=== PATIENT | female | born 1955 | race Caucasian/White ===

== ENCOUNTER 2016-05-17 08:34 | Observation (INO) ==
--- NOTE | 2016-05-17 08:39 | Emergency Department Note ---
Disposition Clinical Impression: ADONIS (acute kidney injury), Hematemesis, Melena, Nausea & vomiting Disposition: Admitted As Inpatient Condition: Fair General Adult HPI - General Chief complaint: ED Nausea/Vomiting/Diarrhea Stated complaint: N/V/D Time Seen by Provider: 05/17/16 08:37 - Related Data Home Medications Medication Instructions Recorded Confirmed Aspirin 81 mg PO QAM 11/14/14 05/17/16 Atorvastatin [Lipitor] 40 mg PO DAILY 11/14/14 05/17/16 Sennosides/Docusate Sodium [Senna 1 tab PO DAILY PRN 11/14/14 05/17/16 Plus] Apixaban [Eliquis] 5 mg PO BID 12/06/15 05/17/16 Gabapentin [Neurontin] 1,200 mg PO 12/06/15 05/17/16 Insulin ASPART [Novolog Flexpen] 10 unit SQ QPM 12/06/15 05/17/16 Insulin Glargine [Lantus] 80 unit SQ HS 12/06/15 05/17/16 Metoprolol XL (24 HR) Succ [Toprol 50 mg PO HS 12/06/15 05/17/16 Xl] Duloxetine HCl [Cymbalta] 120 mg PO QA 05/17/16 05/17/16 Empagliflozin [Jardiance] 25 mg PO QA 05/17/16 05/17/16 Glimepiride [Amaryl] 4 mg PO QA 05/17/16 05/17/16 Liraglutide [Victoza 2-Aubrey] 1.2 mg SQ DAILY 05/17/16 05/17/16 Lisinopril [Zestril] 20 mg PO DAILY 05/17/16 05/17/16 Nortriptyline [Pamelor] 25 mg PO QA 05/17/16 05/17/16 Pantoprazole Sodium [Protonix] 40 mg PO 05/17/16 05/17/16 Propafenone HCl [Rythmol Sr] 325 mg PO BID 05/17/16 05/17/16 Quetiapine Fumarate [Seroquel] 200 mg PO 05/17/16 05/17/16 Spironolactone [Aldactone] 25 mg PO QAM 05/17/16 05/17/16 Previous Rx's Medication Instructions Recorded Promethazine [Phenergan] 25 mg PO Q8HR PRN #21 tablet 03/26/15 Amitriptyline [Elavil] 25 mg PO HS #30 tablet 08/23/15 Allergies Allergy/AdvReac Type Severity Reaction Status Date / Time Sulfa (Sulfonamide Allergy Severe Anaphylaxis Verified 05/17/16 08:53 Antibiotics) Penicillins Allergy Unknown unknown Verified 05/17/16 08:53 prednisone AdvReac Mild swelling Verified 05/17/16 08:53 Past Medical History - Past Medical History Medical history: Reports: arthritis, atrial fibrillation, COPD, CVA, diabetes, fibromyalgia, GERD, hyperlipidemia, hypertension, migraine, osteoporosis, TIA, other Surgical history: Reports: appendectomy, hysterectomy, other Psychiatric history: Reports: anxiety, depression - Social History Smoking Status: Current every day smoker Smokeless Tobacco Status: No Alcohol use: Reports: none Drug use: Reports: none Course Vital Signs Temperature 98.2 F 05/17/16 08:36 Pulse Rate 96 05/17/16 08:36 Respiratory Rate 18 05/17/16 08:36 Blood Pressure 111/63 05/17/16 08:36 O2 Sat by Pulse Oximetry 98 05/17/16 08:36 Temperature 98.2 F 05/17/16 08:36 Pulse Rate 94 05/17/16 12:26 Respiratory Rate 17 05/17/16 12:33 Blood Pressure 126/77 05/17/16 12:33 O2 Sat by Pulse Oximetry 97 05/17/16 12:26 Oxygen Delivery Oxygen Delivery Room Air Medical Decision Making - Lab Data Result diagrams: 05/17/16 09:08 05/17/16 09:08 Lab Results 05/17/16 05/17/16 05/17/16 Range/Units 09:08 09:08 09:08 WBC 7.9 (4.3-11.1) K/mcL RBC 4.52 (3.82-4.97) M/mcL Hgb 14.2 (11.5-15.4) g/dL Hct 41.0 (35.3-44.9) % MCV 90.7 (83.0-100.0) fL MCH 31.4 (28.0-33.3) pg MCHC 34.6 (31.6-35.5) g/dL RDW 13.7 (11.5-14.5) % Plt Count 222 (140-400) K/mcL MPV 9.8 (9.4-12.4) fL Immature Gran % 0.4 (0-4) % Seg Neutrophils % 68.7 % Lymphocytes % 19.2 % Monocytes % 11.2 % Eosinophils % 0.0 % Basophils % 0.5 % Neutrophils # 5.4 (1.6-8.9) K/mcL Lymphocytes # 1.5 (0.6-4.6) K/mcL Monocytes # 0.9 (0.0-1.3) K/mcL Eosinophils # 0.0 (0.0-0.6) K/mcL Basophils # 0.0 (0.0-0.2) K/mcL Immature Plt Fraction 3.3 (1.1-6.1) % PT 17.2 H (9.4-12.1) Seconds INR 1.6 Sodium 136 (136-145) mEq/L Potassium 3.9 (3.5-4.5) mEq/L Chloride 98 (98-109) mEq/L Carbon Dioxide 20 (19-29) mEq/L BUN 86 H (7-20) mg/dL Creatinine 2.72 H (0.57-1.11) mg/dL Est GFR ( Amer) 22 L (> 60) Est GFR (Non-Af Amer) 18 L (> 60) BUN/Creatinine Ratio 32 H (6-26) Glucose 129 H (70-99) mg/dL Calculated Osmolality 310 H (280-300) Calcium 9.9 (8.6-10.8) mg/dL Total Bilirubin 1.0 (0.2-1.2) mg/dL AST 14 (5-34) Units/L ALT 15 (0-55) Units/L Alkaline Phosphatase 59 (38-126) Units/L Troponin I (0-0.03) ng/mL Serum Total Protein 8.3 (6.0-8.3) g/dL Albumin 4.1 (3.5-5.0) g/dL Globulin 4.2 H (2.4-3.5) g/dL Albumin/Globulin Ratio 1.0 L (1.1-2.2) Amylase 79 (25-125) Units/L Lipase 18 (8-78) Units/L Urine Color (Yellow) Urine Clarity (Clear) Urine pH (5.0-8.0) pH Units Ur Specific [place] (1.010-1.025) Urine Protein (Neg-Trace) mg/dL Urine Glucose (UA) (Normal) mg/dL Urine Ketones (Negative) mg/dL Urine Blood (Negative) Urine Nitrite (Negative) Urine Bilirubin (Negative) Urine Urobilinogen (Normal) mg/dL Ur Leukocyte Esterase (Negative) Stool Occult Blood (Negative) 05/17/16 05/17/16 05/17/16 Range/Units 09:08 09:34 09:45 WBC (4.3-11.1) K/mcL RBC (3.82-4.97) M/mcL Hgb (11.5-15.4) g/dL Hct (35.3-44.9) % MCV (83.0-100.0) fL MCH (28.0-33.3) pg MCHC (31.6-35.5) g/dL RDW (11.5-14.5) % Plt Count (140-400) K/mcL MPV (9.4-12.4) fL Immature Gran % (0-4) % Seg Neutrophils % % Lymphocytes % % Monocytes % % Eosinophils % % Basophils % % Neutrophils # (1.6-8.9) K/mcL Lymphocytes # (0.6-4.6) K/mcL Monocytes # (0.0-1.3) K/mcL Eosinophils # (0.0-0.6) K/mcL Basophils # (0.0-0.2) K/mcL Immature Plt Fraction (1.1-6.1) % PT (9.4-12.1) Seconds INR Sodium (136-145) mEq/L Potassium (3.5-4.5) mEq/L Chloride (98-109) mEq/L Carbon Dioxide (19-29) mEq/L BUN (7-20) mg/dL Creatinine (0.57-1.11) mg/dL Est GFR ( Amer) (> 60) Est GFR (Non-Af Amer) (> 60) BUN/Creatinine Ratio (6-26) Glucose (70-99) mg/dL Calculated Osmolality (280-300) Calcium (8.6-10.8) mg/dL Total Bilirubin (0.2-1.2) mg/dL AST (5-34) Units/L ALT (0-55) Units/L Alkaline Phosphatase (38-126) Units/L Troponin I 0.01 (0-0.03) ng/mL Serum Total Protein (6.0-8.3) g/dL Albumin (3.5-5.0) g/dL Globulin (2.4-3.5) g/dL Albumin/Globulin Ratio (1.1-2.2) Amylase (25-125) Units/L Lipase (8-78) Units/L Urine Color Yellow (Yellow) Urine Clarity Clear (Clear) Urine pH 5.5 (5.0-8.0) pH Units Ur Specific [place] 1.021 (1.010-1.025) Urine Protein Negative (Neg-Trace) mg/dL Urine Glucose (UA) >=1000 H (Normal) mg/dL Urine Ketones Negative (Negative) mg/dL Urine Blood Negative (Negative) Urine Nitrite Negative (Negative) Urine Bilirubin Negative (Negative) Urine Urobilinogen Normal (Normal) mg/dL Ur Leukocyte Esterase Negative (Negative) Stool Occult Blood Positive A (Negative) Attestation Statement - Attestation Attestation: I examined this patient and my medical decision-making was reviewed with the [employer] PATTERN MAKER/PA/Advanced Practice Nurse/Resident Physician. I agree with the documented findings, disposition and treatment plan as described except to the extent set forth below. [id number] time Patient presents from home via EMS with nausea and vomiting. She appears in no acute distress. Home medication list reviewed by me. Patient seen and evaluated in conjunction with resident physician Dr. Loredo 10:00: Rectal exam performed by the resident physician negative for gross blood. Stool is Hemoccult positive. BUN to creatinine ratio suggests an upper GI bleed. Patient is hemodynamically stable. Hemoglobin appropriate. Patient will require admission 10:07: accepts admission. He recommends IV Protonix bolus without drift. He recommends consultation to endoscopy. Dr. Frederick made aware of consult
[2016-05-17] MEDS ORDERED: Ondansetron 4 MG/2 ML VIAL IV ONE (08:47)
[2016-05-17] MEDS ORDERED: Famotidine 20 MG/2 ML VIAL IVP ONE (08:47)
[2016-05-17] MEDS ORDERED: 0.9 % Sodium Chloride 1,000 ML IVC ONE ×2 (08:47→09:57)
--- NOTE | 2016-05-17 08:47 | Emergency Department Note ---
Disposition Clinical Impression: ADONIS (acute kidney injury), Melena Hematemesis Qualifiers: Nausea presence: with nausea Qualified Code(s): K92.0 - Hematemesis Nausea & vomiting Qualifiers: Vomiting type: hematemesis Qualified Code(s): K92.0 - Hematemesis Disposition: Admitted As Inpatient Condition: Fair Referrals: Sohan Gonsales MD [Primary Care Provider] - Forms: ED Satisfaction Letter Time of Disposition: 11:18 Nausea/Vomiting/Diarrhea HPI - General Chief complaint: ED Nausea/Vomiting/Diarrhea Stated complaint: N/V/D Time Seen by Provider: 05/17/16 08:37 Source: patient Mode of arrival: EMS Nursing Notes Reviewed: Yes Vital Signs Reviewed: Yes - History of Present Illness HPI Narrative: Patient is a 60 year old female with history of hyeprtension, diabetes, stroke in 2016 with reported left sided weakness, back surgery with plate placement in 2003, and surgical history of cholecystectomy who presents to the ED via EMS from home with complaint of nausea and vomiting for the past 3 weeks. Patient reports she has been unable to tolerate food and liquids to any extent without vomiting. Vomitus was initially yellow without blood, this morning reports black specks and orange vomitus. Patient also reports burning of the throat, chest tingling, shortness of breath, lightheadedness, and chills. Also reports some mild abdominal pain, passing gas, and last bowel movement diarrhea watery that was black yesterday evening. Patient has not been taking medication for symptoms. Patient reports that she decided to come in today because she thought the nausea and vomiting went away last night, but returned this morning and not associated with particular worsening of symptoms. Denies fevers, sweats , headaches, changes in vision or hearing, chest pain or pressure, changes in urination, dysuria, hematuria, decreased urination, new weakness, or loss of sensation. Pt Subjective Complaint: nausea, vomiting Onset (ago): week(s) - Related Data Home Medications Medication Instructions Recorded Confirmed Aspirin 81 mg PO QAM 11/14/14 12/06/15 Atorvastatin [Lipitor] 40 mg PO HS 11/14/14 12/06/15 Sennosides/Docusate Sodium [Senna 1 tab PO DAILY 11/14/14 12/06/15 Plus] Apixaban [Eliquis] 5 mg PO BID 12/06/15 12/06/15 Gabapentin [Neurontin] 600 mg PO TID 12/06/15 12/06/15 Insulin ASPART [Novolog Flexpen] 10 unit SQ QPM 12/06/15 12/06/15 Insulin Glargine [Lantus] 60 unit SQ HS 12/06/15 12/06/15 Metoprolol XL (24 HR) Succ [Toprol 50 mg PO DAILY 12/06/15 12/06/15 Xl] Duloxetine HCl [Cymbalta] 120 mg PO QAM 05/17/16 05/17/16 Empagliflozin [Jardiance] 25 mg PO QAM 05/17/16 05/17/16 Glimepiride [Amaryl] 4 mg PO QAM 05/17/16 05/17/16 Liraglutide [Victoza 2-Aubrey] 1.2 mg SQ DAILY 05/17/16 05/17/16 Lisinopril [Zestril] 20 mg PO DAILY 05/17/16 05/17/16 Nortriptyline [Pamelor] 25 mg PO QAM 05/17/16 05/17/16 Pantoprazole Sodium [Protonix] 40 mg PO HS 05/17/16 05/17/16 Propafenone HCl [Rythmol Sr] 325 mg PO BID 05/17/16 05/17/16 Quetiapine Fumarate [Seroquel] 200 mg PO HS 05/17/16 05/17/16 Spironolactone [Aldactone] 25 mg PO QAM 05/17/16 05/17/16 Previous Rx's Medication Instructions Recorded Promethazine [Phenergan] 25 mg PO Q8HR PRN #21 tablet 03/26/15 Amitriptyline [Elavil] 25 mg PO HS #30 tablet 08/23/15 Allergies Allergy/AdvReac Type Severity Reaction Status Date / Time Sulfa (Sulfonamide Allergy Severe Anaphylaxis Verified 05/17/16 08:53 Antibiotics) Penicillins Allergy Unknown unknown Verified 05/17/16 08:53 prednisone AdvReac Mild swelling Verified 05/17/16 08:53 Constitutional: Reports: as per HPI, chills, weakness. Denies: fever, night sweats Eyes: Reports: as per HPI ENT ED: Reports: as per HPI Cardiovascular: Reports: as per HPI. Denies: chest pain, palpitations, edema, syncope Respiratory: Reports: as per HPI, dyspnea. Denies: cough, wheezes, sputum production Gastrointestinal: Reports: as per HPI, abdominal pain, nausea, vomiting, diarrhea, hematemesis, melena, hematochezia. Denies: constipation Genitourinary: Reports: as per HPI. Denies: dysuria, frequency, hematuria Musculoskeletal: Reports: as per HPI, back pain. Denies: neck pain Integumentary: Reports: as per HPI. Denies: rash, abrasion, lesions Neurological: Reports: as per HPI, weakness. Denies: headache, numbness, paresthesias, confusion, abnormal gait, vertigo Psychiatric: Reports: as per HPI Endocrine: Reports: as per HPI Hematological/Lymphatic: Reports: as per HPI. Denies: easy bleeding, easy bruising Past Medical History - Past Medical History Medical history: Reports: arthritis, atrial fibrillation, COPD, CVA, diabetes, fibromyalgia, GERD, hyperlipidemia, hypertension, migraine, osteoporosis, TIA, other Surgical history: Reports: appendectomy, hysterectomy, other Psychiatric history: Reports: anxiety, depression - Social History Smoking Status: Current every day smoker Smokeless Tobacco Status: No Alcohol use: Reports: none Drug use: Reports: none Physical Exam - General Limitations: no limitations General appearance: alert, in distress (mild), obese - Head Head exam: atraumatic, normocephalic, normal inspection - Eye Eye exam: Present: normal appearance, PERRL, EOMI - ENT ENT exam: normal exam, normal oropharynx, mucous membranes dry - Neck Neck exam: Present: normal inspection, full ROM, trachea midline - Chest Chest inspection: Present: normal inspection, symmetric chest wall rise - Respiratory Respiratory exam: Present: normal lung sounds bilaterally, prolonged expiratory phase, other (tachypnea) - Cardiovascular Cardiovascular exam: Present: normal rhythm, tachycardia, normal heart sounds. Absent: systolic murmur - Abdominal Exam Abdominal exam: Present: soft, tenderness, guarding, hypoactive bowel sounds. Absent: distention, rebound, rigidity Abdominal tenderness: Present: RUQ - Rectal Exam [employer] present during exam: Yes Rectal exam: Present: normal rectal tone, heme (+) stool, hemorrhoids, other ( external hemorrhoid note, no overt blood, sample brown no overt blood, normal rectal tone). Absent: black stool, bloody stool, mass, tenderness - Extremities Exam Extremities exam: Present: normal inspection, full ROM, normal capillary refill. Absent: tenderness, pedal edema, calf tenderness - Back Exam Back exam: Present: full ROM, other (surgical scars noted) - Neurological Exam Neurological exam: Present: alert, oriented X3, CN II-XII intact, reflexes normal. Absent: motor sensory deficit - Psychiatric Psychiatric exam: Present: normal affect, normal mood - Skin Skin exam: Present: warm, dry, intact, normal color. Absent: rash, cyanosis, diaphoresis, erythema, pallor Course Course Narrative: Patient is a poor historian who presents with 3 week history of nausea, vomiting , inability to tolerate food and liquids by mouth, abdominal pain, and chills. New onset black stools and hematemesis. Based on history and exam, may be suggestive of gi etiology possibly partial sbo vs bleed most likely upper, though cardiac and pulmonary causes will also be worked up due to complaint of chest tingling and shortness of breath. - Consultations Consultation #1: Spoke with Dr. Brown, hospitalist. will admit. Time: 10:15 Consultation #2: spoke with Dr. Frederick, surgery, will accept consult for evaluation and possible endoscopy. Time: 10:15 Vital Signs Temperature 98.2 F 05/17/16 08:36 Pulse Rate 96 05/17/16 08:36 Respiratory Rate 18 05/17/16 08:36 Blood Pressure 111/63 05/17/16 08:36 O2 Sat by Pulse Oximetry 98 05/17/16 08:36 Temperature 98.2 F 05/17/16 08:36 Pulse Rate 89 05/17/16 11:13 Respiratory Rate 17 05/17/16 11:13 Blood Pressure 103/81 05/17/16 11:13 O2 Sat by Pulse Oximetry 99 05/17/16 11:13 Oxygen Delivery Oxygen Delivery Room Air Nausea/Vomiting/Diarrhea - MDM Narrative Medical decision making narrative: Patient is a 60 year old female who presents with hematemesis this morning and black stools for the past 3 weeks. Also reports nausea and vomiting x 3 weeks. Labs reveal elevated Creatinine, elevated BUN, hemoccult is positive. CT revealed hiatal hernia, otherwise negative. Will admit for gi bleed evaluation. Patient is on Eliquis. - Lab Data Lab results reviewed: Yes I reviewed the patient's lab results. Result diagrams: 05/17/16 09:08 05/17/16 09:08 Lab Results 05/17/16 05/17/16 05/17/16 Range/Units 09:08 09:08 09:08 WBC 7.9 (4.3-11.1) K/mcL RBC 4.52 (3.82-4.97) M/mcL Hgb 14.2 (11.5-15.4) g/dL Hct 41.0 (35.3-44.9) % MCV 90.7 (83.0-100.0) fL MCH 31.4 (28.0-33.3) pg MCHC 34.6 (31.6-35.5) g/dL RDW 13.7 (11.5-14.5) % Plt Count 222 (140-400) K/mcL MPV 9.8 (9.4-12.4) fL Immature Gran % 0.4 (0-4) % Seg Neutrophils % 68.7 % Lymphocytes % 19.2 % Monocytes % 11.2 % Eosinophils % 0.0 % Basophils % 0.5 % Neutrophils # 5.4 (1.6-8.9) K/mcL Lymphocytes # 1.5 (0.6-4.6) K/mcL Monocytes # 0.9 (0.0-1.3) K/mcL Eosinophils # 0.0 (0.0-0.6) K/mcL Basophils # 0.0 (0.0-0.2) K/mcL Immature Plt Fraction 3.3 (1.1-6.1) % PT 17.2 H (9.4-12.1) Seconds INR 1.6 Sodium 136 (136-145) mEq/L Potassium 3.9 (3.5-4.5) mEq/L Chloride 98 (98-109) mEq/L Carbon Dioxide 20 (19-29) mEq/L BUN 86 H (7-20) mg/dL Creatinine 2.72 H (0.57-1.11) mg/dL Est GFR ( Amer) 22 L (> 60) Est GFR (Non-Af Amer) 18 L (> 60) BUN/Creatinine Ratio 32 H (6-26) Glucose 129 H (70-99) mg/dL Calculated Osmolality 310 H (280-300) Calcium 9.9 (8.6-10.8) mg/dL Total Bilirubin 1.0 (0.2-1.2) mg/dL AST 14 (5-34) Units/L ALT 15 (0-55) Units/L Alkaline Phosphatase 59 (38-126) Units/L Troponin I (0-0.03) ng/mL Serum Total Protein 8.3 (6.0-8.3) g/dL Albumin 4.1 (3.5-5.0) g/dL Globulin 4.2 H (2.4-3.5) g/dL Albumin/Globulin Ratio 1.0 L (1.1-2.2) Amylase 79 (25-125) Units/L Lipase 18 (8-78) Units/L Urine Color (Yellow) Urine Clarity (Clear) Urine pH (5.0-8.0) pH Units Ur Specific [place] (1.010-1.025) Urine Protein (Neg-Trace) mg/dL Urine Glucose (UA) (Normal) mg/dL Urine Ketones (Negative) mg/dL Urine Blood (Negative) Urine Nitrite (Negative) Urine Bilirubin (Negative) Urine Urobilinogen (Normal) mg/dL Ur Leukocyte Esterase (Negative) Stool Occult Blood (Negative) 05/17/16 05/17/16 05/17/16 Range/Units 09:08 09:34 09:45 WBC (4.3-11.1) K/mcL RBC (3.82-4.97) M/mcL Hgb (11.5-15.4) g/dL Hct (35.3-44.9) % MCV (83.0-100.0) fL MCH (28.0-33.3) pg MCHC (31.6-35.5) g/dL RDW (11.5-14.5) % Plt Count (140-400) K/mcL MPV (9.4-12.4) fL Immature Gran % (0-4) % Seg Neutrophils % % Lymphocytes % % Monocytes % % Eosinophils % % Basophils % % Neutrophils # (1.6-8.9) K/mcL Lymphocytes # (0.6-4.6) K/mcL Monocytes # (0.0-1.3) K/mcL Eosinophils # (0.0-0.6) K/mcL Basophils # (0.0-0.2) K/mcL Immature Plt Fraction (1.1-6.1) % PT (9.4-12.1) Seconds INR Sodium (136-145) mEq/L Potassium (3.5-4.5) mEq/L Chloride (98-109) mEq/L Carbon Dioxide (19-29) mEq/L BUN (7-20) mg/dL Creatinine (0.57-1.11) mg/dL Est GFR ( Amer) (> 60) Est GFR (Non-Af Amer) (> 60) BUN/Creatinine Ratio (6-26) Glucose (70-99) mg/dL Calculated Osmolality (280-300) Calcium (8.6-10.8) mg/dL Total Bilirubin (0.2-1.2) mg/dL AST (5-34) Units/L ALT (0-55) Units/L Alkaline Phosphatase (38-126) Units/L Troponin I 0.01 (0-0.03) ng/mL Serum Total Protein (6.0-8.3) g/dL Albumin (3.5-5.0) g/dL Globulin (2.4-3.5) g/dL Albumin/Globulin Ratio (1.1-2.2) Amylase (25-125) Units/L Lipase (8-78) Units/L Urine Color Yellow (Yellow) Urine Clarity Clear (Clear) Urine pH 5.5 (5.0-8.0) pH Units Ur Specific [place] 1.021 (1.010-1.025) Urine Protein Negative (Neg-Trace) mg/dL Urine Glucose (UA) >=1000 H (Normal) mg/dL Urine Ketones Negative (Negative) mg/dL Urine Blood Negative (Negative) Urine Nitrite Negative (Negative) Urine Bilirubin Negative (Negative) Urine Urobilinogen Normal (Normal) mg/dL Ur Leukocyte Esterase Negative (Negative) Stool Occult Blood Positive A (Negative) - Radiology Data Radiology results reviewed: Yes I reviewed the patient's radiology results. Abdomen/Pelvis CT 05/17/16 08:46 IMPRESSION: Small hiatal hernia. Otherwise negative noncontrast study. D/ / Kathy Anderson Cha, MD / Kathy Anderson Cha, MD Interpreting Provider: Kathy Anderson Cha, MD Chest X-Ray 05/17/16 08:46 IMPRESSION: No acute abnormality. D/ / Jack Bills MD / Jack Bills MD Interpreting Provider: Jack Bills MD - EKG Data EKG attestation: Yes I reviewed and interpreted this EKG. EKG results narrative: Normal sinus rhythm, no changes from comparison. Rate 97, pr int 178, qrs dur 70 ms, QT/QTc 368/423 ms, P-R-T axes 31 2 30, no st elevations or depressions noted, no t wave inversions noted.
[2016-05-17 09:17] LABS: Basophils % 0.5 %; Hemoglobin 14.2 g/dL (11.5-15.4); Immature Granulocytes % 0.4 % (0-4); Immature Platelets 3.3 % (1.1-6.1); Lymphocytes # 1.5 K/mcL (0.6-4.6); Lymphocytes % 19.2 %; Mean Corpuscular HGB Conc 34.6 g/dL (31.6-35.5); Mean Corpuscular Hemoglobin 31.4 pg (28.0-33.3); Mean Corpuscular Volume 90.7 fL (83.0-100.0); Mean Platelet Volume 9.8 fL (9.4-12.4); Monocytes # 0.9 K/mcL (0.0-1.3); Monocytes % 11.2 %; Neutrophils # 5.4 K/mcL (1.6-8.9); Platelet Count 222 K/mcL (140-400); Red Blood Count 4.52 M/mcL (3.82-4.97); Red Cell Distribution Width 13.7 % (11.5-14.5); Segmented Neutrophils % 68.7 %
[2016-05-17 09:24] LABS: INR 1.6; Prothrombin Time 17.2 Seconds (9.4-12.1)
[2016-05-17 09:34] LABS: Albumin 4.1 g/dL (3.5-5.0); Calcium 9.9 mg/dL (8.6-10.8); Globulin 4.2 g/dL (2.4-3.5); Potassium 3.9 mEq/L (3.5-4.5); Total Protein 8.3 g/dL (6.0-8.3)
[2016-05-17 09:55] LABS: Bilirubin,Urine Negative (Negative); Blood,Urine Negative (Negative); Clarity,Urine Clear (Clear); Color,Urine Yellow (Yellow); Glucose,Urine (UA) >=1000 mg/dL (Normal); Ketones,Urine Negative (Negative); Leukocyte Esterase,Urine Negative (Negative); Nitrite,Urine Negative (Negative); PH,Urine 5.5 pH Units (5.0-8.0); Protein,Urine Negative (Neg-Trace); Specific Gravity,Urine 1.021 (1.010-1.025); Urobilinogen,Urine Normal (Normal)
[2016-05-17] MEDS ORDERED: Pantoprazole 40 MG VIAL IVP ONE (10:05)
--- NOTE | 2016-05-17 12:34 | General Surgery Consult Note ---
<Pee Cleveland - Last Filed: 05/17/16 13:20> Date of Encounter: 05/17/16 Time of Encounter: 11:30 Assessment and Plan (1) Hematemesis Current Visit: Yes Status: Acute 2L fluid given in the ED. The patient is not currently anemic. Hb 14.2 upon arrival. Clear liquid diet, with no red products. NPO at midnight. Miralax bowl prep ordered. Patient denies ever having had a colonoscopy. EGD with colonoscopy tomorrow afternoon given prep is adequate. Will been done under MAC. Nausea control with Zofran and Phenergan PRN. Pain control. IV fluids Qualifiers: Nausea presence: with nausea Qualified Code(s): K92.0 - Hematemesis; R11.0 - Nausea (2) Melena Current Visit: Yes Status: Acute Secondary to upper GI bleed. See plan above. (3) RLQ abdominal pain Current Visit: Yes Status: Acute Patient has had appendectomy, hysterectomy, and cholecystectomy. Denies ever having had colonoscopy. See plan above for prep, with possible colonoscopy tomorrow with EGD. (4) Diabetes mellitus Current Visit: No Status: Chronic Management per medicine team. Qualifiers: Diabetes mellitus type: type 2 Diabetes mellitus complication status: with unspecified complications Diabetes mellitus technician terminal and repeater insulin use: with technician terminal and repeater use Qualified Code(s): E11.8 - Type 2 diabetes mellitus with unspecified complications (5) Acute kidney injury Current Visit: No Status: Acute Likely secondary to dehydration with 3 week reported history of N/V/D. Continue IV fluids. Continue to monitor. Avoid nephrotoxins. History of Present Illness Consult date: 05/17/16 Reason for consult: endoscopy Requesting physician: Clarence Capellan History of present illness: This is a 60 year old female with PMH significant for insulin dependent DM, atrial fibrillation, hypertension, previous stroke, and ,GERD who presented for nausea, vomiting, and diarrhea. She states that her symptoms started 3 weeks ago with greenish yellow vomit that progressed to orange with black flecks, and is now described as dark blackish vomit. She additionally has had loose watery stools during this 3 week period and has had several episodes of black tarry stools as well. She states her last dose of Elequis was yesterday, but she does not believe she was able to keep her medication down. She states her most recent bowel movement was yesterday. She describes having more than 5 episodes of vomiting per day and inability to tolerate solids or liquids. She has had a previous episode like this before more than one year ago. She denies history of ulcers, and states she has never had a colonoscopy. Past Med Surg Social Fam HX - Past Medical History Medical history: arthritis, atrial fibrillation, COPD, CVA, diabetes, fibromyalgia, GERD, hyperlipidemia, hypertension, migraine, osteoporosis, TIA, other Psychiatric history: anxiety, depression - Past Surgical History Surgical History: appendectomy, cholecystectomy, hysterectomy, other - Social History Smoking Status: Current every day smoker Smokeless Tobacco Status: No Alcohol use: none Drug use: none - Family History Mother Living Status: Hx Family Cardiac Disorders: Yes (NM) Hx Family Respiratory Disorders: Yes (COPD) Hx Family Cancer: Yes (Breast) Hx Family GI Disorders: No Hx Family Endocrine Disorder: No Hx Family Neuromuscular Disorders: No Hx Family Neurologic Disorders: No Hx Family HEENT Disorders: No Hx Family Autoimmune Disorders: No Father Living Status: Hx Family Cardiac Disorders: Yes (NM, HTN) Hx Family Respiratory Disorders: Yes (COPD) Hx Family Cancer: No Hx Family GI Disorders: No Hx Family Endocrine Disorder: No Hx Family Neuromuscular Disorders: No Hx Family Neurologic Disorders: No Hx Family HEENT Disorders: No Hx Family Autoimmune Disorders: No Medications and Allergies Aspirin 81 mg PO QAM 11/14/14 [History] Atorvastatin [Lipitor] 40 mg PO DAILY 11/14/14 [History] Sennosides/Docusate Sodium [Senna Plus] 1 tab PO DAILY PRN 11/14/14 [History] Promethazine [Phenergan] 25 mg PO Q8HR PRN #21 tablet 03/26/15 [Rx] Amitriptyline [Elavil] 25 mg PO HS #30 tablet 08/23/15 [Rx] Apixaban [Eliquis] 5 mg PO BID 12/06/15 [History] Gabapentin [Neurontin] 1,200 mg PO HS 12/06/15 [History] Insulin ASPART [Novolog Flexpen] 10 unit SQ QPM 12/06/15 [History] Insulin Glargine [Lantus] 80 unit SQ HS 12/06/15 [History] Metoprolol XL (24 HR) Succ [Toprol Xl] 50 mg PO HS 12/06/15 [History] Duloxetine HCl [Cymbalta] 120 mg PO QAM 05/17/16 [History] Empagliflozin [Jardiance] 25 mg PO QAM 05/17/16 [History] Glimepiride [Amaryl] 4 mg PO QAM 05/17/16 [History] Liraglutide [Victoza 2-Aubrey] 1.2 mg SQ DAILY 05/17/16 [History] Lisinopril [Zestril] 20 mg PO DAILY 05/17/16 [History] Nortriptyline [Pamelor] 25 mg PO QAM 05/17/16 [History] Pantoprazole Sodium [Protonix] 40 mg PO HS 05/17/16 [History] Propafenone HCl [Rythmol Sr] 325 mg PO BID 05/17/16 [History] Quetiapine Fumarate [Seroquel] 200 mg PO HS 05/17/16 [History] Spironolactone [Aldactone] 25 mg PO QAM 05/17/16 [History] Allergies Sulfa (Sulfonamide Antibiotics) Allergy (Severe, Verified 05/17/16 08:53) Anaphylaxis Penicillins Allergy (Unknown, Verified 05/17/16 08:53) unknown prednisone Adverse Reaction (Mild, Verified 05/17/16 08:53) swelling Review of Systems All systems PM: A 10-system review of systems was performed and is negative for pertinent findings except as documented above in the HPI. - Constitutional anorexia, chills, fatigue, headache(s), lethargy, malaise, weakness, no fever(s) - EENT Nose, mouth and throat: dry mouth, sore throat - Cardiovascular dyspnea, lightheadedness, palpitations, no chest pain, no pedal edema, no syncope - Respiratory cough, dyspnea - Gastrointestinal abdominal pain, diarrhea, hematemesis, melena, nausea, vomiting, no hematochezia - Genitourinary Genitourinary: no dysuria, no urinary frequency - Musculoskeletal back pain, no muscle weakness, no tingling - Integumentary no unusual bruising - Neurological no abnormal hearing, no burning sensations, no focal weakness, no loss of vision , no numbness, no paresthesias - Hematologic/Lymphatic no easy bleeding, no easy bruising General Surgery Exam Initial Vital Signs Temp Pulse Resp BP Pulse Ox 98.2 F 96 18 111/63 98 05/17/16 08:36 05/17/16 08:36 05/17/16 08:36 05/17/16 08:36 05/17/16 08:36 - General physical appearance well developed, well nourished, other (mild distress) - Eyes normal ocular movement - ENT dry mucosa, atraumatic, normocephalic - Neck trachea midline - Respiratory normal respiratory effort, clear to auscultation - Cardiovascular Cardiovascular exam: Present: RRR, no murmurs/rubs/gallops - Abdomen Abdomen general surgery: Present: bowel sounds present, soft, tender (Diffuse tenerness, worse in the RLQ), guarding. Absent: distended, rebound - Integumentary Integumentary general surgery: Present: warm and dry - Neurologic Present: CN 2-12 grossly intact - Musculoskeletal Present: normal posture - Psychiatric Psychiatric general surgery: Present: appropriate, oriented to person, oriented to place, oriented to time, speech is normal Exam Initial Vital Signs Temp Pulse Resp BP Pulse Ox 98.2 F 96 18 111/63 98 05/17/16 08:36 05/17/16 08:36 05/17/16 08:36 05/17/16 08:36 05/17/16 08:36 Results - Labs 05/17/16 09:08 05/17/16 09:08 Abnormal lab results PT 17.2 Seconds (9.4-12.1) H 05/17/16 09:08 BUN 86 mg/dL (7-20) H 05/17/16 09:08 Creatinine 2.72 mg/dL (0.57-1.11) H 05/17/16 09:08 Est GFR ( Amer) 22 (> 60) L 05/17/16 09:08 Est GFR (Non-Af Amer) 18 (> 60) L 05/17/16 09:08 BUN/Creatinine Ratio 32 (6-26) H 05/17/16 09:08 Glucose 129 mg/dL (70-99) H 05/17/16 09:08 Calculated Osmolality 310 (280-300) H 05/17/16 09:08 Globulin 4.2 g/dL (2.4-3.5) H 05/17/16 09:08 Albumin/Globulin Ratio 1.0 (1.1-2.2) L 05/17/16 09:08 Urine Glucose (UA) >=1000 mg/dL (Normal) H 05/17/16 09:45 Stool Occult Blood Positive (Negative) A 05/17/16 09:34 All other labs normal. Consult Discharge Plan - Plan Referrals: Sohan Gonsales MD [Primary Care Provider] - - Attending Attestation I examined this patient and my medical decision-making was reviewed with the MOLDING SANDER/PA/Advanced Practice Nurse/Resident Physician. I agree with the documented findings, disposition and treatment plan as described except to the extent set forth below. <Robbi Frederick M - Last Filed: 05/18/16 06:18> Date of Encounter: 05/18/16 Review of Systems All systems PM: A 10-system review of systems was performed and is negative for pertinent findings except as documented above in the HPI. General Surgery Exam Initial Vital Signs Temp Pulse Resp BP Pulse Ox 98.2 F 96 18 111/63 98 05/17/16 08:36 05/17/16 08:36 05/17/16 08:36 05/17/16 08:36 05/17/16 08:36 Exam Initial Vital Signs Temp Pulse Resp BP Pulse Ox 98.2 F 96 18 111/63 98 05/17/16 08:36 05/17/16 08:36 05/17/16 08:36 05/17/16 08:36 05/17/16 08:36 Results - Labs 05/17/16 21:00 05/17/16 09:08 Abnormal lab results RBC 3.80 M/mcL (3.82-4.97) L 05/17/16 21:00 Hct 34.9 % (35.3-44.9) L 05/17/16 21:00 PT 17.2 Seconds (9.4-12.1) H 05/17/16 09:08 BUN 86 mg/dL (7-20) H 05/17/16 09:08 Creatinine 2.72 mg/dL (0.57-1.11) H 05/17/16 09:08 Est GFR ( Amer) 22 (> 60) L 05/17/16 09:08 Est GFR (Non-Af Amer) 18 (> 60) L 05/17/16 09:08 BUN/Creatinine Ratio 32 (6-26) H 05/17/16 09:08 Glucose 129 mg/dL (70-99) H 05/17/16 09:08 POC Glucose 106 (58-89) H 05/18/16 06:00 Calculated Osmolality 310 (280-300) H 05/17/16 09:08 Globulin 4.2 g/dL (2.4-3.5) H 05/17/16 09:08 Albumin/Globulin Ratio 1.0 (1.1-2.2) L 05/17/16 09:08 Urine Glucose (UA) >=1000 mg/dL (Normal) H 05/17/16 09:45 Stool Occult Blood Positive (Negative) A 05/17/16 09:34 All other labs normal. - Attending Attestation I evaluated the patient and reviewed the assessment and physical exam with the resident present. Noted history of physical exam is mentioned above. Hematemesis with black tarry stool. No current abdominal pain positive bowel sounds. I reviewed the patient's laboratory studies which demonstrated at this time a normal-appearing hemoglobin. Patient has been on Elliquis as well. We will start a bowel prep and consider for EGD colonoscopy with MAC tomorrow. MAC is needed due to the patient's current medications and difficulty with sedation.
[2016-05-17] MEDS ORDERED: Naloxone 0.4 MG/ML INJ IVP PRN (13:04)
[2016-05-17] MEDS ORDERED: Dextrose Gel 15 GM PO PRN ×2 (13:10)
[2016-05-17] MEDS ORDERED: D5% in Water 1,000 ML IV PRN (13:10)
[2016-05-17] MEDS ORDERED: *HR* Dextrose 50 % in Water (Syg) 50 ML SYRINGE IVP PRN (13:10)
--- NOTE | 2016-05-17 13:12 | Internal Med History&Physical ---
Date of Encounter: 05/17/16 Time of Encounter: 13:11 Assessment and Plan (1) Hematemesis Status: Acute -IV fluids. -Pain control with morphine -Nausea and vomiting controlled: Phenergan/Zofran -Clear liquid diet -Nothing by mouth from midnight -Surgery on board for possible EGD/colonoscopy -We will follow the recommendations from surgery for further management Qualifiers: Nausea presence: with nausea Qualified Code(s): K92.0 - Hematemesis; R11.0 - Nausea (2) Melena Status: Acute Likely secondary to upper GI bleed. Surgery on board and we will follow the recommendations (3) ADONIS (acute kidney injury) Status: Acute Acute kidney injury is likely secondary to the prerenal cause. Possible reason for prerenal cause is dehydration/volume loss. We will continue IV fluids We will repeat labs tomorrow (4) A-fib Status: Chronic Known to have atrial fibrillation Rate is very well controlled She was taking Elliquis for A/C Elliquis is on hold for now. Qualifiers: Atrial fibrillation type: chronic Qualified Code(s): I48.2 - Chronic atrial fibrillation (5) Diabetes mellitus Status: Chronic ACHS SCSI Qualifiers: Diabetes mellitus type: type 2 Diabetes mellitus complication status: with unspecified complications Diabetes mellitus weigher and mixer insulin use: with correction use Qualified Code(s): E11.8 - Type 2 diabetes mellitus with unspecified complications (6) DVT prophylaxis Status: Acute SCD Medical decision making: As patient has multiple comorbidities and GI bleed, she is at risk for mild to moderate worsening of her status in spite of being on appropriate treatment Internal Medicine - H&P: HPI Chief complaint: GI Bleed Admitted From: Emergency Dept Plans for Post Hospital Care: Home History of present illness: PCP: Dr Gonsales. Brief PMH: insulin dependent DM, atrial fibrillation, hypertension, previous stroke, and ,GERD HPI: Patient is ongoing nausea vomiting and diarrhea for 3 weeks. In the last 48 hours patient's vomitus has become greenish black in color. This was the reason she came to emergency room for further evaluation. Patient also claims that her stools are black in color. Last bowel movement: Yesterday. In last 1- 4 hours patient had more than 10 episodes of vomiting. Out of which 2-3 episodes has greenish black color vomitus. Workup in the emergency room: Basic laboratory where drawn. CT scan of the abdomen and chest x-ray was done. CT scan showed mild had 2 hernia. 2 intravenous sites secured. IV fluids were given. Surgery was contacted for possible EGD. Reason for admission: Upper GI bleed Family history noncontributory Past Med Surg Social Fam HX - Past Medical History Medical history: arthritis, atrial fibrillation, COPD, CVA, diabetes, fibromyalgia, GERD, hyperlipidemia, hypertension, migraine, osteoporosis, TIA, other Psychiatric history: anxiety, depression - Past Surgical History Surgical History: appendectomy, cholecystectomy, hysterectomy, other - Social History Smoking Status: Current every day smoker Smokeless Tobacco Status: No Alcohol use: none Drug use: none - Family History Mother Living Status: Hx Family Cardiac Disorders: Yes (OR) Hx Family Respiratory Disorders: Yes (COPD) Hx Family Cancer: Yes (Breast) Hx Family GI Disorders: No Hx Family Endocrine Disorder: No Hx Family Neuromuscular Disorders: No Hx Family Neurologic Disorders: No Hx Family HEENT Disorders: No Hx Family Autoimmune Disorders: No Father Living Status: Hx Family Cardiac Disorders: Yes (OR, HTN) Hx Family Respiratory Disorders: Yes (COPD) Hx Family Cancer: No Hx Family GI Disorders: No Hx Family Endocrine Disorder: No Hx Family Neuromuscular Disorders: No Hx Family Neurologic Disorders: No Hx Family HEENT Disorders: No Hx Family Autoimmune Disorders: No Internal Medicine - H&P: Meds Atorvastatin [Lipitor] 40 mg PO DAILY 11/14/14 [History] Sennosides/Docusate Sodium [Senna Plus] 1 tab PO DAILY PRN 11/14/14 [History] Promethazine [Phenergan] 25 mg PO Q8HR PRN #21 tablet 03/26/15 [Rx] Amitriptyline [Elavil] 25 mg PO HS #30 tablet 08/23/15 [Rx] Apixaban [Eliquis] 5 mg PO BID 12/06/15 [History] Gabapentin [Neurontin] 1,200 mg PO HS 12/06/15 [History] Insulin ASPART [Novolog Flexpen] 10 unit SQ QPM 12/06/15 [History] Insulin Glargine [Lantus] 80 unit SQ HS 12/06/15 [History] Metoprolol XL (24 HR) Succ [Toprol Xl] 50 mg PO HS 12/06/15 [History] Duloxetine HCl [Cymbalta] 120 mg PO QAM 05/17/16 [History] Empagliflozin [Jardiance] 25 mg PO QAM 05/17/16 [History] Glimepiride [Amaryl] 4 mg PO QAM 05/17/16 [History] Liraglutide [Victoza 2-Aubrey] 1.2 mg SQ DAILY 05/17/16 [History] Lisinopril [Zestril] 20 mg PO DAILY 05/17/16 [History] Nortriptyline [Pamelor] 25 mg PO QAM 05/17/16 [History] Pantoprazole Sodium [Protonix] 40 mg PO HS 05/17/16 [History] Propafenone HCl [Rythmol Sr] 325 mg PO BID 05/17/16 [History] Quetiapine Fumarate [Seroquel] 200 mg PO HS 05/17/16 [History] Spironolactone [Aldactone] 25 mg PO QAM 05/17/16 [History] Insulin LISPRO [HumaLOG] 0 units SQ TIDAC vial 05/19/16 [Rx] Allergies Sulfa (Sulfonamide Antibiotics) Allergy (Severe, Verified 05/17/16 08:53) Anaphylaxis Penicillins Allergy (Unknown, Verified 05/17/16 08:53) unknown prednisone Adverse Reaction (Mild, Verified 05/17/16 08:53) swelling All Systems PM: A 10-system review of systems was performed and is negative for pertinent findings except as documented above in the HPI. - Constitutional Constitutional: no chills, no fever(s), no night sweats - EENT Eyes: no change in vision, no discharge, no pain, no photophobia Ears: no ear discharge, no ear pain, no tinnitus Nose, mouth and throat: no dysphagia, no nasal discharge, no neck pain, no sore throat - Cardiovascular Cardiovascular ROS IM: no chest pain, no diaphoresis, no dyspnea, no lightheadedness, no palpitations, no syncope - Respiratory Respiratory: no cough, no dyspnea, no wheezing, no excessive phlegm production - Gastrointestinal Gastrointestinal: abdominal pain, coffee ground emesis, excessive flatus, heartburn, loose stools, melena, nausea, no diarrhea, no hematemesis, no hematochezia, no vomiting - Genitourinary Genitourinary: no change in urinary stream, no dysuria, no flank pain, no hematuria - Musculoskeletal Musculoskeletal ROS IM: no numbness, no tingling - Integumentary Integumentary IM: no rash, no unusual bruising - Neurological Neurological ROS: no confusion, no convulsions, no focal weakness, no numbness, no tingling, no tremor(s) - Hematologic/Lymphatic Hematologic/Lymphatic: no easy bruising - Constitutional Vitals: Temp Pulse Resp BP Pulse Ox 97.9 F 100 18 100/49 99 05/17/16 12:55 05/17/16 12:55 05/17/16 12:55 05/17/16 12:55 05/17/16 12:55 General appearance: Present: A&O X 3, pleasant, no acute distress, answers questions appropriately - Head Head exam: Present: atraumatic, normocephalic - Eye Eye exam: Present: PERRL, conjuntiva pink, sclera anicteric Pupils: Present: PERRL - Neck Neck exam general surgery: Present: supple, trachea midline. Absent: lymphadenopathy - Respiratory Respiratory exam: Present: CTAB. Absent: accessory muscle use, rales, rhonchi, wheezes - Cardiovascular Cardiovascular exam: Present: RRR, +S1, +S2. Absent: diastolic murmur, gallop, rubs, systolic murmur - GI/Abdominal GI/Abdominal exam: Present: normal bowel sounds, soft, no peritoneal signs. Absent: distended, tenderness - Extremities Exam Extremities exam: Present: warm, radial pulses palpable and symetrical. Absent : calf tenderness, cyanotic, pedal edema - Neurological Exam Neurological exam: Present: CN II-XII intact, oriented X3, no focal deficits. Absent: pronater drift, facial droop, speech deficit - Skin Skin exam: Present: dry, intact Internal Med - H&P Results - Labs CBC & Chem 7: 05/19/16 11:59 05/19/16 11:59
[2016-05-17] MEDS ORDERED: 0.9 % Sodium Chloride 1,000 ML IVC SCH (13:15)
[2016-05-17] MEDS ORDERED: Polyethylene Glycol 3350 255 GM POWDER PO ONE (13:17)
[2016-05-17 14:23] LABS: Basophils # 0.1 K/mcL (0.0-0.2); Basophils % 0.7 %; Hematocrit 34.8 % (35.3-44.9); Immature Granulocytes % 0.7 % (0-4); Lymphocytes # 1.9 K/mcL (0.6-4.6); Mean Corpuscular HGB Conc 34.8 g/dL (31.6-35.5); Mean Corpuscular Volume 89.2 fL (83.0-100.0); Mean Platelet Volume 10.1 fL (9.4-12.4); Monocytes # 1.1 K/mcL (0.0-1.3); Neutrophils # 4.1 K/mcL (1.6-8.9); Platelet Count 170 K/mcL (140-400); Red Cell Distribution Width 13.5 % (11.5-14.5); Segmented Neutrophils % 57.6 %
[2016-05-17 14:24] LABS: Hemoglobin 12.1 g/dL (11.5-15.4)
[2016-05-17] MEDS: *HR* Promethazine 25 MG/ML VIAL IVP PRN (15:39)
[2016-05-17] MEDS: *HR* Morphine 2 MG/ML SYRINGE IVP PRN ×2 (15:43→21:33)
[2016-05-17] MEDS: Pantoprazole 40 MG VIAL IVP SCH (17:12)
[2016-05-17] MEDS: 0.9 % Sodium Chloride 1,000 ML IVC SCH (17:12)
[2016-05-17] MEDS: Insulin LISPRO 300 UNITS/3 ML VIAL SQ SCH (17:15)
[2016-05-17] MEDS ORDERED: NON-FORMULARY MEDICATION 1 EACH EACH (Insulin Glargine [Lantus] 80 UNIT) SQ SCH (21:00)
[2016-05-17 21:08] LABS: Basophils % 0.6 %; Hematocrit 34.9 % (35.3-44.9); Hemoglobin 11.8 g/dL (11.5-15.4); Immature Granulocytes % 0.3 % (0-4); Immature Platelets 2.6 % (1.1-6.1); Lymphocytes # 2.2 K/mcL (0.6-4.6); Lymphocytes % 30.4 %; Mean Corpuscular HGB Conc 33.8 g/dL (31.6-35.5); Mean Corpuscular Hemoglobin 31.1 pg (28.0-33.3); Mean Corpuscular Volume 91.8 fL (83.0-100.0); Mean Platelet Volume 9.7 fL (9.4-12.4); Monocytes # 1.2 K/mcL (0.0-1.3); Monocytes % 16.7 %; Neutrophils # 3.7 K/mcL (1.6-8.9); Platelet Count 183 K/mcL (140-400); Red Cell Distribution Width 13.8 % (11.5-14.5)
[2016-05-17] MEDS: PROPAFENONE HCL 325 MG PO SCH (21:21)
[2016-05-17] MEDS: Ondansetron 4 MG/2 ML VIAL IVP PRN (21:33)
[2016-05-18] MEDS: *HR* Promethazine 25 MG/ML VIAL IVP PRN ×2 (02:27→20:13)
[2016-05-18] MEDS: 0.9 % Sodium Chloride 1,000 ML IVC SCH ×5 (02:28→23:51)
[2016-05-18] MEDS: *HR* Morphine 2 MG/ML SYRINGE IVP PRN ×3 (02:31→20:13)
[2016-05-18] MEDS: Pantoprazole 40 MG VIAL IVP SCH ×2 (06:09→17:18)
[2016-05-18 06:35] LABS: Hematocrit 33.8 % (35.3-44.9); Hemoglobin 11.5 g/dL (11.5-15.4); Mean Corpuscular Hemoglobin 31.7 pg (28.0-33.3); Mean Corpuscular Volume 93.1 fL (83.0-100.0); Mean Platelet Volume 10.2 fL (9.4-12.4); Platelet Count 164 K/mcL (140-400); Red Blood Count 3.63 M/mcL (3.82-4.97); Red Cell Distribution Width 14.1 % (11.5-14.5); Segmented Neutrophils % 52.3 %
[2016-05-18 06:36] LABS: Basophils % 0.5 %; Immature Granulocytes % 0.3 % (0-4); Lymphocytes # 1.7 K/mcL (0.6-4.6); Lymphocytes % 28.6 %; Monocytes # 1.1 K/mcL (0.0-1.3); Monocytes % 18.3 %
[2016-05-18] MEDS: Insulin LISPRO 300 UNITS/3 ML VIAL SQ SCH ×3 (07:52→17:17)
[2016-05-18 08:32] LABS: Albumin 3.2 g/dL (3.5-5.0); Calcium 8.2 mg/dL (8.6-10.8); Globulin 3.1 g/dL (2.4-3.5); Magnesium 1.4 mg/dL (1.6-2.6); Phosphorous 2.4 mg/dL (2.3-4.7); Potassium 4.1 mEq/L (3.5-4.5); Total Protein 6.3 g/dL (6.0-8.3)
[2016-05-18] MEDS ORDERED: *HR* Glimepiride 4 MG TABLET PO SCH (09:00)
[2016-05-18] MEDS: Spironolactone 25 MG TABLET PO SCH (10:09)
[2016-05-18] MEDS: PROPAFENONE HCL 325 MG PO SCH ×2 (10:13→20:49)
--- NOTE | 2016-05-18 11:56 | Anesthesia Evaluation PreOp ---
Date of Encounter: 05/18/16 Time of Encounter: 11:54 - Past History Planned Operation: egd/cscope Cardiac History: HTN, Hyperlipidemia, Arrhythmia (AF), Other (echo 03/30: ef 60, nl rv. 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 SETUP OPERATOR History: CVA (left sided weakness), Other (fibromyalgia) Other Medical History: Renal (deyvi), Diabetes Type II, GERD, Other (hematochezia admit) Anesthesia History: No Prior Anesthetic Complications, Past Anesthesia (appy, kimmy, hysterect, cscope) Alcohol Use: none Drug use: none Medications and Allergies Aspirin 81 mg PO QAM 11/14/14 [History] Atorvastatin [Lipitor] 40 mg PO DAILY 11/14/14 [History] Sennosides/Docusate Sodium [Senna Plus] 1 tab PO DAILY PRN 11/14/14 [History] Promethazine [Phenergan] 25 mg PO Q8HR PRN #21 tablet 03/26/15 [Rx] Amitriptyline [Elavil] 25 mg PO HS #30 tablet 08/23/15 [Rx] Apixaban [Eliquis] 5 mg PO BID 12/06/15 [History] Gabapentin [Neurontin] 1,200 mg PO HS 12/06/15 [History] Insulin ASPART [Novolog Flexpen] 10 unit SQ QPM 12/06/15 [History] Insulin Glargine [Lantus] 80 unit SQ HS 12/06/15 [History] Metoprolol XL (24 HR) Succ [Toprol Xl] 50 mg PO HS 12/06/15 [History] Duloxetine HCl [Cymbalta] 120 mg PO QAM 05/17/16 [History] Empagliflozin [Jardiance] 25 mg PO QAM 05/17/16 [History] Glimepiride [Amaryl] 4 mg PO QAM 05/17/16 [History] Liraglutide [Victoza 2-Aubrey] 1.2 mg SQ DAILY 05/17/16 [History] Lisinopril [Zestril] 20 mg PO DAILY 05/17/16 [History] Nortriptyline [Pamelor] 25 mg PO QAM 05/17/16 [History] Pantoprazole Sodium [Protonix] 40 mg PO HS 05/17/16 [History] Propafenone HCl [Rythmol Sr] 325 mg PO BID 05/17/16 [History] Quetiapine Fumarate [Seroquel] 200 mg PO HS 05/17/16 [History] Spironolactone [Aldactone] 25 mg PO QAM 05/17/16 [History] Allergies Sulfa (Sulfonamide Antibiotics) Allergy (Severe, Verified 05/17/16 08:53) Anaphylaxis Penicillins Allergy (Unknown, Verified 05/17/16 08:53) unknown prednisone Adverse Reaction (Mild, Verified 05/17/16 08:53) swelling - Meds/Allergy Pre-op Review Medications Reviewed: Yes (was on eliquis) Allergies Reviewed: Yes Beta Blockers on Current Med List: Yes If Beta Blockers taken, Date/Time (Last Dose taken): metoprolol customer service consultant to give iv preop Anesthesia Results - Labs 05/18/16 05:42 05/18/16 08:04 - Imaging EKG: report reviewed (sr 11/28) Anesthesia Exam Vital Signs/O2 Sat/Glucose, Most Current Temp Pulse Resp BP Pulse Ox 05/18/16 11:36 98.3 F 98 16 116/67 96 Blood glucose: 84 (11:36) Weight: 87 NPO (# of Hours): >8 - HEENT Pupil (Motor): Pupils equal, EOMI Mallampati: III Teeth: Edentulous Oral Opening: Greater than 3 - LATHE SETUP OPERATOR LOC: Oriented LATHE SETUP OPERATOR Motor: Normal RUE, Normal RLE, Normal Face, Deficit LUE, Deficit LLE LATHE SETUP OPERATOR Sensory: Normal: RUE, RLE, Face, Deficit: LUE, LLE - Cardiac Rhythm: Regular Murmur: None - Pulmonary Breath Sounds: bilateral Clear Respiratory Effort: Symmetrical Anesthesia Assess/Plan ASA Score: 3 Modified Hungry Horse Scale for Level of Consciousness: Cooperative, oriented, and tranquil Anesthetic Plan: MAC Monitoring Plan: Standard Monitors Recovery Plan: Other
[2016-05-18] MEDS ORDERED: *HR* Metoprolol 5 MG/5 ML VIAL IVP ONE (12:34)
[2016-05-18] MEDS ORDERED: *HR* Propofol 200 MG/20 ML VIAL IVP ONE (12:34)
--- NOTE | 2016-05-18 12:39 | Anesthesia Evaluation Post Op ---
Date of Encounter: 05/18/16 Time of Encounter: 12:40 - Vital Signs Vital Signs: Vital Signs/O2 Sat, Most Current Temp Pulse Resp BP Pulse Ox 98.3 F 98 16 116/67 96 05/18/16 11:36 05/18/16 11:36 05/18/16 11:36 05/18/16 11:36 05/18/16 11:36 98/51, 96, 16, 98% - Lungs Lungs: Clear Ascult./Percussion - Airway Airway: Non-obstructed - Cardiovascular Regular Rate - Mental Status Mental Status: Alert & Oriented, Answers Appropriately - Pain Pain Scale: 0 Pain Scale used: Numeric (1 - 10) - Nausea Vomiting Nausea Vomiting: Not Present - Hydration Hydration: NPO, Has not voided - Discharge PostOp Status: Transfer Patient to floor
--- NOTE | 2016-05-18 12:42 | Event Note ---
Date of Encounter: 05/18/16 Time of Encounter: 12:40 S/p EGD and colonoscopy. EGD demonstrated a GE ring with no signs of bleeding. Cardia with erythema. Biopsy obtained. No active signs of bleeding. Colon demonstrated mild hemorrhoids and small diverticulum. No masses or polyps. OK to advance diet. Patient does not need follow up as outpatient- will call her with biopsy results. Thank you.
[2016-05-18] MEDS ORDERED: Magnesium Sulfate 1 GM in D5% in Water 100 ML IVPB ONE (13:05)
--- NOTE | 2016-05-18 13:56 | Internal Med Progress Note ---
Date of Encounter: 05/18/16 Time of Encounter: 13:52 - Assessment and plan (1) UGIB (upper gastrointestinal bleed) Current Visit: Yes Status: Acute Assessment and plan: s/p EGD and colonoscopy, EGD demonstrated a GE ring with no signs of bleeding. Cardia with erythema. Biopsy obtained. No active signs of bleeding. Colon demonstrated mild hemorrhoids and small diverticulum. No masses or polyps. h/h stable, will rpeat cbc tomm. plan dc if stable. (2) Nausea & vomiting Current Visit: Yes Status: Acute Assessment and plan: has resolved, will start diet. Qualifiers: Vomiting type: hematemesis Qualified Code(s): K92.0 - Hematemesis; R11.0 - Nausea (3) A-fib Current Visit: No Status: Chronic Assessment and plan: will restart her home meds, and will also continue the eliquis. Qualifiers: Atrial fibrillation type: chronic Qualified Code(s): I48.2 - Chronic atrial fibrillation (4) Diabetes mellitus Current Visit: No Status: Chronic Qualifiers: Diabetes mellitus type: type 2 Diabetes mellitus complication status: with unspecified complications Diabetes mellitus jail insulin use: with vermin exterminator use Qualified Code(s): E11.8 - Type 2 diabetes mellitus with unspecified complications (5) ADONIS (acute kidney injury) Current Visit: Yes Status: Acute Assessment and plan: has improved, possible secondary to nausea and vomiting. have restarted nathen diet and will continue IV fluids at 80 for now. Creatinine improved and history, we will continue to monitor. - Time Spent With Patient 25 - 35 minutes - Subjective Interval history: seen at the bedside, admitted for possible UGIB denies any complains, just came back from EGD/colonoscopy no activ ebleed. - Constitutional Vitals: Temp Pulse Resp BP Pulse Ox 98.3 F 98 16 116/67 96 05/18/16 11:36 05/18/16 11:36 05/18/16 11:36 05/18/16 11:36 05/18/16 11:36 General appearance: Present: A&O X 3, pleasant, no acute distress, answers questions appropriately Exam: - Head Head exam: Present: atraumatic, normocephalic - Eye Eye exam: Present: PERRL, conjuntiva pink, sclera anicteric Pupils: Present: PERRL - Neck Neck exam general surgery: Present: supple, trachea midline. Absent: lymphadenopathy - Respiratory Respiratory exam: Present: CTAB. Absent: accessory muscle use, rales, rhonchi, wheezes - Cardiovascular Cardiovascular exam: Present: RRR, +S1, +S2. Absent: diastolic murmur, gallop, rubs, systolic murmur - GI/Abdominal GI/Abdominal exam: Present: normal bowel sounds, soft, no peritoneal signs. Absent: distended, tenderness - Extremities Exam Extremities exam: Present: warm, radial pulses palpable and symetrical. Absent : calf tenderness, cyanotic, pedal edema - Neurological Exam Neurological exam: Present: CN II-XII intact, oriented X3, no focal deficits. Absent: pronater drift, facial droop, speech deficit - Skin Skin exam: Present: dry, intact Internal Medicine: Result - Labs CBC & Chem 7: 05/18/16 05:42 05/18/16 08:04 Labs: Short CBC 05/17/16 05/18/16 Range/Units 21:00 05:42 WBC 7.1 5.8 (4.3-11.1) K/mcL Hgb 11.8 11.5 (11.5-15.4) g/dL Hct 34.9 L 33.8 L (35.3-44.9) % Plt Count 183 164 (140-400) K/mcL Neutrophils # 3.7 3.0 (1.6-8.9) K/mcL BMP 05/18/16 08:04 Sodium 137 Potassium 4.1 Chloride 109 Carbon Dioxide 20 BUN 39 H D Creatinine 1.12 H D Glucose 112 H Calcium 8.2 L D Liver Function 05/18/16 Range/Units 08:04 Total Bilirubin 1.0 (0.2-1.2) mg/dL AST 16 (5-34) Units/L ALT 13 (0-55) Units/L Alkaline Phosphatase 43 (38-126) Units/L Albumin 3.2 L D (3.5-5.0) g/dL - ABG Interpretation ABG results: PT/INR, D-dimer PT 17.2 Seconds (9.4-12.1) H 05/17/16 09:08 Consult Discharge Plan - Plan Referrals: Sohan Gonsales MD [Primary Care Provider] -
[2016-05-18] MEDS: Ondansetron 4 MG/2 ML VIAL IVP PRN (15:16)
--- NOTE | 2016-05-18 16:52 | Electrocardiograph Report ---
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
[2016-05-18] MEDS ORDERED: *HR* Heparin 5,000 UNIT/ML VIAL SQ SCH (18:00)
[2016-05-18] MEDS: APIXABAN 5 MG TABLET PO SCH (20:49)
[2016-05-18] MEDS ORDERED: Gabapentin 400 MG CAPSULE PO SCH (21:00)
[2016-05-18] MEDS ORDERED: Metoprolol XL (24 HR) Succ 50 MG TAB.ER.24H PO SCH (21:00)
[2016-05-19] MEDS: Pantoprazole 40 MG VIAL IVP SCH (06:15)
[2016-05-19] MEDS: Insulin LISPRO 300 UNITS/3 ML VIAL SQ SCH ×2 (07:42→12:03)
--- NOTE | 2016-05-19 07:49 | Internal Med Progress Note ---
Date of Encounter: 05/19/16 - Constitutional Vitals: Temp Pulse Resp BP Pulse Ox 98.5 F 81 15 103/49 93 L 05/19/16 07:19 05/19/16 07:19 05/19/16 07:19 05/19/16 07:19 05/19/16 07:19 General appearance: Present: A&O X 3, pleasant, no acute distress, answers questions appropriately Internal Medicine: Result - Labs CBC & Chem 7: 05/18/16 05:42 05/18/16 08:04 Labs: BMP 05/18/16 08:04 Sodium 137 Potassium 4.1 Chloride 109 Carbon Dioxide 20 BUN 39 H D Creatinine 1.12 H D Glucose 112 H Calcium 8.2 L D Liver Function 05/18/16 Range/Units 08:04 Total Bilirubin 1.0 (0.2-1.2) mg/dL AST 16 (5-34) Units/L ALT 13 (0-55) Units/L Alkaline Phosphatase 43 (38-126) Units/L Albumin 3.2 L D (3.5-5.0) g/dL - ABG Interpretation ABG results: PT/INR, D-dimer PT 17.2 Seconds (9.4-12.1) H 05/17/16 09:08 Consult Discharge Plan - Plan Referrals: Sohan Gonsales MD [Primary Care Provider] -
[2016-05-19] MEDS ORDERED: Lisinopril 20 MG TABLET PO SCH (09:00)
[2016-05-19] MEDS ORDERED: Aspirin 81 MG TAB.CHEW PO SCH (09:00)
[2016-05-19] MEDS: APIXABAN 5 MG TABLET PO SCH (09:32)
[2016-05-19] MEDS: Spironolactone 25 MG TABLET PO SCH (09:33)
[2016-05-19] MEDS: *HR* Morphine 2 MG/ML SYRINGE IVP PRN (09:57)
[2016-05-19] MEDS: PROPAFENONE HCL 325 MG PO SCH (10:41)
[2016-05-19 11:02] VITALS: BP 114/60
--- NOTE | 2016-05-19 11:59 | Discharge Summary ---
Date of Encounter: 05/19/16 Time of Encounter: 11:20 - Discharge Diagnosis (1) Acute kidney injury Priority: Primary Status: Acute (2) Chest pain Priority: Primary Status: Acute Qualifiers: Chest pain type: unspecified Qualified Code(s): R07.9 - Chest pain, unspecified (3) Epigastric pain Priority: Primary Status: Acute (4) Hematemesis Priority: Primary Status: Acute Qualifiers: Nausea presence: with nausea Qualified Code(s): K92.0 - Hematemesis; R11.0 - Nausea (5) Melena Priority: Primary Status: Acute (6) Nausea & vomiting Priority: Primary Status: Acute Qualifiers: Vomiting type: hematemesis Qualified Code(s): K92.0 - Hematemesis; R11.0 - Nausea - Discharge Medications Home Medications: Atorvastatin [Lipitor] 40 mg PO DAILY 11/14/14 [History] Sennosides/Docusate Sodium [Senna Plus] 1 tab PO DAILY PRN 11/14/14 [History] Promethazine [Phenergan] 25 mg PO Q8HR PRN #21 tablet 03/26/15 [Rx] Amitriptyline [Elavil] 25 mg PO HS #30 tablet 08/23/15 [Rx] Apixaban [Eliquis] 5 mg PO BID 12/06/15 [History] Gabapentin [Neurontin] 1,200 mg PO HS 12/06/15 [History] Insulin ASPART [Novolog Flexpen] 10 unit SQ QPM 12/06/15 [History] Insulin Glargine [Lantus] 80 unit SQ HS 12/06/15 [History] Metoprolol XL (24 HR) Succ [Toprol Xl] 50 mg PO HS 12/06/15 [History] Duloxetine HCl [Cymbalta] 120 mg PO QAM 05/17/16 [History] Empagliflozin [Jardiance] 25 mg PO QAM 05/17/16 [History] Glimepiride [Amaryl] 4 mg PO QAM 05/17/16 [History] Liraglutide [Victoza 2-Aubrey] 1.2 mg SQ DAILY 05/17/16 [History] Lisinopril [Zestril] 20 mg PO DAILY 05/17/16 [History] Nortriptyline [Pamelor] 25 mg PO QAM 05/17/16 [History] Pantoprazole Sodium [Protonix] 40 mg PO HS 05/17/16 [History] Propafenone HCl [Rythmol Sr] 325 mg PO BID 05/17/16 [History] Quetiapine Fumarate [Seroquel] 200 mg PO HS 05/17/16 [History] Spironolactone [Aldactone] 25 mg PO QAM 05/17/16 [History] Insulin LISPRO [HumaLOG] 0 units SQ TIDAC vial 05/19/16 [Rx] Allergies/Adverse Reactions: Allergies Sulfa (Sulfonamide Antibiotics) Allergy (Severe, Verified 05/17/16 08:53) Anaphylaxis Penicillins Allergy (Unknown, Verified 05/17/16 08:53) unknown prednisone Adverse Reaction (Mild, Verified 05/17/16 08:53) swelling Date of admission: 05/17/16 15:54 Primary care physician: Sohan Gonsales MD Consults: Dr Stubbs Discharging clinician: Odilon Myers Anticipated date of discharge: 05/19/16 - Patient Status Disposition: Home, Self-Care Condition: Good Overall status at discharge: patient is progressing back to baseline - Discharge Instructions Follow Up With: Sohan Gonsalse MD [Primary Care Provider] - 05/26/16 10:00 am Additional Instructions: Check BMP in 1 week. - Diet and Activity Activity: resume usual activities as tolerated Diet: advance to your usual diet Interval History: No more vomiting. She is tolerating regular diet. No more vomiting but some nausea persists. Hospital course: Ms. Welsh is a 60 year old female with atrial fibrillation on Apixaban presenting with nausea and vomiting, hematemesis, melena suspcious for upper GI bleeding. She was also in acute renal failure. She underwent EGD and colonoscopy , EGD demonstrated a GE ring with no signs of bleeding. Cardia with erythema. Biopsy obtained. No active signs of bleeding. Colonoscopy revealed colon with mild hemorrhoids and small diverticulum. No masses or polyps. She received IV hydration. Hemoglobin was stable in the last 24 hours leading to discharge. Renal function evident by BUN and serum creatinine had normalized at discharge. Not in distress, at bedside. Not pale anicteric, afebrile, acyanotic Chest clear Heart: RRR, HS1/2, no murmur. Abdomen: soft, non-tender, no masses. ELECTROENCEPHALOGRAM TECHNOLOGIST: aao x 3, no gross focall neurological deficits. : no flank tenderness, no CVA tender, vague inconsistent suprapubic tenderess. Skin : no active skin lesion Extremities: Trace pedal edema. At discharge: Apixaban held. She will control protonix and sucralfate po. and will follow-up with endocopit fpr follow-up of gastric biopsy report. - Time Spent with Patient Total time spent providing and/or coordinating discharge services: - Constitutional Vitals: Temp Pulse Resp BP Pulse Ox 97.8 F 80 16 114/60 97 05/19/16 11:00 05/19/16 11:00 05/19/16 11:00 05/19/16 11:00 05/19/16 11:00 General appearance: Present: A&O X 3, pleasant, no acute distress, answers questions appropriately - VTE Documentation of Mechanical Device: Graduated compression elastic hosiery
[2016-05-19 12:10] LABS: Hematocrit 33.7 % (35.3-44.9); Hemoglobin 11.1 g/dL (11.5-15.4)
[2016-05-19] MEDS: 0.9 % Sodium Chloride 1,000 ML IVC SCH (12:20)
[2016-05-19 12:22] LABS: BUN/Creatinine Ratio 17 (6-26); Blood Urea Nitrogen 15 mg/dL (7-20); Calcium 8.9 mg/dL (8.6-10.8); Carbon Dioxide 24 mEq/L (19-29); Chloride 108 mEq/L (98-109); Glucose 144 mg/dL (70-99); Osmolality,Calculated 287 (280-300); Potassium 4.4 mEq/L (3.5-4.5); Sodium 137 mEq/L (136-145); eGFR For African Americans > 60 (> 60); eGFR For Non-African Americans > 60 (> 60)
== END 2016-05-19 16:39 | disposition home or self-care (01) ==
LOC: 3ANU 08:34 → EMEROO 08:34 → 3ANU 12:43
PROVIDERS: ADMIT Internal Medicine Endocrinology, Diabetes & Metabolism; ATTEND Internal Medicine Endocrinology, Diabetes & Metabolism
PROC: ENDOEBX (2016-05-18 15:30)

== ENCOUNTER 2016-06-09 13:00 | Observation (INO) ==
[2016-06-09] MEDS ORDERED: 0.9 % Sodium Chloride 1,000 ML IVC ONE ×2 (16:38→18:15)
[2016-06-09] MEDS ORDERED: *HR* HYDROmorphone (PF) 1 MG/ML SYRINGE IVP ONE ×2 (16:38→17:27)
[2016-06-09] MEDS ORDERED: Ondansetron 4 MG/2 ML VIAL IVP ONE (16:38)
--- NOTE | 2016-06-09 16:43 | Emergency Department Note ---
Disposition Clinical Impression: Dehydration, Acute kidney injury Nausea & vomiting Qualifiers: Vomiting type: unspecified Vomiting Intractability: non-intractable Qualified Code(s): R11.2 - Nausea with vomiting, unspecified UTI (urinary tract infection) Qualifiers: Urinary tract infection type: site unspecified Hematuria presence: without hematuria Qualified Code(s): N39.0 - Urinary tract infection, site not specified Disposition: Admitted As Inpatient Condition: Fair Referrals: Sohan Gonsales MD [Primary Care Provider] - Forms: Work/School Release, ED Satisfaction Letter Time of Disposition: 18:14 Abdominal Pain HPI - General Chief Complaint: ED GI Bleed Stated Complaint: Pancreatitis, vomiting Time Seen by Provider: 06/09/16 16:34 Source: patient Mode of arrival: ambulatory Limitations: no limitations Nursing Notes Reviewed: Yes Vital Signs Reviewed: Yes - History of Present Illness HPI Narrative: Patient complains of upper abdominal pain as well as nausea and vomiting. She states this feels like her history of pancreatitis. She was admitted several weeks ago for similar symptoms. At that time she underwent upper and lower endoscopy. Other than associated nausea and vomiting she denies additional symptoms Pt Subjective Complaint: abdominal pain Onset (ago): week(s) Consistency: constant Location: epigastric Pain Severity: severe Pain Scale: 9 Quality: aching Radiation: other (Back) Migration to: other (Back) Improves with: nothing Worsens with: nothing Context: recent surgery/procedure Associated symptoms: Reports: nausea, vomiting Treatments prior to arrival: none - Related Data Home Medications Medication Instructions Recorded Confirmed Atorvastatin [Lipitor] 40 mg PO DAILY 11/14/14 05/17/16 Sennosides/Docusate Sodium [Senna 1 tab PO DAILY PRN 11/14/14 05/17/16 Plus] Apixaban [Eliquis] 5 mg PO BID 12/06/15 05/17/16 Gabapentin [Neurontin] 1,200 mg PO HS 12/06/15 05/17/16 Insulin ASPART [Novolog Flexpen] 10 unit SQ QPM 12/06/15 05/17/16 Insulin Glargine [Lantus] 80 unit SQ HS 12/06/15 05/17/16 Metoprolol XL (24 HR) Succ [Toprol 50 mg PO HS 12/06/15 05/17/16 Xl] Duloxetine HCl [Cymbalta] 120 mg PO QAM 05/17/16 05/17/16 Empagliflozin [Jardiance] 25 mg PO QAM 05/17/16 05/17/16 Glimepiride [Amaryl] 4 mg PO QAM 05/17/16 05/17/16 Liraglutide [Victoza 2-Aubrey] 1.2 mg SQ DAILY 05/17/16 05/17/16 Lisinopril [Zestril] 20 mg PO DAILY 05/17/16 05/17/16 Nortriptyline [Pamelor] 25 mg PO QAM 05/17/16 05/17/16 Pantoprazole Sodium [Protonix] 40 mg PO HS 05/17/16 05/17/16 Propafenone HCl [Rythmol Sr] 325 mg PO BID 05/17/16 05/17/16 Quetiapine Fumarate [Seroquel] 200 mg PO HS 05/17/16 05/17/16 Spironolactone [Aldactone] 25 mg PO QAM 05/17/16 05/17/16 Previous Rx's Medication Instructions Recorded Promethazine [Phenergan] 25 mg PO Q8HR PRN #21 tablet 03/26/15 Amitriptyline [Elavil] 25 mg PO HS #30 tablet 08/23/15 Insulin LISPRO [HumaLOG] 0 units SQ TIDAC vial 05/19/16 Allergies Allergy/AdvReac Type Severity Reaction Status Date / Time Sulfa (Sulfonamide Allergy Severe Anaphylaxis Verified 05/17/16 08:53 Antibiotics) Penicillins Allergy Unknown unknown Verified 05/17/16 08:53 prednisone AdvReac Mild swelling Verified 05/17/16 08:53 All systems ED: reviewed and negative except as stated. Constitutional: Reports: as per HPI Eyes: Reports: as per HPI ENT ED: Reports: as per HPI Cardiovascular: Reports: as per HPI Respiratory: Reports: as per HPI Gastrointestinal: Reports: abdominal pain, nausea, vomiting Genitourinary: Reports: as per HPI Musculoskeletal: Reports: back pain Integumentary: Reports: as per HPI Neurological: Reports: as per HPI Psychiatric: Reports: as per HPI Endocrine: Reports: as per HPI Hematological/Lymphatic: Reports: as per HPI Allergic/Immunologic: Reports: as per HPI Abdominal Pain PMH - Past Medical History Medical history: Reports: arthritis, atrial fibrillation, COPD, CVA, diabetes, fibromyalgia, GERD, hyperlipidemia, hypertension, migraine, osteoporosis, TIA, other Female Surgical History: Reports: other Psychiatric history: Reports: anxiety, depression - Social History Smoking status: Current every day smoker Alcohol use: Reports: none Drug use: Reports: none Physical Exam Crying. Appears uncomfortable. Appears older than stated age - General Limitations: no limitations General appearance: alert, anxious - Head Head exam: atraumatic - Eye Eye exam: Present: normal appearance - ENT ENT exam: normal exam - Neck Neck exam: Present: normal inspection - Chest Chest inspection: Present: normal inspection, symmetric chest wall rise - Respiratory Respiratory exam: Present: normal lung sounds bilaterally - Cardiovascular Cardiovascular exam: Present: tachycardia, normal heart sounds - Abdominal Exam Abdominal exam: Present: soft, tenderness (Epigastric), normal bowel sounds - Rectal Exam Rectal exam: Present: deferred - Extremities Exam Extremities exam: Present: normal inspection - Neurological Exam Neurological exam: Present: alert, oriented X3, CN II-XII intact - Psychiatric Psychiatric exam: Present: anxious - Skin Skin exam: Present: warm, dry, intact Course Course Narrative: Patient presents to the emergency department with the subjective flare of her pancreatitis. She complains of upper abdominal pain radiating to her back. She does not drink alcohol. She has a remote history of cholecystectomy. She is tachycardic and uncomfortable appearing on exam. IV fluids and analgesics ordered. I have reviewed the transcribed report from her upper and lower endoscopy from her last admission. - Reevaluation(s) Reevaluation #1: Patient continues to have nausea and abdominal pain. Labs indicate hemoconcentration and an elevated creatinine as well as high specific gravity and ketonuria. She is being hydrated. I will request admission to the medicine service for continued hydration and symptom control Reevaluation #2: The patient has criteria for a urinary tract infection. She was initially tachycardic but her heart rate has improved with IV fluids. She is afebrile. Mild leukocytosis which could be a stress response from her nausea and vomiting. I do not think the patient is septic. Septic pathway not pursued Vital Signs Temperature 98.2 F 06/09/16 13:23 Pulse Rate 130 06/09/16 13:23 Respiratory Rate 24 06/09/16 13:23 Blood Pressure 96/61 06/09/16 13:23 O2 Sat by Pulse Oximetry 96 06/09/16 13:23 Temperature 98.2 F 06/09/16 13:23 Pulse Rate 118 06/09/16 17:37 Respiratory Rate 22 06/09/16 17:37 Blood Pressure 127/57 06/09/16 17:37 O2 Sat by Pulse Oximetry 98 06/09/16 17:37 Oxygen Delivery Oxygen Delivery Room Air Abdominal Pain - Medical Records Medical records reviewed: Yes I reviewed the patient's medical records. - Lab Data Lab results reviewed: Yes I reviewed the patient's lab results. Lab results narrative: Creatinine 1.98. She has had intermittent elevations of her creatinine previously per my review of records Result diagrams: 06/09/16 16:57 06/09/16 16:57 Lab Results 06/09/16 06/09/16 06/09/16 Range/Units 16:57 16:57 17:36 WBC 13.1 H (4.3-11.1) K/mcL RBC 5.31 H (3.82-4.97) M/mcL Hgb 16.3 H (11.5-15.4) g/dL Hct 48.7 H (35.3-44.9) % MCV 91.7 (83.0-100.0) fL MCH 30.7 (28.0-33.3) pg MCHC 33.5 (31.6-35.5) g/dL RDW 14.1 (11.5-14.5) % Plt Count 316 (140-400) K/mcL MPV 10.0 (9.4-12.4) fL Immature Gran % 0.7 (0-4) % Seg Neutrophils % 66.4 % Lymphocytes % 21.1 % Monocytes % 11.3 % Eosinophils % 0.0 % Basophils % 0.5 % Neutrophils # 8.7 (1.6-8.9) K/mcL Lymphocytes # 2.8 (0.6-4.6) K/mcL Monocytes # 1.5 H (0.0-1.3) K/mcL Eosinophils # 0.0 (0.0-0.6) K/mcL Basophils # 0.1 (0.0-0.2) K/mcL Sodium 138 (136-145) mEq/L Potassium 4.3 (3.5-4.5) mEq/L Chloride 98 (98-109) mEq/L Carbon Dioxide 21 (19-29) mEq/L BUN 34 H (7-20) mg/dL Creatinine 1.98 H (0.57-1.11) mg/dL Est GFR ( Amer) 31 L (> 60) Est GFR (Non-Af Amer) 26 L (> 60) BUN/Creatinine Ratio 17 (6-26) Glucose 198 H (70-99) mg/dL POC Glucose 138 H (58-89) Calculated Osmolality 299 (280-300) Calcium 11.2 H (8.6-10.8) mg/dL Total Bilirubin 1.2 (0.2-1.2) mg/dL Direct Bilirubin 0.4 (0.0-0.5) mg/dL Indirect Bilirubin 0.8 (0.0-1.2) mg/dL AST 16 (5-34) Units/L ALT 15 (0-55) Units/L Alkaline Phosphatase 78 (38-126) Units/L Serum Total Protein 9.3 H (6.0-8.3) g/dL Albumin 4.8 (3.5-5.0) g/dL Globulin 4.5 H (2.4-3.5) g/dL Albumin/Globulin Ratio 1.1 (1.1-2.2) Amylase 92 (25-125) Units/L Lipase 19 (8-78) Units/L Urine Color (Yellow) Urine Clarity (Clear) Urine pH (5.0-8.0) pH Units Ur Specific [place] (1.010-1.025) Urine Protein (Neg-Trace) mg/dL Urine Glucose (UA) (Normal) mg/dL Urine Ketones (Negative) mg/dL Urine Blood (Negative) Urine Nitrite (Negative) Urine Bilirubin (Negative) Urine Urobilinogen (Normal) mg/dL Ur Leukocyte Esterase (Negative) Urine Microscopic RBC (0-3) per hpf Urine Microscopic WBC (0-3) per hpf Ur Squamous Epith Cells (None-Few) per lpf Urine Bacteria (None-Few) per hpf Hyaline Casts (None-Few) per lpf Ur Culture Indicated? (NO) 06/09/16 Range/Units 17:50 WBC (4.3-11.1) K/mcL RBC (3.82-4.97) M/mcL Hgb (11.5-15.4) g/dL Hct (35.3-44.9) % MCV (83.0-100.0) fL MCH (28.0-33.3) pg MCHC (31.6-35.5) g/dL RDW (11.5-14.5) % Plt Count (140-400) K/mcL MPV (9.4-12.4) fL Immature Gran % (0-4) % Seg Neutrophils % % Lymphocytes % % Monocytes % % Eosinophils % % Basophils % % Neutrophils # (1.6-8.9) K/mcL Lymphocytes # (0.6-4.6) K/mcL Monocytes # (0.0-1.3) K/mcL Eosinophils # (0.0-0.6) K/mcL Basophils # (0.0-0.2) K/mcL Sodium (136-145) mEq/L Potassium (3.5-4.5) mEq/L Chloride (98-109) mEq/L Carbon Dioxide (19-29) mEq/L BUN (7-20) mg/dL Creatinine (0.57-1.11) mg/dL Est GFR ( Amer) (> 60) Est GFR (Non-Af Amer) (> 60) BUN/Creatinine Ratio (6-26) Glucose (70-99) mg/dL POC Glucose (58-89) Calculated Osmolality (280-300) Calcium (8.6-10.8) mg/dL Total Bilirubin (0.2-1.2) mg/dL Direct Bilirubin (0.0-0.5) mg/dL Indirect Bilirubin (0.0-1.2) mg/dL AST (5-34) Units/L ALT (0-55) Units/L Alkaline Phosphatase (38-126) Units/L Serum Total Protein (6.0-8.3) g/dL Albumin (3.5-5.0) g/dL Globulin (2.4-3.5) g/dL Albumin/Globulin Ratio (1.1-2.2) Amylase (25-125) Units/L Lipase (8-78) Units/L Urine Color Yellow (Yellow) Urine Clarity Cloudy A (Clear) Urine pH 6.0 (5.0-8.0) pH Units Ur Specific [place] > 1.030 H (1.010-1.025) Urine Protein Negative (Neg-Trace) mg/dL Urine Glucose (UA) >=1000 H (Normal) mg/dL Urine Ketones 15 H (Negative) mg/dL Urine Blood Negative (Negative) Urine Nitrite Negative (Negative) Urine Bilirubin Small H (Negative) Urine Urobilinogen Normal (Normal) mg/dL Ur Leukocyte Esterase Moderate H (Negative) Urine Microscopic RBC 0-3 (0-3) per hpf Urine Microscopic WBC TNTC H (0-3) per hpf Ur Squamous Epith Cells Moderate H (None-Few) per lpf Urine Bacteria Moderate H (None-Few) per hpf Hyaline Casts Moderate H (None-Few) per lpf Ur Culture Indicated? YES A (NO) - EKG Data EKG attestation: Yes I reviewed and interpreted this EKG. EKG results narrative: Sinus tach 135 BPM, HI 164 QRS is 72ms QT/QTC 287/366
[2016-06-09 17:13] LABS: Basophils # 0.1 K/mcL (0.0-0.2); Basophils % 0.5 %; Hematocrit 48.7 % (35.3-44.9); Hemoglobin 16.3 g/dL (11.5-15.4); Immature Granulocytes % 0.7 % (0-4); Lymphocytes # 2.8 K/mcL (0.6-4.6); Lymphocytes % 21.1 %; Mean Corpuscular HGB Conc 33.5 g/dL (31.6-35.5); Mean Corpuscular Hemoglobin 30.7 pg (28.0-33.3); Mean Corpuscular Volume 91.7 fL (83.0-100.0); Monocytes # 1.5 K/mcL (0.0-1.3); Monocytes % 11.3 %; Neutrophils # 8.7 K/mcL (1.6-8.9); Platelet Count 316 K/mcL (140-400); Red Blood Count 5.31 M/mcL (3.82-4.97); Red Cell Distribution Width 14.1 % (11.5-14.5); Segmented Neutrophils % 66.4 %
[2016-06-09 17:21] LABS: Albumin 4.8 g/dL (3.5-5.0); Albumin/Globulin Ratio 1.1 (1.1-2.2); Bilirubin,Direct 0.4 mg/dL (0.0-0.5); Bilirubin,Indirect 0.8 mg/dL (0.0-1.2); Bilirubin,Total 1.2 mg/dL (0.2-1.2); Calcium 11.2 mg/dL (8.6-10.8); Globulin 4.5 g/dL (2.4-3.5); Potassium 4.3 mEq/L (3.5-4.5); Total Protein 9.3 g/dL (6.0-8.3)
[2016-06-09 18:00] LABS: Bilirubin,Urine Small (Negative); Blood,Urine Negative (Negative); Clarity,Urine Cloudy (Clear); Color,Urine Yellow (Yellow); Glucose,Urine (UA) >=1000 mg/dL (Normal); Ketones,Urine 15 mg/dL (Negative); Leukocyte Esterase,Urine Moderate (Negative); Nitrite,Urine Negative (Negative); Protein,Urine Negative (Neg-Trace); Specific Gravity,Urine > 1.030 (1.010-1.025); Urobilinogen,Urine Normal (Normal)
[2016-06-09 18:05] LABS: Bacteria,Urine Moderate per hpf (None-Few); Hyaline Casts,Urine Moderate per lpf (None-Few); Squamous Epithelial Cell,Urine Moderate per lpf (None-Few); WBC,Urine TNTC per hpf (0-3)
[2016-06-09 18:18] LABS: RBC,Urine 0-3 per hpf (0-3)
[2016-06-09] MEDS ORDERED: Famotidine 20 MG/2 ML VIAL IVP ONE (18:18)
--- NOTE | 2016-06-09 19:16 | Internal Med History&Physical ---
Date of Encounter: 06/09/16 Time of Encounter: 19:12 Assessment and Plan (1) Acute kidney injury Current visit: Yes Status: Acute most likely secondary to dehydration (2) Dehydration Current visit: Yes Status: Acute due to nasea and vomitting (3) Nausea & vomiting Current visit: Yes Status: Acute etiology unclear lipase normal Qualifiers: Vomiting type: unspecified Vomiting Intractability: non-intractable Qualified Code(s): R11.2 - Nausea with vomiting, unspecified (4) UTI (urinary tract infection) Current visit: Yes Status: Acute will start and rocephin and send cultures Qualifiers: Urinary tract infection type: acute cystitis Hematuria presence: without hematuria Qualified Code(s): N30.00 - Acute cystitis without hematuria (5) Epigastric pain Current visit: No Status: Acute abd is benign on exam (6) Hyperglycemia Current visit: No Status: Acute likely uncoontrolled diabetes start on sliding scale (7) A-fib Current visit: No Status: Chronic on anticoagulation Qualifiers: Atrial fibrillation type: chronic Qualified Code(s): I48.2 - Chronic atrial fibrillation (8) Diabetes mellitus Current visit: No Status: Chronic Qualifiers: Diabetes mellitus type: type 2 Diabetes mellitus complication status: with unspecified complications Diabetes mellitus penitentiary insulin use: with penitentiary use Qualified Code(s): E11.8 - Type 2 diabetes mellitus with unspecified complications (9) Dyslipidemia Current visit: No Status: Chronic chronic Internal Medicine - H&P: HPI Chief complaint: nausea AND VOMITTING ABD PAIN Admitted From: Emergency Dept Plans for Post Hospital Care: Home History of present illness: Ms. Welsh is a 60 year old female The patient with history of hypertension, CVA, high cholesterol, diabetes, chronic ATRIAL FIB, GERD, presented about recently with abdominal pain , nausea and vomiting seen by surgery underwent EGD which showed GR ring no active bleeding also had a colonoscopy done patient presented this time again with abdominal pain, nausea and vomiting no fever or chills labs shows ADONIS creatinine 1.9 which is worsened from previous admission also has hyperglycemia and UTI . she is being admitted for further treatment. Past Med Surg Social Fam HX - Past Medical History Medical history: arthritis, atrial fibrillation, COPD, CVA, diabetes, fibromyalgia, GERD, hyperlipidemia, hypertension, migraine, osteoporosis, TIA, other Psychiatric history: anxiety, depression - Past Surgical History Surgical History: appendectomy, cholecystectomy, hysterectomy, other - Social History Smoking Status: Current every day smoker Smokeless Tobacco Status: No Alcohol use: none Drug use: none - Family History Mother Living Status: Hx Family Cardiac Disorders: Yes (MS) Hx Family Respiratory Disorders: Yes (COPD) Hx Family Cancer: Yes (Breast) Hx Family GI Disorders: No Hx Family Endocrine Disorder: No Hx Family Neuromuscular Disorders: No Hx Family Neurologic Disorders: No Hx Family HEENT Disorders: No Hx Family Autoimmune Disorders: No Father Living Status: Hx Family Cardiac Disorders: Yes (MS, HTN) Hx Family Respiratory Disorders: Yes (COPD) Hx Family Cancer: No Hx Family GI Disorders: No Hx Family Endocrine Disorder: No Hx Family Neuromuscular Disorders: No Hx Family Neurologic Disorders: No Hx Family HEENT Disorders: No Hx Family Autoimmune Disorders: No Internal Medicine - H&P: Meds Atorvastatin [Lipitor] 40 mg PO DAILY 11/14/14 [History] Sennosides/Docusate Sodium [Senna Plus] 1 tab PO DAILY PRN 11/14/14 [History] Promethazine [Phenergan] 25 mg PO Q8HR PRN #21 tablet 03/26/15 [Rx] Amitriptyline [Elavil] 25 mg PO HS #30 tablet 08/23/15 [Rx] Apixaban [Eliquis] 5 mg PO BID 12/06/15 [History] Gabapentin [Neurontin] 1,200 mg PO HS 12/06/15 [History] Insulin ASPART [Novolog Flexpen] 10 unit SQ QPM 12/06/15 [History] Insulin Glargine [Lantus] 80 unit SQ HS 12/06/15 [History] Metoprolol XL (24 HR) Succ [Toprol Xl] 50 mg PO HS 12/06/15 [History] Duloxetine HCl [Cymbalta] 120 mg PO QAM 05/17/16 [History] Empagliflozin [Jardiance] 25 mg PO QAM 05/17/16 [History] Glimepiride [Amaryl] 4 mg PO QAM 05/17/16 [History] Liraglutide [Victoza 2-Aubrey] 1.2 mg SQ DAILY 05/17/16 [History] Lisinopril [Zestril] 20 mg PO DAILY 05/17/16 [History] Nortriptyline [Pamelor] 25 mg PO QAM 05/17/16 [History] Pantoprazole Sodium [Protonix] 40 mg PO HS 05/17/16 [History] Propafenone HCl [Rythmol Sr] 325 mg PO BID 05/17/16 [History] Quetiapine Fumarate [Seroquel] 200 mg PO HS 05/17/16 [History] Spironolactone [Aldactone] 25 mg PO QAM 05/17/16 [History] Insulin LISPRO [HumaLOG] 0 units SQ TIDAC vial 05/19/16 [Rx] Allergies Sulfa (Sulfonamide Antibiotics) Allergy (Severe, Verified 05/17/16 08:53) Anaphylaxis Penicillins Allergy (Unknown, Verified 05/17/16 08:53) unknown prednisone Adverse Reaction (Mild, Verified 05/17/16 08:53) swelling All Systems PM: A 10-system review of systems was performed and is negative for pertinent findings except as documented above in the HPI. - Constitutional Constitutional: no chills, no fever(s), no night sweats - EENT Eyes: no change in vision, no discharge, no pain, no photophobia Ears: no ear discharge, no ear pain, no tinnitus Nose, mouth and throat: no dysphagia, no nasal discharge, no neck pain, no sore throat - Cardiovascular Cardiovascular ROS IM: no chest pain, no diaphoresis, no dyspnea, no lightheadedness, no palpitations, no syncope - Respiratory Respiratory: no cough, no dyspnea, no wheezing, no excessive phlegm production - Gastrointestinal Gastrointestinal: abdominal pain, nausea, vomiting - Genitourinary Genitourinary: no change in urinary stream, no dysuria, no flank pain, no hematuria - Musculoskeletal Musculoskeletal ROS IM: no numbness, no tingling - Integumentary Integumentary IM: no rash, no unusual bruising - Neurological Neurological ROS: no confusion, no convulsions, no focal weakness, no numbness, no tingling, no tremor(s) - Hematologic/Lymphatic Hematologic/Lymphatic: no easy bruising - Constitutional Vitals: Temp Pulse Resp BP Pulse Ox 98.2 F 112 22 113/72 93 L 06/09/16 13:23 06/09/16 18:24 06/09/16 18:44 06/09/16 18:44 06/09/16 18:24 General appearance: Present: A&O X 3 - Head Head exam: Present: atraumatic, normocephalic - Eye Eye exam: Present: PERRL, conjuntiva pink, sclera anicteric Pupils: Present: PERRL - Neck Neck exam general surgery: Present: supple, trachea midline. Absent: lymphadenopathy - Respiratory Respiratory exam: Present: CTAB. Absent: accessory muscle use, rales, rhonchi, wheezes - Cardiovascular Cardiovascular exam: Present: RRR, +S1, +S2. Absent: diastolic murmur, gallop, rubs, systolic murmur - GI/Abdominal GI/Abdominal exam: Present: soft, tenderness Internal Med - H&P Results - Labs CBC & Chem 7: 06/09/16 16:57 06/09/16 16:57
[2016-06-09] MEDS ORDERED: Naloxone 0.4 MG/ML INJ IVP PRN (19:21)
[2016-06-09] MEDS ORDERED: MOM Conc 10 ML UD.LIQ PO PRN (19:21)
[2016-06-09] MEDS ORDERED: *HR* Dextrose 50 % in Water (Syg) 50 ML SYRINGE IVP PRN (19:24)
[2016-06-09] MEDS ORDERED: Sennosides/Docusate Sodium TABLET PO PRN (19:24)
[2016-06-09] MEDS ORDERED: D5% in Water 1,000 ML IVC PRN (19:24)
[2016-06-09] MEDS ORDERED: Dextrose Gel 15 GM PO PRN ×2 (19:24)
[2016-06-09 19:58] LABS: Hemoglobin A1C 6.3 %
[2016-06-09] MEDS: 0.9 % Sodium Chloride 1,000 ML IVC SCH (21:12)
[2016-06-09] MEDS: APIXABAN 5 MG TABLET PO SCH (21:13)
[2016-06-09] MEDS: Gabapentin 400 MG CAPSULE PO SCH (21:13)
[2016-06-09] MEDS: Metoprolol XL (24 HR) Succ 50 MG TAB.ER.24H PO SCH ×2 (21:13→22:12)
[2016-06-09] MEDS: *HR* Morphine 2 MG/ML SYRINGE IVP PRN (21:14)
[2016-06-09] MEDS: Insulin DETEMIR 100 UNIT/ML X5UNITS SQ SCH (21:54)
[2016-06-09] MEDS: PROPAFENONE HCL 325 MG PO SCH (21:54)
[2016-06-09] MEDS: Ondansetron 4 MG/2 ML VIAL IVP PRN (23:19)
[2016-06-09 23:35] LABS: Bilirubin,Urine Negative (Negative); Blood,Urine Negative (Negative); Clarity,Urine Cloudy (Clear); Color,Urine Yellow (Yellow); Glucose,Urine (UA) >=1000 mg/dL (Normal); Ketones,Urine Trace mg/dL (Negative); Leukocyte Esterase,Urine Small (Negative); Nitrite,Urine Negative (Negative); Protein,Urine Negative (Neg-Trace); Urobilinogen,Urine Normal (Normal)
[2016-06-09 23:36] LABS: Bacteria,Urine Many per hpf (None-Few); Hyaline Casts,Urine None Seen per lpf (None-Few); RBC,Urine 0-3 per hpf (0-3); Squamous Epithelial Cell,Urine Moderate per lpf (None-Few); WBC,Urine 50-100 per hpf (0-3)
[2016-06-09 23:41] LABS: Amphetamine Screen,Urine Negative ng/mL (Cutoff=1000); Barbiturate Screen,Urine Negative ng/mL (Cutoff=200); Benzodiazepines Screen,Urine Negative ng/mL (Cutoff=200); Cannabinoid Screen,Urine Negative ng/mL (Cutoff = 50); Cocaine Screen,Urine Negative ng/mL (Cutoff= 300); Opiate Screen,Urine Positive ng/mL (Cutoff=300); Phencyclidine Screen,Urine Negative ng/mL (Cutoff=25)
[2016-06-10] MEDS: Insulin LISPRO 300 UNITS/3 ML VIAL SQ SCH ×5 (00:26→23:14)
[2016-06-10 05:08] LABS: Alanine Aminotransferase 11 Units/L (0-55); Albumin/Globulin Ratio 1.1 (1.1-2.2); Alkaline Phosphatase 50 Units/L (38-126); Aspartate Amino Transferase 12 Units/L (5-34); BUN/Creatinine Ratio 22 (6-26); Bilirubin,Total 0.5 mg/dL (0.2-1.2); Blood Urea Nitrogen 24 mg/dL (7-20); Carbon Dioxide 21 mEq/L (19-29); Chloride 109 mEq/L (98-109); Globulin 2.9 g/dL (2.4-3.5); Glucose 91 mg/dL (70-99); Osmolality,Calculated 290 (280-300); Potassium 3.7 mEq/L (3.5-4.5); Sodium 138 mEq/L (136-145); eGFR For African Americans > 60 (> 60); eGFR For Non-African Americans 51 (> 60)
[2016-06-10 05:15] LABS: Albumin 3.3 g/dL (3.5-5.0); Calcium 8.2 mg/dL (8.6-10.8); Total Protein 6.2 g/dL (6.0-8.3)
[2016-06-10] MEDS: 0.9 % Sodium Chloride 1,000 ML IVC SCH (08:59)
--- NOTE | 2016-06-10 09:13 | Electrocardiograph Report ---
[address] [address] Test Date: 2016-06-09 Pat Name: Kary Welsh Department: 104 Room: 3B Gender: F Drop Press Hand: GUILHERME : 1955 Requested By: Sohan Gonsales Order Number: [id number] Reading MD: Brodie Medina MD Measurements Intervals [place] Rate: 135 P: 57 ID: [id number] QRS: 15 QRSD: 72 T: 59 QT: 287 QTc: 366 Interpretive Statements SINUS TACHYCARDIA Electronically Signed On 06-10-2016 9:12:01 EDT by Brodie Medina MD
[2016-06-10] MEDS: Lisinopril 20 MG TABLET PO SCH (09:25)
[2016-06-10] MEDS: *HR* Glimepiride 4 MG TABLET PO SCH (09:25)
[2016-06-10] MEDS: APIXABAN 5 MG TABLET PO SCH ×2 (09:25→23:27)
[2016-06-10] MEDS: Spironolactone 25 MG TABLET PO SCH (09:25)
[2016-06-10] MEDS: Liraglutide [Victoza 2-Pak] 1.2 MG SQ SCH (09:27)
[2016-06-10] MEDS: Pantoprazole 40 MG VIAL IVP SCH (09:27)
[2016-06-10] MEDS: Empagliflozin [Jardiance] 25 MG PO SCH (09:27)
[2016-06-10] MEDS: PROPAFENONE HCL 325 MG PO SCH ×2 (09:27→23:29)
--- NOTE | 2016-06-10 19:29 | Internal Med Progress Note ---
Date of Encounter: 06/09/16 Time of Encounter: 10:35 - Assessment and plan (1) UTI (urinary tract infection) Current Visit: Yes Status: Acute Assessment and plan: Patient is currently being treated with Cipro and Rocephin IV for urinary tract infection. Preliminary culture shows gram-negative rods. Cipro was stopped. Patient has what appears to be intractable left lower quadrant pain. I feel her pain is disproportionate to her diagnosis. After patient began having increasing pain, she was sent for a CT abdomen and pelvis that was negative. She is a stable 16 mm renal cyst on the left kidney. Pain control Anti-emetics IV antibiotics IV fluids Final culture pending Monitor vital signs Monitor labs Qualifiers: Urinary tract infection type: acute cystitis Hematuria presence: without hematuria Qualified Code(s): N30.00 - Acute cystitis without hematuria (2) LLQ abdominal pain Current Visit: Yes Status: Acute Assessment and plan: Patient complains of left lower quadrant pain for 3 days. She reports nausea and vomiting with the pain. Today she began telling me that the pain radiated into her left hip, which is apparently is chronic. She was exquisitely tender to light palpation in the left lower quadrant. She went having increasing pain and was sent to CAT scan which was negative. I did consult surgery, Dr. Garcia , who will see patient tomorrow. He is familiar with this patient. Pain control Anti-emetics Surgical consult Monitor labs and vital signs (3) Nausea & vomiting Current Visit: Yes Status: Acute Assessment and plan: Patient reports nausea and vomiting for 3 days. She has not vomited but I have been made aware of since arrival. Anti-emetics. IV fluids Qualifiers: Vomiting type: unspecified Vomiting Intractability: non-intractable Qualified Code(s): R11.2 - Nausea with vomiting, unspecified (4) Left hip pain Current Visit: Yes Status: Acute Assessment and plan: Patient had left lower quadrant pain that radiated into her left hip. We will continue to monitor. (5) DVT prophylaxis Current Visit: Yes Status: Acute Assessment and plan: We will continue to encourage early ambulation. Antiembolic stockings. (6) Diabetes mellitus Current Visit: Yes Status: Chronic Assessment and plan: A1c is 6.3. Sliding scale insulin Accu-Cheks before meals at bedtime Diabetic diet Qualifiers: Diabetes mellitus type: type 2 Diabetes mellitus complication status: with unspecified complications Diabetes mellitus mcfp insulin use: with mcfp use Qualified Code(s): E11.8 - Type 2 diabetes mellitus with unspecified complications (7) Acute kidney injury Current Visit: Yes Status: Acute Assessment and plan: Was elevated on arrival, 1.98. It has returned to normal limits. We will continue to monitor Avoid nephrotoxins Avoid NSAIDs Monitor labs - Time Spent With Patient less than 15 minutes - Subjective Interval history: Patient was seen and evaluated. Patient resting quietly in darkened room with washcloth on her forehead. She reports left lower abdominal pain that she describes as sharp and increases with movement. She is tender to left lower quadrant. She is being treated for urinary tract infection however I feel pain is disproportionate to diagnosis. Patient reports vomiting for the last 3 days as well as the left lower quadrant pain for 3 days. She denies any urinary symptoms. After initial evaluation later in the day patient starts having increasing left lower abdominal pain and becomes hypotensive per primary RN, blood pressure was 80s over 40s. She did recover with the 0.9 fluid bolus. She was sent to CAT scan urgently that was negative. I did consult Dr. Garcia who is quite familiar with this patient, and will see her tomorrow. - Constitutional Vitals: Temp Pulse Resp BP Pulse Ox 98.5 F 84 16 114/54 97 06/10/16 19:18 06/10/16 19:18 06/10/16 19:18 06/10/16 19:18 06/10/16 19:18 General appearance: Present: cooperative, A&O X 3, severe distress, answers questions appropriately - Head Head exam: Present: normal inspection - Eye Eye exam: Present: normal appearance, conjuntiva pink - ENT ENT exam: Present: mucous membranes moist, normal exam - Neck Neck exam general surgery: Present: normal inspection. Absent: lymphadenopathy , tenderness - Respiratory Respiratory exam: Present: CTAB. Absent: decreased breath sounds, respiratory distress, rhonchi, stridor, wheezes - Cardiovascular Cardiovascular exam: Present: RRR, +S1, +S2. Absent: diastolic murmur, distant heart sounds, systolic murmur, tachycardia - GI/Abdominal GI/Abdominal exam: Present: hyperactive bowel sounds, soft, tenderness. Absent : hepatomegaly, pulsatile mass, rigid - Extremities Exam Extremities exam: Present: warm, radial pulses palpable and symetrical. Absent : pedal edema, tenderness - Neurological Exam Neurological exam: Present: alert, oriented X3. Absent: no focal deficits, facial droop, speech deficit Internal Medicine: Result - Labs CBC & Chem 7: 06/09/16 16:57 06/10/16 03:57 Labs: BMP 06/10/16 03:57 Sodium 138 Potassium 3.7 Chloride 109 Carbon Dioxide 21 BUN 24 H D Creatinine 1.09 Glucose 91 Calcium 8.2 L D Liver Function 06/10/16 Range/Units 03:57 Total Bilirubin 0.5 (0.2-1.2) mg/dL AST 12 (5-34) Units/L ALT 11 (0-55) Units/L Alkaline Phosphatase 50 (38-126) Units/L Albumin 3.3 L D (3.5-5.0) g/dL Urine 06/09/16 Range/Units 23:29 Urine Color Yellow (Yellow) Urine Clarity Cloudy A (Clear) Urine pH 6.0 (5.0-8.0) pH Units Ur Specific [place] 1.030 H (1.010-1.025) Urine Protein Negative (Neg-Trace) mg/dL Urine Glucose (UA) >=1000 H (Normal) mg/dL - Impressions Impressions Abdomen/Pelvis CT 06/10/16 14:01 IMPRESSION: 1. No acute intra-abdominal or intrapelvic process. 2. Stable 16 mm left renal cyst. 3. Patient is status post cholecystectomy, appendectomy, hysterectomy, and lower lumbar fusion. D/ / 06/10/2016 16:39:16 García Thapa MD / [facility] Interpreting Provider: García Thapa MD Consult Discharge Plan - Plan Referrals: Sohan Gonsales MD [Primary Care Provider] -
[2016-06-10] MEDS: *HR* Morphine 2 MG/ML SYRINGE IVP PRN (20:31)
[2016-06-10] MEDS: Ondansetron 4 MG/2 ML VIAL IVP PRN (20:32)
[2016-06-10] MEDS ORDERED: Aspirin 81 MG TAB.CHEW PO ONE (21:09)
[2016-06-10] MEDS ORDERED: Nitroglycerin 0.4 MG TAB.SUBL SL PRN (21:19)
[2016-06-10] MEDS ORDERED: Nitroglycerin 0.4 MG TAB.SUBL SL ONE (21:32)
[2016-06-10] MEDS ORDERED: *HR* LORazepam 2 MG/ML VIAL IVP PRN (22:14)
[2016-06-10] MEDS: Gabapentin 400 MG CAPSULE PO SCH (23:27)
[2016-06-10] MEDS: Metoprolol XL (24 HR) Succ 50 MG TAB.ER.24H PO SCH (23:29)
[2016-06-10] MEDS: MethylPREDNISolone 40 MG/ML VIAL IVP SCH (23:30)
[2016-06-10] MEDS: Insulin DETEMIR 100 UNIT/ML X5UNITS SQ SCH (23:34)
[2016-06-11] MEDS: Ipratropium/Albuterol Neb 3 ML IH SCH ×7 (00:12→23:18)
[2016-06-11] MEDS: Acetylcysteine 10% 2 ML INHSOL IH SCH ×4 (00:13→15:40)
[2016-06-11] MEDS: 0.9 % Sodium Chloride 1,000 ML IVC SCH ×3 (03:45→16:12)
--- NOTE | 2016-06-11 06:19 | Event Note ---
<Dwight Stockton - Last Filed: 06/11/16 06:06> Date of Encounter: 06/08/16 Time of Encounter: 22:00 I was paged to the patient room at about 2200 because she had begun complaining of acute onset chest pain. She described this as a tightness that was 8/10 in severity and radiated to her right shoulder, she was also complaining about shortness of breath and tingling in her right hand. When evaluated she appeared anxious, there was point tenderness only her right lower chest and upper abdomen area, and there were decreased breath sounds of the right lower lobe with some rhonchi. She was given one dose of 324 mg aspirin and a dose of nitroglycerine that improved her discomfort. An ECG and chest xray were obtained. The ECG showed no findings concerning for acute ischemia and the CXR was suggestive of some atelectasis on the right side of her chest (with elevated right hemidiaphragm). A troponin was negative at that time. The concern addressed appeared to be pleurisy from RLL atelectasis. Mucmyst, breathing treatment, and ativan were ordered. She began feeling much better with better control of her breathing and anxiety. <Rene Loera - Last Filed: 06/13/16 20:30> Date of Encounter: 06/10/16 Ms. Welsh is a 60-year-old female admitted to [facility] via the emergency department with a chief complaint of abdominal pain associated with intractable nausea and vomiting. Workup was progressing under the guidance of her hospital medicine team and consultants in the gastroenterology/surgery. History of significant medical concerns included: chronic pain with significant psychological intermittent tendencies, fibromyalgia syndrome, COPD with history of significant tobacco abuse disorder, atrial fibrillation, GERD, chronic constipation/irritable bowel syndrome with functional abdominal pain, depression and anxiety disorder, history of CVA and TIAs, history of cerebral aneurysm, diabetes mellitus, hypertension, dyslipidemia, obesity with physical deconditioning, etc. Rapid Response was initiated to evaluate patient's report of acute, severe ( right sided) chest pain and difficulty breathing in setting of exacerbation of significant acute on chronic anxiety. The patient was visited and interviewed and examined. I examined this patient and my medical decision-making was reviewed with the Resident Physician, Dr. Dwight Stockton. For this encounter, I have reviewed the documentation, treatment plan, and medical decision making. I agree with the documented findings, disposition and treatment plan as described except to the extent set forth below. Cumulative laboratory and radiographic database was reviewed, considered and discussed. My signature below is to certify that this patient is under my care and that I, or the Resident Physician working with me, has had a [id number] encounter with this patient. Plan of care has been reviewed and discussed in detail with the patient. Questions addressed to her satisfaction and reassurance. Hospital course will be dependent on findings, treatment response and potential causative interventions. The patient is at risk for acute clinical decline given her presenting chief complaints, findings and associated comorbidities. The patient responded favorably to instituted treatments. Close clinical follow -up will be maintained. Orders written. Abnormal lab results RBC 3.20 M/mcL (3.82-4.97) L 06/13/16 03:39 Hgb 9.9 g/dL (11.5-15.4) L 06/13/16 03:39 Hct 30.9 % (35.3-44.9) L 06/13/16 03:39 Chloride 116 mEq/L (98-109) H 06/13/16 03:39 Carbon Dioxide 15 mEq/L (19-29) L 06/13/16 03:39 Glucose 155 mg/dL (70-99) H 06/13/16 03:39 POC Glucose 113 (58-89) H 06/13/16 11:54 Hemoglobin A1c 6.3 % (-5.6) H 06/09/16 16:57 Calcium 8.3 mg/dL (8.6-10.8) L 06/13/16 03:39 Albumin 3.3 g/dL (3.5-5.0) L D 06/10/16 03:57 Urine Clarity Cloudy (Clear) A 06/09/16 23:29 Ur Specific [place] 1.030 (1.010-1.025) H 06/09/16 23:29 Urine Glucose (UA) >=1000 mg/dL (Normal) H 06/09/16 23:29 Urine Ketones Trace mg/dL (Negative) H 06/09/16 23:29 Ur Leukocyte Esterase Small (Negative) H 06/09/16 23:29 Urine Microscopic WBC 50-100 per hpf (0-3) H 06/09/16 23:29 Ur Squamous Epith Cells Moderate per lpf (None-Few) H 06/09/16 23:29 Urine Bacteria Many per hpf (None-Few) H 06/09/16 23:29 Ur Culture Indicated? YES (NO) A 06/09/16 17:50 Urine Opiates Screen Positive ng/mL ([place]=762) H 06/09/16 23:29 Laboratory Last Values WBC 6.5 K/mcL (4.3-11.1) 06/13/16 03:39 RBC 3.20 M/mcL (3.82-4.97) L 06/13/16 03:39 Hgb 9.9 g/dL (11.5-15.4) L 06/13/16 03:39 Hct 30.9 % (35.3-44.9) L 06/13/16 03:39 MCV 96.6 fL (83.0-100.0) 06/13/16 03:39 MCH 30.9 pg (28.0-33.3) 06/13/16 03:39 MCHC 32.0 g/dL (31.6-35.5) 06/13/16 03:39 RDW 14.3 % (11.5-14.5) 06/13/16 03:39 Plt Count 152 K/mcL (140-400) 06/13/16 03:39 MPV 9.7 fL (9.4-12.4) 06/13/16 03:39 Immature Gran % 1.4 % (0-4) 06/13/16 03:39 Seg Neutrophils % 65.2 % 06/13/16 03:39 Lymphocytes % 23.8 % 06/13/16 03:39 Monocytes % 9.0 % 06/13/16 03:39 Eosinophils % 0.0 % 06/13/16 03:39 Basophils % 0.6 % 06/13/16 03:39 Neutrophils # 4.2 K/mcL (1.6-8.9) 06/13/16 03:39 Lymphocytes # 1.5 K/mcL (0.6-4.6) 06/13/16 03:39 Monocytes # 0.6 K/mcL (0.0-1.3) 06/13/16 03:39 Eosinophils # 0.0 K/mcL (0.0-0.6) 06/13/16 03:39 Basophils # 0.0 K/mcL (0.0-0.2) 06/13/16 03:39 Sodium 141 mEq/L (136-145) 06/13/16 03:39 Potassium 3.5 mEq/L (3.5-4.5) 06/13/16 03:39 Chloride 116 mEq/L (98-109) H 06/13/16 03:39 Carbon Dioxide 15 mEq/L (19-29) L 06/13/16 03:39 BUN 9 mg/dL (7-20) 06/13/16 03:39 Creatinine 0.84 mg/dL (0.57-1.11) 06/13/16 03:39 Est GFR ( Amer) > 60 (> 60) 06/13/16 03:39 Est GFR (Non-Af Amer) > 60 (> 60) 06/13/16 03:39 BUN/Creatinine Ratio 11 (6-26) 06/13/16 03:39 Glucose 155 mg/dL (70-99) H 06/13/16 03:39 POC Glucose 113 (58-89) H 06/13/16 11:54 Est Mean Plasma Glucose 134 mg/dl 06/09/16 16:57 Hemoglobin A1c 6.3 % (-5.6) H 06/09/16 16:57 Calculated Osmolality 294 (280-300) 06/13/16 03:39 Calcium 8.3 mg/dL (8.6-10.8) L 06/13/16 03:39 Total Bilirubin 0.5 mg/dL (0.2-1.2) 06/10/16 03:57 Direct Bilirubin 0.4 mg/dL (0.0-0.5) 06/09/16 16:57 Indirect Bilirubin 0.8 mg/dL (0.0-1.2) 06/09/16 16:57 AST 12 Units/L (5-34) 06/10/16 03:57 ALT 11 Units/L (0-55) 06/10/16 03:57 Alkaline Phosphatase 50 Units/L (38-126) 06/10/16 03:57 Troponin I 0.00 ng/mL (0-0.03) 06/10/16 21:17 Serum Total Protein 6.2 g/dL (6.0-8.3) D 06/10/16 03:57 Albumin 3.3 g/dL (3.5-5.0) L D 06/10/16 03:57 Globulin 2.9 g/dL (2.4-3.5) 06/10/16 03:57 Albumin/Globulin Ratio 1.1 (1.1-2.2) 06/10/16 03:57 Amylase 92 Units/L (25-125) 06/09/16 16:57 Lipase 19 Units/L (8-78) 06/09/16 16:57 Urine Color Yellow (Yellow) 06/09/16 23:29 Urine Clarity Cloudy (Clear) A 06/09/16 23:29 Urine pH 6.0 pH Units (5.0-8.0) 06/09/16 23:29 Ur Specific [place] 1.030 (1.010-1.025) H 06/09/16 23:29 Urine Protein Negative mg/dL (Neg-Trace) 06/09/16 23:29 Urine Glucose (UA) >=1000 mg/dL (Normal) H 06/09/16 23:29 Urine Ketones Trace mg/dL (Negative) H 06/09/16 23:29 Urine Blood Negative (Negative) 06/09/16 23:29 Urine Nitrite Negative (Negative) 06/09/16 23:29 Urine Bilirubin Negative (Negative) 06/09/16 23:29 Urine Urobilinogen Normal mg/dL (Normal) 06/09/16 23:29 Ur Leukocyte Esterase Small (Negative) H 06/09/16 23:29 Urine Microscopic RBC 0-3 per hpf (0-3) 06/09/16 23:29 Urine Microscopic WBC 50-100 per hpf (0-3) H 06/09/16 23:29 Ur Squamous Epith Cells Moderate per lpf (None-Few) H 06/09/16 23:29 Urine Bacteria Many per hpf (None-Few) H 06/09/16 23:29 Hyaline Casts None Seen per lpf (None-Few) 06/09/16 23:29 Ur Culture Indicated? YES (NO) A 06/09/16 17:50 Urine Opiates Screen Positive ng/mL (Sqirqj=974) H 06/09/16 23:29 Ur Barbiturates Screen Negative ng/mL (Htzaio=101) 03/28/17 23:29 Ur Phencyclidine Scrn Negative ng/mL (Cutoff=25) 06/09/16 23:29 Ur Amphetamines Screen Negative ng/mL (Wcvytu=6047) 06/09/16 23:29 U Benzodiazepines Scrn Negative ng/mL (Ibmrrt=431) 06/09/16 23:29 Urine Cocaine Screen Negative ng/mL (Cutoff= 300) 06/09/16 23:29 U Marijuana (THC) Screen Negative ng/mL (Cutoff = 50) 06/09/16 23:29 Abdomen/Pelvis CT 06/10/16 14:01 IMPRESSION: 1. No acute intra-abdominal or intrapelvic process. 2. Stable 16 mm left renal cyst. 3. Patient status post cholecystectomy, appendectomy, hysterectomy, and lower lumbar fusion. D/ / 06/10/2016 16:39:16 García Thapa MD / [facility] Interpreting Provider: Garcaí Thapa MD Chest X-Ray 06/10/16 21:46 IMPRESSION: No acute cardiopulmonary abnormality. D/ / Sohan Fuentes MD / Sohan Fuentes MD Interpreting Provider: Sohan Fuentes MD
[2016-06-11 09:00] LABS: Basophils % 0.3 %; Hematocrit 33.1 % (35.3-44.9); Immature Granulocytes % 0.8 % (0-4); Lymphocytes # 0.5 K/mcL (0.6-4.6); Lymphocytes % 13.4 %; Mean Corpuscular Hemoglobin 30.7 pg (28.0-33.3); Mean Corpuscular Volume 95.9 fL (83.0-100.0); Mean Platelet Volume 9.2 fL (9.4-12.4); Monocytes # 0.1 K/mcL (0.0-1.3); Monocytes % 2.8 %; Neutrophils # 3.3 K/mcL (1.6-8.9); Platelet Count 145 K/mcL (140-400); Red Blood Count 3.45 M/mcL (3.82-4.97); Red Cell Distribution Width 14.1 % (11.5-14.5); Segmented Neutrophils % 82.7 %
[2016-06-11 09:01] LABS: Hemoglobin 10.6 g/dL (11.5-15.4)
[2016-06-11] MEDS: Insulin LISPRO 300 UNITS/3 ML VIAL SQ SCH ×4 (09:01→21:55)
[2016-06-11] MEDS: *HR* Glimepiride 4 MG TABLET PO SCH (09:01)
[2016-06-11] MEDS: Spironolactone 25 MG TABLET PO SCH (09:01)
[2016-06-11] MEDS: APIXABAN 5 MG TABLET PO SCH ×2 (09:01→21:55)
[2016-06-11] MEDS: MethylPREDNISolone 40 MG/ML VIAL IVP SCH (09:01)
[2016-06-11] MEDS: Pantoprazole 40 MG VIAL IVP SCH (09:01)
[2016-06-11] MEDS: Empagliflozin [Jardiance] 25 MG PO SCH (09:02)
[2016-06-11] MEDS: Liraglutide [Victoza 2-Pak] 1.2 MG SQ SCH (09:02)
[2016-06-11] MEDS: Lisinopril 20 MG TABLET PO SCH (09:02)
[2016-06-11] MEDS: PROPAFENONE HCL 325 MG PO SCH ×2 (13:15→21:56)
--- NOTE | 2016-06-11 18:38 | Electrocardiograph Report ---
[place] [address] Test Date: 2016-06-10 Pat Name: Kary Welsh Department: 113 Room: 3B Gender: F Quality Compliance Consultant: [id number] : 1955 Requested By: Denise Dan Order Number: [id number] Reading MD: Brodie Medina MD Measurements Intervals [place] Rate: 92 P: 41 VA: 156 QRS: -7 QRSD: 72 T: 37 QT: 367 QTc: 417 Interpretive Statements SINUS RHYTHM LOW QRS VOLTAGE IN PRECORDIAL LEADS Electronically Signed On 06-11-2016 18:37:04 EDT by Brodie Medina MD
--- NOTE | 2016-06-11 19:16 | Internal Med Progress Note ---
Date of Encounter: 06/08/16 Time of Encounter: 10:30 - Assessment and plan (1) UTI (urinary tract infection) Current Visit: Yes Status: Acute Assessment and plan: She has been being treated for antibiotic. Final culture resulted today showed Escherichia coli. Sensitivity shows that it is resistant to ceftriaxone. I DC' d the ceftriaxone and restarted ciprofloxacin 400 mg twice a day IV. The sensitivity shows that it is susceptible to Cipro. Patient has still had nausea and vomiting however her pain seems to be a little bit under control. She rates her pain a 7 out of 10. She is eating well. Again, I feel that the pain is disproportionate to the diagnosis. Pain control Anti-emetics Stopped Rocephin, restarted Cipro 400mg IV bid IV fluids Monitor vital signs Monitor labs Qualifiers: Urinary tract infection type: acute cystitis Hematuria presence: without hematuria Qualified Code(s): N30.00 - Acute cystitis without hematuria (2) LLQ abdominal pain Current Visit: Yes Status: Acute Assessment and plan: Patient still reports 7 out of 10 left lower quadrant pain. There has been no change in assessment since yesterday. Patient is eating well despite nausea and vomiting overnight. She refused a clear liquid diet and is instead eating a regular diet/diabetic diet. Abdomen is soft and rounded bowel sounds 4. We will reassess again tomorrow. The procedure was to see patient today for her chronic abdominal pain. There is no note and he has not been on the floor today. We will reassess again tomorrow. (3) Nausea & vomiting Current Visit: Yes Status: Acute Assessment and plan: Patient did have nausea and vomiting overnight. She denies any now. She is eating well. Refused clear liquid tray and instead is eating regular food on a diabetic tray. Anti-emetics as needed Qualifiers: Vomiting type: unspecified Vomiting Intractability: non-intractable Qualified Code(s): R11.2 - Nausea with vomiting, unspecified (4) Left hip pain Current Visit: Yes Status: Acute Assessment and plan: Patient denied left hip pain for me today. We will continue to monitor. (5) DVT prophylaxis Current Visit: Yes Status: Acute Assessment and plan: We will continue to encourage early ambulation. Antiembolic stockings. (6) Diabetes mellitus Current Visit: Yes Status: Chronic Assessment and plan: A1c is 6.3. Accu-Cheks are still elevated today. Over 200. Sliding scale insulin Accu-Cheks before meals at bedtime Diabetic diet Qualifiers: Diabetes mellitus type: type 2 Diabetes mellitus complication status: with unspecified complications Diabetes mellitus half-way insulin use: with half-way use Qualified Code(s): E11.8 - Type 2 diabetes mellitus with unspecified complications (7) Acute kidney injury Current Visit: Yes Status: Acute Assessment and plan: Creatinine has returned to normal limits. GFR is 51. IV fluids. Maternal labs Avoid nephrotoxins - Time Spent With Patient less than 15 minutes - Subjective Interval history: Patient was seen and evaluated this morning. She states that her nausea is "pretty good". She rates her left lower quadrant pain 7 out of 10 and states that she is better. Despite nausea and vomiting overnight she refused to drink clear liquid diet and was eating a diabetic diet and statin. She appeared to tolerate it well without any nausea vomiting after. Her lungs are clear anteriorly and posteriorly. Her abdomen is soft and she still claims that it is tender. I spoke with Dr. Garcia yesterday he said he would be her to see her today however have not seen him yet patient is not ready to go home yet due to pain and sporadic nausea and vomiting. Will reassess tomorrow. . - Constitutional Vitals: Temp Pulse Resp BP Pulse Ox 98.0 F 82 15 107/64 97 06/11/16 14:46 06/11/16 14:46 06/11/16 15:41 06/11/16 14:46 06/11/16 15:41 General appearance: Present: cooperative, A&O X 3, severe distress, answers questions appropriately - Head Head exam: Present: normal inspection - Eye Eye exam: Present: normal appearance, conjuntiva pink - ENT ENT exam: Present: mucous membranes moist, normal exam - Neck Neck exam general surgery: Present: normal inspection. Absent: lymphadenopathy , tenderness - Respiratory Respiratory exam: Present: CTAB, stridor. Absent: respiratory distress, rhonchi , wheezes, tachypnea - Cardiovascular Cardiovascular exam: Present: RRR, +S1, +S2. Absent: diastolic murmur, systolic murmur - GI/Abdominal GI/Abdominal exam: Present: normal bowel sounds, soft, tenderness. Absent: hepatomegaly Additional comments: Abdomen tender to palpation left lower quadrant. - Extremities Exam Extremities exam: Present: warm. Absent: pedal edema - Neurological Exam Neurological exam: Present: alert, oriented X3, no focal deficits Internal Medicine: Result - Labs CBC & Chem 7: 06/11/16 08:52 06/10/16 03:57 Labs: Short CBC 06/11/16 Range/Units 08:52 WBC 4.0 L D (4.3-11.1) K/mcL Hgb 10.6 L D (11.5-15.4) g/dL Hct 33.1 L (35.3-44.9) % Plt Count 145 D (140-400) K/mcL Neutrophils # 3.3 (1.6-8.9) K/mcL Cardiac Enzymes 06/10/16 Range/Units 21:17 Troponin I 0.00 (0-0.03) ng/mL - Impressions Impressions Abdomen/Pelvis CT 06/10/16 14:01 IMPRESSION: 1. No acute intra-abdominal or intrapelvic process. 2. Stable 16 mm left renal cyst. 3. Patient status post cholecystectomy, appendectomy, hysterectomy, and lower lumbar fusion. D/ / 06/10/2016 16:39:16 García Thapa MD / [facility] Interpreting Provider: García Thapa MD Chest X-Ray 06/10/16 21:46 IMPRESSION: No acute cardiopulmonary abnormality. D/ / Sohan Fuentes MD / Sohan Fuentes MD Interpreting Provider: Sohan Fuentes MD Consult Discharge Plan - Plan Referrals: Sohan Gonsales MD [Primary Care Provider] -
[2016-06-11] MEDS: *HR* Morphine 2 MG/ML SYRINGE IVP PRN (19:46)
[2016-06-11] MEDS: Insulin DETEMIR 100 UNIT/ML X5UNITS SQ SCH (21:55)
[2016-06-11] MEDS: Gabapentin 400 MG CAPSULE PO SCH (21:55)
[2016-06-11] MEDS: Metoprolol XL (24 HR) Succ 50 MG TAB.ER.24H PO SCH (21:56)
[2016-06-11] MEDS: Acetaminophen 325 MG TABLET PO PRN (23:07)
[2016-06-12] MEDS: Ipratropium/Albuterol Neb 3 ML IH SCH ×6 (03:43→23:32)
[2016-06-12 06:05] LABS: Basophils % 0.2 %; Hematocrit 29.6 % (35.3-44.9); Hemoglobin 9.8 g/dL (11.5-15.4); Immature Granulocytes % 0.9 % (0-4); Lymphocytes # 1.3 K/mcL (0.6-4.6); Lymphocytes % 13.5 %; Mean Corpuscular HGB Conc 33.1 g/dL (31.6-35.5); Mean Corpuscular Hemoglobin 31.4 pg (28.0-33.3); Mean Corpuscular Volume 94.9 fL (83.0-100.0); Monocytes # 0.7 K/mcL (0.0-1.3); Monocytes % 7.2 %; Neutrophils # 7.4 K/mcL (1.6-8.9); Platelet Count 148 K/mcL (140-400); Red Blood Count 3.12 M/mcL (3.82-4.97); Segmented Neutrophils % 78.2 %
[2016-06-12 06:19] LABS: BUN/Creatinine Ratio 14 (6-26); Blood Urea Nitrogen 12 mg/dL (7-20); Calcium 8.1 mg/dL (8.6-10.8); Carbon Dioxide 19 mEq/L (19-29); Chloride 115 mEq/L (98-109); Glucose 123 mg/dL (70-99); Osmolality,Calculated 287 (280-300); Potassium 3.6 mEq/L (3.5-4.5); Sodium 138 mEq/L (136-145); eGFR For African Americans > 60 (> 60); eGFR For Non-African Americans > 60 (> 60)
[2016-06-12] MEDS: 0.9 % Sodium Chloride 1,000 ML IVC SCH ×2 (06:32→23:03)
[2016-06-12] MEDS: Pantoprazole 40 MG VIAL IVP SCH (08:44)
[2016-06-12] MEDS: *HR* Morphine 2 MG/ML SYRINGE IVP PRN (08:44)
[2016-06-12] MEDS: MethylPREDNISolone 40 MG/ML VIAL IVP SCH (08:44)
[2016-06-12] MEDS: Insulin LISPRO 300 UNITS/3 ML VIAL SQ SCH ×4 (08:45→22:54)
[2016-06-12] MEDS: Liraglutide [Victoza 2-Pak] 1.2 MG SQ SCH (08:46)
[2016-06-12] MEDS: Spironolactone 25 MG TABLET PO SCH (08:46)
[2016-06-12] MEDS: *HR* Glimepiride 4 MG TABLET PO SCH (08:46)
[2016-06-12] MEDS: Lisinopril 20 MG TABLET PO SCH (08:46)
[2016-06-12] MEDS: APIXABAN 5 MG TABLET PO SCH ×2 (08:46→22:51)
[2016-06-12] MEDS: Empagliflozin [Jardiance] 25 MG PO SCH (08:46)
[2016-06-12] MEDS: PROPAFENONE HCL 325 MG PO SCH ×2 (08:57→22:51)
--- NOTE | 2016-06-12 12:08 | General Surgery Consult Note ---
Date of Encounter: 06/08/16 Time of Encounter: 12:00 Assessment and Plan (1) Constipation Current Visit: No Status: Chronic Stool softners BID- increased colace to 200mg BID Miralax BID Add Fiber supplement daily Milk and Molasses enemas X 2 today Qualifiers: Constipation type: unspecified constipation type Qualified Code(s): K59.00 - Constipation, unspecified (2) GERD (gastroesophageal reflux disease) Current Visit: Yes Status: Chronic PPI therapy BID Carafate QID Qualifiers: Esophagitis presence: without esophagitis Qualified Code(s): K21.9 - Gastro -esophageal reflux disease without esophagitis History of Present Illness Consult date: 06/12/16 Reason for consult: abdominal pain Requesting physician: Yamila Acosta History of present illness: Mrs. Welsh is a 60 year old female with a past medical history significant for HTN, DM, CVA, Cerebral aneurysm, Depression, GERD, Anxiety, chronic constipation. She presents to the hospital with complaints of LLQ pain with associated nausea/vomiting. She states that she has LLQ pain chronically which is typically intermittent. She states that it has been constant today and that it does radiate into her back. Admits to nausea but denies any vomiting for the past 48 hours. Admits to constipation and states that her last bowel movement was at least 2 weeks ago. She states that she typically has a bowel movement 1 time per month and that she takes Miralax and enemas to move her bowels. Denies any fevers/chills. Denies any difficulty with urination. She is recently s/p an EGD and Colonoscopy with Dr. Frederick on 05/18/16. EGD showed mild gastritis and pathology was negative for H. Pylori. Colonoscopy was normal. Patient admits to chronic, uncontrolled reflux. She has had a CT scan which shows no acute abnormality. We have been asked to see and evaluate the patient for her abdominal pain. Past Med Surg Social Fam HX - Past Medical History Source: patient, old records reviewed Medical history: arthritis, atrial fibrillation, COPD, CVA, diabetes, fibromyalgia, GERD, hyperlipidemia, hypertension, migraine, osteoporosis, TIA, other Psychiatric history: anxiety, depression - Past Surgical History Surgical History: appendectomy, cholecystectomy, hysterectomy, other (EGD/ Colonoscopy 05/18/[address] Frederick) - Social History Smoking Status: Current every day smoker Packs per day: 1 Smokeless Tobacco Status: No Alcohol use: none Drug use: none Current living situation: Home - Independent Activity Level: Independent ambulation - Family History Mother Living Status: Hx Family Cardiac Disorders: Yes (CO) Hx Family Respiratory Disorders: Yes (COPD) Hx Family Cancer: Yes (Breast) Hx Family GI Disorders: No Hx Family Endocrine Disorder: No Hx Family Neuromuscular Disorders: No Hx Family Neurologic Disorders: No Hx Family HEENT Disorders: No Hx Family Autoimmune Disorders: No Father Living Status: Hx Family Cardiac Disorders: Yes (CO, HTN) Hx Family Respiratory Disorders: Yes (COPD) Hx Family Cancer: No Hx Family GI Disorders: No Hx Family Endocrine Disorder: No Hx Family Neuromuscular Disorders: No Hx Family Neurologic Disorders: No Hx Family HEENT Disorders: No Hx Family Autoimmune Disorders: No Medications and Allergies Atorvastatin [Lipitor] 40 mg PO DAILY 11/14/14 [History] Sennosides/Docusate Sodium [Senna Plus] 1 tab PO DAILY PRN 11/14/14 [History] Promethazine [Phenergan] 25 mg PO Q8HR PRN #21 tablet 03/26/15 [Rx] Amitriptyline [Elavil] 25 mg PO HS #30 tablet 08/23/15 [Rx] Apixaban [Eliquis] 5 mg PO BID 12/06/15 [History] Gabapentin [Neurontin] 1,200 mg PO HS 12/06/15 [History] Insulin Glargine [Lantus] 80 unit SQ HS 12/06/15 [History] Metoprolol XL (24 HR) Succ [Toprol Xl] 50 mg PO HS 12/06/15 [History] Duloxetine HCl [Cymbalta] 120 mg PO QAM 05/17/16 [History] Empagliflozin [Jardiance] 25 mg PO QAM 05/17/16 [History] Glimepiride [Amaryl] 4 mg PO QAM 05/17/16 [History] Lisinopril [Zestril] 20 mg PO DAILY 05/17/16 [History] Nortriptyline [Pamelor] 25 mg PO QAM 05/17/16 [History] Pantoprazole Sodium [Protonix] 40 mg PO HS 05/17/16 [History] Propafenone HCl [Rythmol Sr] 325 mg PO BID 05/17/16 [History] Quetiapine Fumarate [Seroquel] 200 mg PO HS 05/17/16 [History] Spironolactone [Aldactone] 25 mg PO QAM 05/17/16 [History] Insulin LISPRO [HumaLOG] 0 units SQ TIDAC vial 05/19/16 [Rx] Polyethylene Glycol 3350 [Smoothlax] 17 gm PO BID 06/10/16 [History] Allergies Sulfa (Sulfonamide Antibiotics) Allergy (Severe, Verified 05/17/16 08:53) Anaphylaxis prednisone Adverse Reaction (Mild, Verified 05/17/16 08:53) swelling metformin Adverse Reaction (Verified 06/09/16 21:42) Hives Review of Systems All systems PM: reviewed and no additional remarkable complaints except as stated (in the HPI) All systems PM: A 10-system review of systems was performed and is negative for pertinent findings except as documented above in the HPI. General Surgery Exam Initial Vital Signs Temp Pulse Resp BP Pulse Ox 98.2 F 130 24 96/61 96 06/09/16 13:23 06/09/16 13:23 06/09/16 13:23 06/09/16 13:23 06/09/16 13:23 - General physical appearance well developed, well nourished, no distress - Eyes normal ocular movement - ENT normal mucosa, atraumatic, normocephalic - Neck trachea midline - Respiratory normal respiratory effort, clear to auscultation - Cardiovascular Cardiovascular exam: Present: RRR, 15, 16 - Abdomen Abdomen general surgery: Present: bowel sounds present, soft, tender (mild) Abdominal Tenderness: Present: LLQ - Integumentary Integumentary general surgery: Present: warm and dry - Neurologic Present: CN 2-12 grossly intact - Musculoskeletal Present: normal gait, normal posture - Psychiatric Psychiatric general surgery: Present: appropriate, oriented to person, oriented to place, oriented to time, speech is normal, memory intact Exam Initial Vital Signs Temp Pulse Resp BP Pulse Ox 98.2 F 130 24 96/61 96 06/09/16 13:23 06/09/16 13:23 06/09/16 13:23 06/09/16 13:23 06/09/16 13:23 Results - Labs 06/12/16 05:17 06/12/16 05:17 Abnormal lab results RBC 3.12 M/mcL (3.82-4.97) L 06/12/16 05:17 Hgb 9.8 g/dL (11.5-15.4) L 06/12/16 05:17 Hct 29.6 % (35.3-44.9) L 06/12/16 05:17 Chloride 115 mEq/L (98-109) H 06/12/16 05:17 Glucose 123 mg/dL (70-99) H 06/12/16 05:17 POC Glucose 98 (58-89) H 06/12/16 11:44 Hemoglobin A1c 6.3 % (-5.6) H 06/09/16 16:57 Calcium 8.1 mg/dL (8.6-10.8) L 06/12/16 05:17 Albumin 3.3 g/dL (3.5-5.0) L D 06/10/16 03:57 Urine Clarity Cloudy (Clear) A 06/09/16 23:29 Ur Specific [place] 1.030 (1.010-1.025) H 06/09/16 23:29 Urine Glucose (UA) >=1000 mg/dL (Normal) H 06/09/16 23:29 Urine Ketones Trace mg/dL (Negative) H 06/09/16 23:29 Ur Leukocyte Esterase Small (Negative) H 06/09/16 23:29 Urine Microscopic WBC 50-100 per hpf (0-3) H 06/09/16 23:29 Ur Squamous Epith Cells Moderate per lpf (None-Few) H 06/09/16 23:29 Urine Bacteria Many per hpf (None-Few) H 06/09/16 23:29 Ur Culture Indicated? YES (NO) A 06/09/16 17:50 Urine Opiates Screen Positive ng/mL (Yktubr=079) H 06/09/16 23:29 Diabetes panel 06/12/16 Range/Units 05:17 Sodium 138 (136-145) mEq/L Potassium 3.6 (3.5-4.5) mEq/L Chloride 115 H (98-109) mEq/L Carbon Dioxide 19 (19-29) mEq/L BUN 12 D (7-20) mg/dL Creatinine 0.85 (0.57-1.11) mg/dL Glucose 123 H (70-99) mg/dL Calcium 8.1 L (8.6-10.8) mg/dL Calcium panel 06/12/16 Range/Units 05:17 Calcium 8.1 L (8.6-10.8) mg/dL Pituitary panel 06/12/16 Range/Units 05:17 Sodium 138 (136-145) mEq/L Potassium 3.6 (3.5-4.5) mEq/L Chloride 115 H (98-109) mEq/L Carbon Dioxide 19 (19-29) mEq/L BUN 12 D (7-20) mg/dL Creatinine 0.85 (0.57-1.11) mg/dL Glucose 123 H (70-99) mg/dL Calcium 8.1 L (8.6-10.8) mg/dL Adrenal panel 06/12/16 Range/Units 05:17 Sodium 138 (136-145) mEq/L Potassium 3.6 (3.5-4.5) mEq/L Chloride 115 H (98-109) mEq/L Carbon Dioxide 19 (19-29) mEq/L BUN 12 D (7-20) mg/dL Creatinine 0.85 (0.57-1.11) mg/dL Glucose 123 H (70-99) mg/dL Calcium 8.1 L (8.6-10.8) mg/dL All other labs normal. - Imaging Additional studies: Abdomen/Pelvis CT 06/10/16 14:01 IMPRESSION: 1. No acute intra-abdominal or intrapelvic process. 2. Stable 16 mm left renal cyst. 3. Patient status post cholecystectomy, appendectomy, hysterectomy, and lower lumbar fusion. D/ / 06/10/2016 16:39:16 [facility] Interpreting Provider: García Thapa MD Chest X-Ray 06/10/16 21:46 IMPRESSION: No acute cardiopulmonary abnormality. D/ / Soahn Fuentes MD / Sohan Fuentes MD Interpreting Provider: Sohan Fuentes MD Consult Discharge Plan - Plan Referrals: Sohan Gonsales MD [Primary Care Provider] - - Attending Attestation I examined this patient and my medical decision-making was reviewed with the OUTDOOR FITNESS TRAINER/PA/Advanced Practice Nurse/Resident Physician. I agree with the documented findings, disposition and treatment plan as described except to the extent set forth below.
[2016-06-12] MEDS: Sucralfate 1 GM TABLET PO SCH ×3 (12:53→22:50)
[2016-06-12] MEDS ORDERED: 0.9 % Sodium Chloride 1,000 ML IVC ONE (15:14)
[2016-06-12] MEDS: Milk and Molasses Enema 200 ML RC SCH (15:44)
[2016-06-12] MEDS: Psyllium 1 PACKET POWD.PACK PO SCH ×2 (15:44→22:52)
--- NOTE | 2016-06-12 20:15 | Internal Med Progress Note ---
Date of Encounter: 06/12/16 Time of Encounter: 12:00 - Assessment and plan (1) UTI (urinary tract infection) Current Visit: Yes Status: Acute Assessment and plan: Patient denies abdominal pain. She is not having nausea or vomiting today and she is eating a normal diet. She remains on Cipro. I will switch her over to by mouth so she can go home tomorrow. Will encourage by mouth fluids and monitor vital signs. There is no leukocytosis or fever. Pain control if needed Antiemetics if needed Encourage by mouth fluid intake Cipro by mouth Monitor vital signs Monitor labs in a.m. Qualifiers: Urinary tract infection type: acute cystitis Hematuria presence: without hematuria Qualified Code(s): N30.00 - Acute cystitis without hematuria (2) LLQ abdominal pain Current Visit: Yes Status: Acute Assessment and plan: Patient remains slightly tender in left lower quadrant. Per Dr. Garcia this pain is chronic and she has been seen for multiple times. It could potentially at this time related to constipation as she has had no bowel movement for 1 week. Her belly is soft and she does have bowel sounds 4. She is tolerating a regular diet. There is no leukocytosis or fever. Pain has drastically decreased since arrival. She states that she is feeling better. She has not had a bowel movement in a week. We have been attempting to increase her fluid and introduce MiraLAX and Colace. She was seen by surgery today and milk of molasses enemas 2 were ordered. Patient refused until now. Staff and I feel that patient does not want to go home. I had a discussion with her that she really needs to try to do the enemas overnight, so she can have a bowel movement , so she can go home in the morning. Patient was in agreement. Pain control if needed Enemas overnight if patient is agreeable (3) Nausea & vomiting Current Visit: Yes Status: Acute Assessment and plan: Patient denies nausea and vomiting today. She is been tolerating a regular diet and fluids well. She has antiemetics available to her should the symptoms return. We will continue to encourage by mouth intake. Qualifiers: Vomiting type: unspecified Vomiting Intractability: non-intractable Qualified Code(s): R11.2 - Nausea with vomiting, unspecified (4) Left hip pain Current Visit: Yes Status: Acute Assessment and plan: Patient denied left hip pain for me today. We will continue to monitor. Patient discloses to me that she has had this chronic hip pain for years and sees pain management, Dr. Loera, for injections in a topical cream that she uses. He does not have a scheduled appointment with Dr. Loera however I did encourage her to make an appointment for this hip pain management once she is home. Patient was evaluated by physical therapy today and was found to possibly an effect from and home physical therapy. We will continue to assess. (5) DVT prophylaxis Current Visit: Yes Status: Acute Assessment and plan: We will continue to encourage early ambulation. Antiembolic stockings. (6) Acute kidney injury Current Visit: Yes Status: Resolved Assessment and plan: Her renal function labs still remain within normal limits. We will continue to monitor labs in the morning, avoid nephrotoxins, and NSAIDs (7) Diabetes mellitus Current Visit: Yes Status: Chronic Assessment and plan: A1c is 6.3. Accu-Cheks are in the 150s today. Continue plan Sliding scale insulin Accu-Cheks before meals at bedtime Diabetic diet Qualifiers: Diabetes mellitus type: type 2 Diabetes mellitus complication status: with unspecified complications Diabetes mellitus computer terminal operator insulin use: with nursing home use Qualified Code(s): E11.8 - Type 2 diabetes mellitus with unspecified complications - Time Spent With Patient less than 15 minutes - Subjective Interval history: Today patient states that she feels much better. She denies abdominal pain. She does report that she has not had a bowel movement in over a week that is her chief complaint to me today. Surgery did see her today and recommended molasses enemas 2 today she is already taking MiraLAX, the increased Colace to 200 mg twice a day, and a fiber supplement daily. Patient knew that she was to have the enemas to have bowel movement so that she go home. She refused the enemas for day staff nurses. I did go and as I was leaving tonight and discuss with her the necessity of her trying have a bowel movement prior to leaving. She says that she does not have a ride home tonight. She will be ready for discharge in the morning. . - Constitutional Vitals: Temp Pulse Resp BP Pulse Ox 98.3 F 81 16 108/69 96 06/12/16 19:48 06/12/16 19:48 06/12/16 19:57 06/12/16 19:48 06/12/16 19:57 General appearance: Present: cooperative, A&O X 3, severe distress, answers questions appropriately - Head Head exam: Present: normal inspection - Eye Eye exam: Present: normal appearance, PERRL, conjuntiva pink - ENT ENT exam: Present: mucous membranes moist, normal exam - Neck Neck exam general surgery: Absent: lymphadenopathy, normal inspection, tenderness - Respiratory Respiratory exam: Present: decreased breath sounds. Absent: rales, respiratory distress, rhonchi, stridor, wheezes, tachypnea - Cardiovascular Cardiovascular exam: Present: RRR, +S1, +S2. Absent: diastolic murmur, systolic murmur - GI/Abdominal GI/Abdominal exam: Present: distended, normal bowel sounds. Absent: hepatomegaly, tenderness - Extremities Exam Extremities exam: Present: normal capillary refill, warm, radial pulses palpable and symetrical. Absent: pedal edema, tenderness - Neurological Exam Neurological exam: Present: alert, oriented X3. Absent: strengths equal and symetr throughout, facial droop, speech deficit Internal Medicine: Result - Labs CBC & Chem 7: 06/12/16 05:17 06/12/16 05:17 Labs: Short CBC 06/12/16 Range/Units 05:17 WBC 9.4 D (4.3-11.1) K/mcL Hgb 9.8 L (11.5-15.4) g/dL Hct 29.6 L (35.3-44.9) % Plt Count 148 (140-400) K/mcL Neutrophils # 7.4 (1.6-8.9) K/mcL BMP 06/12/16 05:17 Sodium 138 Potassium 3.6 Chloride 115 H Carbon Dioxide 19 BUN 12 D Creatinine 0.85 Glucose 123 H Calcium 8.1 L Consult Discharge Plan - Plan Referrals: Sohan Gonsales MD [Primary Care Provider] -
[2016-06-12] MEDS: Metoprolol XL (24 HR) Succ 50 MG TAB.ER.24H PO SCH ×2 (22:51→23:00)
[2016-06-12] MEDS: Gabapentin 400 MG CAPSULE PO SCH (22:52)
[2016-06-12] MEDS: Insulin DETEMIR 100 UNIT/ML X5UNITS SQ SCH (22:53)
[2016-06-13] MEDS: Milk and Molasses Enema 200 ML RC SCH (00:32)
[2016-06-13 04:21] LABS: Basophils % 0.6 %; Hematocrit 30.9 % (35.3-44.9); Hemoglobin 9.9 g/dL (11.5-15.4); Immature Granulocytes % 1.4 % (0-4); Lymphocytes # 1.5 K/mcL (0.6-4.6); Lymphocytes % 23.8 %; Mean Corpuscular Hemoglobin 30.9 pg (28.0-33.3); Mean Corpuscular Volume 96.6 fL (83.0-100.0); Mean Platelet Volume 9.7 fL (9.4-12.4); Monocytes # 0.6 K/mcL (0.0-1.3); Neutrophils # 4.2 K/mcL (1.6-8.9); Platelet Count 152 K/mcL (140-400); Red Cell Distribution Width 14.3 % (11.5-14.5); Segmented Neutrophils % 65.2 %
[2016-06-13] MEDS: Ipratropium/Albuterol Neb 3 ML IH SCH ×3 (04:23→11:21)
[2016-06-13 04:41] LABS: BUN/Creatinine Ratio 11 (6-26); Blood Urea Nitrogen 9 mg/dL (7-20); Calcium 8.3 mg/dL (8.6-10.8); Carbon Dioxide 15 mEq/L (19-29); Chloride 116 mEq/L (98-109); Glucose 155 mg/dL (70-99); Osmolality,Calculated 294 (280-300); Potassium 3.5 mEq/L (3.5-4.5); Sodium 141 mEq/L (136-145); eGFR For African Americans > 60 (> 60); eGFR For Non-African Americans > 60 (> 60)
[2016-06-13] MEDS: Sucralfate 1 GM TABLET PO SCH ×2 (06:27→12:00)
[2016-06-13] MEDS: Spironolactone 25 MG TABLET PO SCH (08:05)
[2016-06-13] MEDS: Liraglutide [Victoza 2-Pak] 1.2 MG SQ SCH (08:06)
[2016-06-13] MEDS: Empagliflozin [Jardiance] 25 MG PO SCH (08:06)
[2016-06-13] MEDS: PROPAFENONE HCL 325 MG PO SCH (08:06)
[2016-06-13] MEDS: Lisinopril 20 MG TABLET PO SCH (08:06)
[2016-06-13] MEDS: *HR* Glimepiride 4 MG TABLET PO SCH (08:14)
[2016-06-13] MEDS: MethylPREDNISolone 40 MG/ML VIAL IVP SCH (08:14)
[2016-06-13] MEDS: APIXABAN 5 MG TABLET PO SCH (08:14)
[2016-06-13] MEDS: Psyllium 1 PACKET POWD.PACK PO SCH ×2 (08:15→13:22)
[2016-06-13] MEDS: Insulin LISPRO 300 UNITS/3 ML VIAL SQ SCH ×2 (08:15→11:57)
[2016-06-13 11:55] VITALS: BP 147/82
--- NOTE | 2016-06-13 13:45 | Discharge Summary ---
Date of Encounter: 06/13/16 Time of Encounter: 09:00 - Discharge Diagnosis (1) UTI (urinary tract infection) Priority: Primary Status: Acute Comments: Today patient is sitting up in a chair and complains of slight left lower quadrant pain that is unchanged from her normal. She is not having any nausea or vomiting and she has eaten breakfast and lunch. Her urine culture was positive for Escherichia coli which was susceptible to Cipro. She has been switched over to by mouth Cipro and will go home with a prescription. Qualifiers: Urinary tract infection type: acute cystitis Hematuria presence: without hematuria Qualified Code(s): N30.00 - Acute cystitis without hematuria (2) LLQ abdominal pain Priority: Secondary Status: Chronic Comments: Again today, pt remains slightly tender in the LLQ. She reports that pain radiates to her L hip, however, she also states that the L hip pain is separate , and she has pain management control the pain to the L hip. Her abd is soft and bowel sounds are present. She did have a large bowel movement last night with a milk and molasses enema. She has no leukocytosis or fever. Follow up with PCP for further evaluation (3) Nausea & vomiting Priority: Secondary Status: Acute Comments: Pt denies n/v today. She is able to eat a regular diet without difficulty. Pt has Phenergan prn for home. Will resume. Qualifiers: Vomiting type: unspecified Vomiting Intractability: non-intractable Qualified Code(s): R11.2 - Nausea with vomiting, unspecified (4) Left hip pain Priority: Secondary Status: Chronic Comments: Pt was evaluated by pain management for L hip pain and it was felt that she would benefit from in-home PT. patient is agreeable and will do this upon discharge. Patient also sees Dr. Loera for pain management. She says that he gives her injections and a cream to use that are effective. She says she does not have an upcoming appointment, but will make one. Continue home medications. (5) Acute kidney injury Priority: Secondary Status: Resolved (6) Diabetes mellitus Priority: Secondary Status: Chronic Comments: Patient has been fairly well controlled during admission. Her A1c is 6.3. Continue home medications. Qualifiers: Diabetes mellitus type: type 2 Diabetes mellitus complication status: with unspecified complications Diabetes mellitus terminal press operator insulin use: with terminal press operator use Qualified Code(s): E11.8 - Type 2 diabetes mellitus with unspecified complications (7) Hypotension Priority: Secondary Status: Acute Comments: Patient states that when she has at home her blood pressure is "in the 100s over something". Patient is unable to state what her normal blood pressure is at home. She has been hypotensive since arrival. She does take lisinopril, aldactone, rhythmol, metoprolol, and some other sedating medications at bedtime , that may be contributing to her hypotension. I will stop Lisinopril. Orthostatics remain above 100 systolic. Qualifiers: Hypotension type: unspecified hypotension type Qualified Code(s): I95.9 - Hypotension, unspecified (8) DVT prophylaxis Priority: Secondary Status: Acute Comments: Patient does have JEN hose, and she has been up and around in her room. She does ambulate easily. - Discharge Medications Prescriptions: Ciprofloxacin [Cipro] 500 mg PO BID #10 tablet Sucralfate [Carafate] 1 gm PO TID #90 tablet Home Medications: Atorvastatin [Lipitor] 40 mg PO DAILY 11/14/14 [History] Sennosides/Docusate Sodium [Senna Plus] 1 tab PO DAILY PRN 11/14/14 [History] Promethazine [Phenergan] 25 mg PO Q8HR PRN #21 tablet 03/26/15 [Rx] Amitriptyline [Elavil] 25 mg PO HS #30 tablet 08/23/15 [Rx] Apixaban [Eliquis] 5 mg PO BID 12/06/15 [History] Gabapentin [Neurontin] 1,200 mg PO HS 12/06/15 [History] Insulin Glargine [Lantus] 80 unit SQ HS 12/06/15 [History] Metoprolol XL (24 HR) Succ [Toprol Xl] 50 mg PO HS 12/06/15 [History] Duloxetine HCl [Cymbalta] 120 mg PO QAM 05/17/16 [History] Empagliflozin [Jardiance] 25 mg PO QAM 05/17/16 [History] Glimepiride [Amaryl] 4 mg PO QAM 05/17/16 [History] Nortriptyline [Pamelor] 25 mg PO QAM 05/17/16 [History] Pantoprazole Sodium [Protonix] 40 mg PO HS 05/17/16 [History] Propafenone HCl [Rythmol Sr] 325 mg PO BID 05/17/16 [History] Quetiapine Fumarate [Seroquel] 200 mg PO HS 05/17/16 [History] Spironolactone [Aldactone] 25 mg PO QAM 05/17/16 [History] Insulin LISPRO [HumaLOG] 0 units SQ TIDAC vial 05/19/16 [Rx] Polyethylene Glycol 3350 [Smoothlax] 17 gm PO BID 06/10/16 [History] Ciprofloxacin [Cipro] 500 mg PO BID #10 tablet 06/13/16 [Rx] Sucralfate [Carafate] 1 gm PO TID #90 tablet 06/13/16 [Rx] Allergies/Adverse Reactions: Allergies Sulfa (Sulfonamide Antibiotics) Allergy (Severe, Verified 05/17/16 08:53) Anaphylaxis prednisone Adverse Reaction (Mild, Verified 05/17/16 08:53) swelling metformin Adverse Reaction (Verified 06/09/16 21:42) Hives Procedures/tests Complete & Pending: Procedures Performed prior 72 hours Category Date Time Status CT abd pelvis wo no iv no oral [CT] Routine Cat Scan 06/10/16 14:01 Completed ECG 12 lead ECG [ECG] Routine Y 06/10/16 20:53 Completed Date of admission: 06/09/16 18:30 Primary care physician: Sohan Gonsales MD Consults: 06/12/16 09:37 Consult to Occupational Therapy [CONS] Routine Comment: Evaluate, develop and implement POC Consult to Physical Therapy [CONS] Routine Comment: Evaluate, develop and implement POC Discharging clinician: Yamila Acosta Anticipated date of discharge: 06/13/16 - Patient Status Disposition: Home, Self-Care Condition: Good Functional capacity at discharge: uses cane/walker Overall status at discharge: patient is back to baseline - Discharge Instructions Follow Up With: Sohan Gonsales MD [Primary Care Provider] - ( ) Additional Instructions: Please take your medications as directed. I have stopped your Lisinopril. Please follow up with Dr. Gonsales for recheck and medication adjustments as needed. Please follow up with your PT recommendation. Resume your other home medications REturn to the ER as needed for any other problems or concerns or if your condition changes. - Diet and Activity Activity: ambulate only with your walker Diet: advance to your usual diet Hospital course: Ms. Welsh is a 60 year old female who presented to the emergency department on June 09 with history of upper abdominal pain, nausea, and vomiting. At the time she felt like it was pancreatitis, as she has a history of that. She had a prior admission in March for similar symptoms and during that admission had an upper and lower endoscopy. During her admission her pain moved to left lower quadrant with radiation to her left hip. She appeared to be very ill with nausea and vomiting, requiring IV fluids, pain medication, and anti- emetics. Patient was initially being treated as well for UTI. Her initial urine showed many bacteria and large amount of leukocyte esterase. I feel that her pain was disproportionate to the diagnosis of UTI. The culture grew Escherichia coli that is susceptible to Cipro. She was treated with 2 days of IV Cipro and will be sent home with 5 days oral. She does have chronic abdominal pain and has been seen by Dr. Garcia several times over the years. 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 She did have a bowel movement after milk and molasses enema. Prior to that she said she had not had a bowel movement for over a week. Patient concerned about her hypotension during her stay. I did discuss this with another physician and we agreed that stopping the lisinopril is appropriate. She does also take medications that could be considered sedating at bedtime. I will encourage patient to drink increased amounts of fluid. Patient's abdomen is soft and slightly rounded slightly tender in the left lower quadrant. She denies nausea, vomiting, or diarrhea. Her lungs are clear anteriorly and posteriorly. She does not have any pedal edema or any peripheral edema. Her gait is steady and she walks with a cane. Patient appears to be having a difficult time finding a ride home today. She is stable for discharge at this time. - Time Spent with Patient Total time spent providing and/or coordinating discharge services: - Constitutional Vitals: Temp Pulse Resp BP Pulse Ox 97.5 F L 88 16 147/82 96 06/13/16 11:50 06/13/16 11:50 06/13/16 11:50 06/13/16 11:50 06/13/16 11:50 General appearance: Present: cooperative, A&O X 3, severe distress, answers questions appropriately
[2016-06-13] MEDS: Acetaminophen 325 MG TABLET PO PRN (15:58)
== END 2016-06-13 19:02 | disposition home or self-care (01) ==
LOC: EMEROO 13:00 → 3BNU 13:00
PROVIDERS: ADMIT Nurse Practitioner Family; ATTEND Nurse Practitioner Family

== ENCOUNTER 2016-10-03 18:17 | Inpatient (IN) ==
[2016-10-03] MEDS ORDERED: 0.9 % Sodium Chloride 1,000 ML IVC ONE (18:20)
--- NOTE | 2016-10-03 18:22 | Emergency Department Note ---
Disposition Clinical Impression: Fall Disposition: Still a Patient Condition: Undetermined Forms: ED Satisfaction Letter General Adult HPI - General Chief complaint: ED Fall Stated complaint: Fall Time Seen by Provider: 10/03/16 18:20 - Related Data Home Medications Medication Instructions Recorded Confirmed Atorvastatin [Lipitor] 40 mg PO DAILY 11/14/14 06/09/16 Sennosides/Docusate Sodium [Senna 1 tab PO DAILY PRN 11/14/14 06/09/16 Plus] Apixaban [Eliquis] 5 mg PO BID 12/06/15 06/09/16 Gabapentin [Neurontin] 1,200 mg PO HS 12/06/15 06/09/16 Insulin Glargine [Lantus] 80 unit SQ HS 12/06/15 06/09/16 Metoprolol XL (24 HR) Succ [Toprol 50 mg PO HS 12/06/15 06/09/16 Xl] Duloxetine HCl [Cymbalta] 120 mg PO QAM 05/17/16 06/09/16 Empagliflozin [Jardiance] 25 mg PO QAM 05/17/16 06/09/16 Glimepiride [Amaryl] 4 mg PO QAM 05/17/16 06/09/16 Nortriptyline [Pamelor] 25 mg PO QAM 05/17/16 06/09/16 Pantoprazole Sodium [Protonix] 40 mg PO HS 05/17/16 06/09/16 Propafenone HCl [Rythmol Sr] 325 mg PO BID 05/17/16 06/09/16 Quetiapine Fumarate [Seroquel] 200 mg PO HS 05/17/16 06/09/16 Spironolactone [Aldactone] 25 mg PO QAM 05/17/16 06/09/16 Polyethylene Glycol 3350 17 gm PO BID 06/10/16 06/10/16 [Smoothlax] Previous Rx's Medication Instructions Recorded Promethazine [Phenergan] 25 mg PO Q8HR PRN #21 tablet 03/26/15 Amitriptyline [Elavil] 25 mg PO HS #30 tablet 08/23/15 Insulin LISPRO [HumaLOG] 0 units SQ TIDAC vial 05/19/16 Ciprofloxacin [Cipro] 500 mg PO BID #10 tablet 06/13/16 Sucralfate [Carafate] 1 gm PO TID #90 tablet 06/13/16 Allergies Allergy/AdvReac Type Severity Reaction Status Date / Time Sulfa (Sulfonamide Allergy Severe Anaphylaxis Verified 05/17/16 08:53 Antibiotics) prednisone AdvReac Mild swelling Verified 05/17/16 08:53 metformin AdvReac Hives Verified 06/09/16 21:42 Past Medical History - Past Medical History Medical history: Reports: arthritis, atrial fibrillation, COPD, CVA, diabetes, fibromyalgia, GERD, hyperlipidemia, hypertension, migraine, osteoporosis, TIA, other Surgical history: Reports: appendectomy, cholecystectomy, hysterectomy, other ( EGD/Colonoscopy 05/18/[address] Frederick) Psychiatric history: Reports: anxiety, depression - Social History Smoking Status: Current every day smoker Smokeless Tobacco Status: No Alcohol use: Reports: none Drug use: Reports: none Course Vital Signs Temperature 98.1 F 10/03/16 18:19 Pulse Rate 115 10/03/16 18:19 Respiratory Rate 16 10/03/16 18:19 Blood Pressure 156/100 10/03/16 18:19 O2 Sat by Pulse Oximetry 90 10/03/16 18:19 Temperature 98.1 F 10/03/16 18:19 Pulse Rate 115 10/03/16 18:19 Respiratory Rate 16 10/03/16 18:19 Blood Pressure 156/100 10/03/16 18:19 O2 Sat by Pulse Oximetry 90 10/03/16 18:19 Oxygen Delivery Oxygen Delivery Nasal Cannula Medical Decision Making - Lab Data Result diagrams: 10/03/16 18:25 10/03/16 18:25 Lab Results 10/03/16 10/03/16 10/03/16 Range/Units 18:25 18:25 18:25 WBC 9.5 (4.3-11.1) K/mcL RBC 5.46 H (3.82-4.97) M/mcL Hgb 14.9 (11.5-15.4) g/dL Hct 45.9 H (35.3-44.9) % MCV 84.1 (83.0-100.0) fL MCH 27.3 L (28.0-33.3) pg MCHC 32.5 (31.6-35.5) g/dL RDW 14.5 (11.5-14.5) % Plt Count 232 (140-400) K/mcL MPV 9.8 (9.4-12.4) fL Immature Gran % 0.2 (0-4) % Seg Neutrophils % 60.9 % Lymphocytes % 28.5 % Monocytes % 9.7 % Eosinophils % 0.0 % Basophils % 0.7 % Neutrophils # 5.8 (1.6-8.9) K/mcL Lymphocytes # 2.7 (0.6-4.6) K/mcL Monocytes # 0.9 (0.0-1.3) K/mcL Eosinophils # 0.0 (0.0-0.6) K/mcL Basophils # 0.1 (0.0-0.2) K/mcL PT 13.7 H (9.4-12.1) Seconds INR 1.3 APTT 32.3 (26.0-36.0) Seconds Sodium 137 (136-145) mEq/L Potassium 3.3 L (3.5-4.5) mEq/L Chloride 96 L (98-109) mEq/L Carbon Dioxide 30 H (19-29) mEq/L BUN 17 (7-20) mg/dL Creatinine 1.18 H (0.57-1.11) mg/dL Est GFR ( Amer) 56 L (> 60) Est GFR (Non-Af Amer) 47 L (> 60) BUN/Creatinine Ratio 14 (6-26) Glucose 160 H (70-99) mg/dL Calculated Osmolality 289 (280-300) Calcium 10.0 (8.6-10.8) mg/dL Total Bilirubin 0.8 (0.2-1.2) mg/dL AST 16 (5-34) Units/L ALT 11 (0-55) Units/L Alkaline Phosphatase 96 (38-126) Units/L Creatine Kinase 52 (29-168) Units/L Serum Total Protein 7.7 (6.0-8.3) g/dL Albumin 3.9 (3.5-5.0) g/dL Globulin 3.8 H (2.4-3.5) g/dL Albumin/Globulin Ratio 1.0 L (1.1-2.2) Attestation Statement - Attestation Attestation: I examined this patient and my medical decision-making was reviewed with the Resident Physician. I agree with the documented findings, disposition and treatment plan as described except to the extent set forth below. Face to face time provided Patient sustained an unwitnessed fall at home. She arrives by EMS. She complains of head injury and left hip pain. She is a poor historian. Patient seen and evaluated in conjunction with the resident physician Dr. Potts. Initial imaging studies ordered. Care will be endorsed to the oncoming physician Dr. Hawkins at 7 PM pending laboratory investigation and reevaluation
--- NOTE | 2016-10-03 18:24 | Emergency Department Note ---
Disposition Clinical Impression: Fall Qualifiers: Encounter type: initial encounter Qualified Code(s): W19.XXXA - Unspecified fall, initial encounter Disposition: Still a Patient Condition: Undetermined Forms: ED Satisfaction Letter Time of Disposition: 18:37 Fall HPI - General Chief Complaint: ED Fall Stated Complaint: Fall Time Seen by Provider: 10/03/16 18:20 Source: patient, EMS Mode of arrival: EMS Limitations: no limitations Nursing Notes Reviewed: Yes Vital Signs Reviewed: Yes - History of Present Illness HPI Narrative: 60-year-old female arrives from home after a fall of unknown origin and was apparently out for "some time". The patient is a poor historian due to likely associated sequelae. The patient is complaining of headache, dizziness, vomiting, abdominal pain, chest pain, left hip pain, back pain. The patient does have a history of a mani in her lumbar spine and states this is bothering her. The patient arrives via EMS. She is following commands appropriately and answering questions appropriately. The patient denies any difficulty breathing at this time, fevers, chills, difficulty urinating. Pt Subjective Complaint: fall Onset (ago): unknown Fall From: standing Fall Witnessed: no Place Fall Occurred: home Loss of Consciousness: yes Prolonged Down Time?: yes Symptoms Prior to Fall: other (unknown) Context: unknown Location of injury: head, neck, back, abdomen, hip Severity: moderate Severity scale (1-10): 6 Quality: aching Associated symptoms (after fall): Reports: headache, chest pain, abdominal pain - Related Data Home Medications Medication Instructions Recorded Confirmed Atorvastatin [Lipitor] 40 mg PO DAILY 11/14/14 06/09/16 Sennosides/Docusate Sodium [Senna 1 tab PO DAILY PRN 11/14/14 06/09/16 Plus] Apixaban [Eliquis] 5 mg PO BID 12/06/15 06/09/16 Gabapentin [Neurontin] 1,200 mg PO HS 12/06/15 06/09/16 Insulin Glargine [Lantus] 80 unit SQ HS 12/06/15 06/09/16 Metoprolol XL (24 HR) Succ [Toprol 50 mg PO HS 12/06/15 06/09/16 Xl] Duloxetine HCl [Cymbalta] 120 mg PO QAM 05/17/16 06/09/16 Empagliflozin [Jardiance] 25 mg PO QAM 05/17/16 06/09/16 Glimepiride [Amaryl] 4 mg PO QAM 05/17/16 06/09/16 Nortriptyline [Pamelor] 25 mg PO QAM 05/17/16 06/09/16 Pantoprazole Sodium [Protonix] 40 mg PO HS 05/17/16 06/09/16 Propafenone HCl [Rythmol Sr] 325 mg PO BID 05/17/16 06/09/16 Quetiapine Fumarate [Seroquel] 200 mg PO HS 05/17/16 06/09/16 Spironolactone [Aldactone] 25 mg PO QAM 05/17/16 06/09/16 Polyethylene Glycol 3350 17 gm PO BID 06/10/16 06/10/16 [Smoothlax] Previous Rx's Medication Instructions Recorded Promethazine [Phenergan] 25 mg PO Q8HR PRN #21 tablet 03/26/15 Amitriptyline [Elavil] 25 mg PO HS #30 tablet 08/23/15 Insulin LISPRO [HumaLOG] 0 units SQ TIDAC vial 05/19/16 Ciprofloxacin [Cipro] 500 mg PO BID #10 tablet 06/13/16 Sucralfate [Carafate] 1 gm PO TID #90 tablet 06/13/16 Allergies Allergy/AdvReac Type Severity Reaction Status Date / Time Sulfa (Sulfonamide Allergy Severe Anaphylaxis Verified 05/17/16 08:53 Antibiotics) prednisone AdvReac Mild swelling Verified 05/17/16 08:53 metformin AdvReac Hives Verified 06/09/16 21:42 All systems ED: reviewed and negative except as stated. Constitutional: Denies: fever, chills, weakness, weight change Eyes: Denies: eye pain, eye discharge, vision change ENT ED: Denies: ear pain, throat pain, dental pain, hearing loss, epistaxis, congestion, dysphagia Cardiovascular: Reports: chest pain. Denies: palpitations, dyspnea on exertion , edema, syncope Respiratory: Reports: dyspnea. Denies: cough, wheezes, hemoptysis, stridor Gastrointestinal: Reports: abdominal pain. Denies: nausea, vomiting, diarrhea, constipation, hematemesis, melena, hematochezia Genitourinary: Denies: dysuria, frequency, hematuria, discharge Musculoskeletal: Reports: back pain, neck pain. Denies: arthralgia, myalgia Integumentary: Denies: rash, abrasion, lesions Neurological: Reports: headache. Denies: weakness, numbness, paresthesias, confusion, abnormal gait, vertigo Fall PMH - Past Medical History Medical history: Reports: arthritis, atrial fibrillation, COPD, CVA, diabetes, fibromyalgia, GERD, hyperlipidemia, hypertension, migraine, osteoporosis, TIA, other Surgical history: Reports: appendectomy, cholecystectomy, hysterectomy, other ( EGD/Colonoscopy 05/18/[address] Frederick) Psychiatric history: Reports: anxiety, depression - Social History Smoking Status: Current every day smoker Alcohol use: Reports: none Drug use: Reports: none Physical Exam - General Limitations: altered mental status General appearance: alert, in distress (Due to pain) - Head Head exam: atraumatic, normocephalic, normal inspection - Eye Eye exam: Present: normal appearance, PERRL, EOMI - ENT ENT exam: normal exam, normal oropharynx, mucous membranes moist - Neck Neck exam: Present: normal inspection, full ROM, trachea midline - Chest Chest inspection: Present: normal inspection, symmetric chest wall rise - Respiratory Respiratory exam: Present: normal lung sounds bilaterally - Cardiovascular Cardiovascular exam: Present: regular rate, normal rhythm, normal heart sounds - Abdominal Exam Abdominal exam: Present: soft, tenderness (Epigastric region). Absent: distention, guarding, rebound, rigidity, [place]'s sign, Rovsing's sign, tenderness at McBurney's Point - Extremities Exam Extremities exam: Present: normal inspection, full ROM. Absent: tenderness, pedal edema - Back Exam Back exam: Present: normal inspection, full ROM, tenderness (Lumbar) - Neurological Exam Neurological exam: Present: alert, CN II-XII intact. Absent: oriented X3, normal gait, motor sensory deficit - Skin Skin exam: Present: warm, dry, intact, normal color Course Vital Signs Temperature 98.1 F 10/03/16 18:19 Pulse Rate 115 10/03/16 18:19 Respiratory Rate 16 10/03/16 18:19 Blood Pressure 156/100 10/03/16 18:19 O2 Sat by Pulse Oximetry 90 10/03/16 18:19 Temperature 98.1 F 07/22/17 18:19 Pulse Rate 115 10/03/16 18:19 Respiratory Rate 16 10/03/16 18:19 Blood Pressure 156/100 10/03/16 18:19 O2 Sat by Pulse Oximetry 90 10/03/16 18:19 Oxygen Delivery Oxygen Delivery Nasal Cannula Fall - EKG Data EKG attestation: Yes I reviewed and interpreted this EKG. EKG results narrative: Heart rate 1 23 bpm. MI interval 149 ms. QTc 472 ms. Normal axis. Sinus tachycardia. No ST elevation or ST depression. EKG morphology similar in appearance to EKG from 06/10/2016. No acute changes with the exception of new tachycardia.
[2016-10-03 18:32] LABS: Basophils # 0.1 K/mcL (0.0-0.2); Basophils % 0.7 %; Hematocrit 45.9 % (35.3-44.9); Hemoglobin 14.9 g/dL (11.5-15.4); Immature Granulocytes % 0.2 % (0-4); Lymphocytes # 2.7 K/mcL (0.6-4.6); Lymphocytes % 28.5 %; Mean Corpuscular HGB Conc 32.5 g/dL (31.6-35.5); Mean Corpuscular Hemoglobin 27.3 pg (28.0-33.3); Mean Corpuscular Volume 84.1 fL (83.0-100.0); Mean Platelet Volume 9.8 fL (9.4-12.4); Monocytes # 0.9 K/mcL (0.0-1.3); Monocytes % 9.7 %; Neutrophils # 5.8 K/mcL (1.6-8.9); Platelet Count 232 K/mcL (140-400); Red Blood Count 5.46 M/mcL (3.82-4.97); Red Cell Distribution Width 14.5 % (11.5-14.5); Segmented Neutrophils % 60.9 %
[2016-10-03 18:40] LABS: INR 1.3; Prothrombin Time 13.7 Seconds (9.4-12.1)
[2016-10-03 18:42] LABS: Activated Partial Thrombo Time 32.3 Seconds (26.0-36.0)
[2016-10-03 18:48] LABS: Albumin 3.9 g/dL (3.5-5.0); Bilirubin,Total 0.8 mg/dL (0.2-1.2); Globulin 3.8 g/dL (2.4-3.5); Potassium 3.3 mEq/L (3.5-4.5); Total Protein 7.7 g/dL (6.0-8.3)
--- NOTE | 2016-10-03 19:02 | Emergency Department Note ---
Disposition Clinical Impression: Generalized weakness Fall Qualifiers: Encounter type: initial encounter Qualified Code(s): W19.XXXA - Unspecified fall, initial encounter Disposition: Admitted As Inpatient Condition: Good Referrals: NO,PCP [Non-Partnered Physician] - Forms: ED Satisfaction Letter Time of Disposition: 21:17 General Adult HPI - General Chief complaint: ED Fall Stated complaint: Fall Time Seen by Provider: 10/03/16 18:20 Source: patient, EMS Mode of arrival: EMS Limitations: altered mental status Nursing Notes Reviewed: Yes Vital Signs Reviewed: Yes - History of Present Illness HPI Narrative: Patient was signout me from daytime physician Dr. Potts and Dr. Capellan. Please see is no for further details Pain Scale: 6 - Related Data Home Medications Medication Instructions Recorded Confirmed Atorvastatin [Lipitor] 40 mg PO DAILY 11/14/14 06/09/16 Sennosides/Docusate Sodium [Senna 1 tab PO DAILY PRN 11/14/14 06/09/16 Plus] Apixaban [Eliquis] 5 mg PO BID 12/06/15 06/09/16 Gabapentin [Neurontin] 1,200 mg PO 12/06/15 06/09/16 Insulin Glargine [Lantus] 80 unit SQ 12/06/15 06/09/16 Metoprolol XL (24 HR) Succ [Toprol 50 mg PO 12/06/15 06/09/16 Xl] Duloxetine HCl [Cymbalta] 120 mg PO QAM 05/17/16 06/09/16 Empagliflozin [Jardiance] 25 mg PO QAM 05/17/16 06/09/16 Glimepiride [Amaryl] 4 mg PO QAM 05/17/16 06/09/16 Nortriptyline [Pamelor] 25 mg PO QAM 05/17/16 06/09/16 Pantoprazole Sodium [Protonix] 40 mg PO 05/17/16 06/09/16 Propafenone HCl [Rythmol Sr] 325 mg PO BID 05/17/16 06/09/16 Quetiapine Fumarate [Seroquel] 200 mg PO 05/17/16 06/09/16 Spironolactone [Aldactone] 25 mg PO QAM 05/17/16 06/09/16 Polyethylene Glycol 3350 17 gm PO BID 06/10/16 06/10/16 [Smoothlax] Previous Rx's Medication Instructions Recorded Promethazine [Phenergan] 25 mg PO Q8HR PRN #21 tablet 03/26/15 Amitriptyline [Elavil] 25 mg PO HS #30 tablet 08/23/15 Insulin LISPRO [HumaLOG] 0 units SQ TIDAC vial 05/19/16 Ciprofloxacin [Cipro] 500 mg PO BID #10 tablet 06/13/16 Sucralfate [Carafate] 1 gm PO TID #90 tablet 06/13/16 Allergies Allergy/AdvReac Type Severity Reaction Status Date / Time Sulfa (Sulfonamide Allergy Severe Anaphylaxis Verified 05/17/16 08:53 Antibiotics) prednisone AdvReac Mild swelling Verified 05/17/16 08:53 metformin AdvReac Hives Verified 06/09/16 21:42 Constitutional: Denies: fever, chills, weakness, weight change Eyes: Denies: eye pain, eye discharge, vision change ENT ED: Denies: ear pain, throat pain, dental pain, hearing loss, epistaxis, congestion, dysphagia Cardiovascular: Reports: chest pain. Denies: palpitations, dyspnea on exertion , edema, syncope Respiratory: Reports: dyspnea. Denies: cough, wheezes, hemoptysis, stridor Gastrointestinal: Reports: abdominal pain. Denies: nausea, vomiting, diarrhea, constipation, hematemesis, melena, hematochezia Genitourinary: Denies: dysuria, frequency, hematuria, discharge Musculoskeletal: Reports: back pain, neck pain. Denies: arthralgia, myalgia Integumentary: Denies: rash, abrasion, lesions Neurological: Reports: headache. Denies: weakness, numbness, paresthesias, confusion, abnormal gait, vertigo Past Medical History - Past Medical History Medical history: Reports: arthritis, atrial fibrillation, COPD, CVA, diabetes, fibromyalgia, GERD, hyperlipidemia, hypertension, migraine, osteoporosis, TIA, other Surgical history: Reports: appendectomy, cholecystectomy, hysterectomy, other ( EGD/Colonoscopy 05/18/[address] Frederick) Psychiatric history: Reports: anxiety, depression - Social History Smoking Status: Current every day smoker Smokeless Tobacco Status: No Alcohol use: Reports: none Drug use: Reports: none Physical Exam - General Limitations: altered mental status General appearance: alert, in distress (Due to pain) Course Course Narrative: Patient was signout me from daytime physician Dr. Potts and Dr. Capellan. Please see is no for further details Kary is a 60-year-old female on eloquence presenting with fall and altered mental status. Supposedly she had fallen sometime today for unknown amount of time. Daughter called 911 for patient be evaluated. Labs and images were ordered prior to my evaluation and are currently pending. On physical exam patient is alert and oriented to person and place. She is answering questions appropriately. She has tenderness along the neck as well as lower lumbar. She reports a history of a mani placed in her lower back as well as a fractured coccyx. He wears it depends she has some urinary incontinence that has been ongoing for weeks. She denies any fevers. There is some weakness in the lower extremity which she says for is from a prior stroke. Review for labs or otherwise unremarkable. She has a mild elevation in her creatinine 1.18. Her potassium is 3.3. CPK is normal at 52. Troponin and 0. Her EKG does not show any acute ischemic changes. Images with CT do not show any intracranial abnormality or acute fracture. CT of the abdomen and pelvis is negative for any intra-abdominal etiology. Patient continues to express pain in the lower back as well as the right abdomen. Due to the frequent falls in generalize weakness will admit to medicine. - Consultations Consultation #1: Spoke with on-call hospitalist patt Neal to admit for generalized weakness and frequent falls. No further orders at this time Time: 21:39 Vital Signs Temperature 98.1 F 10/03/16 18:19 Pulse Rate 115 10/03/16 18:19 Respiratory Rate 16 10/03/16 18:19 Blood Pressure 156/100 10/03/16 18:19 O2 Sat by Pulse Oximetry 90 10/03/16 18:19 Temperature 98.1 F 10/03/16 18:19 Pulse Rate 107 10/03/16 19:30 Respiratory Rate 16 10/03/16 18:19 Blood Pressure 126/77 10/03/16 19:30 O2 Sat by Pulse Oximetry 90 10/03/16 18:19 Oxygen Delivery Oxygen Delivery Nasal Cannula Medical Decision Making - Medical Records Medical records reviewed: Yes I reviewed the patient's medical records. - Lab Data Lab results reviewed: Yes I reviewed the patient's lab results. Result diagrams: 10/03/16 18:25 10/03/16 18:25 Lab Results 10/03/16 10/03/16 10/03/16 Range/Units 18:25 18:25 18:25 WBC 9.5 (4.3-11.1) K/mcL RBC 5.46 H (3.82-4.97) M/mcL Hgb 14.9 (11.5-15.4) g/dL Hct 45.9 H (35.3-44.9) % MCV 84.1 (83.0-100.0) fL MCH 27.3 L (28.0-33.3) pg MCHC 32.5 (31.6-35.5) g/dL RDW 14.5 (11.5-14.5) % Plt Count 232 (140-400) K/mcL MPV 9.8 (9.4-12.4) fL Immature Gran % 0.2 (0-4) % Seg Neutrophils % 60.9 % Lymphocytes % 28.5 % Monocytes % 9.7 % Eosinophils % 0.0 % Basophils % 0.7 % Neutrophils # 5.8 (1.6-8.9) K/mcL Lymphocytes # 2.7 (0.6-4.6) K/mcL Monocytes # 0.9 (0.0-1.3) K/mcL Eosinophils # 0.0 (0.0-0.6) K/mcL Basophils # 0.1 (0.0-0.2) K/mcL PT (9.4-12.1) Seconds INR APTT (26.0-36.0) Seconds Sodium 137 (136-145) mEq/L Potassium 3.3 L (3.5-4.5) mEq/L Chloride 96 L (98-109) mEq/L Carbon Dioxide 30 H (19-29) mEq/L BUN 17 (7-20) mg/dL Creatinine 1.18 H (0.57-1.11) mg/dL Est GFR ( Amer) 56 L (> 60) Est GFR (Non-Af Amer) 47 L (> 60) BUN/Creatinine Ratio 14 (6-26) Glucose 160 H (70-99) mg/dL Calculated Osmolality 289 (280-300) Calcium 10.0 (8.6-10.8) mg/dL Total Bilirubin 0.8 (0.2-1.2) mg/dL AST 16 (5-34) Units/L ALT 11 (0-55) Units/L Alkaline Phosphatase 96 (38-126) Units/L Creatine Kinase 52 (29-168) Units/L Troponin I 0.00 (0-0.03) ng/mL Serum Total Protein 7.7 (6.0-8.3) g/dL Albumin 3.9 (3.5-5.0) g/dL Globulin 3.8 H (2.4-3.5) g/dL Albumin/Globulin Ratio 1.0 L (1.1-2.2) Urine Color (Yellow) Urine Clarity (Clear) Urine pH (5.0-8.0) pH Units Ur Specific Grandin (1.010-1.025) Urine Protein (Neg-Trace) mg/dL Urine Glucose (UA) (Normal) mg/dL Urine Ketones (Negative) mg/dL Urine Blood (Negative) Urine Nitrite (Negative) Urine Bilirubin (Negative) Urine Urobilinogen (Normal) mg/dL Ur Leukocyte Esterase (Negative) Ur Culture Indicated? (NO) 10/03/16 10/03/16 Range/Units 18:25 21:17 WBC (4.3-11.1) K/mcL RBC (3.82-4.97) M/mcL Hgb (11.5-15.4) g/dL Hct (35.3-44.9) % MCV (83.0-100.0) fL MCH (28.0-33.3) pg MCHC (31.6-35.5) g/dL RDW (11.5-14.5) % Plt Count (140-400) K/mcL MPV (9.4-12.4) fL Immature Gran % (0-4) % Seg Neutrophils % % Lymphocytes % % Monocytes % % Eosinophils % % Basophils % % Neutrophils # (1.6-8.9) K/mcL Lymphocytes # (0.6-4.6) K/mcL Monocytes # (0.0-1.3) K/mcL Eosinophils # (0.0-0.6) K/mcL Basophils # (0.0-0.2) K/mcL PT 13.7 H (9.4-12.1) Seconds INR 1.3 APTT 32.3 (26.0-36.0) Seconds Sodium (136-145) mEq/L Potassium (3.5-4.5) mEq/L Chloride (98-109) mEq/L Carbon Dioxide (19-29) mEq/L BUN (7-20) mg/dL Creatinine (0.57-1.11) mg/dL Est GFR ( Amer) (> 60) Est GFR (Non-Af Amer) (> 60) BUN/Creatinine Ratio (6-26) Glucose (70-99) mg/dL Calculated Osmolality (280-300) Calcium (8.6-10.8) mg/dL Total Bilirubin (0.2-1.2) mg/dL AST (5-34) Units/L ALT (0-55) Units/L Alkaline Phosphatase (38-126) Units/L Creatine Kinase (29-168) Units/L Troponin I (0-0.03) ng/mL Serum Total Protein (6.0-8.3) g/dL Albumin (3.5-5.0) g/dL Globulin (2.4-3.5) g/dL Albumin/Globulin Ratio (1.1-2.2) Urine Color Yellow (Yellow) Urine Clarity Clear (Clear) Urine pH 7.0 (5.0-8.0) pH Units Ur Specific Grandin > 1.030 H (1.010-1.025) Urine Protein Negative (Neg-Trace) mg/dL Urine Glucose (UA) >=1000 H (Normal) mg/dL Urine Ketones Negative (Negative) mg/dL Urine Blood Negative (Negative) Urine Nitrite Negative (Negative) Urine Bilirubin Negative (Negative) Urine Urobilinogen Normal (Normal) mg/dL Ur Leukocyte Esterase Negative (Negative) Ur Culture Indicated? NO (NO) - Radiology Data Radiology results reviewed: Yes I reviewed the patient's radiology results. Abdomen/Pelvis CT 10/03/16 18:20 IMPRESSION: 1. No acute abnormality detected within the abdomen pelvis. D/ / Sunny Viera MD / Sunny Viera MD Interpreting Provider: Sunny Viera MD Cervical Spine CT 10/03/16 18:20 IMPRESSION: No acute abnormality of the cervical spine. D/ / Lemuel Roberson / Lemuel Roberson Interpreting Provider: Lemuel Roberson Head CT 10/03/16 18:20 IMPRESSION: No acute intracranial abnormality. D/ / Lemuel Roberson / Lemuel Roberson Interpreting Provider: Lemuel Roberson Hip X-Ray 10/03/16 18:20 IMPRESSION: Degenerative changes without acute osseous abnormality D/ / Lemuel Roberson / Lemuel Roberson Interpreting Provider: Lemuel Roberson Lumbar Spine CT 10/03/16 18:20 IMPRESSION: 1. No acute abnormality detected within the lumbar spine. 2. Intact instrumentation from L3 through L5. D/ / Sunny Viera MD / Sunny Viera MD Interpreting Provider: Sunny Viera MD Thoracic Spine CT 10/03/16 18:20 IMPRESSION: Unremarkable CT of the thoracic spine. D/ / Lemuel Roberson / Lemuel Roberson Interpreting Provider: Lemuel Roberson Chest X-Ray 10/03/16 18:25 IMPRESSION: No acute process. D/ / Sunny Viera MD / Sunny Viera MD Interpreting Provider: Sunny Viera MD Attestation Statement - Attestation Attestation: I, Cruzito Hawkins MD, personally evaluated this patient and discussed their management with the resident physician. I reviewed the resident's note and agree with the documented findings, medical decision making, and plan of care. Patient was signed out at shift changed from Dr. Capellan and Dr. Potts. Please refer to their notes for complete details of the history and physical examination. At shift change patient is in CT receiving imaging and is awaiting imaging results and final disposition. Patient is a 60-year-old female who had a couple of falls at home today. The second time she was unable to get up and does not know how long she was on the floor. She pretty much complains of pain all over. She complains of pain in the right side of her head where she states that she hit her head. She complains of pain in her neck or back and her right ribs in her abdomen. On examination patient is a well-developed well-nourished female in no acute distress. She is alert. There is no cyanosis or diaphoresis. She does seem confused and is oriented to person only. Some tenderness over the right temporal scalp but no bruising or hematomas or lacerations noted. Diffuse tenderness of the neck and back area. Tenderness over the right chest wall with no bony crepitus or subcutaneous emphysema. Breath sounds are clear and equal bilaterally. Heart regular rate and rhythm. Abdomen is soft with normal bowel sounds. There is moderate diffuse tenderness to palpation of the abdomen. Labs reviewed. A CT of the head, cervical, thoracic, and lumbar spine, abdomen and pelvis were all negative. Chest x-ray. X-ray negative. The hospitalist, Dr. Victoria, was consulted and accepted admission of the patient.
[2016-10-03] MEDS ORDERED: *HR* Morphine 2 MG/ML SYRINGE IVP ONE (20:14)
[2016-10-03] MEDS ORDERED: Ondansetron 4 MG/2 ML VIAL IVP ONE (20:14)
[2016-10-03 21:24] LABS: Bilirubin,Urine Negative (Negative); Blood,Urine Negative (Negative); Clarity,Urine Clear (Clear); Color,Urine Yellow (Yellow); Glucose,Urine (UA) >=1000 mg/dL (Normal); Ketones,Urine Negative (Negative); Leukocyte Esterase,Urine Negative (Negative); Nitrite,Urine Negative (Negative); Protein,Urine Negative (Neg-Trace); Specific Gravity,Urine > 1.030 (1.010-1.025); Urobilinogen,Urine Normal (Normal)
[2016-10-03] MEDS ORDERED: Naloxone 0.4 MG/ML INJ IVP PRN (22:35)
[2016-10-03] MEDS ORDERED: Dextrose Gel 15 GM PO PRN ×2 (22:39)
[2016-10-03] MEDS ORDERED: D5% in Water 1,000 ML IVC PRN (22:39)
[2016-10-03] MEDS ORDERED: *HR* Dextrose 50 % in Water (Syg) 50 ML SYRINGE IVP PRN (22:39)
[2016-10-03] MEDS ORDERED: 0.9 % Sodium Chloride 1,000 ML IVC SCH (22:45)
--- NOTE | 2016-10-03 22:45 | Internal Med History&Physical ---
Date of Encounter: 10/03/16 Time of Encounter: 22:42 Assessment and Plan (1) Fall Current visit: Yes Status: Acute Patient reports falling with LOC this afternoon but is unsure of exact events. She has had numerous falls. Her daughter lives with her but is unable to provide [address] scans without acute findings. - PT/OT - Monitor on telemetry - Trend troponins - Consult social work - may need placement in ECF - CK normal Qualifiers: Encounter type: initial encounter Qualified Code(s): W19.XXXA - Unspecified fall, initial encounter (2) Weakness Current visit: No Status: Resolved Chronic issue, likely multifactorial. Has had multiple hospital admissions. No focal deficits to suggest CVA. Significant component of deconditioning. - PT/OT for evaluation (3) Nausea & vomiting Current visit: No Status: Acute Chronic issue. CT negative for obstruction or acute abnormalities. Vomitus yellowish, no evidence of hematemesis. Had hematemesis 05/2016 and EGD/ colonoscopy did not show source of bleeding. Hgb stable. - PRN zofran - Advance diet as tolerated Qualifiers: Vomiting type: unspecified Vomiting Intractability: non-intractable Qualified Code(s): R11.2 - Nausea with vomiting, unspecified (4) A-fib Current visit: No Status: Chronic Currently in sinus rhythm. - Monitor on telemetry overnight - Continue home rate control meds (metoprolol and propafenone) - she is unsure of many of her meds but is sure she is taking these two as well as the Eliquis, has not had doses changed recently, will continue at dose she was one 05/2016 at her last admission. Message left with family to call with home doses of medications. - Continue home eliquis Qualifiers: Atrial fibrillation type: paroxysmal Qualified Code(s): I48.0 - Paroxysmal atrial fibrillation (5) Constipation Current visit: No Status: Chronic Chronic issue. - Miralax, docusate Qualifiers: Constipation type: unspecified constipation type Qualified Code(s): K59.00 - Constipation, unspecified (6) Hypertension Current visit: No Status: Chronic BP stable. Working on determining home medications - Continue home medications once doses verified with family Qualifiers: Hypertension type: essential hypertension Qualified Code(s): I10 - Essential (primary) hypertension (7) Diabetes mellitus Current visit: No Status: Chronic Hold PO agents - SSI while admitted - Diabetic diet Qualifiers: Diabetes mellitus type: type 2 Diabetes mellitus complication status: with unspecified complications Diabetes mellitus [facility] insulin use: with roasterman use Qualified Code(s): E11.8 - Type 2 diabetes mellitus with unspecified complications Internal Medicine - H&P: HPI Chief complaint: s/p fall, headache Admitted From: Emergency Dept Plans for Post Hospital Care: Home History of present illness: Ms. Welsh is a 60 year old female with complicated medical history including DM2, atrial fibrillation, CVA, and chronic weakness, who presented to the ED this evening after she fell earlier in the day. She states she does not remember exactly what happened, but she fell in her room and thinks she may have been unconscious for up to an hour. She woke on the floor and was unable to get up, and her daughter (who she lives with) found her approximately one hour later and was able to help her back to bed. Her family called EMS and she was brought to the ED for further evaluation. She states that the left side of her head hurts, as she thinks she bumped it when she fell. She endorses frequent falls, notes that last week she was on the ground several hours before family was able to help her up. She has been vomiting the past three days, has history of issues with vomiting. She has abdominal pain. She has been passing gas but does not think she has had a bowel movement in several weeks. CT head, spine, abdomen and pelvis were without acute abnormalities. She states she has been coughing up yellowish sputum. Past Med Surg Social Fam HX - Past Medical History Medical history: arthritis, atrial fibrillation, COPD, CVA, diabetes, fibromyalgia, GERD, hyperlipidemia, hypertension, migraine, osteoporosis, TIA, other Psychiatric history: anxiety, depression - Past Surgical History Surgical History: appendectomy, cholecystectomy, hysterectomy, other (EGD/ Colonoscopy 05/18/[address] Fredreick) - Social History Smoking Status: Current every day smoker Smokeless Tobacco Status: No Alcohol use: none Drug use: none Current living situation: Home, With Family - Family History Mother Living Status: Hx Family Cardiac Disorders: Yes (OR) Hx Family Respiratory Disorders: Yes (COPD) Hx Family Cancer: Yes (Breast) Hx Family GI Disorders: No Hx Family Endocrine Disorder: No Hx Family Neuromuscular Disorders: No Hx Family Neurologic Disorders: No Hx Family HEENT Disorders: No Hx Family Autoimmune Disorders: No Father Living Status: Hx Family Cardiac Disorders: Yes (OR, HTN) Hx Family Respiratory Disorders: Yes (COPD) Hx Family Cancer: No Hx Family GI Disorders: No Hx Family Endocrine Disorder: No Hx Family Neuromuscular Disorders: No Hx Family Neurologic Disorders: No Hx Family HEENT Disorders: No Hx Family Autoimmune Disorders: No Internal Medicine - H&P: Meds Atorvastatin [Lipitor] 40 mg PO DAILY 11/14/14 [History] Sennosides/Docusate Sodium [Senna Plus] 1 tab PO DAILY PRN 11/14/14 [History] Promethazine [Phenergan] 25 mg PO Q8HR PRN #21 tablet 03/26/15 [Rx] Amitriptyline [Elavil] 25 mg PO HS #30 tablet 08/23/15 [Rx] Apixaban [Eliquis] 5 mg PO BID 12/06/15 [History] Gabapentin [Neurontin] 1,200 mg PO HS 12/06/15 [History] Insulin Glargine [Lantus] 80 unit SQ HS 12/06/15 [History] Metoprolol XL (24 HR) Succ [Toprol Xl] 50 mg PO HS 12/06/15 [History] Duloxetine HCl [Cymbalta] 120 mg PO QAM 05/17/16 [History] Empagliflozin [Jardiance] 25 mg PO QAM 05/17/16 [History] Glimepiride [Amaryl] 4 mg PO QAM 05/17/16 [History] Nortriptyline [Pamelor] 25 mg PO QAM 05/17/16 [History] Pantoprazole Sodium [Protonix] 40 mg PO HS 05/17/16 [History] Propafenone HCl [Rythmol Sr] 325 mg PO BID 05/17/16 [History] Quetiapine Fumarate [Seroquel] 200 mg PO HS 05/17/16 [History] Spironolactone [Aldactone] 25 mg PO QAM 05/17/16 [History] Insulin LISPRO [HumaLOG] 0 units SQ TIDAC vial 05/19/16 [Rx] Polyethylene Glycol 3350 [Smoothlax] 17 gm PO BID 06/10/16 [History] Ciprofloxacin [Cipro] 500 mg PO BID #10 tablet 06/13/16 [Rx] Sucralfate [Carafate] 1 gm PO TID #90 tablet 06/13/16 [Rx] Allergies Sulfa (Sulfonamide Antibiotics) Allergy (Severe, Verified 05/17/16 08:53) Anaphylaxis prednisone Adverse Reaction (Mild, Verified 05/17/16 08:53) swelling metformin Adverse Reaction (Verified 06/09/16 21:42) Hives All Systems PM: A 10-system review of systems was performed and is negative for pertinent findings except as documented above in the HPI. - Constitutional Constitutional: falls, malaise, weakness - EENT Nose, mouth and throat: dry mouth - Cardiovascular Cardiovascular ROS IM: no chest pain, no palpitations - Respiratory Respiratory: cough, no hemoptysis, no wheezing, no stridor - Gastrointestinal Gastrointestinal: abdominal pain, nausea, vomiting - Musculoskeletal Musculoskeletal ROS IM: no numbness - Integumentary Integumentary IM: no rash - Neurological Neurological ROS: weakness - Psychiatric Psychiatric: anxiety, depression - Constitutional Vitals: Temp Pulse Resp BP Pulse Ox 98.1 F 107 16 126/77 90 10/03/16 18:19 10/03/16 19:30 10/03/16 18:19 10/03/16 19:30 10/03/16 18:19 General appearance: Present: A&O X 3, no acute distress - Head Head exam: Present: atraumatic - Eye Eye exam: Present: EOMI, sclera anicteric - ENT ENT exam: Present: mucous membranes dry - Neck Neck exam general surgery: Present: supple - Respiratory Respiratory exam: Present: CTAB - Cardiovascular Cardiovascular exam: Present: RRR. Absent: diastolic murmur, gallop, rubs, systolic murmur - GI/Abdominal GI/Abdominal exam: Present: normal bowel sounds, soft, tenderness (diffuse mild tenderness throughout). Absent: distended, guarding - Extremities Exam Extremities exam: Absent: pedal edema - Neurological Exam Neurological exam: Present: CN II-XII intact, no focal deficits - Psychiatric Psychiatric exam: Present: normal affect, normal mood - Skin Skin exam: Absent: rash Internal Med - H&P Results - Labs CBC & Chem 7: 10/03/16 18:25 10/03/16 18:25
[2016-10-03] MEDS ORDERED: PROPAFENONE HCL 325 MG PO SCH (23:45)
[2016-10-04] MEDS: Metoprolol XL (24 HR) Succ 50 MG TAB.ER.24H PO SCH ×2 (00:57→20:34)
[2016-10-04 01:27] LABS: Basophils % 0.6 %; Hematocrit 37.8 % (35.3-44.9); Immature Granulocytes % 0.3 % (0-4); Lymphocytes # 2.1 K/mcL (0.6-4.6); Lymphocytes % 29.3 %; Mean Corpuscular HGB Conc 32.5 g/dL (31.6-35.5); Mean Corpuscular Hemoglobin 28.1 pg (28.0-33.3); Mean Corpuscular Volume 86.5 fL (83.0-100.0); Mean Platelet Volume 10.1 fL (9.4-12.4); Monocytes # 0.9 K/mcL (0.0-1.3); Monocytes % 12.2 %; Neutrophils # 4.1 K/mcL (1.6-8.9); Platelet Count 183 K/mcL (140-400); Red Blood Count 4.37 M/mcL (3.82-4.97); Red Cell Distribution Width 14.6 % (11.5-14.5); Segmented Neutrophils % 57.6 %
[2016-10-04 01:33] LABS: Hemoglobin 12.3 g/dL (11.5-15.4)
[2016-10-04 01:44] LABS: BUN/Creatinine Ratio 16 (6-26); Blood Urea Nitrogen 16 mg/dL (7-20); Carbon Dioxide 31 mEq/L (19-29); Chloride 101 mEq/L (98-109); Glucose 137 mg/dL (70-99); Osmolality,Calculated 289 (280-300); Potassium 3.1 mEq/L (3.5-4.5); Sodium 138 mEq/L (136-145); eGFR For African Americans > 60 (> 60); eGFR For Non-African Americans 55 (> 60)
[2016-10-04] MEDS: Acetaminophen 325 MG TABLET PO PRN ×2 (03:54→13:20)
[2016-10-04] MEDS: Insulin LISPRO 300 UNITS/3 ML VIAL SQ SCH ×4 (09:01→20:34)
[2016-10-04] MEDS: Pantoprazole 40 MG VIAL IVP SCH (09:10)
[2016-10-04] MEDS: APIXABAN 5 MG TABLET PO SCH ×2 (09:10→20:34)
[2016-10-04] MEDS ORDERED: Potassium Chloride Elixir 20 MEQ/15 ML UDC PO ONE (10:42)
[2016-10-04] MEDS ORDERED: Magnesium Sulfate 1 GM in D5% in Water 100 ML IVPB ONE (10:48)
[2016-10-04 12:39] LABS: Thyroid Stimulating Hormone 1.539 mcIU/mL (0.350-4.840)
[2016-10-04 12:53] LABS: Folate 13.3 ng/mL (7.0-31.4)
[2016-10-04] MEDS: Ondansetron 4 MG/2 ML VIAL IVP PRN (13:00)
[2016-10-04] MEDS: Thiamine (B-1) 100 MG in D5% in Water 50 ML IVPB SCH (13:23)
[2016-10-04] MEDS ORDERED: *HR* HYDROcodone/Acet 5/325 mg TABLET PO PRN (15:25)
[2016-10-04] MEDS ORDERED: Acetaminophen/Butalbital/CaffeineTABLET PO ONE (15:25)
--- NOTE | 2016-10-04 18:28 | Internal Med Progress Note ---
Date of Encounter: 10/04/16 Time of Encounter: 15:00 - Assessment and plan (1) Fall Current Visit: Yes Status: Acute Assessment and plan: Patient reports falling with LOC this afternoon but is unsure of exact events. She has had numerous falls. Her daughter lives with her but is unable to provide [address] head/cervical/thoracic/lumbar scans without acute findings. consult to pt/ot Qualifiers: Encounter type: initial encounter Qualified Code(s): W19.XXXA - Unspecified fall, initial encounter (2) Weakness Current Visit: No Status: Resolved Assessment and plan: family reports generalized weakness. per patient she is not on any pain meds but told the nurse that she was taking before morphine. check TSH, b12, folate, vit D, rpr. (3) Back pain Current Visit: Yes Status: Acute Assessment and plan: patient reports pain in coccyx area after falling. neuro is intact. pain meds prn. contul to PT/OT. Qualifiers: Back pain location: low back pain Chronicity: acute Back pain laterality : midline Sciatica presence: without sciatica Qualified Code(s): M54.5 - Low back pain (4) A-fib Current Visit: No Status: Chronic Assessment and plan: hr is adequate. continue metoprolol xl. Qualifiers: Atrial fibrillation type: paroxysmal Qualified Code(s): I48.0 - Paroxysmal atrial fibrillation (5) Chronic daily headache Current Visit: No Status: Chronic Assessment and plan: tylenol prn. fioricet x1. (6) Diabetes mellitus Current Visit: No Status: Chronic Assessment and plan: iss. diabetic diet. Qualifiers: Diabetes mellitus type: type 2 Diabetes mellitus complication status: with unspecified complications Diabetes mellitus intermediate manager insulin use: with senior living use Qualified Code(s): E11.8 - Type 2 diabetes mellitus with unspecified complications (7) Hypertension Current Visit: No Status: Chronic Assessment and plan: well controlled. Qualifiers: Hypertension type: essential hypertension Qualified Code(s): I10 - Essential (primary) hypertension - Subjective Interval history: Patient is a poor historian. She reports falling at home and has now severe buttock pain. - Constitutional Vitals: Temp Pulse Resp BP Pulse Ox 97.6 F 77 14 107/65 95 10/04/16 14:55 10/04/16 14:55 10/04/16 14:55 10/04/16 14:55 10/04/16 14:55 General appearance: Present: cooperative, A&O X 3, pleasant, no acute distress, answers questions appropriately - Neck Neck exam general surgery: Present: supple, trachea midline. Absent: lymphadenopathy - Respiratory Respiratory exam: Present: CTAB - Cardiovascular Cardiovascular exam: Present: RRR - GI/Abdominal GI/Abdominal exam: Present: normal bowel sounds, soft. Absent: distended, tenderness - Extremities Exam Extremities exam: Absent: pedal edema - Back Exam Back exam: Absent: CVA tenderness (L), CVA tenderness (R) - Neurological Exam Neurological exam: Present: alert, oriented X3. Absent: facial droop, speech deficit Additional comments: Gait not assessed. Patient has severe pain in coccyx area, her movement is limited due to pain. Strength is normal. - Skin Skin exam: Absent: rash Internal Medicine: Result - Labs CBC & Chem 7: 10/04/16 00:48 10/04/16 00:48 Labs: Short CBC 10/04/16 Range/Units 00:48 WBC 7.1 (4.3-11.1) K/mcL Hgb 12.3 D (11.5-15.4) g/dL Hct 37.8 (35.3-44.9) % Plt Count 183 (140-400) K/mcL Neutrophils # 4.1 (1.6-8.9) K/mcL BMP 10/04/16 00:48 Sodium 138 Potassium 3.1 L Chloride 101 Carbon Dioxide 31 H BUN 16 Creatinine 1.02 Glucose 137 H Calcium 9.0 Cardiac Enzymes 10/04/16 10/04/16 Range/Units 00:45 06:09 Troponin I 0.00 0.00 (0-0.03) ng/mL - ABG Interpretation ABG results: PT/INR, D-dimer PT 13.7 Seconds (9.4-12.1) H 10/03/16 18:25 Consult Discharge Plan - Plan Referrals: Sohan Gonsales MD [Primary Care Provider] -
[2016-10-05 05:01] LABS: Basophils % 0.9 %; Immature Granulocytes % 0.2 % (0-4); Immature Platelets 2.5 % (1.1-6.1); Lymphocytes # 1.4 K/mcL (0.6-4.6); Lymphocytes % 32.1 %; Mean Corpuscular HGB Conc 32.4 g/dL (31.6-35.5); Mean Corpuscular Hemoglobin 28.3 pg (28.0-33.3); Mean Corpuscular Volume 87.4 fL (83.0-100.0); Monocytes # 0.5 K/mcL (0.0-1.3); Monocytes % 10.1 %; Neutrophils # 2.5 K/mcL (1.6-8.9); Platelet Count 157 K/mcL (140-400); Red Blood Count 3.89 M/mcL (3.82-4.97); Red Cell Distribution Width 14.6 % (11.5-14.5); Segmented Neutrophils % 56.7 %
[2016-10-05 05:13] LABS: BUN/Creatinine Ratio 15 (6-26); Blood Urea Nitrogen 15 mg/dL (7-20); Calcium 8.5 mg/dL (8.6-10.8); Carbon Dioxide 25 mEq/L (19-29); Chloride 105 mEq/L (98-109); Glucose 123 mg/dL (70-99); Magnesium 1.9 mg/dL (1.6-2.6); Osmolality,Calculated 286 (280-300); Potassium 3.5 mEq/L (3.5-4.5); Sodium 137 mEq/L (136-145); eGFR For African Americans > 60 (> 60); eGFR For Non-African Americans 56 (> 60)
[2016-10-05] MEDS: Insulin LISPRO 300 UNITS/3 ML VIAL SQ SCH ×4 (09:10→21:20)
[2016-10-05 09:40] LABS: Vitamin D 25 Hydroxy 27 ng/mL (30-80)
[2016-10-05] MEDS: Acetaminophen 325 MG TABLET PO PRN (10:10)
[2016-10-05] MEDS: APIXABAN 5 MG TABLET PO SCH ×2 (10:11→21:19)
[2016-10-05] MEDS: Pantoprazole 40 MG VIAL IVP SCH (10:11)
[2016-10-05] MEDS: Thiamine (B-1) 100 MG in D5% in Water 50 ML IVPB SCH (10:16)
[2016-10-05] MEDS ORDERED: Metoprolol XL (24 HR) Succ 50 MG TAB.ER.24H PO SCH (11:02)
--- NOTE | 2016-10-05 12:43 | Internal Med Progress Note ---
Date of Encounter: 10/05/16 Time of Encounter: 11:00 - Assessment and plan (1) Fall Current Visit: Yes Status: Acute Assessment and plan: Patient reports falling with LOC this afternoon but is unsure of exact events. She has had numerous falls. Her daughter lives with her but is unable to provide [address] head/cervical/thoracic/lumbar scans without acute findings. consult to pt/ot Qualifiers: Encounter type: initial encounter Qualified Code(s): W19.XXXA - Unspecified fall, initial encounter (2) Weakness Current Visit: No Status: Resolved Assessment and plan: family reports generalized weakness. per patient she is not on any pain meds but told the nurse that she was taking before morphine. normal TSH, b12, folate. RPR negative. low vitamin D. start vitamin D supplementation. (3) Back pain Current Visit: Yes Status: Acute Assessment and plan: unbearable pain in sacral area with inability to sit up and new right leg radiculopathy and weakness. check MRI pelvis and lumbar spine. Qualifiers: Back pain location: low back pain Chronicity: acute Back pain laterality : midline Sciatica presence: without sciatica Qualified Code(s): M54.5 - Low back pain (4) Hypotension Current Visit: No Status: Acute Assessment and plan: BP in the 90s. Per patient, her BP usually runs high. not infected (no fever, no leukocytosis). check echocardiogram. holding pain meds and toprol. iv fluids Qualifiers: Hypotension type: unspecified hypotension type Qualified Code(s): I95.9 - Hypotension, unspecified (5) A-fib Current Visit: No Status: Chronic Assessment and plan: hr is adequate. BP is low. continue rhythmol. hold toprol. Qualifiers: Atrial fibrillation type: paroxysmal Qualified Code(s): I48.0 - Paroxysmal atrial fibrillation (6) Chronic daily headache Current Visit: No Status: Chronic Assessment and plan: tylenol prn. fioricet x1. (7) Diabetes mellitus Current Visit: No Status: Chronic Assessment and plan: iss. diabetic diet. glucose levels are adequate. 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 Qualifiers: Hypertension type: essential hypertension Qualified Code(s): I10 - Essential (primary) hypertension - Subjective Interval history: Patient complains of excruciating pain in sacral area and is very difficult for her to sit up. She also reports right leg pain with associated weakness that started today. - Constitutional Vitals: Temp Pulse Resp BP Pulse Ox 98.1 F 73 16 90/48 95 10/05/16 10:58 10/05/16 10:58 10/05/16 10:58 10/05/16 10:58 10/05/16 10:58 General appearance: Present: cooperative, A&O X 3, pleasant, no acute distress, obese, answers questions appropriately - Neck Neck exam general surgery: Present: supple, trachea midline. Absent: lymphadenopathy - Respiratory Respiratory exam: Present: CTAB - Cardiovascular Cardiovascular exam: Present: RRR - GI/Abdominal GI/Abdominal exam: Present: normal bowel sounds, soft. Absent: distended, tenderness - Extremities Exam Extremities exam: Absent: pedal edema - Back Exam Back exam: Absent: CVA tenderness (L), CVA tenderness (R) - Neurological Exam Neurological exam: Present: alert, oriented X3. Absent: strengths equal and symetr throughout (right leg 4/5 strength. ), facial droop, speech deficit Additional comments: patient develops significant pain when moving, she points her pain is at her sacral area. It is very difficult for the patient to sit up. Internal Medicine: Result - Labs CBC & Chem 7: 10/05/16 04:36 10/05/16 04:36 Labs: Short CBC 10/05/16 Range/Units 04:36 WBC 4.5 (4.3-11.1) K/mcL Hgb 11.0 L (11.5-15.4) g/dL Hct 34.0 L (35.3-44.9) % Plt Count 157 (140-400) K/mcL Neutrophils # 2.5 (1.6-8.9) K/mcL BMP 10/05/16 04:36 Sodium 137 Potassium 3.5 Chloride 105 Carbon Dioxide 25 BUN 15 Creatinine 1.00 Glucose 123 H Calcium 8.5 L - ABG Interpretation ABG results: PT/INR, D-dimer PT 13.7 Seconds (9.4-12.1) H 10/03/16 18:25 Consult Discharge Plan - Plan Referrals: Soahn Gonsales MD [Primary Care Provider] -
--- NOTE | 2016-10-05 13:52 | Electrocardiograph Report ---
[address] [address] Test Date: 2016-10-03 Pat Name: Kary Welsh Department: 103 Room: 3B Gender: F Flue Blower: : 1955 Requested By: Nils Potts Order Number: [id number] Reading MD: Brodie Medina MD Measurements Intervals [place] Rate: 123 P: 33 AL: 149 QRS: 14 QRSD: 86 T: 85 QT: 399 QTc: 472 Interpretive Statements SINUS TACHYCARDIA BASELINE ARTIFACT Electronically Signed On 10-05-2016 13:50:55 EDT by Brodie Medina MD
[2016-10-05] MEDS: Cholecalciferol (D-3) 1,000 UNIT TABLET PO SCH (14:54)
[2016-10-05] MEDS: Ondansetron 4 MG/2 ML VIAL IVP PRN (23:43)
[2016-10-06 04:55] LABS: Basophils % 0.7 %; Hematocrit 33.3 % (35.3-44.9); Hemoglobin 10.6 g/dL (11.5-15.4); Immature Granulocytes % 0.2 % (0-4); Lymphocytes # 1.5 K/mcL (0.6-4.6); Lymphocytes % 34.2 %; Mean Corpuscular HGB Conc 31.8 g/dL (31.6-35.5); Mean Corpuscular Hemoglobin 27.8 pg (28.0-33.3); Mean Corpuscular Volume 87.4 fL (83.0-100.0); Mean Platelet Volume 10.3 fL (9.4-12.4); Monocytes # 0.4 K/mcL (0.0-1.3); Monocytes % 10.1 %; Neutrophils # 2.3 K/mcL (1.6-8.9); Platelet Count 136 K/mcL (140-400); Red Blood Count 3.81 M/mcL (3.82-4.97); Red Cell Distribution Width 14.6 % (11.5-14.5); Segmented Neutrophils % 54.8 %
[2016-10-06 05:08] LABS: BUN/Creatinine Ratio 16 (6-26); Blood Urea Nitrogen 14 mg/dL (7-20); Calcium 8.4 mg/dL (8.6-10.8); Carbon Dioxide 24 mEq/L (19-29); Chloride 107 mEq/L (98-109); Glucose 161 mg/dL (70-99); Osmolality,Calculated 290 (280-300); Potassium 3.2 mEq/L (3.5-4.5); Sodium 138 mEq/L (136-145); eGFR For African Americans > 60 (> 60); eGFR For Non-African Americans > 60 (> 60)
[2016-10-06] MEDS: Insulin LISPRO 300 UNITS/3 ML VIAL SQ SCH ×4 (08:26→21:07)
[2016-10-06] MEDS: Ondansetron 4 MG/2 ML VIAL IVP PRN (08:28)
[2016-10-06] MEDS: Cholecalciferol (D-3) 1,000 UNIT TABLET PO SCH (10:39)
[2016-10-06] MEDS: Pantoprazole 40 MG VIAL IVP SCH (10:39)
[2016-10-06] MEDS: APIXABAN 5 MG TABLET PO SCH ×2 (10:39→21:07)
[2016-10-06] MEDS: Thiamine (B-1) 100 MG in D5% in Water 50 ML IVPB SCH (10:41)
--- NOTE | 2016-10-06 14:41 | Internal Med Progress Note ---
Date of Encounter: 10/06/16 Time of Encounter: 12:30 - Assessment and plan (1) Fall Current Visit: Yes Status: Acute Assessment and plan: Unclear causation of her follow-up this time. Patient did appear dehydrated upon presentation with acute kidney injury and history of vomiting 3 days. She is now eating a little bit more and endorses nausea but no vomiting. Acute kidney injury resolved. Abdominal CT negative. Cervical spine CT negative. Head CT negative. Plain films of the hip x-ray negative. Lumbar spine CT negative. Thoracic spine CT negative. Chest x-ray negative. Echocardiogram unremarkable with ejection fraction of 60% and mild diastolic dysfunction. Lumbar spine MRI negative. Sacrum/coccyx MRI revealing nondisplaced S5 fracture. Spoke to spinal surgeon Dr. Lentz who states this is nonsurgical and recommends having the patient ambulate with a walker and bear weight as tolerated. OT and PT recommendations are still pending. ITS Impressions Abdomen/Pelvis CT 10/03/16 18:20 IMPRESSION: 1. No acute abnormality detected within the abdomen pelvis. D/ / Sunny Viera MD / Sunny Viera MD Interpreting Provider: Sunny Viera MD Cervical Spine CT 10/03/16 18:20 IMPRESSION: No acute abnormality of the cervical spine. D/ / Lemuel Roberson / Lemuel Roberson Interpreting Provider: Lemuel Roberson Head CT 10/03/16 18:20 IMPRESSION: No acute intracranial abnormality. D/ / Lemuel Roberson / Lemuel Roberson Interpreting Provider: Lemuel Roberson Hip X-Ray 10/03/16 18:20 IMPRESSION: Degenerative changes without acute osseous abnormality D/ / Lemuel Roberson / Lemuel Roberson Interpreting Provider: Lemuel Roberson Lumbar Spine CT 10/03/16 18:20 IMPRESSION: 1. No acute abnormality detected within the lumbar spine. 2. Intact instrumentation from L3 through L5. D/ / Sunny Viera MD / Sunny Viera MD Interpreting Provider: Sunny Viera MD Thoracic Spine CT 10/03/16 18:20 IMPRESSION: Unremarkable CT of the thoracic spine. D/ / Lemuel Roberson / Lemuel Roberson Interpreting Provider: Lemuel Roberson Chest X-Ray 10/03/16 18:25 IMPRESSION: No acute process. D/ / Sunny Viera MD / Sunny Viera MD Interpreting Provider: Sunny Viera MD Lumbar Spine MRI 10/05/16 12:19 IMPRESSION: 1. No acute abnormality of the lumbar spine or finding to suggest etiology of patient's symptoms. 2. Prior L3 through L5 laminectomies and anterior and posterior surgical fusion. D/ / Sohan Fuentes MD / Sohan Fuentes MD Interpreting Provider: Sohan Fuentes MD Sacrum/Coccyx MRI 10/05/16 12:19 IMPRESSION: 1. Nondisplaced fracture involving the S5 segment at the sacrococcygeal junction. D/ / Sunny Viera MD / Sunny Viera MD Interpreting Provider: Sunny Viera MD Echocardiogram impressions: LVEF 60%. Normal left ventricular size and systolic function. There is evidence of mild diastolic dysfunction of the left ventricle. Normal right ventricular size and function. No significant valvular dysfunction. No pulmonary hypertension. Qualifiers: Encounter type: initial encounter Qualified Code(s): W19.XXXA - Unspecified fall, initial encounter (2) Sacral fracture, closed Current Visit: Yes Status: Acute Assessment and plan: See prior note for fall (3) Generalized weakness Current Visit: Yes Status: Acute Assessment and plan: OT and PT consultations are pending. Family reports generalized weakness. Normal TSH, b12, folate. RPR negative. low vitamin D. start vitamin D supplementation. (4) Constipation Current Visit: No Status: Chronic Assessment and plan: acute on chronic. patient stating she has a bowel movement every few weeks. She states that she takes senna every night, but has not taken them recently and asks "Do you think my body is immune to them now." She states that every 3 weeks or so that she takes a bunch of over the counter laxatives until she has a BM. Last bowel movement several weeks ago. Will add stool softeners and enemas prn Qualifiers: Constipation type: unspecified constipation type Qualified Code(s): K59.00 - Constipation, unspecified (5) Hypotension Current Visit: No Status: Resolved Assessment and plan: resolved; will trend and adjust medications accordingly Qualifiers: Hypotension type: unspecified hypotension type Qualified Code(s): I95.9 - Hypotension, unspecified (6) Nausea & vomiting Current Visit: No Status: Resolved Qualifiers: Vomiting type: unspecified Vomiting Intractability: non-intractable Qualified Code(s): R11.2 - Nausea with vomiting, unspecified (7) A-fib Current Visit: No Status: Chronic Assessment and plan: rate controlled. continue rhythmol. hold toprol when BP too low. continue eliquis. Qualifiers: Atrial fibrillation type: paroxysmal Qualified Code(s): I48.0 - Paroxysmal atrial fibrillation (8) DVT prophylaxis Current Visit: No Status: Acute Assessment and plan: on Eliquis (9) Chronic daily headache Current Visit: No Status: Chronic Assessment and plan: tylenol as needed. (10) Current use of terminal operations supervisor anticoagulation Current Visit: No Status: Chronic (11) Hypertension Current Visit: No Status: Chronic Assessment and plan: currently controlled; will trend Qualifiers: Hypertension type: essential hypertension Qualified Code(s): I10 - Essential (primary) hypertension (12) Diabetes mellitus Current Visit: No Status: Chronic Assessment and plan: Controlled at home with an A1c of 6.3%. Continue sliding scale. Qualifiers: Diabetes mellitus type: type 2 Diabetes mellitus complication status: with unspecified complications Diabetes mellitus terminal operations supervisor insulin use: with terminal operations supervisor use Qualified Code(s): E11.8 - Type 2 diabetes mellitus with unspecified complications (13) Acute kidney injury Current Visit: No Status: Resolved (14) Anxiety Current Visit: No Status: Chronic (15) Hypokalemia Current Visit: No Status: Acute Assessment and plan: mild, will replete and trend. Magnesium normal (16) GERD (gastroesophageal reflux disease) Current Visit: No Status: Chronic Assessment and plan: denies current symptoms Qualifiers: Esophagitis presence: without esophagitis Qualified Code(s): K21.9 - Gastro -esophageal reflux disease without esophagitis - Subjective Interval history: Patient seen and examined. On examination, patient initially asleep and awaken easily to voice. Patient endorsing nausea but no vomiting. Patient stating her last bowel movement was weeks ago. Patient stating she has had issues with insomnia for several months. Patient also endorsed blurred vision ever since fall season of this year. Patient stating her pain is uncontrolled at this time. She is also endorsing a decreased appetite. - Constitutional Vitals: Temp Pulse Resp BP Pulse Ox 98.1 F 73 15 110/78 96 10/06/16 11:34 10/06/16 11:34 10/06/16 11:34 10/06/16 13:36 10/06/16 11:34 General appearance: Present: cooperative, A&O X 3, pleasant, no acute distress, obese, answers questions appropriately - Head Head exam: Present: atraumatic, normocephalic - Eye Eye exam: Present: PERRL, conjuntiva pink, sclera anicteric Pupils: Present: PERRL - Neck Neck exam general surgery: Present: supple, trachea midline. Absent: lymphadenopathy - Respiratory Respiratory exam: Present: CTAB. Absent: accessory muscle use, rales, respiratory distress, rhonchi, wheezes - Cardiovascular Cardiovascular exam: Present: RRR, +S1, +S2. Absent: diastolic murmur, gallop, rubs, systolic murmur - GI/Abdominal GI/Abdominal exam: Present: normal bowel sounds, soft, no peritoneal signs. Absent: distended, tenderness - Extremities Exam Extremities exam: Present: warm, radial pulses palpable and symetrical. Absent : calf tenderness, cyanotic, pedal edema - Back Exam Back exam: Present: paraspinal tenderness, vertebral tenderness - Neurological Exam Neurological exam: Present: alert, CN II-XII intact, oriented X3, no focal deficits, strengths equal and symetr throughout. Absent: pronater drift, facial droop, speech deficit - Skin Skin exam: Present: dry, intact, pallor, warm Internal Medicine: Result - Labs CBC & Chem 7: 10/06/16 04:31 10/06/16 04:31 Labs: Short CBC 10/06/16 Range/Units 04:31 WBC 4.3 (4.3-11.1) K/mcL Hgb 10.6 L (11.5-15.4) g/dL Hct 33.3 L (35.3-44.9) % Plt Count 136 L (140-400) K/mcL Neutrophils # 2.3 (1.6-8.9) K/mcL BMP 10/06/16 04:31 Sodium 138 Potassium 3.2 L Chloride 107 Carbon Dioxide 24 BUN 14 Creatinine 0.85 Glucose 161 H Calcium 8.4 L - ABG Interpretation ABG results: PT/INR, D-dimer PT 13.7 Seconds (9.4-12.1) H 10/03/16 18:25 - Impressions Impressions Lumbar Spine MRI 10/05/16 12:19 IMPRESSION: 1. No acute abnormality of the lumbar spine or finding to suggest etiology of patient's symptoms. 2. Prior L3 through L5 laminectomies and anterior and posterior surgical fusion. D/ / Sohan Fuentes MD / Sohan Fuentes MD Interpreting Provider: Sohan Fuentes MD Sacrum/Coccyx MRI 10/05/16 12:19 IMPRESSION: 1. Nondisplaced fracture involving the S5 segment at the sacrococcygeal junction. D/ / Sunny Viera MD / Sunny Viera MD Interpreting Provider: Sunny Viera MD Consult Discharge Plan - Plan Referrals: Sohan Gonsales MD [Primary Care Provider] -
[2016-10-06] MEDS ORDERED: Milk and Molasses Enema 200 ML RC ONE (14:57)
[2016-10-07 04:40] LABS: BUN/Creatinine Ratio 12 (6-26); Blood Urea Nitrogen 9 mg/dL (7-20); Calcium 8.7 mg/dL (8.6-10.8); Carbon Dioxide 26 mEq/L (19-29); Chloride 110 mEq/L (98-109); Glucose 169 mg/dL (70-99); Osmolality,Calculated 295 (280-300); Sodium 141 mEq/L (136-145); eGFR For African Americans > 60 (> 60); eGFR For Non-African Americans > 60 (> 60)
[2016-10-07] MEDS ORDERED: *HR* Morphine 2 MG/ML SYRINGE IVP ONE (09:18)
[2016-10-07] MEDS ORDERED: *HR* Promethazine 25 MG/ML VIAL IVP PRN (10:01)
--- NOTE | 2016-10-07 10:08 | Internal Med Progress Note ---
Date of Encounter: 10/07/16 Time of Encounter: 08:45 - Assessment and plan (1) Vomiting of fecal matter with nausea Current Visit: Yes Status: Acute Assessment and plan: Patient stating this has happened to her in the past and she states last time to place an NG tube and suction out all of the fecal matter that was in her stomach. She is requesting another tube to be placed at this time. She is endorsing nausea. She states that just prior to presentation at home, she was vomiting up fecal matter. Will obtain imaging as well. Patient was seen by GI in March of 2015. Will bring them back onboard for possible gastroparesis. (2) Fall Current Visit: Yes Status: Acute Assessment and plan: Unclear causation of her follow-up this time. Patient did appear dehydrated upon presentation with acute kidney injury and history of vomiting 3 days. She is now eating a little bit more and endorses nausea but no vomiting. Concern for gastroperesis- workup ongoing. Acute kidney injury resolved. Abdominal CT negative. Cervical spine CT negative. Head CT negative. Plain films of the hip x-ray negative. Lumbar spine CT negative. Thoracic spine CT negative. Chest x-ray negative. Echocardiogram unremarkable with ejection fraction of 60% and mild diastolic dysfunction. Lumbar spine MRI negative. Sacrum/coccyx MRI revealing nondisplaced S5 fracture. Spoke to spinal surgeon Dr. Lentz who states this is nonsurgical and recommends having the patient ambulate with a walker and bear weight as tolerated. OT and PT recommend inpatient/swing bed. Awaiting placement. Prior to discharge, however, her GI issues and severe constipation need addressed. ITS Impressions Abdomen/Pelvis CT 10/03/16 18:20 IMPRESSION: 1. No acute abnormality detected within the abdomen pelvis. D/ / Sunny Viera MD / Sunny Viera MD Interpreting Provider: Sunny Viera MD Cervical Spine CT 10/03/16 18:20 IMPRESSION: No acute abnormality of the cervical spine. D/ / Lemuel Roberson / Lemuel Roberson Interpreting Provider: Lemuel Roberson Head CT 10/03/16 18:20 IMPRESSION: No acute intracranial abnormality. D/ / Lemuel Roberson / Lemuel Roberson Interpreting Provider: Lemuel Roberson Hip X-Ray 10/03/16 18:20 IMPRESSION: Degenerative changes without acute osseous abnormality D/ / Lemuel Roberson / Lemuel Roberson Interpreting Provider: Lemuel Roberson Lumbar Spine CT 10/03/16 18:20 IMPRESSION: 1. No acute abnormality detected within the lumbar spine. 2. Intact instrumentation from L3 through L5. D/ / Sunny Viera MD / Sunny Viera MD Interpreting Provider: Sunny Viera MD Thoracic Spine CT 10/03/16 18:20 IMPRESSION: Unremarkable CT of the thoracic spine. D/ / Lemuel Roberson / Lemuel Roberson Interpreting Provider: Lemuel Roberson Chest X-Ray 10/03/16 18:25 IMPRESSION: No acute process. D/ / Sunny Viera MD / Sunny Viera MD Interpreting Provider: Sunny Viera MD Lumbar Spine MRI 10/05/16 12:19 IMPRESSION: 1. No acute abnormality of the lumbar spine or finding to suggest etiology of patient's symptoms. 2. Prior L3 through L5 laminectomies and anterior and posterior surgical fusion. D/ / Sohan Fuentes MD / Sohan Fuentes MD Interpreting Provider: Sohan Fuentes MD Sacrum/Coccyx MRI 10/05/16 12:19 IMPRESSION: 1. Nondisplaced fracture involving the S5 segment at the sacrococcygeal junction. D/ / Sunny Viera MD / Sunny Viera MD Interpreting Provider: Sunny Viera MD Echocardiogram impressions: LVEF 60%. Normal left ventricular size and systolic function. There is evidence of mild diastolic dysfunction of the left ventricle. Normal right ventricular size and function. No significant valvular dysfunction. No pulmonary hypertension. Qualifiers: Encounter type: initial encounter Qualified Code(s): W19.XXXA - Unspecified fall, initial encounter (3) Sacral fracture, closed Current Visit: Yes Status: Acute Assessment and plan: See prior note for fall (4) Generalized weakness Current Visit: Yes Status: Acute Assessment and plan: OT and PT consultations recommend inpatient/swing bed. Patient is agreeable to go at this time. Family reports generalized weakness. Normal TSH, b12, folate. RPR negative. low vitamin D. start vitamin D supplementation. (5) Constipation Current Visit: No Status: Chronic Assessment and plan: acute on chronic. patient stating she has a bowel movement every few weeks. She informed me today that she vomited stool just prior to coming to the hospital. She states last time she did this "they put a big tube in my nose and sucked it all out of my stomach and I felt better." Patient is requesting an NG tube at this time. She states that she takes senna every night, but has not taken them recently and asks "Do you think my body is immune to them now?" She states that every 3 weeks or so that she takes a bunch of over the counter laxatives until she has a BM. Last bowel movement several weeks ago. Will add stool softeners and enemas prn. GI consultation for suspected gastroparesis. Qualifiers: Constipation type: unspecified constipation type Qualified Code(s): K59.00 - Constipation, unspecified (6) Hypotension Current Visit: No Status: Resolved Assessment and plan: resolved; will trend and adjust medications accordingly Qualifiers: Hypotension type: unspecified hypotension type Qualified Code(s): I95.9 - Hypotension, unspecified (7) Nausea & vomiting Current Visit: No Status: Acute Assessment and plan: nausea only; no vomiting since admission. vomiting of fecal matter prior to arrival- NG tube placed Qualifiers: Vomiting type: unspecified Vomiting Intractability: non-intractable Qualified Code(s): R11.2 - Nausea with vomiting, unspecified (8) A-fib Current Visit: No Status: Chronic Assessment and plan: rate controlled. continue rhythmol. hold toprol when BP too low. continue eliquis. Qualifiers: Atrial fibrillation type: paroxysmal Qualified Code(s): I48.0 - Paroxysmal atrial fibrillation (9) DVT prophylaxis Current Visit: No Status: Acute Assessment and plan: on Eliquis (10) Chronic daily headache Current Visit: No Status: Chronic Assessment and plan: tylenol as needed. (11) Current use of longterm anticoagulation Current Visit: No Status: Chronic (12) Hypertension Current Visit: No Status: Chronic Assessment and plan: currently controlled; will trend Qualifiers: Hypertension type: essential hypertension Qualified Code(s): I10 - Essential (primary) hypertension (13) Diabetes mellitus Current Visit: No Status: Chronic Assessment and plan: Controlled at home with an A1c of 6.3%. Continue sliding scale. Qualifiers: Diabetes mellitus type: type 2 Diabetes mellitus complication status: with unspecified complications Diabetes mellitus dietary service aide insulin use: with dietary service aide use Qualified Code(s): E11.8 - Type 2 diabetes mellitus with unspecified complications (14) Acute kidney injury Current Visit: No Status: Resolved (15) Anxiety Current Visit: No Status: Chronic (16) Hypokalemia Current Visit: No Status: Resolved (17) GERD (gastroesophageal reflux disease) Current Visit: No Status: Chronic Assessment and plan: currently complains of dyspepsia that is foul smelling. NG tube placed. Continue protonix Qualifiers: Esophagitis presence: without esophagitis Qualified Code(s): K21.9 - Gastro -esophageal reflux disease without esophagitis - Subjective Interval history: Patient seen and examined. On examination, patient sitting upright on the side of her bed. Patient stated she does not feel well this morning. She states she is extremely nauseated. She is concerned because she has not had a bowel movement in over 3 weeks and states that just prior to presentation, she was vomiting up stool. She states she has a history of doing this. She is able to eat approximately half for breakfast but she is concerned because of her ongoing dyspepsia and malodorous burping. She also states her hip/back pain is uncontrolled. - Constitutional Vitals: Temp Pulse Resp BP Pulse Ox 98.0 F 89 14 152/81 97 10/07/16 07:17 10/07/16 07:17 10/07/16 07:17 10/07/16 07:17 10/07/16 07:17 General appearance: Present: cooperative, A&O X 3, pleasant, no acute distress, obese, answers questions appropriately - Head Head exam: Present: atraumatic, normocephalic - Eye Eye exam: Present: PERRL, conjuntiva pink, sclera anicteric Pupils: Present: PERRL - Neck Neck exam general surgery: Present: supple, trachea midline. Absent: lymphadenopathy - Respiratory Respiratory exam: Present: decreased breath sounds. Absent: accessory muscle use, rales, respiratory distress, rhonchi, wheezes - Cardiovascular Cardiovascular exam: Present: RRR, +S1, +S2. Absent: diastolic murmur, gallop, rubs, systolic murmur - GI/Abdominal GI/Abdominal exam: Present: normal bowel sounds, soft, no peritoneal signs. Absent: distended, tenderness - Extremities Exam Extremities exam: Present: warm, radial pulses palpable and symetrical. Absent : calf tenderness, cyanotic, pedal edema - Neurological Exam Neurological exam: Present: alert, CN II-XII intact, oriented X3, no focal deficits, strengths equal and symetr throughout. Absent: pronater drift, facial droop, speech deficit - Skin Skin exam: Present: dry, intact, pallor, warm Internal Medicine: Result - Labs CBC & Chem 7: 10/06/16 04:31 10/07/16 04:12 Labs: BMP 10/07/16 04:12 Sodium 141 Potassium 4.0 Chloride 110 H Carbon Dioxide 26 BUN 9 Creatinine 0.78 Glucose 169 H Calcium 8.7 - ABG Interpretation ABG results: PT/INR, D-dimer PT 13.7 Seconds (9.4-12.1) H 10/03/16 18:25 Consult Discharge Plan - Plan Referrals: Sohan Gonsales MD [Primary Care Provider] -
[2016-10-07] MEDS ORDERED: Sennosides/Docusate Sodium TABLET PO PRN (10:14)
--- NOTE | 2016-10-07 11:48 | Gastroenterology Consult Note ---
<Emma Aleman - Last Filed: 10/07/16 11:42> Date of Encounter: 10/07/16 Time of Encounter: 10:55 - Assessment and plan (1) Nausea & vomiting Current Visit: No Status: Acute Assessment and plan: anti-emetics, NG in place. Will try her on reglan and see if any improvement on same. Likely needs to be seen in GI clinic after d/c for gastroparesis w/u. Qualifiers: Vomiting type: unspecified Vomiting Intractability: non-intractable Qualified Code(s): R11.2 - Nausea with vomiting, unspecified (2) Current use of fpc anticoagulation Current Visit: No Status: Chronic (3) Constipation Current Visit: No Status: Chronic Assessment and plan: Patient needs to be on daily regimen of miralax bid, probiotic and fiber (if she does NOT have gastroparesis), stool softeners as needed. She will likely need additional therapy with something like Amitiza or Linzess. We will assess as OTPT for advancing medications. Qualifiers: Constipation type: unspecified constipation type Qualified Code(s): K59.00 - Constipation, unspecified - Time Spent With Patient Total time spent is greater than 50% in coordination of care (as documented) at patient's floor/unit and/or counseling patient: less than 15 minutes GI History of Present Illness - Data of Consult Patient: known to practice within the last 3 years Consult date: 10/07/16 Requesting Physician: Denise Bolden - Consult Narrative Reason for consult: chronic constipation, vomiting fecal matter History of present illness: Ms. Welsh is a 60 year old female with complicated medical history including DM2, atrial fibrillation, CVA, and chronic weakness, who presented to the ED yesterday evening after she fell earlier in the day. She states she does not remember exactly what happened, but she fell in her room and thinks she may have been unconscious for up to an hour. She woke on the floor and was unable to get up, and her daughter (who she lives with) found her approximately one hour later and was able to help her back to bed. Her family called EMS and she was brought to the ED for further evaluation. She states that the left side of her head hurts, as she thinks she bumped it when she fell. She endorses frequent falls, notes that last week she was on the ground several hours before family was able to help her up. She has been vomiting the past three days, has history of issues with vomiting. She has abdominal pain. She has been passing gas but does not think she has had a bowel movement in several weeks. CT head, spine, abdomen and pelvis were without acute abnormalities. She states she has been coughing up yellowish sputum. GI was consulted during this admission as the patient began vomiting fecal matter today. Per the patient, this has occurred previously and she has been having some of this vomitus at home prior to presentation for her most recent fall. During a previous admission, an NG was placed and once the stool was removed from her UGI, symptoms resolved. She has long history of chronic constipation for which it is not well controlled. She is on Eliquis for afib. CT abdomen 10/03/16 was negative for any GI findings. She has not tried Amitiza, Linzess, miralax or fiber regularly. She has relied on stool softeners in the past. She has N/V and has never been evaluated for gastroparesis. Colonoscopy: 05/2016 - [facility]iel - internal hem/diverticulosis EGD: 05/2016 - [facility]iel - non-obstru Schatzki ring Past Med Surg Social Fam HX - Past Medical History Medical history: arthritis, atrial fibrillation, COPD, CVA, diabetes, fibromyalgia, GERD, hyperlipidemia, hypertension, migraine, osteoporosis, TIA, other Psychiatric history: anxiety, depression - Past Surgical History Surgical History: appendectomy, cholecystectomy, hysterectomy, other (EGD/ Colonoscopy 05/18/[address] Frederick) - Social History Smoking Status: Current every day smoker Packs per day: .5 Smokeless Tobacco Status: No Alcohol use: none Drug use: none - Family History Mother Living Status: Hx Family Cardiac Disorders: Yes (NV) Hx Family Respiratory Disorders: Yes (COPD) Hx Family Cancer: Yes (Breast) Hx Family GI Disorders: No Hx Family Endocrine Disorder: No Hx Family Neuromuscular Disorders: No Hx Family Neurologic Disorders: No Hx Family HEENT Disorders: No Hx Family Autoimmune Disorders: No Father Living Status: Hx Family Cardiac Disorders: Yes ([place], HTN) Hx Family Respiratory Disorders: Yes (COPD) Hx Family Cancer: No Hx Family GI Disorders: No Hx Family Endocrine Disorder: No Hx Family Neuromuscular Disorders: No Hx Family Neurologic Disorders: No Hx Family HEENT Disorders: No Hx Family Autoimmune Disorders: No - Gastrointestinal NSAID use: Not noted Anticoagulation Use: Eliquis Number of BM Per Day: q2-3 weeks Gastrointestinal: Present: abdominal pain, constipation, nausea, vomiting - Constitutional Constitutional: as per HPI - EENT Eyes: as per HPI Ears: Present: as per HPI Nose, mouth and throat: Present: as per HPI - Cardiovascular Cardiovascular ROS: Present: as per HPI - Respiratory Respiratory IM: Present: as per HPI - Neurological ROS Neurological GI: Present: confusion, frequent falls - Hematologic/Lymphatic Hematologic/Lymphatic pediatric: Present: as per HPI - Musculoskeletal Musculoskeletal ROS GI: Present: as per HPI - Integumentary Integumentary GI: Present: as per HPI - Psychiatric ROS Psychiatric GI: Present: as per HPI - Endocrine Endocrine IM: Present: as per HPI - Constitutional Vitals: Temp Pulse Resp BP Pulse Ox 98.0 F 89 14 152/81 97 10/07/16 07:17 10/07/16 07:17 10/07/16 07:17 10/07/16 07:17 10/07/16 07:17 General appearance: Present: cooperative, A&O X 2, mild distress, pleasant, answers questions appropriately - Head Head exam: Present: atraumatic, normocephalic - Eye Eye exam: Present: normal appearance, sclera anicteric - ENT Additional comments: NG in place, no fluid noted in canister. - Neck Neck exam general surgery: Present: normal inspection, trachea midline - Respiratory Respiratory exam: Present: CTAB - Cardiovascular Cardiovascular exam: Present: RRR, +S1, +S2 - GI/Abdominal GI/Abdominal exam: Present: hyperactive bowel sounds, soft, tenderness, no peritoneal signs - Rectal Rectal exam: Present: deferred - Extremities Exam Extremities exam: Present: warm - Neurological Exam Neurological exam: Present: no focal deficits - Psychiatric Psychiatric exam: Present: normal affect, normal mood - Skin Skin exam: Present: dry, intact, normal color, warm Results - Labs CBC & Chem 7: 10/06/16 04:31 10/07/16 04:12 Labs: Last Result Calcium 8.7 mg/dL (8.6-10.8) 10/07/16 04:12 Troponin I 0.00 ng/mL (0-0.03) 10/04/16 06:09 Vitamin B12 310 pg/mL (213-816) 10/04/16 11:48 Folate 13.3 ng/mL (7.0-31.4) 10/04/16 11:48 Entire Visit Hgb 10.6 g/dL (11.5-15.4) L 10/06/16 04:31 Hct 33.3 % (35.3-44.9) L 10/06/16 04:31 PT 13.7 Seconds (9.4-12.1) H 10/03/16 18:25 Total Bilirubin 0.8 mg/dL (0.2-1.2) 10/03/16 18:25 AST 16 Units/L (5-34) 10/03/16 18:25 ALT 11 Units/L (0-55) 10/03/16 18:25 Folate 13.3 ng/mL (7.0-31.4) 10/04/16 11:48 - ABG ABG results: PT/INR, D-dimer PT 13.7 Seconds (9.4-12.1) H 10/03/16 18:25 - Impressions Impressions KUB X-Ray 10/07/16 09:52 IMPRESSION: Nasogastric tube in appropriate position with tip in the proximal gastric body. D/ / Dev Louise MD / Dev Louise MD Interpreting Provider: Dev Louise MD Consult Discharge Plan - Plan Referrals: Sohan Gonsales MD [Primary Care Provider] - <Megha Stubbs - Last Filed: 10/07/16 19:16> Date of Encounter: 10/07/16 Time of Encounter: 18:45 - Time Spent With Patient Total time spent is greater than 50% in coordination of care (as documented) at patient's floor/unit and/or counseling patient: GI History of Present Illness - Data of Consult Requesting Physician: Denise Bolden - Consult Narrative History of present illness: Ms. Welsh is a 60 year old female - Constitutional Vitals: Temp Pulse Resp BP Pulse Ox 98.1 F 79 17 144/81 93 10/07/16 16:33 10/07/16 16:33 10/07/16 16:33 10/07/16 16:33 10/07/16 16:33 Results - Labs CBC & Chem 7: 10/06/16 04:31 10/07/16 04:12 Labs: Last Result Calcium 8.7 mg/dL (8.6-10.8) 10/07/16 04:12 Troponin I 0.00 ng/mL (0-0.03) 10/04/16 06:09 Vitamin B12 310 pg/mL (213-816) 10/04/16 11:48 Folate 13.3 ng/mL (7.0-31.4) 10/04/16 11:48 Entire Visit Hgb 10.6 g/dL (11.5-15.4) L 10/06/16 04:31 Hct 33.3 % (35.3-44.9) L 10/06/16 04:31 PT 13.7 Seconds (9.4-12.1) H 10/03/16 18:25 Total Bilirubin 0.8 mg/dL (0.2-1.2) 10/03/16 18:25 AST 16 Units/L (5-34) 10/03/16 18:25 ALT 11 Units/L (0-55) 10/03/16 18:25 Folate 13.3 ng/mL (7.0-31.4) 10/04/16 11:48 - ABG ABG results: PT/INR, D-dimer PT 13.7 Seconds (9.4-12.1) H 10/03/16 18:25 - Attending Attestation I examined this patient and my medical decision-making was reviewed with the Resident Physician. I agree with the documented findings, disposition and treatment plan as described except to the extent set forth below.
[2016-10-07] MEDS: Insulin LISPRO 300 UNITS/3 ML VIAL SQ SCH ×3 (12:52→18:14)
[2016-10-07] MEDS: Metoclopramide 10 MG/2 ML VIAL IVP SCH ×3 (13:21→23:29)
[2016-10-07] MEDS: *HR* HYDROcodone/Acet 5/325 mg TABLET PO PRN ×2 (13:21→22:29)
[2016-10-07] MEDS: Cholecalciferol (D-3) 1,000 UNIT TABLET PO SCH (13:21)
[2016-10-07] MEDS: APIXABAN 5 MG TABLET PO SCH ×2 (13:21→21:15)
[2016-10-07] MEDS: Pantoprazole 40 MG VIAL IVP SCH (13:21)
[2016-10-07] MEDS: Thiamine (B-1) 100 MG in D5% in Water 50 ML IVPB SCH (13:36)
[2016-10-07] MEDS: Ondansetron 4 MG/2 ML VIAL IVP PRN (13:49)
[2016-10-07] MEDS: 0.9 % Sodium Chloride 1,000 ML IVC SCH (16:45)
[2016-10-07] MEDS: *HR* Morphine 2 MG/ML SYRINGE IVP PRN ×2 (16:45→21:09)
[2016-10-07] MEDS: Sucralfate 1 GM TABLET PO SCH ×2 (16:45→21:15)
[2016-10-07] MEDS: Gabapentin 400 MG CAPSULE PO SCH ×2 (18:13→21:27)
[2016-10-07] MEDS: Lactobacillus 1 EACH CAP.SPRINK PO SCH (21:27)
[2016-10-08] MEDS: Insulin LISPRO 300 UNITS/3 ML VIAL SQ SCH ×4 (00:42→18:07)
[2016-10-08] MEDS: *HR* Morphine 2 MG/ML SYRINGE IVP PRN ×5 (03:09→22:21)
[2016-10-08] MEDS: 0.9 % Sodium Chloride 1,000 ML IVC SCH ×3 (04:48→19:01)
[2016-10-08] MEDS ORDERED: *HR* Metoprolol 5 MG/5 ML VIAL IVP ONE (05:44)
[2016-10-08] MEDS ORDERED: *HR* HYDROmorphone (PF) 1 MG/ML SYRINGE IVP ONE (05:52)
[2016-10-08 05:56] LABS: BUN/Creatinine Ratio 12 (6-26); Blood Urea Nitrogen 9 mg/dL (7-20); Calcium 9.1 mg/dL (8.6-10.8); Carbon Dioxide 26 mEq/L (19-29); Chloride 106 mEq/L (98-109); Glucose 142 mg/dL (70-99); Osmolality,Calculated 285 (280-300); Potassium 4.2 mEq/L (3.5-4.5); Sodium 137 mEq/L (136-145); eGFR For African Americans > 60 (> 60); eGFR For Non-African Americans > 60 (> 60)
[2016-10-08] MEDS: Metoclopramide 10 MG/2 ML VIAL IVP SCH ×4 (06:00→23:55)
[2016-10-08] MEDS: Gabapentin 400 MG CAPSULE PO SCH ×4 (09:23→22:17)
[2016-10-08] MEDS: Sucralfate 1 GM TABLET PO SCH ×3 (09:32→22:19)
[2016-10-08] MEDS: Lactobacillus 1 EACH CAP.SPRINK PO SCH ×2 (09:32→22:19)
[2016-10-08] MEDS: Cholecalciferol (D-3) 1,000 UNIT TABLET PO SCH (09:32)
[2016-10-08] MEDS: APIXABAN 5 MG TABLET PO SCH ×2 (09:32→22:17)
[2016-10-08] MEDS: Pantoprazole 40 MG VIAL IVP SCH (09:33)
[2016-10-08] MEDS: Thiamine (B-1) 100 MG in D5% in Water 50 ML IVPB SCH (11:05)
[2016-10-08] MEDS ORDERED: Polyethylene Glycol 3350 255 GM POWDER PO ONE (11:52)
[2016-10-08] MEDS: Sennosides/Docusate Sodium TABLET PO SCH ×2 (12:36→22:17)
--- NOTE | 2016-10-08 16:42 | Internal Med Progress Note ---
Date of Encounter: 10/08/16 Time of Encounter: 09:30 (and 1400) - Assessment and plan (1) Vomiting of fecal matter with nausea Current Visit: Yes Status: Acute Assessment and plan: Resolved. NG tube now with green bile, fecal matter has been evacuated from the stomach. We will try MiraLAX bowel prep and monitor. NG tube still in place but no longer attached to suction. If she starts to have a bowel movement , we will remove NG tube. GI was onboard and recommended trying her on Reglan and will follow up with her outpatient for possible gastroparesis workup. 10/07/16 Patient stating this has happened to her in the past and she states last time to place an NG tube and suction out all of the fecal matter that was in her stomach. She is requesting another tube to be placed at this time. She is endorsing nausea. She states that just prior to presentation at home, she was vomiting up fecal matter. Will obtain imaging as well. Patient was seen by GI in March of 2015. Will bring them back onboard for possible gastroparesis. (2) Fall Current Visit: Yes Status: Acute Assessment and plan: Unclear causation of her follow-up this time. Patient did appear dehydrated upon presentation with acute kidney injury and history of vomiting 3 days. She is now eating a little bit more and endorses nausea but no vomiting. Concern for gastroperesis- workup ongoing. Acute kidney injury resolved. Abdominal CT negative. Cervical spine CT negative. Head CT negative. Plain films of the hip x-ray negative. Lumbar spine CT negative. Thoracic spine CT negative. Chest x-ray negative. Echocardiogram unremarkable with ejection fraction of 60% and mild diastolic dysfunction. Lumbar spine MRI negative. Sacrum/coccyx MRI revealing nondisplaced S5 fracture. Spoke to spinal surgeon Dr. Lentz who states this is nonsurgical and recommends having the patient ambulate with a walker and bear weight as tolerated. OT and PT recommend inpatient/swing bed. Awaiting placement. Prior to discharge, however, her GI issues and severe constipation need addressed. ITS Impressions Abdomen/Pelvis CT 10/03/16 18:20 IMPRESSION: 1. No acute abnormality detected within the abdomen pelvis. D/ / Sunny Viera MD / Sunny Viera MD Interpreting Provider: Sunny Viera MD Cervical Spine CT 10/03/16 18:20 IMPRESSION: No acute abnormality of the cervical spine. D/ / Lemuel Roberson / Lemuel Roberson Interpreting Provider: Lemuel Roberson Head CT 10/03/16 18:20 IMPRESSION: No acute intracranial abnormality. D/ / Lemuel Roberson / Lemuel Roberson Interpreting Provider: Lemuel Roberson Hip X-Ray 10/03/16 18:20 IMPRESSION: Degenerative changes without acute osseous abnormality D/ / Lemuel Roberson / Lemuel Roberson Interpreting Provider: Lemuel Roberson Lumbar Spine CT 10/03/16 18:20 IMPRESSION: 1. No acute abnormality detected within the lumbar spine. 2. Intact instrumentation from L3 through L5. D/ / Sunny Viera MD / Sunny Viera MD Interpreting Provider: Sunny Viera MD Thoracic Spine CT 10/03/16 18:20 IMPRESSION: Unremarkable CT of the thoracic spine. D/ / Lemuel Roberson / Lemuel Roberson Interpreting Provider: Lemuel Roberson Chest X-Ray 10/03/16 18:25 IMPRESSION: No acute process. D/ / Sunny Viera MD / Sunny Viera MD Interpreting Provider: Sunny Viera MD Lumbar Spine MRI 10/05/16 12:19 IMPRESSION: 1. No acute abnormality of the lumbar spine or finding to suggest etiology of patient's symptoms. 2. Prior L3 through L5 laminectomies and anterior and posterior surgical fusion. D/ / Sohan Fuentes MD / Sohan Fuentes MD Interpreting Provider: Sohan Fuentes MD Sacrum/Coccyx MRI 10/05/16 12:19 IMPRESSION: 1. Nondisplaced fracture involving the S5 segment at the sacrococcygeal junction. D/ / Sunny Viera MD / Sunny Viera MD Interpreting Provider: Sunny Viera MD Echocardiogram impressions: LVEF 60%. Normal left ventricular size and systolic function. There is evidence of mild diastolic dysfunction of the left ventricle. Normal right ventricular size and function. No significant valvular dysfunction. No pulmonary hypertension. Qualifiers: Encounter type: initial encounter Qualified Code(s): W19.XXXA - Unspecified fall, initial encounter (3) Sacral fracture, closed Current Visit: Yes Status: Acute Assessment and plan: See prior note for fall (4) Generalized weakness Current Visit: Yes Status: Acute Assessment and plan: OT and PT consultations recommend inpatient/swing bed. Patient is agreeable to go at this time. Family reports generalized weakness. Normal TSH, b12, folate. RPR negative. low vitamin D. start vitamin D supplementation. (5) Constipation Current Visit: No Status: Chronic Assessment and plan: See prior note for vomiting fecal matter 10/07/16 acute on chronic. patient stating she has a bowel movement every few weeks. She informed me today that she vomited stool just prior to coming to the hospital. She states last time she did this "they put a big tube in my nose and sucked it all out of my stomach and I felt better." Patient is requesting an NG tube at this time. She states that she takes senna every night, but has not taken them recently and asks "Do you think my body is immune to them now?" She states that every 3 weeks or so that she takes a bunch of over the counter laxatives until she has a BM. Last bowel movement several weeks ago. Will add stool softeners and enemas prn. GI consultation for suspected gastroparesis. Qualifiers: Constipation type: unspecified constipation type Qualified Code(s): K59.00 - Constipation, unspecified (6) Hypotension Current Visit: No Status: Resolved Assessment and plan: resolved; will trend and adjust medications accordingly Qualifiers: Hypotension type: unspecified hypotension type Qualified Code(s): I95.9 - Hypotension, unspecified (7) Nausea & vomiting Current Visit: No Status: Acute Assessment and plan: nausea only; no vomiting since admission. vomiting of fecal matter prior to arrival- NG tube placed with successful evacuation of her stomach; now performing miralax bowel prep Qualifiers: Vomiting type: unspecified Vomiting Intractability: non-intractable Qualified Code(s): R11.2 - Nausea with vomiting, unspecified (8) A-fib Current Visit: No Status: Chronic Assessment and plan: rate uncontrolled however the patient has been attempting bowel movements most of the day. Will add back in her Toprol and monitor. Continue rhythmol and eliquis. Qualifiers: Atrial fibrillation type: paroxysmal Qualified Code(s): I48.0 - Paroxysmal atrial fibrillation (9) DVT prophylaxis Current Visit: No Status: Acute Assessment and plan: on Eliquis (10) Chronic daily headache Current Visit: No Status: Chronic Assessment and plan: tylenol as needed. (11) Current use of usp anticoagulation Current Visit: No Status: Chronic (12) Hypertension Current Visit: No Status: Chronic Assessment and plan: currently controlled; will trend Qualifiers: Hypertension type: essential hypertension Qualified Code(s): I10 - Essential (primary) hypertension (13) Diabetes mellitus Current Visit: No Status: Chronic Assessment and plan: Controlled at home with an A1c of 6.3%. Continue sliding scale. Qualifiers: Diabetes mellitus type: type 2 Diabetes mellitus complication status: with unspecified complications Diabetes mellitus terminologist insulin use: with terminologist use Qualified Code(s): E11.8 - Type 2 diabetes mellitus with unspecified complications (14) Acute kidney injury Current Visit: No Status: Resolved (15) Anxiety Current Visit: No Status: Chronic (16) Hypokalemia Current Visit: No Status: Resolved (17) GERD (gastroesophageal reflux disease) Current Visit: No Status: Chronic Assessment and plan: NG tube placed. Continue protonix Qualifiers: Esophagitis presence: without esophagitis Qualified Code(s): K21.9 - Gastro -esophageal reflux disease without esophagitis - Subjective Interval history: Patient seen and examined. On examination, patient sitting upright in bed. She is currently drinking her MiraLAX bowel prep and states that she is flatulent and feels as if she is going to be passing stools soon. She is complaining of a headache that she states is chronic for her. - Constitutional Vitals: Temp Pulse Resp BP Pulse Ox 97.8 F 141 16 145/81 93 10/08/16 16:01 10/08/16 16:01 10/08/16 16:01 10/08/16 16:01 10/08/16 16:01 General appearance: Present: cooperative, A&O X 3, pleasant, no acute distress, obese, answers questions appropriately - Head Head exam: Present: atraumatic, normocephalic - Eye Eye exam: Present: PERRL, conjuntiva pink, sclera anicteric Pupils: Present: PERRL - Neck Neck exam general surgery: Present: supple, trachea midline. Absent: lymphadenopathy - Respiratory Respiratory exam: Present: decreased breath sounds. Absent: accessory muscle use, rales, respiratory distress, rhonchi, wheezes - Cardiovascular Cardiovascular exam: Present: RRR, +S1, +S2. Absent: diastolic murmur, gallop, rubs, systolic murmur - GI/Abdominal GI/Abdominal exam: Present: hyperactive bowel sounds, soft, no peritoneal signs. Absent: distended, tenderness - Extremities Exam Extremities exam: Present: warm, radial pulses palpable and symetrical. Absent : calf tenderness, cyanotic, pedal edema - Neurological Exam Neurological exam: Present: alert, CN II-XII intact, oriented X3, no focal deficits, strengths equal and symetr throughout. Absent: pronater drift, facial droop, speech deficit - Skin Skin exam: Present: dry, intact, pallor, warm Internal Medicine: Result - Labs CBC & Chem 7: 10/06/16 04:31 10/08/16 05:16 Labs: BMP 10/08/16 05:16 Sodium 137 Potassium 4.2 Chloride 106 Carbon Dioxide 26 BUN 9 Creatinine 0.77 Glucose 142 H Calcium 9.1 - ABG Interpretation ABG results: PT/INR, D-dimer PT 13.7 Seconds (9.4-12.1) H 10/03/16 18:25 Consult Discharge Plan - Plan Referrals: Sohan Gonsales MD [Primary Care Provider] -
[2016-10-08] MEDS: Acetaminophen 325 MG TABLET PO PRN (19:33)
[2016-10-08] MEDS: Ondansetron 4 MG/2 ML VIAL IVP PRN (19:40)
[2016-10-09] MEDS: Insulin LISPRO 300 UNITS/3 ML VIAL SQ SCH ×5 (00:53→23:00)
[2016-10-09] MEDS: *HR* Morphine 2 MG/ML SYRINGE IVP PRN ×2 (03:10→09:41)
[2016-10-09] MEDS: *HR* HYDROcodone/Acet 5/325 mg TABLET PO PRN ×3 (06:24→20:30)
[2016-10-09] MEDS: Metoclopramide 10 MG/2 ML VIAL IVP SCH ×4 (06:24→23:18)
[2016-10-09] MEDS: Thiamine (B-1) 100 MG in D5% in Water 50 ML IVPB SCH (09:36)
[2016-10-09] MEDS: 0.9 % Sodium Chloride 1,000 ML IVC SCH ×4 (09:36→23:19)
[2016-10-09] MEDS: Cholecalciferol (D-3) 1,000 UNIT TABLET PO SCH (09:37)
[2016-10-09] MEDS: Sucralfate 1 GM TABLET PO SCH ×3 (09:37→20:24)
[2016-10-09] MEDS: Sennosides/Docusate Sodium TABLET PO SCH ×2 (09:37→20:25)
[2016-10-09] MEDS: Lactobacillus 1 EACH CAP.SPRINK PO SCH ×2 (09:37→20:24)
[2016-10-09] MEDS: Pantoprazole 40 MG VIAL IVP SCH (09:38)
[2016-10-09] MEDS: APIXABAN 5 MG TABLET PO SCH ×2 (09:38→20:26)
[2016-10-09] MEDS: Gabapentin 400 MG CAPSULE PO SCH ×3 (09:38→20:24)
[2016-10-09] MEDS: Ondansetron 4 MG/2 ML VIAL IVP PRN (17:28)
--- NOTE | 2016-10-09 17:47 | Internal Med Progress Note ---
Date of Encounter: 10/09/16 Time of Encounter: 16:30 - Assessment and plan (1) Fall Current Visit: Yes Status: Acute Assessment and plan: Unclear causation of her fall at this time. Patient did appear dehydrated upon presentation with acute kidney injury and history of vomiting 3 days. Patient is now tolerating clears- advance as tolerated. Concern for gastroperesis- workup can resume outpatient. Acute kidney injury resolved. Abdominal initially CT negative- repeat revealing moderate stool. Cervical spine CT negative. Head CT negative. Plain films of the hip x-ray negative. Lumbar spine CT negative. Thoracic spine CT negative. Chest x-ray negative. Echocardiogram unremarkable with ejection fraction of 60% and mild diastolic dysfunction. Lumbar spine MRI negative. Sacrum/coccyx MRI revealing nondisplaced S5 fracture. Spoke to spinal surgeon Dr. Lentz who states this is nonsurgical and recommends having the patient ambulate with a walker and bear weight as tolerated. OT and PT recommend inpatient/swing bed. Awaiting placement. Once the patient is able to eat, she has been approved at [facility]. Discharge as early as tomorrow pending clinical outcomes. ITS Impressions Abdomen/Pelvis CT 10/03/16 18:20 IMPRESSION: 1. No acute abnormality detected within the abdomen pelvis. D/ / Sunny Viera MD / Sunny Viera MD Interpreting Provider: Sunny Viera MD Cervical Spine CT 10/03/16 18:20 IMPRESSION: No acute abnormality of the cervical spine. D/ / Lemuel Roberson / Lemuel Roberson Interpreting Provider: Lemuel Roberson Head CT 10/03/16 18:20 IMPRESSION: No acute intracranial abnormality. D/ / Lemuel Roberson / Lemuel Roberson Interpreting Provider: Lemuel Roberson Hip X-Ray 10/03/16 18:20 IMPRESSION: Degenerative changes without acute osseous abnormality D/ / Lemuel Roberson / Lemuel Roberson Interpreting Provider: Lemuel Roberson Lumbar Spine CT 10/03/16 18:20 IMPRESSION: 1. No acute abnormality detected within the lumbar spine. 2. Intact instrumentation from L3 through L5. D/ / Sunny Viera MD / Sunny Viera MD Interpreting Provider: Sunny Viera MD Thoracic Spine CT 10/03/16 18:20 IMPRESSION: Unremarkable CT of the thoracic spine. D/ / Lemuel Roberson / Lemuel Roberson Interpreting Provider: Lemuel Roberson Chest X-Ray 10/03/16 18:25 IMPRESSION: No acute process. D/ / Sunny Viera MD / Sunny Viera MD Interpreting Provider: Sunny Viera MD Lumbar Spine MRI 10/05/16 12:19 IMPRESSION: 1. No acute abnormality of the lumbar spine or finding to suggest etiology of patient's symptoms. 2. Prior L3 through L5 laminectomies and anterior and posterior surgical fusion. D/ / Sohan Fuentes MD / Sohan Fuentes MD Interpreting Provider: Sohan Fuentes MD Sacrum/Coccyx MRI 10/05/16 12:19 IMPRESSION: 1. Nondisplaced fracture involving the S5 segment at the sacrococcygeal junction. D/ / Sunny Viera MD / Sunny Viera MD Interpreting Provider: Sunny Viera MD Echocardiogram impressions: LVEF 60%. Normal left ventricular size and systolic function. There is evidence of mild diastolic dysfunction of the left ventricle. Normal right ventricular size and function. No significant valvular dysfunction. No pulmonary hypertension. Qualifiers: Encounter type: initial encounter Qualified Code(s): W19.XXXA - Unspecified fall, initial encounter (2) Sacral fracture, closed Current Visit: Yes Status: Acute Assessment and plan: See prior note for fall Qualifiers: Encounter type: initial encounter Zone of sacrum fracture: unspecified portion of sacrum Qualified Code(s): S32.10XA - Unspecified fracture of sacrum , initial encounter for closed fracture (3) Vomiting of fecal matter with nausea Current Visit: Yes Status: Resolved Assessment and plan: Resolved. NG tube removed; will advance diet as tolerated. Repeat imaging revealing moderate stool without evidence of ileus or SBO. 10/08/16 Resolved. NG tube now with green bile, fecal matter has been evacuated from the stomach. We will try MiraLAX bowel prep and monitor. NG tube still in place but no longer attached to suction. If she starts to have a bowel movement , we will remove NG tube. GI was onboard and recommended trying her on Reglan and will follow up with her outpatient for possible gastroparesis workup. 10/07/16 Patient stating this has happened to her in the past and she states last time to place an NG tube and suction out all of the fecal matter that was in her stomach. She is requesting another tube to be placed at this time. She is endorsing nausea. She states that just prior to presentation at home, she was vomiting up fecal matter. Will obtain imaging as well. Patient was seen by GI in March of 2015. Will bring them back onboard for possible gastroparesis. (4) Generalized weakness Current Visit: Yes Status: Acute Assessment and plan: OT and PT consultations recommend inpatient/swing bed. Patient is agreeable to go at this time. Family reports generalized weakness. Normal TSH, b12, folate. RPR negative. low vitamin D. start vitamin D supplementation. (5) Constipation Current Visit: No Status: Chronic Assessment and plan: See prior note for vomiting fecal matter; resolving and advancing her diet 10/07/16 acute on chronic. patient stating she has a bowel movement every few weeks. She informed me today that she vomited stool just prior to coming to the hospital. She states last time she did this "they put a big tube in my nose and sucked it all out of my stomach and I felt better." Patient is requesting an NG tube at this time. She states that she takes senna every night, but has not taken them recently and asks "Do you think my body is immune to them now?" She states that every 3 weeks or so that she takes a bunch of over the counter laxatives until she has a BM. Last bowel movement several weeks ago. Will add stool softeners and enemas prn. GI consultation for suspected gastroparesis. Qualifiers: Constipation type: unspecified constipation type Qualified Code(s): K59.00 - Constipation, unspecified (6) Hypotension Current Visit: No Status: Resolved Assessment and plan: resolved; will trend and adjust medications accordingly Qualifiers: Hypotension type: unspecified hypotension type Qualified Code(s): I95.9 - Hypotension, unspecified (7) Nausea & vomiting Current Visit: No Status: Acute Assessment and plan: improving. continue antiemetics as needed Qualifiers: Vomiting type: unspecified Vomiting Intractability: non-intractable Qualified Code(s): R11.2 - Nausea with vomiting, unspecified (8) A-fib Current Visit: No Status: Chronic Assessment and plan: rate uncontrolled however the patient still having bowel movements most of the day. Continue rhythmol and eliquis. Unclear why her Toprol was disconitnued, but continued at this time with first dose now. Qualifiers: Atrial fibrillation type: paroxysmal Qualified Code(s): I48.0 - Paroxysmal atrial fibrillation (9) DVT prophylaxis Current Visit: No Status: Acute Assessment and plan: on Eliquis (10) Chronic daily headache Current Visit: No Status: Chronic Assessment and plan: tylenol as needed. patient stating her headache has improved today (11) Current use of fdc anticoagulation Current Visit: No Status: Chronic (12) Hypertension Current Visit: No Status: Chronic Assessment and plan: currently controlled; will trend Qualifiers: Hypertension type: essential hypertension Qualified Code(s): I10 - Essential (primary) hypertension (13) Diabetes mellitus Current Visit: No Status: Chronic Assessment and plan: Controlled at home with an A1c of 6.3%. Continue sliding scale. Qualifiers: Diabetes mellitus type: type 2 Diabetes mellitus complication status: with unspecified complications Diabetes mellitus manager long term care insulin use: with manager long term care use Qualified Code(s): E11.8 - Type 2 diabetes mellitus with unspecified complications (14) Acute kidney injury Current Visit: No Status: Resolved (15) Anxiety Current Visit: No Status: Chronic (16) Hypokalemia Current Visit: No Status: Resolved (17) GERD (gastroesophageal reflux disease) Current Visit: No Status: Chronic Assessment and plan: Continue protonix Qualifiers: Esophagitis presence: without esophagitis Qualified Code(s): K21.9 - Gastro -esophageal reflux disease without esophagitis - Subjective Interval history: Patient seen and examined. On examination, patient resting supine in bed. She states that her headache is getting better and states that every time she gets up to use the bathroom, that she moves her bowels. She states her belly is feeling better but states she is extremely nauseated and just vomited. Otherwise, she feels as if she is feeling better and her main complaint at this time is nausea. - Constitutional Vitals: Temp Pulse Resp BP Pulse Ox 98.3 F 118 15 144/79 95 10/09/16 15:44 10/09/16 15:44 10/09/16 15:44 10/09/16 15:44 10/09/16 15:44 General appearance: Present: cooperative, A&O X 3, pleasant, no acute distress, obese, answers questions appropriately - Head Head exam: Present: atraumatic, normocephalic - Eye Eye exam: Present: PERRL, conjuntiva pink, sclera anicteric Pupils: Present: PERRL - Neck Neck exam general surgery: Present: supple, trachea midline. Absent: lymphadenopathy - Respiratory Respiratory exam: Present: decreased breath sounds. Absent: accessory muscle use, rales, respiratory distress, rhonchi, wheezes - Cardiovascular Cardiovascular exam: Present: RRR, +S1, +S2. Absent: diastolic murmur, gallop, rubs, systolic murmur - GI/Abdominal GI/Abdominal exam: Present: distended, hyperactive bowel sounds, soft, tenderness (mild; diffuse), no peritoneal signs - Extremities Exam Extremities exam: Present: warm, radial pulses palpable and symetrical. Absent : calf tenderness, cyanotic, pedal edema - Neurological Exam Neurological exam: Present: alert, CN II-XII intact, normal gait, oriented X3, no focal deficits, strengths equal and symetr throughout. Absent: pronater drift, facial droop, speech deficit - Skin Skin exam: Present: dry, intact, pallor, warm Internal Medicine: Result - Labs CBC & Chem 7: 10/06/16 04:31 10/08/16 05:16 - ABG Interpretation ABG results: PT/INR, D-dimer PT 13.7 Seconds (9.4-12.1) H 10/03/16 18:25 - Impressions Impressions Chest/Abdomen X-ray 10/08/16 17:43 IMPRESSION: Scattered air-fluid levels within the abdomen with scattered dilated loops of colon. Findings likely on the basis of ileus, however, follow-up to resolution is recommended to exclude the possibility of obstructive process. D/ / Albino Arevalo MD / Albino Arevalo MD Interpreting Provider: Albino Arevalo MD Abdomen/Pelvis CT 10/09/16 09:00 IMPRESSION: Interval placement of NG tube and decompression of the stomach. No evidence of obstruction or ileus. Moderate stool burden in the proximal colon/cecum. D/ / Ha Zee / Ha Zee Interpreting Provider: Ha Zee Consult Discharge Plan - Plan Referrals: Sohan Gonsales MD [Primary Care Provider] -
[2016-10-09] MEDS ORDERED: Metoprolol XL (24 HR) Succ 50 MG TAB.ER.24H PO SCH (21:00)
[2016-10-10] MEDS: Metoclopramide 10 MG/2 ML VIAL IVP SCH ×3 (06:17→18:10)
[2016-10-10] MEDS: Insulin LISPRO 300 UNITS/3 ML VIAL SQ SCH ×2 (07:33→11:53)
[2016-10-10] MEDS: Sucralfate 1 GM TABLET PO SCH ×2 (08:57→18:10)
[2016-10-10] MEDS: APIXABAN 5 MG TABLET PO SCH (08:57)
[2016-10-10] MEDS: Gabapentin 400 MG CAPSULE PO SCH ×2 (08:58→18:10)
[2016-10-10] MEDS: Lactobacillus 1 EACH CAP.SPRINK PO SCH (08:58)
[2016-10-10] MEDS: Sennosides/Docusate Sodium TABLET PO SCH (08:58)
[2016-10-10] MEDS: Cholecalciferol (D-3) 1,000 UNIT TABLET PO SCH (08:58)
[2016-10-10] MEDS: Pantoprazole 40 MG VIAL IVP SCH (08:59)
[2016-10-10] MEDS: Thiamine (B-1) 100 MG in D5% in Water 50 ML IVPB SCH (09:01)
[2016-10-10 15:18] VITALS: BP 91/50
--- NOTE | 2016-10-10 18:04 | Discharge Summary ---
Date of Encounter: 10/10/16 Time of Encounter: 09:30 - Discharge Diagnosis (1) Fall Priority: Primary Status: Acute Comments: Unclear causation of her fall. Patient did appear dehydrated upon presentation with acute kidney injury and history of vomiting 3 days. Patient is now tolerating a regular diet. Concern for gastroperesis- workup can resume outpatient. Acute kidney injury resolved. Abdominal initially CT negative- repeat revealing moderate stool. Cervical spine CT negative. Head CT negative. Plain films of the hip x-ray negative. Lumbar spine CT negative. Thoracic spine CT negative. Chest x-ray negative. Echocardiogram unremarkable with ejection fraction of 60% and mild diastolic dysfunction. Lumbar spine MRI negative. Sacrum/coccyx MRI revealing nondisplaced S5 fracture. Spoke to spinal surgeon Dr. Lentz who states this is nonsurgical and recommends having the patient ambulate with a walker and bear weight as tolerated. OT and PT recommend inpatient/swing bed. Sending to [facility]. Qualifiers: Encounter type: initial encounter Qualified Code(s): W19.XXXA - Unspecified fall, initial encounter (2) Sacral fracture, closed Priority: Primary Status: Acute Comments: See prior note for fall (3) Vomiting of fecal matter with nausea Priority: Primary Status: Resolved (4) Generalized weakness Priority: Primary Status: Acute (5) Constipation Priority: Primary Status: Resolved Qualifiers: Constipation type: unspecified constipation type Qualified Code(s): K59.00 - Constipation, unspecified (6) Hypotension Priority: Primary Status: Acute Comments: mild, asymptomatic. going to inpatient rehabilitation Qualifiers: Hypotension type: unspecified hypotension type Qualified Code(s): I95.9 - Hypotension, unspecified (7) Nausea & vomiting Priority: Primary Status: Resolved Qualifiers: Vomiting type: unspecified Vomiting Intractability: non-intractable Qualified Code(s): R11.2 - Nausea with vomiting, unspecified (8) A-fib Priority: Secondary Status: Chronic Comments: rate controlled with her toprol and rhythmol. Continue Eliquis Qualifiers: Atrial fibrillation type: paroxysmal Qualified Code(s): I48.0 - Paroxysmal atrial fibrillation (9) DVT prophylaxis Priority: Primary Status: Acute Comments: On Eliquis (10) Chronic daily headache Priority: Secondary Status: Chronic Comments: Improved on day of discharge, able to tolerate a regular diet. (11) Current use of alf anticoagulation Priority: Secondary Status: Chronic (12) Hypertension Priority: Secondary Status: Chronic Qualifiers: Hypertension type: essential hypertension Qualified Code(s): I10 - Essential (primary) hypertension (13) Diabetes mellitus Priority: Secondary Status: Chronic Comments: Controlled at home with an A1c of 6.3%. Follow-up outpatient Qualifiers: Diabetes mellitus type: type 2 Diabetes mellitus complication status: with unspecified complications Diabetes mellitus alf insulin use: with moth exterminator use Qualified Code(s): E11.8 - Type 2 diabetes mellitus with unspecified complications (14) Acute kidney injury Priority: Primary Status: Resolved (15) Anxiety Priority: Secondary Status: Chronic (16) Hypokalemia Priority: Primary Status: Resolved (17) GERD (gastroesophageal reflux disease) Priority: Secondary Status: Chronic Qualifiers: Esophagitis presence: without esophagitis Qualified Code(s): K21.9 - Gastro -esophageal reflux disease without esophagitis (18) Gastroparesis Priority: Primary Status: Suspected - Discharge Medications Prescriptions: HYDROcodone/Acet 5/325 mg [[place] 5-325 mg] 1 tab PO Q6HR PRN #25 tab PRN Reason: Pain Cholecalciferol (D-3) [Vitamin D] 2,000 unit PO DAILY #60 tab Lactobacillus [Culturelle] 1 each PO BID #60 Sennosides/Docusate Sodium [Senna Plus] 1 each PO BID #60 tab Home Medications: Atorvastatin [Lipitor] 40 mg PO DAILY 11/14/14 [History] Promethazine [Phenergan] 25 mg PO Q8HR PRN #21 tablet 03/26/15 [Rx] Apixaban [Eliquis] 5 mg PO BID 12/06/15 [History] Gabapentin [Neurontin] 800 mg PO TID 12/06/15 [History] Insulin Glargine [Lantus] 80 unit SQ HS 12/06/15 [History] Metoprolol XL (24 HR) Succ [Toprol Xl] 50 mg PO HS 12/06/15 [History] Duloxetine HCl [Cymbalta] 120 mg PO QAM 05/17/16 [History] Empagliflozin [Jardiance] 25 mg PO QAM 05/17/16 [History] Glimepiride [Amaryl] 4 mg PO QAM 05/17/16 [History] Nortriptyline [Pamelor] 25 mg PO QAM 05/17/16 [History] Pantoprazole Sodium [Protonix] 40 mg PO HS 05/17/16 [History] Propafenone HCl [Rythmol Sr] 325 mg PO BID 05/17/16 [History] Quetiapine Fumarate [Seroquel] 200 mg PO HS 05/17/16 [History] Spironolactone [Aldactone] 25 mg PO QAM 05/17/16 [History] Insulin LISPRO [HumaLOG] 0 units SQ TIDAC vial 05/19/16 [Rx] Polyethylene Glycol 3350 [Smoothlax] 17 gm PO BID 06/10/16 [History] Sucralfate [Carafate] 1 gm PO TID #90 tablet 06/13/16 [Rx] Cholecalciferol (D-3) [Vitamin D] 2,000 unit PO DAILY #60 tab 10/10/16 [Rx] HYDROcodone/Acet 5/325 mg [[place] 5-325 mg] 1 tab PO Q6HR PRN #25 tab 10/10/16 [ Rx] Lactobacillus [Culturelle] 1 each PO BID #60 10/10/16 [Rx] Sennosides/Docusate Sodium [Senna Plus] 1 each PO BID #60 tab 10/10/16 [Rx] Allergies/Adverse Reactions: Allergies Sulfa (Sulfonamide Antibiotics) Allergy (Severe, Verified 05/17/16 08:53) Anaphylaxis prednisone Adverse Reaction (Mild, Verified 05/17/16 08:53) swelling metformin Adverse Reaction (Verified 06/09/16 21:42) Hives Procedures/tests Complete & Pending: Procedures Performed prior 72 hours Category Date Time Status CT abd pelvis wo no iv no oral [CT] Routine Cat Scan 10/09/16 09:00 Completed Date of admission: 10/07/16 12:26 Primary care physician: Sohan Gonsales MD Consults: 10/03/16 23:14 OT [Consult to Occupational Therapy] [CONS] Routine Comment: Evaluate, develop and implement POC Reason for Consult: s/p fall PT [Consult to Physical Therapy] [CONS] Routine Comment: Evaluate, develop and implement POC Reason for Consult: fall 10/07/16 08:19 Consult to Deputy Bailiff [CONS] Routine Reason for SW Consult: ot, pt rec ecf 10/07/16 10:08 Consult to Gastroenterology [CONS] Routine Consulting Provider: Ashlie Hoyt Reason for Consult: vomiting fecal matter. has hx of same. please eval and advise Time Notified: 10:08 Call Completed: Yes Discharging clinician: Denise Dan Anticipated date of discharge: 10/10/16 (sending to [facility]) - Patient Status Disposition: Transfer Inpatient Rehab Fac Condition: Fair Functional capacity at discharge: uses cane/walker Overall status at discharge: patient is progressing back to baseline - Discharge Instructions Follow Up With: Sohan Gonsales MD [Primary Care Provider] - [facility] [Provider Group] Additional Instructions: Follow-up with primary care provider within one to 2 weeks, follow-up with GI within 1-2 weeks - Diet and Activity Activity: ambulate only with your walker, as per physical therapy, increase activity as tolerated Diet: low fat, low cholesterol, low salt diet Hospital course: Ms. Welsh is a 60 year old female with past medical history of atrial fibrillation on Eliquis, COPD, CVA, diabetes, fibromyalgia, GERD, hyperlipidemia , hypertension, migraine, TIA, osteoporosis, tobacco abuse. Patient presented to the emergency department chief complaint of fall. Patient stating she does not remember what happened but she states that she fell in her room and thinks that she may have gone unconscious for up to one hour. She states she woke up on the floor and was unable to get up and her daughter with whom she lives found her approximately one hour later was able to help brought back to bed. Family called EMS and the patient was brought to the emergency department. Upon arrival, patient complained of left-sided head pain stating she may have bumped it when she fell. Patient endorsing frequent falls and states in the past week, she was on the ground for several hours before family was able to get her out. Patient also endorsed history of vomiting for 3 days prior to presentation and states that she had not had a bowel movement in approximately [address] negative. Cervical spine CT negative. Head CT negative. Plain films of her hip were negative. Lumbar spine CT negative for acute processes. Thoracic spine CT unremarkable. Chest x-ray negative. Lumbar spine MRI revealing prior laminectomy at L3-L5 without acute processes. Sacrum and coccyx MRI revealing nondisplaced fracture of the S5 at the sacrococcygeal junction. Patient was admitted to the hospitalist service for further evaluation and management. She was initially dehydrated with acute kidney injury was treated with IV fluids. Initially, she was able to tolerate clears in one week began to advance her diet, she started to vomit. She was vomiting fecal matter. On the fourth day of her admission, she informed us that her vomiting 3 days prior to presentation was of fecal matter. Patient stating this is happened to her in the past and states that she usually moves her bowels every 3-4 weeks. She was made nothing by mouth and an NG tube was placed to expel the rest of the fecal matter in her stomach. Repeat imaging revealing moderate stool without evidence of ileus or obstructions that the NG tube was removed and the patient was given MiraLAX bowel prep which was ineffective followed by mag citrate which was effective. Patient had several bowel movements. Her diet was slowly advanced and she was able to tolerate a regular diet on day of discharge. GI was brought on board for suspected gastroparesis. GI recommended treatment with Reglan while admitted and discharging the patient with MiraLAX twice a day, probiotic, and stool softeners as needed. Will likely need at [facility] in the near future. She will follow-up closely outpatient with GI for further workup and evaluation. Patient stating that she takes senna every day so she was sent on this as well. Her acute kidney injury resolved. Her echocardiogram was unremarkable with ejection fraction of 60% and mild diastolic dysfunction. Normal TSH, b12, folate and RPR negative. Vitamin D low and she was started on vitamin D supplementation. Regarding her S5 fracture, spoke to spinal surgeon Dr. Lentz who states this is nonsurgical and recommends having the patient ambulate with a walker and bear weight as tolerated. OT and PT recommend inpatient/swing bed and after the patient's stool burden was resolved and after she was able to tolerate a regular diet, she was transferred to [facility] inpatient rehabilitation stable condition. ITS Impressions Abdomen/Pelvis CT 10/03/16 18:20 IMPRESSION: 1. No acute abnormality detected within the abdomen pelvis. D/ / Sunny Viera MD / Sunny Viera MD Interpreting Provider: Sunny Viera MD Cervical Spine CT 10/03/16 18:20 IMPRESSION: No acute abnormality of the cervical spine. D/ / Lemuel Roberson / Lemuel Roberson Interpreting Provider: Lemuel Roberson Head CT 10/03/16 18:20 IMPRESSION: No acute intracranial abnormality. D/ / Lemuel Roberson / Lemuel Roberson Interpreting Provider: Lemuel Roberson Hip X-Ray 10/03/16 18:20 IMPRESSION: Degenerative changes without acute osseous abnormality D/ / Lemuel Roberson / Lemuel Roberson Interpreting Provider: Lemuel Roberson Lumbar Spine CT 10/03/16 18:20 IMPRESSION: 1. No acute abnormality detected within the lumbar spine. 2. Intact instrumentation from L3 through L5. D/ / Sunny Viera MD / Sunny Viera MD Interpreting Provider: Sunny Viera MD Thoracic Spine CT 10/03/16 18:20 IMPRESSION: Unremarkable CT of the thoracic spine. D/ / Lemuel Roberson / Lemuel Roberson Interpreting Provider: Lemuel Roberson Chest X-Ray 10/03/16 18:25 IMPRESSION: No acute process. D/ / Sunny Viera MD / Sunny Viera MD Interpreting Provider: Sunny Viera MD Lumbar Spine MRI 10/05/16 12:19 IMPRESSION: 1. No acute abnormality of the lumbar spine or finding to suggest etiology of patient's symptoms. 2. Prior L3 through L5 laminectomies and anterior and posterior surgical fusion. D/ / Sohan Fuentes MD / Sohan Fuentes MD Interpreting Provider: Sohan Fuentes MD Sacrum/Coccyx MRI 10/05/16 12:19 IMPRESSION: 1. Nondisplaced fracture involving the S5 segment at the sacrococcygeal junction. D/ / Sunny Viera MD / Sunny Viera MD Interpreting Provider: Sunny Viera MD Echocardiogram impressions: LVEF 60%. Normal left ventricular size and systolic function. There is evidence of mild diastolic dysfunction of the left ventricle. Normal right ventricular size and function. No significant valvular dysfunction. No pulmonary hypertension. KUB X-Ray 10/07/16 09:52 IMPRESSION: Nasogastric tube in appropriate position with tip in the proximal gastric body. D/ / Dev Louise MD / Dev Louise MD Interpreting Provider: Dev Louise MD Chest/Abdomen X-ray 10/08/16 17:43 IMPRESSION: Scattered air-fluid levels within the abdomen with scattered dilated loops of colon. Findings likely on the basis of ileus, however, follow-up to resolution is recommended to exclude the possibility of obstructive process. D/ / Albino Arevalo MD / Albino Arevalo MD Interpreting Provider: Albino Arevalo MD Abdomen/Pelvis CT 10/09/16 09:00 IMPRESSION: Interval placement of NG tube and decompression of the stomach. No evidence of obstruction or ileus. Moderate stool burden in the proximal colon/cecum. D/ / Ha Zee / Ha Zee Interpreting Provider: Ha Zee - Time Spent with Patient Total time spent providing and/or coordinating discharge services: - Constitutional Vitals: Temp Pulse Resp BP Pulse Ox 98.4 F 84 16 91/50 95 10/10/16 15:18 10/10/16 15:18 10/10/16 15:18 10/10/16 15:18 10/10/16 15:18 General appearance: Present: cooperative, A&O X 3, pleasant, no acute distress, obese, answers questions appropriately - Head Head exam: Present: atraumatic, normocephalic - Eye Eye exam: Present: PERRL, conjuntiva pink, sclera anicteric Pupils: Present: PERRL - Neck Neck exam general surgery: Present: supple, trachea midline. Absent: lymphadenopathy - Respiratory Respiratory exam: Present: decreased breath sounds. Absent: accessory muscle use, rales, respiratory distress, rhonchi, wheezes - Cardiovascular Cardiovascular exam: Present: RRR, +S1, +S2. Absent: diastolic murmur, gallop, rubs, systolic murmur - GI/Abdominal GI/Abdominal exam: Present: distended, normal bowel sounds, soft, no peritoneal signs. Absent: tenderness - Extremities Exam Extremities exam: Present: warm, radial pulses palpable and symetrical. Absent : calf tenderness, cyanotic, pedal edema - Neurological Exam Neurological exam: Present: alert, CN II-XII intact, normal gait, oriented X3, no focal deficits, strengths equal and symetr throughout. Absent: pronater drift, facial droop, speech deficit - Skin Skin exam: Present: dry, intact, pallor, warm
--- NOTE | 2016-10-10 18:26 | Physician Discharge Referral ---
ExtendedCare Referral Info Transfer To: [facility] Provider in Charge: Allison Dan CNP Provider in Charge after Transfer: PCP Institutional Level of Care: Skilled - Diagnosis (1) Fall Priority: Primary Status: Acute (2) Sacral fracture, closed Priority: Primary Status: Acute (3) Vomiting of fecal matter with nausea Priority: Primary Status: Resolved (4) Generalized weakness Priority: Primary Status: Acute (5) Constipation Priority: Primary Status: Resolved (6) Hypotension Priority: Primary Status: Acute (7) Nausea & vomiting Priority: Primary Status: Resolved (8) A-fib Priority: Secondary Status: Chronic (9) DVT prophylaxis Priority: Primary Status: Acute (10) Chronic daily headache Priority: Secondary Status: Chronic (11) Current use of usp anticoagulation Priority: Secondary Status: Chronic (12) Hypertension Priority: Secondary Status: Chronic (13) Diabetes mellitus Priority: Secondary Status: Chronic (14) Acute kidney injury Priority: Primary Status: Resolved (15) Anxiety Priority: Secondary Status: Chronic (16) Hypokalemia Priority: Primary Status: Resolved (17) GERD (gastroesophageal reflux disease) Priority: Secondary Status: Chronic (18) Gastroparesis Priority: Primary Status: Suspected Prognosis: Good Aware of Diagnosis: Patient Aware of Prognosis: Patient - Transfer Medications Prescriptions: HYDROcodone/Acet 5/325 mg [[place] 5-325 mg] 1 tab PO Q6HR PRN #25 tab PRN Reason: Pain Cholecalciferol (D-3) [Vitamin D] 2,000 unit PO DAILY #60 tab Lactobacillus [Culturelle] 1 each PO BID #60 Sennosides/Docusate Sodium [Senna Plus] 1 each PO BID #60 tab Home Medications: Atorvastatin [Lipitor] 40 mg PO DAILY 11/14/14 [History] Promethazine [Phenergan] 25 mg PO Q8HR PRN #21 tablet 03/26/15 [Rx] Apixaban [Eliquis] 5 mg PO BID 12/06/15 [History] Gabapentin [Neurontin] 800 mg PO TID 12/06/15 [History] Insulin Glargine [Lantus] 80 unit SQ HS 12/06/15 [History] Metoprolol XL (24 HR) Succ [Toprol Xl] 50 mg PO HS 12/06/15 [History] Duloxetine HCl [Cymbalta] 120 mg PO QAM 05/17/16 [History] Empagliflozin [Jardiance] 25 mg PO QAM 05/17/16 [History] Glimepiride [Amaryl] 4 mg PO QAM 05/17/16 [History] Nortriptyline [Pamelor] 25 mg PO QAM 05/17/16 [History] Pantoprazole Sodium [Protonix] 40 mg PO HS 05/17/16 [History] Propafenone HCl [Rythmol Sr] 325 mg PO BID 05/17/16 [History] Quetiapine Fumarate [Seroquel] 200 mg PO HS 05/17/16 [History] Spironolactone [Aldactone] 25 mg PO QAM 05/17/16 [History] Insulin LISPRO [HumaLOG] 0 units SQ TIDAC vial 05/19/16 [Rx] Polyethylene Glycol 3350 [Smoothlax] 17 gm PO BID 06/10/16 [History] Sucralfate [Carafate] 1 gm PO TID #90 tablet 06/13/16 [Rx] Cholecalciferol (D-3) [Vitamin D] 2,000 unit PO DAILY #60 tab 10/10/16 [Rx] HYDROcodone/Acet 5/325 mg [[place] 5-325 mg] 1 tab PO Q6HR PRN #25 tab 10/10/16 [ Rx] Lactobacillus [Culturelle] 1 each PO BID #60 10/10/16 [Rx] Sennosides/Docusate Sodium [Senna Plus] 1 each PO BID #60 tab 10/10/16 [Rx] Allergies/Adverse Reactions: Allergies Sulfa (Sulfonamide Antibiotics) Allergy (Severe, Verified 05/17/16 08:53) Anaphylaxis prednisone Adverse Reaction (Mild, Verified 05/17/16 08:53) swelling metformin Adverse Reaction (Verified 06/09/16 21:42) Hives - Respiratory Orders Smoking Cessation: Smoking cessation has been advised. For more information, call the [place] Tobacco Quit Line at 7-835-LSEL-NOW. - Ancillary Orders May use pressure relief devices daily prn, May go on LUCÍA w/family/respon constitution party w /meds at nurse discretion PRN, May have alcoholic beverages, May consult with Dentist, Core Blower, Internet Marketing Analyst PRN - Advance Directives Living Will: No Power of Bridge Inspector: No Code Status: Full Code - Mobility Orders Ambulate (per PT) - Rehabiliation Orders Rehab Potential: Good Rehab Orders: ROM Exercises, Evaluation for Physical Therapy, Evaluation for Occupational Therapy - Treatments Skin tear care topically daily PRN per policy, May check for fecal impaction rectally daily PRN, Fleet enema rectally every other day PRN cleansing purposes CERTIFICATION: I certify that the transfer of the above named patient to an Extended Care Facility is necessary for the continuing treatment of the diagnosis listed. The above information is true and accurate reflection of patient's current condition. Confidential - Redisclosure prohibited without a patient's written consent.
== END 2016-10-10 19:00 | DRG 347 ==
LOC: EMEROO 18:17 → 3BNU 18:17 → SUATTDRO 22:15 → 3BNU 22:54
PROVIDERS: ADMIT Nurse Practitioner Family; ATTEND Nurse Practitioner Family

== ENCOUNTER 2018-08-11 15:01 | Inpatient (IN) ==
--- NOTE | 2018-08-11 15:35 | Emergency Department Note ---
Disposition Clinical Impression: Chest pain, rule out acute myocardial infarction, Shortness of breath Chest pain Qualifiers: Chest pain type: other chest pain Qualified Code(s): R07.89 - Other chest pain Disposition: Admitted As Inpatient Condition: Good Time of Disposition: 19:37 General Adult HPI - General Chief complaint: ED Chest Pain Stated complaint: General Time Seen by Provider: 08/11/18 15:33 Source: patient, family Mode of arrival: ambulatory Limitations: no limitations Nursing Notes Reviewed: Yes Vital Signs Reviewed: Yes - History of Present Illness HPI Narrative: 62-year-old female past medical history of COPD, diabetes, previous DVT, atrial fibrillation on Eliquis presenting for 2 day history of chest pain and worsening shortness of breath. Patient states that she has been having shortness of breath since last night but approximately 11 AM this morning it became worse and has become associated with right sided crushing chest pain severe in nature radiating into her right jaw and abdomen. Patient also admits to nausea and vomiting. Patient states she has had fevers chills, lightheadedness, dizziness, numbness and paresthesias in addition to the symptoms mentioned above. Onset (ago): day(s) Location: chest Radiation: back, neck Pain Severity: severe Pain Scale: 9 Quality: crushing Consistency: Worsening Associated symptoms: Reports: chest pain, fever/chills, nausea/vomiting, shortness of breath, weakness Treatments Prior to Arrival: none - Related Data Home Medications Medication Instructions Recorded Confirmed Apixaban [Eliquis] 5 mg PO BID 12/06/15 08/13/18 Metoprolol XL (24 HR) Succ [Toprol 50 mg PO DAILY 12/06/15 08/13/18 Xl] Duloxetine HCl [Cymbalta] 60 mg PO DAILY 05/17/16 08/13/18 Glimepiride [Amaryl] 4 mg PO QAM 05/17/16 08/13/18 Quetiapine Fumarate [Seroquel] 200 mg PO HS 05/17/16 08/13/18 Spironolactone [Aldactone] 25 mg PO DAILY 05/17/16 08/13/18 Polyethylene Glycol 3350 17 gm PO BID PRN 06/10/16 08/13/18 [Smoothlax] Cyclobenzaprine [Flexeril] 10 mg PO TID 08/11/18 08/13/18 Empagliflozin [Jardiance] 25 mg PO DAILY 08/11/18 08/13/18 Ondansetron HCl [Zofran] 4 mg PO BID PRN 08/11/18 08/13/18 Pregabalin [Lyrica] 200 mg PO TID 08/11/18 08/13/18 Tramadol HCl [Ultram] 50 mg PO TID PRN 08/11/18 08/13/18 Acetaminophen [Tylenol] 1,000 mg PO Q8HR PRN 08/12/18 Insulin ASPART [Novolog Flexpen] 10 unit SQ QPM 08/12/18 08/13/18 Insulin Glargine,Hum.rec.anlog 80 unit SQ DAILY 08/12/18 [Basaglar Kwikpen U-100] Lisinopril [Zestril] 5 mg PO DAILY 08/12/18 08/13/18 Pantoprazole Sodium [Protonix] 40 mg PO QPM 08/12/18 08/13/18 Sennosides/Docusate Sodium [Senna 1 tab PO DAILY PRN 08/12/18 08/13/18 Plus] Docusate Sodium [Dok] 100 mg PO BID PRN 08/13/18 08/13/18 Liraglutide [Victoza 2-Aubrey] 1.2 mg SQ DAILY 08/13/18 08/13/18 Propafenone HCl [Propafenone HCl 225 mg PO BID 08/13/18 08/13/18 ER] Previous Rx's Medication Instructions Recorded Sucralfate [Carafate] 1 gm PO TID #90 tablet 06/13/16 Aspirin 81 mg PO DAILY #30 tab.chew 08/16/18 Atorvastatin Calcium [Lipitor] 80 mg PO HS #30 tab 08/16/18 Clopidogrel [Plavix] 75 mg PO DAILY #30 tablet 08/16/18 Nicotine Patch [Nicoderm] 21 mg TD DAILY #30 patch.td24 08/16/18 Allergies Allergy/AdvReac Type Severity Reaction Status Date / Time Sulfa (Sulfonamide Allergy Severe Anaphylaxis Verified 08/13/18 13:27 Antibiotics) prednisone AdvReac Mild Rash Verified 08/13/18 13:27 metformin AdvReac Vomiting Verified 08/13/18 13:27 Review of Systems: *See History of Present Illness for more detail Constitutional: Admits fever, chills Cardiovascular: Admits chest pain Respiratory: Admits dyspnea, cough, denies: hemoptysis Gastrointestinal: Admits to nausea and vomiting. Denies: abdominal pain, diarrhea, constipation, hematemesis, melena, hematochezia Genitourinary: Denies: hematuria Musculoskeletal: Admits back pain denies: neck pain Neurological: Admits to weakness, lightheadedness/dizziness numbness and paresthesias Denies: headache, difficulty with ambulation. Endocrine: Admits fatigue All systems ED: reviewed and negative except as stated. Review of Systems: As Per HPI Past Medical History - Past Medical History Medical history: Reports: arthritis, atrial fibrillation, COPD, CVA, diabetes, fibromyalgia, GERD, hyperlipidemia, hypertension, migraine, osteoporosis, TIA, other Surgical history: Reports: appendectomy, cholecystectomy, hysterectomy, other (EGD/Colonoscopy 05/18/[address] Frederick) Psychiatric history: Reports: anxiety, depression - Social History Smoking Status: Current every day smoker Smokeless Tobacco Status: No Alcohol use: Reports: none Drug use: Reports: none Physical Exam Constitutional: Patient appears anxious and in mild respiratory distress, otherwise [id number], engaged to conversation, speech is fluid, answers questions appropriately Neuro: GCS 15, no overt focal neurological deficits Head: Atraumatic, normocephalic Eyes: Pupils equal, round and reactive to light, no scleral icterus, no conjunctival injection Neck: Trachea midline without deviation. Anterior neck is supple without swelling. *Chest: Symmetric chest wall rise *Heart: Cardiac rhythm and rate are regular with S1 and S2 , no S3 or S4 apprec iated, no murmurs, gallops, rubs, or clicks. *Lungs: Lungs are clear to auscultation bilaterally, without accessory muscle use or prolonged expiratory phase. No wheezes, rhonchi or stridor appreciated. Abdomen: Abdomen is rotund soft to palpation, normal bowel sounds. No abdominal bruit auscultated. Non-distended, non-rigid, no organomegaly, no ascites appreciated. No pulsatile mass, no tenderness or guarding to palpation in all four quadrants, no rebound Extremities: Normal capillary refill without evidence of pedal edema, joint swelling or erythema. Pulses/motor intact in all 4 extremities. Psychiatric exam: Patient appears anxious Integumentary: warm, dry, intact, normal color. No rash, cyanosis, diaphoresis, erythema, or pallor - General Limitations: no limitations General appearance: alert, in distress Course Course Narrative: My differential diagnosis includes but is not limited to: Myocardial ischemia COPD CHF Pneumonia Aortic dissection Tests: CBC, BMP, PT/INR, troponin, BNP, EKG/old EKG, Chest x-ray, urinalysis, CTA dissection study Treatments: Zofran, Nitroglycerin and aspirin Vital Signs Temperature 97.9 F 08/11/18 15:05 Pulse Rate 98 08/11/18 15:05 Respiratory Rate 24 08/11/18 15:05 Blood Pressure 158/61 08/11/18 15:05 O2 Sat by Pulse Oximetry 93 08/11/18 15:05 Temperature 97.8 F 08/11/18 23:02 Pulse Rate 79 08/11/18 23:02 Respiratory Rate 16 08/11/18 23:02 Blood Pressure 123/67 08/11/18 23:02 O2 Sat by Pulse Oximetry 96 08/11/18 23:02 Oxygen Delivery Oxygen Delivery Nasal Cannula Medical Decision Making - [facility] Narrative Medical decision making narrative: Patient EKG and imaging negative for acute pathology Laboratory shows UTI Patient given 1 g of her Ceftin here in ED Patient states that she still "feels like a truck hit me". Patient midst to continued weakness Patient be admitted to hospital medicine service for further evaluation and management of urinary tract infection with complications Patient verbalizes understanding and agreement this plan. Dr. Bell accepting - Lab Data Lab results reviewed: Yes I reviewed the patient's lab results. Result diagrams: 08/14/18 04:19 08/14/18 04:19 Lab Results 08/11/18 08/11/18 08/11/18 Range/Units 16:19 16:19 16:19 WBC 6.5 (4.3-11.1) K/mcL RBC 4.31 (3.82-4.97) M/mcL Hgb 10.9 L (11.5-15.4) g/dL Hct 34.4 L (35.3-44.9) % MCV 79.8 L (83.0-100.0) fL MCH 25.3 L (28.0-33.3) pg MCHC 31.7 (31.6-35.5) g/dL RDW 18.6 H (11.5-14.5) % Plt Count 138 L (140-400) K/mcL MPV 10.5 (9.4-12.4) fL Immature Gran % 0.3 (0-4) % Seg Neutrophils % 60.0 % Lymphocytes % 28.4 % Monocytes % 10.5 % Eosinophils % 0.2 % Basophils % 0.6 % Neutrophils # 3.9 (1.6-8.9) K/mcL Lymphocytes # 1.8 (0.6-4.6) K/mcL Monocytes # 0.7 (0.0-1.3) K/mcL Eosinophils # 0.0 (0.0-0.6) K/mcL Basophils # 0.0 (0.0-0.2) K/mcL PT 16.5 H (9.4-12.1) Seconds INR 1.5 Sodium (136-145) mEq/L Potassium (3.5-5.1) mEq/L Chloride (98-107) mEq/L Carbon Dioxide (23-29) mEq/L BUN (8-23) mg/dL Creatinine (0.60-1.20) mg/dL Est GFR ( Amer) (> 60) Est GFR (Non-Af Amer) (> 60) BUN/Creatinine Ratio (6-26) Glucose (70-105) mg/dL Calculated Osmolality (280-300) Calcium (8.6-10.3) mg/dL Troponin I (< 0.04) ng/mL B-Natriuretic Peptide 22 (Less than 100) pg/mL Urine Color (Yellow) Urine Clarity (Clear) Urine pH (5.0-8.0) pH Units Ur Specific [place] (1.010-1.025) Urine Protein (Neg-Trace) mg/dL Urine Glucose (UA) (Normal) mg/dL Urine Ketones (Negative) mg/dL Urine Blood (Negative) Urine Nitrite (Negative) Urine Bilirubin (Negative) Urine Urobilinogen (Normal) mg/dL Ur Leukocyte Esterase (Negative) Urine Microscopic RBC (0-3) per hpf Urine Microscopic WBC (0-3) per hpf Ur Squamous Epith Cells (None-Few) per lpf Urine Bacteria (None-Few) per hpf Hyaline Casts (None-Few) per lpf Ur Culture Indicated? (NO) 08/11/18 08/11/18 Range/Units 16:19 17:00 WBC (4.3-11.1) K/mcL RBC (3.82-4.97) M/mcL Hgb (11.5-15.4) g/dL Hct (35.3-44.9) % MCV (83.0-100.0) fL MCH (28.0-33.3) pg MCHC (31.6-35.5) g/dL RDW (11.5-14.5) % Plt Count (140-400) K/mcL MPV (9.4-12.4) fL Immature Gran % (0-4) % Seg Neutrophils % % Lymphocytes % % Monocytes % % Eosinophils % % Basophils % % Neutrophils # (1.6-8.9) K/mcL Lymphocytes # (0.6-4.6) K/mcL Monocytes # (0.0-1.3) K/mcL Eosinophils # (0.0-0.6) K/mcL Basophils # (0.0-0.2) K/mcL PT (9.4-12.1) Seconds INR Sodium 140 (136-145) mEq/L Potassium 3.3 L (3.5-5.1) mEq/L Chloride 109 H (98-107) mEq/L Carbon Dioxide 23 (23-29) mEq/L BUN 10 (8-23) mg/dL Creatinine 0.77 (0.60-1.20) mg/dL Est GFR ( Amer) > 60 (> 60) Est GFR (Non-Af Amer) > 60 (> 60) BUN/Creatinine Ratio 13 (6-26) Glucose 129 H (70-105) mg/dL Calculated Osmolality 291 (280-300) Calcium 9.0 (8.6-10.3) mg/dL Troponin I < 0.03 (< 0.04) ng/mL B-Natriuretic Peptide (Less than 100) pg/mL Urine Color Yellow (Yellow) Urine Clarity Cloudy A (Clear) Urine pH 6.0 (5.0-8.0) pH Units Ur Specific [place] > 1.030 H (1.010-1.025) Urine Protein Negative (Neg-Trace) mg/dL Urine Glucose (UA) >=1000 H (Normal) mg/dL Urine Ketones Negative (Negative) mg/dL Urine Blood Negative (Negative) Urine Nitrite Negative (Negative) Urine Bilirubin Negative (Negative) Urine Urobilinogen Normal (Normal) mg/dL Ur Leukocyte Esterase Negative (Negative) Urine Microscopic RBC 0-3 (0-3) per hpf Urine Microscopic WBC 5-15 H (0-3) per hpf Ur Squamous Epith Cells Many H (None-Few) per lpf Urine Bacteria Many H (None-Few) per hpf Hyaline Casts None Seen (None-Few) per lpf Ur Culture Indicated? YES A (NO) - Radiology Data Radiology results reviewed: Yes I reviewed the patient's radiology results. Chest X-Ray 08/11/18 15:38 IMPRESSION: No acute process. D/ / Harshal Allen MD / Harshal Allen MD Interpreting Provider: Harshal Allen MD Dissection 08/11/18 16:04 IMPRESSION: No acute abnormality in the chest, abdomen or pelvis. D/ / 08/11/2018 18:17:00 Liban Bills MD / [email or web address] Interpreting Provider: Liban Bills MD - EKG Data EKG #1 EKG attestation: Yes I reviewed and interpreted this EKG. EKG results narrative: Patient EKG shows sinus rhythm with a ventricular rate of 90 bpm [place] interval of 168 ms, QRS duration of 80 ms, QT/QTc interval 34 7/395 ms respectively. There are no significant ST segment elevations, depressions, pathologic Q waves, abnormal T-wave inversions, nor any other signs of acute ischemic change. There is an R on R prime phenomenon noted in the anterior leads which may represent a right ventricular conduction delay. However this is consistent with prior in this EKG performed today is generally consistent with prior EKG performed on 10/31/2016. Attestation Statement - Attestation Attestation: I have seen this patient with the resident physician, I have personally eval uated this patient. I had reviewed the chart and document dictation by the resident physician and aM in agreement with the information documented by the resident physician. Please see documentation by the resident physician for complete chart including past medical history, family medical history, review of systems, current history and physical and laboratory and imaging studies. I was present for all procedures, provided direct supervision for all procedures, was present for the entirety of all procedures and provided direct guidance during the procedures. Please see documentation by the resident physician for any procedures performed. I have reviewed all interpretations of EKGs, and reviewed all EKGs performed on patient's as well. I have also reviewed reports of imaging as provided by radiology.
[2018-08-11] MEDS ORDERED: Ondansetron 4 MG/2 ML VIAL IVP STA (15:56)
[2018-08-11] MEDS ORDERED: Aspirin 81 MG TAB.CHEW PO ONE (16:00)
[2018-08-11] MEDS ORDERED: Isovue-370 500 ML BOTTLE IVP ONE (16:04)
[2018-08-11] MEDS: Nitroglycerin 0.4 MG TAB.SUBL SL SCH ×2 (16:07→16:45)
[2018-08-11 16:30] LABS: Basophils % 0.6 %; Eosinophils % 0.2 %; Hematocrit 34.4 % (35.3-44.9); Hemoglobin 10.9 g/dL (11.5-15.4); Immature Granulocytes % 0.3 % (0-4); Lymphocytes # 1.8 K/mcL (0.6-4.6); Lymphocytes % 28.4 %; Mean Corpuscular HGB Conc 31.7 g/dL (31.6-35.5); Mean Corpuscular Hemoglobin 25.3 pg (28.0-33.3); Mean Corpuscular Volume 79.8 fL (83.0-100.0); Mean Platelet Volume 10.5 fL (9.4-12.4); Monocytes # 0.7 K/mcL (0.0-1.3); Monocytes % 10.5 %; Neutrophils # 3.9 K/mcL (1.6-8.9); Platelet Count 138 K/mcL (140-400); Red Blood Count 4.31 M/mcL (3.82-4.97); Red Cell Distribution Width 18.6 % (11.5-14.5)
[2018-08-11 16:44] LABS: INR 1.5; Prothrombin Time 16.5 Seconds (9.4-12.1)
[2018-08-11 17:08] LABS: BUN/Creatinine Ratio 13 (6-26); Blood Urea Nitrogen 10 mg/dL (8-23); Carbon Dioxide 23 mEq/L (23-29); Chloride 109 mEq/L (98-107); Glucose 129 mg/dL (70-105); Osmolality,Calculated 291 (280-300); Potassium 3.3 mEq/L (3.5-5.1); Sodium 140 mEq/L (136-145); Troponin I < 0.03 ng/mL (< 0.04); eGFR For Non-African Americans > 60 (> 60)
[2018-08-11 17:19] LABS: Bilirubin,Urine Negative (Negative); Blood,Urine Negative (Negative); Clarity,Urine Cloudy (Clear); Color,Urine Yellow (Yellow); Glucose,Urine (UA) >=1000 mg/dL (Normal); Ketones,Urine Negative (Negative); Leukocyte Esterase,Urine Negative (Negative); Nitrite,Urine Negative (Negative); Protein,Urine Negative (Neg-Trace); Specific Gravity,Urine > 1.030 (1.010-1.025); Urobilinogen,Urine Normal (Normal)
[2018-08-11 17:22] LABS: Bacteria,Urine Many per hpf (None-Few); Hyaline Casts,Urine None Seen per lpf (None-Few); RBC,Urine 0-3 per hpf (0-3); Squamous Epithelial Cell,Urine Many per lpf (None-Few)
--- NOTE | 2018-08-11 18:48 | Emergency Department Note ---
Disposition Clinical Impression: Chest pain, rule out acute myocardial infarction, Chest pain, Shortness of breath Disposition: Admitted As Inpatient Condition: Fair Referrals: Sohan Gonsales MD [Primary Care Provider] - Forms: ED Satisfaction Letter Time of Disposition: 18:49 Chest Pain HPI - General Chief Complaint: ED Chest Pain Stated Complaint: General Time Seen by Provider: 08/11/18 15:33 Source: patient, family Mode of arrival: ambulatory Limitations: no limitations Vital Signs Reviewed: Yes Nursing Notes Reviewed: Yes - History of Present Illness Severity scale (1-10): 0 - Related Data Home Medications Medication Instructions Recorded Confirmed Atorvastatin [Lipitor] 40 mg PO DAILY 11/14/14 08/11/18 Apixaban [Eliquis] 5 mg PO BID 12/06/15 08/11/18 Gabapentin [Neurontin] 800 mg PO TID 12/06/15 10/04/16 Insulin Glargine [Lantus] 80 unit SQ HS 12/06/15 08/11/18 Metoprolol XL (24 HR) Succ [Toprol 50 mg PO HS 12/06/15 08/11/18 Xl] Duloxetine HCl [Cymbalta] 120 mg PO QAM 05/17/16 08/11/18 Empagliflozin [Jardiance] 25 mg PO QAM 05/17/16 10/04/16 Glimepiride [Amaryl] 4 mg PO QAM 05/17/16 08/11/18 Nortriptyline [Pamelor] 25 mg PO QAM 05/17/16 10/04/16 Pantoprazole Sodium [Protonix] 40 mg PO HS 05/17/16 08/11/18 Propafenone HCl [Rythmol Sr] 325 mg PO BID 05/17/16 10/04/16 Quetiapine Fumarate [Seroquel] 200 mg PO HS 05/17/16 08/11/18 Spironolactone [Aldactone] 25 mg PO QAM 05/17/16 08/11/18 Polyethylene Glycol 3350 17 gm PO BID 06/10/16 08/11/18 [Smoothlax] Cyclobenzaprine [Flexeril] 08/11/18 Empagliflozin [Jardiance] 08/11/18 Liraglutide [Victoza 2-Aubrey] 1.2 mg SQ DAILY 08/11/18 08/11/18 Ondansetron HCl [Zofran] 4 mg PO 08/11/18 Pregabalin [Lyrica] 200 mg PO 08/11/18 Rythmol Sr mg 08/11/18 Tramadol HCl [Ultram] 50 mg PO BID PRN 08/11/18 08/11/18 Previous Rx's Medication Instructions Recorded Insulin LISPRO [HumaLOG] 0 units SQ TIDAC vial 05/19/16 Sucralfate [Carafate] 1 gm PO TID #90 tablet 06/13/16 Cholecalciferol (D-3) [Vitamin D] 2,000 unit PO DAILY #60 tab 10/10/16 HYDROcodone/Acet 5/325 mg [[place] 1 tab PO Q6HR PRN #25 tab 10/10/16 5-325 mg] Lactobacillus [Culturelle] 1 each PO BID #60 10/10/16 Sennosides/Docusate Sodium [Senna 1 each PO BID #60 tab 10/10/16 Plus] Allergies Allergy/AdvReac Type Severity Reaction Status Date / Time Sulfa (Sulfonamide Allergy Severe Anaphylaxis Verified 10/21/16 11:07 Antibiotics) prednisone AdvReac Mild swelling Verified 10/21/16 11:07 metformin AdvReac Hives Verified 10/21/16 11:07 Chest Pain PMH - Past Medical History Medical history: Reports: arthritis, atrial fibrillation, COPD, CVA, diabetes, f ibromyalgia, GERD, hyperlipidemia, hypertension, migraine, osteoporosis, TIA, other Surgical history: Reports: appendectomy, cholecystectomy, hysterectomy, other (EGD/Colonoscopy 05/18/[address] Frederick) Psychiatric history: Reports: anxiety, depression - Social History Smoking Status: Current every day smoker Alcohol use: Reports: none Drug use: Reports: none Physical Exam - General Limitations: no limitations General appearance: alert, in distress Course Vital Signs Temperature 97.9 F 08/11/18 15:05 Pulse Rate 98 08/11/18 15:05 Respiratory Rate 24 08/11/18 15:05 Blood Pressure 158/61 08/11/18 15:05 O2 Sat by Pulse Oximetry 93 08/11/18 15:05 Temperature 98 F 08/11/18 17:56 Pulse Rate 19 08/11/18 17:56 Respiratory Rate 18 05/30/19 17:56 Blood Pressure 128/72 08/11/18 17:56 O2 Sat by Pulse Oximetry 99 08/11/18 17:56 Oxygen Delivery Oxygen Delivery Nasal Cannula Chest Pain - Lab Data Result diagrams: 08/11/18 16:19 08/11/18 16:19 Lab Results 08/11/18 08/11/18 08/11/18 Range/Units 16:19 16:19 16:19 WBC 6.5 (4.3-11.1) K/mcL RBC 4.31 (3.82-4.97) M/mcL Hgb 10.9 L (11.5-15.4) g/dL Hct 34.4 L (35.3-44.9) % MCV 79.8 L (83.0-100.0) fL MCH 25.3 L (28.0-33.3) pg MCHC 31.7 (31.6-35.5) g/dL RDW 18.6 H (11.5-14.5) % Plt Count 138 L (140-400) K/mcL MPV 10.5 (9.4-12.4) fL Immature Gran % 0.3 (0-4) % Seg Neutrophils % 60.0 % Lymphocytes % 28.4 % Monocytes % 10.5 % Eosinophils % 0.2 % Basophils % 0.6 % Neutrophils # 3.9 (1.6-8.9) K/mcL Lymphocytes # 1.8 (0.6-4.6) K/mcL Monocytes # 0.7 (0.0-1.3) K/mcL Eosinophils # 0.0 (0.0-0.6) K/mcL Basophils # 0.0 (0.0-0.2) K/mcL PT 16.5 H (9.4-12.1) Seconds INR 1.5 Sodium (136-145) mEq/L Potassium (3.5-5.1) mEq/L Chloride (98-107) mEq/L Carbon Dioxide (23-29) mEq/L BUN (8-23) mg/dL Creatinine (0.60-1.20) mg/dL Est GFR ( Amer) (> 60) Est GFR (Non-Af Amer) (> 60) BUN/Creatinine Ratio (6-26) Glucose (70-105) mg/dL Calculated Osmolality (280-300) Calcium (8.6-10.3) mg/dL Troponin I (< 0.04) ng/mL B-Natriuretic Peptide 22 (Less than 100) pg/mL Urine Color (Yellow) Urine Clarity (Clear) Urine pH (5.0-8.0) pH Units Ur Specific [place] (1.010-1.025) Urine Protein (Neg-Trace) mg/dL Urine Glucose (UA) (Normal) mg/dL Urine Ketones (Negative) mg/dL Urine Blood (Negative) Urine Nitrite (Negative) Urine Bilirubin (Negative) Urine Urobilinogen (Normal) mg/dL Ur Leukocyte Esterase (Negative) Urine Microscopic RBC (0-3) per hpf Urine Microscopic WBC (0-3) per hpf Ur Squamous Epith Cells (None-Few) per lpf Urine Bacteria (None-Few) per hpf Hyaline Casts (None-Few) per lpf Ur Culture Indicated? (NO) 08/11/18 08/11/18 Range/Units 16:19 17:00 WBC (4.3-11.1) K/mcL RBC (3.82-4.97) M/mcL Hgb (11.5-15.4) g/dL Hct (35.3-44.9) % MCV (83.0-100.0) fL MCH (28.0-33.3) pg MCHC (31.6-35.5) g/dL RDW (11.5-14.5) % Plt Count (140-400) K/mcL MPV (9.4-12.4) fL Immature Gran % (0-4) % Seg Neutrophils % % Lymphocytes % % Monocytes % % Eosinophils % % Basophils % % Neutrophils # (1.6-8.9) K/mcL Lymphocytes # (0.6-4.6) K/mcL Monocytes # (0.0-1.3) K/mcL Eosinophils # (0.0-0.6) K/mcL Basophils # (0.0-0.2) K/mcL PT (9.4-12.1) Seconds INR Sodium 140 (136-145) mEq/L Potassium 3.3 L (3.5-5.1) mEq/L Chloride 109 H (98-107) mEq/L Carbon Dioxide 23 (23-29) mEq/L BUN 10 (8-23) mg/dL Creatinine 0.77 (0.60-1.20) mg/dL Est GFR ( Amer) > 60 (> 60) Est GFR (Non-Af Amer) > 60 (> 60) BUN/Creatinine Ratio 13 (6-26) Glucose 129 H (70-105) mg/dL Calculated Osmolality 291 (280-300) Calcium 9.0 (8.6-10.3) mg/dL Troponin I < 0.03 (< 0.04) ng/mL B-Natriuretic Peptide (Less than 100) pg/mL Urine Color Yellow (Yellow) Urine Clarity Cloudy A (Clear) Urine pH 6.0 (5.0-8.0) pH Units Ur Specific [place] > 1.030 H (1.010-1.025) Urine Protein Negative (Neg-Trace) mg/dL Urine Glucose (UA) >=1000 H (Normal) mg/dL Urine Ketones Negative (Negative) mg/dL Urine Blood Negative (Negative) Urine Nitrite Negative (Negative) Urine Bilirubin Negative (Negative) Urine Urobilinogen Normal (Normal) mg/dL Ur Leukocyte Esterase Negative (Negative) Urine Microscopic RBC 0-3 (0-3) per hpf Urine Microscopic WBC 5-15 H (0-3) per hpf Ur Squamous Epith Cells Many H (None-Few) per lpf Urine Bacteria Many H (None-Few) per hpf Hyaline Casts None Seen (None-Few) per lpf Ur Culture Indicated? YES A (NO) Attestation Statement - Attestation Attestation: I have seen this patient with the resident physician, I have personally evaluated this patient. I had reviewed the chart and document dictation by the resident physician and aM in agreement with the information documented by the resident physician. Please see documentation by the resident physician for complete chart including past medical history, family medical history, review of systems, current history and physical and laboratory and imaging studies. I was present for all procedures, provided direct supervision for all procedures, was present for the entirety of all procedures and provided direct guidance during the procedures. Please see documentation by the resident physician for any procedures performed. I have reviewed all interpretations of EKGs, and reviewed all EKGs performed on patient's as well. I have also reviewed reports of imaging as provided by radiology. Patient presented to emergency department with chief complaint of shortness of breath started last night, progressively worsened today with associated chest pain. She states it started in her jaw and then went into her chest and into her back. She states now she has some mild upper abdominal discomfort as well but complains primarily of shortness of breath and chest discomfort. No fevers or chills no significant cough or sputum production. She denies headache neck pain posteriorly. She denies diarrhea she has chronic constipation issues which she always deals with. No urinary changes no acute lower extremity edema. She states that she has never felt like this in the past. She has no history of coronary artery disease, but does report a history of CHF and hypertension. EKG was a normal sinus rhythm, with no evidence of acute ischemia or dysrhythmia or hyperkalemia, no significant abnormal intervals. Chest x-ray showed no acute finding. Secondary to significant pain in her back with shortness of breath and pain moving down in her abdomen into her jaw CT dissection protocol was ordered which showed no evidence of acute intrathoracic or intra-abdominal process. Basic laboratory studies were all within acceptable limits negative troponin no significant anemia, no renal abnormality. Patient will be admitted to the hospital for further evaluation and management of chest pain. She was given nitroglycerin and Zofran here, she does report improvement of her chest discomfort and shortness of breath with nitroglycerin and improvement of her nausea with Zofran. Patient was also given aspirin. She was admitted to the hospital for further evaluation and management.
[2018-08-11] MEDS ORDERED: cefTRIAXone 1,000 MG in 0.9 % Sodium Chloride Mini Bag 100 ML IVPB ONE (19:11)
[2018-08-11] MEDS ORDERED: traMADol 50 MG TABLET PO ONE (19:43)
[2018-08-12] MEDS ORDERED: Ondansetron 4 MG/2 ML VIAL IVP ONE (01:10)
[2018-08-12] MEDS ORDERED: Naloxone 0.4 MG/ML INJ IVP PRN (01:16)
[2018-08-12] MEDS ORDERED: Dextrose Gel 15 GM/37.5 ML TUBE PO PRN ×2 (01:19)
[2018-08-12] MEDS ORDERED: *HR* Dextrose 50 % in Water (Syg) 50 ML SYRINGE IVP PRN (01:19)
[2018-08-12] MEDS ORDERED: D5% in Water 1,000 ML IVC PRN (01:19)
[2018-08-12 01:53] LABS: Hematocrit 33.7 % (35.3-44.9); Hemoglobin 10.7 g/dL (11.5-15.4); Mean Corpuscular HGB Conc 31.8 g/dL (31.6-35.5); Mean Corpuscular Hemoglobin 25.4 pg (28.0-33.3); Mean Corpuscular Volume 79.9 fL (83.0-100.0); Mean Platelet Volume 10.3 fL (9.4-12.4); Platelet Count 123 K/mcL (140-400); Red Blood Count 4.22 M/mcL (3.82-4.97); Red Cell Distribution Width 18.8 % (11.5-14.5)
--- NOTE | 2018-08-12 01:58 | Internal Med History&Physical ---
Date of Encounter: 08/12/18 Time of Encounter: 00:00 Internal Medicine - H&P: HPI Chief complaint: Chest Pain Admitted From: Home Plans for Post Hospital Care: Home History of present illness: Ms. Welsh is a 62 year old female with past medical history significant for atrial fibrillation on eliquis, hypertension, hyperlipidemia, CHF, COPD, CVA without deficits, TIA, diabetes, migraines, GERD, fibromyalgia, osteoporosis, arthritis, anxiety, and depression who presents for complaints of substernal chest pain starting yesterday morning. Pain was described as sharp and rated at 9/10 when at its worst and radiated to her right shoulder and into her back. Pain was associated with shortness of breath, nausea, and diaphoresis. States pain improved with deep breathing and rest. Pain persisted until receiving nitro, ultram, and aspirin in ER. States she has chronic GI symptoms consisting of burning, abdominal discomfort, constipation, and nausea but this pain was different. Also reports noticing that her urine has been very foul smelling starting yesterday as well. Reports she has been under significant amount of stress lately related to finances and thinks that this could be contributing to her symptoms. ER reported EKG as sinus rhythm with no signs of ischemic change with an R on R phenomenon that is consistent with prior EKG in 10/2016. ER also completed a chest xray which showed no acute process. ER also completed a CTA dissection study which showed no acute abnormality in the chest, abdomen, or pelvis. Presenting symptoms have resolved, however she states she has burning sensation in her GI tract currently that is consistent with her chronic GERD symptoms. Currently denies any headache, numbness, tingling, dizziness, chest pain, shortness of breath, abdominal pain, bowel or bladder changes. Had an echocardiogram completed in September 2016 showing a 60% EF. Also had a stress test completed in March 2015 which was negative for ischemia or infarct Checks blood sugars regularly at home and reports they have been averaging in the 100's. Follows with PCP monthly and cardiology annually. Past Med Surg Social Fam HX - Past Medical History Medical history: arthritis, atrial fibrillation, COPD, CVA, diabetes, fibrom yalgia, GERD, hyperlipidemia, hypertension, migraine, osteoporosis, TIA, other Additional medical history: Brain aneurysm Psychiatric history: anxiety, depression - Past Surgical History Surgical History: appendectomy, cholecystectomy, hysterectomy, other (EGD/Colonoscopy 05/18/[address] Frederick) Additional surgical history: back surgery - Social History Smoking Status: Current every day smoker Smokeless Tobacco Status: No Alcohol use: none Drug use: none - Family History Mother Living Status: Age at : 84 Cause of : CHF Hx Family Cardiac Disorders: Yes ([place]) Hx Family Respiratory Disorders: Yes (COPD) Hx Family Cancer: Yes (Breast) Hx Family GI Disorders: No Hx Family Endocrine Disorder: No Hx Family Neuromuscular Disorders: No Hx Family Neurologic Disorders: No Hx Family HEENT Disorders: No Hx Family Autoimmune Disorders: No Father Living Status: Age at : 64 Cause of : heart attack Hx Family Cardiac Disorders: Yes ([place], HTN) Hx Family Respiratory Disorders: Yes (COPD) Hx Family Cancer: No Hx Family GI Disorders: No Hx Family Endocrine Disorder: No Hx Family Neuromuscular Disorders: No Hx Family Neurologic Disorders: No Hx Family HEENT Disorders: No Hx Family Autoimmune Disorders: No Internal Medicine - H&P: Meds Atorvastatin [Lipitor] 40 mg PO DAILY 11/14/14 [History] Apixaban [Eliquis] 5 mg PO BID 12/06/15 [History] Gabapentin [Neurontin] 800 mg PO TID 12/06/15 [History] Insulin Glargine [Lantus] 80 unit SQ HS 12/06/15 [History] Metoprolol XL (24 HR) Succ [Toprol Xl] 50 mg PO HS 12/06/15 [History] Duloxetine HCl [Cymbalta] 120 mg PO QAM 05/17/16 [History] Empagliflozin [Jardiance] 25 mg PO QAM 05/17/16 [History] Glimepiride [Amaryl] 4 mg PO QAM 05/17/16 [History] Nortriptyline [Pamelor] 25 mg PO QAM 05/17/16 [History] Pantoprazole Sodium [Protonix] 40 mg PO HS 05/17/16 [History] Propafenone HCl [Rythmol Sr] 325 mg PO BID 05/17/16 [History] Quetiapine Fumarate [Seroquel] 200 mg PO HS 05/17/16 [History] Spironolactone [Aldactone] 25 mg PO QAM 05/17/16 [History] Insulin LISPRO [HumaLOG] 0 units SQ TIDAC vial 05/19/16 [Rx] Polyethylene Glycol 3350 [Smoothlax] 17 gm PO BID 06/10/16 [History] Sucralfate [Carafate] 1 gm PO TID #90 tablet 06/13/16 [Rx] Cholecalciferol (D-3) [Vitamin D] 2,000 unit PO DAILY #60 tab 10/10/16 [Rx] HYDROcodone/Acet 5/325 mg [Pease 5-325 mg] 1 tab PO Q6HR PRN #25 tab 10/10/16 [Rx] Lactobacillus [Culturelle] 1 each PO BID #60 10/10/16 [Rx] Sennosides/Docusate Sodium [Senna Plus] 1 each PO BID #60 tab 10/10/16 [Rx] Cyclobenzaprine [Flexeril] 08/11/18 [History] Empagliflozin [Jardiance] 08/11/18 [History] Liraglutide [Victoza 2-Aubrey] 1.2 mg SQ DAILY 08/11/18 [History] Ondansetron HCl [Zofran] 4 mg PO 08/11/18 [History] Pregabalin [Lyrica] 200 mg PO 08/11/18 [History] Rythmol Sr mg 08/11/18 [History] Tramadol HCl [Ultram] 50 mg PO BID PRN 08/11/18 [History] Allergy/AdvReac Type Severity Reaction Status Date / Time Sulfa (Sulfonamide Allergy Severe Anaphylaxis Verified 10/21/16 11:07 Antibiotics) prednisone AdvReac Mild swelling Verified 10/21/16 11:07 metformin AdvReac Hives Verified 10/21/16 11:07 All Systems PM: A 10-system review of systems was performed and is negative for pertinent findings except as documented above in the HPI. - Constitutional Vitals: Temp Pulse Resp BP Pulse Ox 97.8 F 79 16 123/67 96 08/11/18 23:02 08/11/18 23:02 08/11/18 23:02 08/11/18 23:02 08/11/18 23:02 Exam: General: Alert and oriented. Appears fatigued. Skin:Normal color, no rash, no lesions. HEENT:Pupils equal, round and reactive. Cardiovascular:Normal S1 & S2, no rubs, murmurs or gallops. No JVD. Pulse regular. Lungs:Breath sounds decreased, no wheezes or crackles. Abdomen:Soft, no rigidity, mild tenderness on palpation states this is chronic for her. Extremities:No deformity, no edema or tenderness, no joint swelling or clubbing. Neurological:Normal cognition and motor skills. Pulses:Carotid and radial pulses normal +2. Rest of the physical exam is non contributory. Internal Med - H&P Results - Labs CBC & Chem 7: 08/11/18 16:19 08/11/18 16:19 Labs: Short CBC 08/11/18 Range/Units 16:19 WBC 6.5 (4.3-11.1) K/mcL Hgb 10.9 L (11.5-15.4) g/dL Hct 34.4 L (35.3-44.9) % Plt Count 138 L (140-400) K/mcL Neutrophils # 3.9 (1.6-8.9) K/mcL BMP 08/11/18 16:19 Sodium 140 Potassium 3.3 L Chloride 109 H Carbon Dioxide 23 BUN 10 Creatinine 0.77 Glucose 129 H Calcium 9.0 Cardiac Enzymes 08/11/18 Range/Units 16:19 Troponin I < 0.03 (< 0.04) ng/mL Urine 08/11/18 Range/Units 17:00 Urine Color Yellow (Yellow) Urine Clarity Cloudy A (Clear) Urine pH 6.0 (5.0-8.0) pH Units Ur Specific [place] > 1.030 H (1.010-1.025) Urine Protein Negative (Neg-Trace) mg/dL Urine Glucose (UA) >=1000 H (Normal) mg/dL - Impressions ITS Impressions Chest X-Ray 08/11/18 15:38 IMPRESSION: No acute process. D/ / Harshal Allen MD / Harshal Allen MD Interpreting Provider: Harshal Allen MD Dissection 08/11/18 16:04 IMPRESSION: No acute abnormality in the chest, abdomen or pelvis. D/ / 08/11/2018 18:17:00 Liban Bills MD / kendrick Interpreting Provider: Liban Bills MD - Assessment and Plan (1) Chest pain Current Visit: Yes Status: Acute Assessment and plan: Currently resolved. Could be associated with chronic GI symptoms but states this felt different. Initial troponin negative, serial troponins ordered. Continuous cardiac monitoring. Echocardiogram ordered. Qualifiers: Chest pain type: other chest pain Qualified Code(s): R07.89 - Other chest pain; R07.8 - Other chest pain (2) Urinary tract infection Current Visit: Yes Status: Suspected Assessment and plan: UA in ER with WBC's present, urine culture pending. Patient reports foul-smelling urine. Ceftriaxone received in ER, will continue same. Qualifiers: Qualified Code(s): N39.0 - Urinary tract infection, site not specified (3) Hypokalemia Current Visit: Yes Status: Acute Assessment and plan: Slightly decreased at 3.3 We will repeat labs and replace if needed. (4) Decreased hemoglobin Current Visit: Yes Status: Acute Assessment and plan: Has been low in past. Currently 10.9. No recent labs for comparison. No signs of bleeding. We will repeat labs. (5) Decreased platelet count Current Visit: Yes Status: Acute Assessment and plan: Has been low in past. Currently 138. No recent labs for comparison. No signs of bleeding. We will repeat labs. (6) Diabetes mellitus Current Visit: Yes Status: Chronic Assessment and plan: Hold home medications. Sliding scale insulin ordered. Accu-Chek's every 6 hours. Qualifiers: Diabetes mellitus type: type 2 Diabetes mellitus long term care pharmacist insulin use: with fpc use Qualified Code(s): E11.9 - Type 2 diabetes mellitus without complications; Z79.4 - long-term (current) use of insulin - Time Spent With Patient Total time spent is greater than 50% in coordination of care (as documented) at patient's floor/unit and/or counseling patient:
[2018-08-12] MEDS: Melatonin 3 MG TABLET PO PRN (02:02)
[2018-08-12 02:07] LABS: BUN/Creatinine Ratio 12 (6-26); Blood Urea Nitrogen 9 mg/dL (8-23); Calcium 8.8 mg/dL (8.6-10.3); Carbon Dioxide 25 mEq/L (23-29); Chloride 109 mEq/L (98-107); Glucose 102 mg/dL (70-105); Osmolality,Calculated 289 (280-300); Potassium 3.3 mEq/L (3.5-5.1); Sodium 140 mEq/L (136-145); eGFR For Non-African Americans > 60 (> 60)
[2018-08-12] MEDS ORDERED: Insulin LISPRO 300 UNITS/3 ML VIAL SQ SCH (06:00)
[2018-08-12] MEDS: Insulin LISPRO 300 UNITS/3 ML VIAL SQ SCH ×3 (07:51→16:28)
[2018-08-12] MEDS ORDERED: Regadenoson 0.4 MG/5 ML SYRINGE IVP ONE (08:56)
[2018-08-12] MEDS ORDERED: Ondansetron 4 MG/2 ML VIAL IVP PRN (09:30)
[2018-08-12] MEDS ORDERED: D5% in 0.45% NACL 1,000 ML IVC SCH (12:00)
--- NOTE | 2018-08-12 12:43 | Internal Med Progress Note ---
Hospitalist Progress Note - Encounter Date of Encounter: 08/12/18 Time of Encounter: 11:00 - Subjective Interval History: Ms. Welsh is a 62 year old female with past medical history significant for atrial fibrillation on eliquis, hypertension, hyperlipidemia, Diastolic CHF, COPD, CVA without deficits, diabetes, migraines, GERD, fibromyalgia, osteoporos is, arthritis, anxiety, and depression who presented to ER with substernal chest pain. Pain was described as sharp and rated at 9/10 when at its worst and radiated to her right shoulder and into her back. Pain was associated with shortness of breath, nausea, and diaphoresis. States pain improved with deep breathing and rest. Reports she has been under significant amount of stress lately related to finances and thinks that this could be contributing to her symptoms. Initial EKG showed sinus rhythm with no signs of ischemic change. Her chest xray showed no acute process. ER also completed a CTA dissection study which showed no acute abnormality in the chest, abdomen, or pelvis. She was a dmitted in the hospital and placed on case monitor. She does have abnormal urinalysis too. Patient was started on empirical antibiotic Rocephin. Her serial trop were came back as negative. Pt denied any CP now, however she is c.o generalized weakness and lethargy. - Exam Vitals: Temp Pulse Resp BP Pulse Ox 98.1 F 68 17 116/55 97 08/12/18 12:15 08/12/18 12:15 08/12/18 12:15 08/12/18 12:15 08/12/18 12:15 Exam: Gen: Alert, awake, Oriented to time,place and person Chest: Diminished breath sounds B/L, No wheezing, No crackles, No rales Heart: S1S2+ RRR No murmurs Abd: Soft, NT, BS +, No organomegaly Ext: No edema, pulses are palpable, No calf tenderness Neuro : No acute focal neuro deficits noticed Skin: No rash. - Assessment and Plan (1) Chest pain Current Visit: Yes Status: Acute Assessment and Plan: So far negative serial troponin x 3 no acute ischemic changes on EKG. Cont ASA, Statin and Metoprolol since pt is high risk for ACS, ordered stress test. (2) Urinary tract infection Current Visit: Yes Status: Suspected Assessment and Plan: UA is abnormal concerning for UTI cont IV Rocephin will f/u on urine cx (3) Hypokalemia Current Visit: Yes Status: Acute Assessment and Plan: Slightly decreased at 3.3 cont replacing (4) Decreased hemoglobin Current Visit: Yes Status: Acute Assessment and Plan: Chronic anemia Stable hb @ 10.7 (5) Decreased platelet count Current Visit: Yes Status: Acute Assessment and Plan: Has been low in the past. Currently 123 No signs of bleeding. (6) Diabetes mellitus Current Visit: Yes Status: Chronic Assessment and Plan: Held home medications. ADA diet and ISS ACHS - Time Spent with Patient Total time spent is greater than 50% in coordination of care (as documented) at patient's floor/unit and/or counseling patient: Internal Medicine: Result - Labs CBC & Chem 7: 08/12/18 01:32 08/12/18 01:32 Labs: Short CBC 08/11/18 08/12/18 Range/Units 16:19 01:32 WBC 6.5 4.6 (4.3-11.1) K/mcL Hgb 10.9 L 10.7 L (11.5-15.4) g/dL Hct 34.4 L 33.7 L (35.3-44.9) % Plt Count 138 L 123 L (140-400) K/mcL Neutrophils # 3.9 (1.6-8.9) K/mcL BMP 08/11/18 08/12/18 16:19 01:32 Sodium 140 140 Potassium 3.3 L 3.3 L Chloride 109 H 109 H Carbon Dioxide 23 25 BUN 10 9 Creatinine 0.77 0.77 Glucose 129 H 102 Calcium 9.0 8.8 Cardiac Enzymes 08/11/18 08/12/18 08/12/18 Range/Units 16:19 01:32 08:52 Troponin I < 0.03 < 0.03 < 0.03 (< 0.04) ng/mL Urine 08/11/18 Range/Units 17:00 Urine Color Yellow (Yellow) Urine Clarity Cloudy A (Clear) Urine pH 6.0 (5.0-8.0) pH Units Ur Specific [place] > 1.030 H (1.010-1.025) Urine Protein Negative (Neg-Trace) mg/dL Urine Glucose (UA) >=1000 H (Normal) mg/dL - ABG Interpretation ABG results: PT/INR, D-dimer PT 16.5 Seconds (9.4-12.1) H 08/11/18 16:19 - Impressions Impressions Chest X-Ray 08/11/18 15:38 IMPRESSION: No acute process. D/ / Harshal Allen MD / Harshal Allen MD Interpreting Provider: Harshal Allen MD Dissection 08/11/18 16:04 IMPRESSION: No acute abnormality in the chest, abdomen or pelvis. D/ / 08/11/2018 18:17:00 Liban Bills MD / kendrick Interpreting Provider: Liban Bills MD Echocardiogram 08/12/18 02:12 Impressions: LVEF 65-70%. Basal sigmoid septum. Mild left ventricular diastolic dysfunction. Normal right ventricular structure and function. No significant valvular dysfunction. No evidence of pulmonary hypertension. Left Ventricular Wall Motion: Rest Echo Findings All wall segments showed normal motion. Findings: Study Quality * Technically adequate exam. ECG Findings * Normal sinus rhythm. Left Ventricle * LVEF 65-70%. * Normal LV chamber size and systolic function. * Basal sigmoid septum. * Mild left ventricular diastolic dysfunction. Right Ventricle * Normal right ventricular structure and function. Left Atrium * Normal left atrial size. Right Atrium * Normal right atrial size. Interatrial Septum * Interatrial septum not well evaluated. * No evidence of PFO by color Doppler. Aortic Valve * Trileaflet aortic valve with normal function. * No aortic stenosis. * No aortic regurgitation. Mitral Valve * Normal mitral valve structure. * No mitral stenosis. * Trace mitral regurgitation. Tricuspid Valve * Normal tricuspid valve structure and function. * No tricuspid stenosis. * No tricuspid regurgitation. * Unable to estimate RVSP due to lack of TR jet. * No evidence of pulmonary hypertension. * Estimated RA pressure is 3 mmHg. Pulmonic Valve * Pulmonic valve is not well visualized. * No pulmonic stenosis. * No pulmonic regurgitation. Aorta * Normally sized aortic root. Pericardium * The pericardium appears normal. IVC * The IVC is not dilated. * > 50% respiratory change Consult Discharge Plan - Plan Referrals: Sohan Gonsales MD [Primary Care Provider] - (1) Chest pain Qualifiers: Chest pain type: other chest pain Qualified Code(s): R07.89 - Other chest pain; R07.8 - Other chest pain (2) Urinary tract infection Qualifiers: Urinary tract infection type: acute cystitis Hematuria presence: without hematuria Qualified Code(s): N30.00 - Acute cystitis without hematuria (6) Diabetes mellitus Qualifiers: Diabetes mellitus type: type 2 Diabetes mellitus residential insulin use: with residential use Qualified Code(s): E11.9 - Type 2 diabetes mellitus without complications; Z79.4 - nursing home (current) use of insulin
--- NOTE | 2018-08-12 14:24 | Electrocardiograph Report ---
[address] [address] Test Date: 2018-08-11 Pat Name: Kary Welsh Department: 104 Room: 3B Gender: F Information Services Assistant: Joseline : 1955 Requested By: Mark Anthony Dahl Order Number: [id number] Reading MD: Cliff Smith Measurements Intervals [place] Rate: 90 P: 50 NM: 168 QRS: 6 QRSD: 82 T: 52 QT: 347 QTc: 395 Interpretive Statements SINUS RHYTHM LOW QRS VOLTAGE IN PRECORDIAL LEADS INCOMPLETE RIGHT BUNDLE BRANCH BLOCK Electronically Signed On 08-12-2018 14:23:16 EDT by Cliff Smith
[2018-08-12] MEDS: cefTRIAXone 1,000 MG in Water for inj. (sterile) 20 ML 10 ML IVP SCH (18:42)
[2018-08-12] MEDS: Pregabalin 50 MG CAPSULE PO SCH (20:58)
[2018-08-12] MEDS: Apixaban 5 MG TABLET PO SCH (20:58)
[2018-08-12] MEDS: Sucralfate 1 GM TABLET PO SCH (20:58)
[2018-08-13] MEDS: Insulin LISPRO 300 UNITS/3 ML VIAL SQ SCH ×3 (07:25→17:23)
[2018-08-13] MEDS ORDERED: Regadenoson 0.4 MG/5 ML SYRINGE IVP ONE (07:42)
[2018-08-13] MEDS: Spironolactone 25 MG TABLET PO SCH (09:20)
[2018-08-13] MEDS: Apixaban 5 MG TABLET PO SCH ×2 (09:20→19:55)
[2018-08-13] MEDS: Pregabalin 50 MG CAPSULE PO SCH ×3 (09:21→19:55)
[2018-08-13] MEDS: Sucralfate 1 GM TABLET PO SCH ×3 (09:21→19:55)
[2018-08-13] MEDS: Metoprolol XL (24 HR) Succ 50 MG TAB.ER.24H PO SCH (09:21)
--- NOTE | 2018-08-13 10:48 | Discharge Summary ---
Date of Encounter: 08/13/18 Time of Encounter: 10:44 - Discharge Medications Prescriptions: New cephALEXin [Keflex] 500 mg PO BID #8 capsule Continued Atorvastatin [Lipitor] 40 mg PO DAILY Metoprolol XL (24 HR) Succ [Toprol Xl] 50 mg PO DAILY Apixaban [Eliquis] 5 mg PO BID Spironolactone [Aldactone] 25 mg PO QAM Quetiapine Fumarate [Seroquel] 200 mg PO HS Glimepiride [Amaryl] 4 mg PO QAM Duloxetine HCl [Cymbalta] 60 mg PO QAM Polyethylene Glycol 3350 [Smoothlax] 17 gm PO BID PRN PRN Reason: Constipation Sucralfate [Carafate] 1 gm PO TID #90 tablet Tramadol HCl [Ultram] 50 mg PO TID PRN PRN Reason: Pain Pregabalin [Lyrica] 200 mg PO TID Liraglutide [Victoza 2-Aubrey] 1.2 mg SQ DAILY Ondansetron HCl [Zofran] 4 mg PO BID PRN PRN Reason: Nausea Empagliflozin [Jardiance] 25 mg PO DAILY Cyclobenzaprine [Flexeril] 10 mg PO TID Insulin ASPART [Novolog Flexpen] 10 unit SQ HS Lisinopril [Zestril] 5 mg PO DAILY Pantoprazole Sodium [Protonix] 40 mg PO DAILY Insulin Glargine,Hum.rec.anlog [Basaglar Kwikpen U-100] 80 unit SQ DAILY Acetaminophen [Tylenol] 1,000 mg PO Q8HR PRN PRN Reason: Pain Sennosides/Docusate Sodium [Senna Plus] 1 each PO BID PRN PRN Reason: Constipation Propafenone HCl [Rythmol Sr] 225 mg PO BID Discontinued Liraglutide [Victoza 2-Aubrey] 1.2 mg SQ DAILY Home Medications: Atorvastatin [Lipitor] 40 mg PO DAILY 11/14/14 [History] Apixaban [Eliquis] 5 mg PO BID 12/06/15 [History] Metoprolol XL (24 HR) Succ [Toprol Xl] 50 mg PO DAILY 12/06/15 [History] Duloxetine HCl [Cymbalta] 60 mg PO QAM 05/17/16 [History] Glimepiride [Amaryl] 4 mg PO QAM 05/17/16 [History] Quetiapine Fumarate [Seroquel] 200 mg PO HS 05/17/16 [History] Spironolactone [Aldactone] 25 mg PO QAM 05/17/16 [History] Polyethylene Glycol 3350 [Smoothlax] 17 gm PO BID PRN 06/10/16 [History] Sucralfate [Carafate] 1 gm PO TID #90 tablet 06/13/16 [Rx] Cyclobenzaprine [Flexeril] 10 mg PO TID 08/11/18 [History] Empagliflozin [Jardiance] 25 mg PO DAILY 08/11/18 [History] Liraglutide [Victoza 2-Aubrey] 1.2 mg SQ DAILY 08/11/18 [History] Ondansetron HCl [Zofran] 4 mg PO BID PRN 08/11/18 [History] Pregabalin [Lyrica] 200 mg PO TID 08/11/18 [History] Tramadol HCl [Ultram] 50 mg PO TID PRN 08/11/18 [History] Acetaminophen [Tylenol] 1,000 mg PO Q8HR PRN 08/12/18 [History] Insulin ASPART [Novolog Flexpen] 10 unit SQ HS 08/12/18 [History] Insulin Glargine,Hum.rec.anlog [Basaglar Kwikpen U-100] 80 unit SQ DAILY 08/12/18 [History] Lisinopril [Zestril] 5 mg PO DAILY 08/12/18 [History] Pantoprazole Sodium [Protonix] 40 mg PO DAILY 08/12/18 [History] Propafenone HCl [Rythmol Sr] 225 mg PO BID 08/12/18 [History] Sennosides/Docusate Sodium [Senna Plus] 1 each PO BID PRN 08/12/18 [History] cephALEXin [Keflex] 500 mg PO BID #8 capsule 08/13/18 [Rx] Allergies/Adverse Reactions: Allergy/AdvReac Type Severity Reaction Status Date / Time Sulfa (Sulfonamide Allergy Severe Anaphylaxis Verified 10/21/16 11:07 Antibiotics) prednisone AdvReac Mild swelling Verified 10/21/16 11:07 metformin AdvReac Hives Verified 10/21/16 11:07 Date of admission: 08/11/18 19:41 Primary care physician: Sohan Gonsales MD Consults: 08/12/18 02:13 Consult to Pharmacy Scheduler [CONS] Routine Reason for SW Consult: Patient reports stress with her finances. May need access to any available resources. - Constitutional Vitals: Temp Pulse Resp BP Pulse Ox 98.0 F 73 16 103/65 92 08/13/18 06:58 08/13/18 06:58 08/13/18 06:58 08/13/18 06:58 08/13/18 06:58 Exam: General: NAD, good eye contact, chronically ill appearing Thoracic: Normal breath sounds b/l, no wheezing or crackles Cardio: Normal S1 and S2, regular rate and rhythm Abdomen: Soft, nontender Extremities: Warm, well perfused. DP pulses 2+ b/l. No edema. Neuro: Awake, fully oriented. Speech fluent - Patient Status Disposition: Home, Self-Care Condition: Fair Overall status at discharge: patient is back to baseline - Discharge Instructions Follow Up With: Sohan Gonsales MD [Primary Care Provider] - - Diet and Activity Activity: resume usual activities as tolerated Diet: diabetic diet
[2018-08-13] MEDS: Acetaminophen 325 MG TABLET PO PRN (11:43)
--- NOTE | 2018-08-13 12:54 | Internal Med Progress Note ---
Hospitalist Progress Note - Encounter Date of Encounter: 08/13/18 Time of Encounter: 12:52 - Subjective Interval History: Pt states she feels decent, CP improved, but that she became short of breath soon after injection (of the lexiscan) during the stress test. Otherwise just states that she feels fatigued today. - Exam Vitals: Temp Pulse Resp BP Pulse Ox 98.0 F 76 93 109/64 16 08/13/18 11:42 08/13/18 11:42 08/13/18 11:42 08/13/18 11:42 08/13/18 11:42 Exam: General: NAD, good eye contact, chronically ill appearing Thoracic: Normal breath sounds b/l, no wheezing or crackles Cardio: Normal S1 and S2, regular rate and rhythm, no murmurs Abdomen: Soft, nontender Extremities: Warm, well perfused. DP pulses 2+ b/l. No edema. Neuro: Awake, fully oriented. Speech fluent - Summary of Assessment and Plan Summary of Assessment and Plan: Kary Welsh is a 62 F w hx HTN, HFpEF, A-Fib on AC, TIA, DM2, COPD, GERD, OA, fibro, anx/dep, who p/w atypical chest pain. Atypical chest pain: trops and ECG unremarkable - nuc pharm stress today shows reversible apical ischemia - cardio consult for consideration for [facility] on Wednesday UTI: GNRs - f/u UCx spec and sens - empiric rocephin Hypokalemia: replace and monitor Mild normocytic anemia: noted CAD: home lipitor 40, start ASA 81 HTN: lisinopril 5, janay 25 DM2: SSI HFpEF: euvolemic, not on diuretics A-Fib: AC on eliquis, rate on toprol 50, rhythm on propafenone 150 tid COPD: home inhalers Smoker: cessation advised, nicotine patches offered Obesity: BMI 33 Anx/dep: seroquel, cymbalta Fibro: lyrica OA: tylenol prn PPx: eliquis FEN: cardiac ADA then NPO@MN, no MIVF Lines: PIV Consults: Cardio Code: Full Dispo: obs for chest pain eval with positive stress test meriting further eval w LHC, anticipate 2-3 days, will be homegoing Internal Medicine: Result - Labs CBC & Chem 7: 08/12/18 01:32 08/12/18 01:32 - ABG Interpretation ABG results: PT/INR, D-dimer PT 16.5 Seconds (9.4-12.1) H 08/11/18 16:19 Consult Discharge Plan - Plan Referrals: Sohan Gonsales MD [Primary Care Provider] - Prescriptions: cephALEXin [Keflex] 500 mg PO BID #8 capsule
--- NOTE | 2018-08-13 13:34 | Event Note ---
Date of Encounter: 08/13/18 Time of Encounter: 13:40 - Cardiology Event Note Low risk stress test - abnormal. Patient on Eliquis, start Imdur 30mg assess recurrence in angina. Possible C Wednesday
[2018-08-13] MEDS: Aspirin 81 MG TAB.CHEW PO SCH (15:00)
[2018-08-13] MEDS: cefTRIAXone 1,000 MG in Water for inj. (sterile) 20 ML 10 ML IVP SCH (17:25)
[2018-08-14 04:56] LABS: Hematocrit 34.8 % (35.3-44.9); Hemoglobin 10.9 g/dL (11.5-15.4); Mean Corpuscular HGB Conc 31.3 g/dL (31.6-35.5); Mean Corpuscular Hemoglobin 25.3 pg (28.0-33.3); Mean Corpuscular Volume 80.9 fL (83.0-100.0); Mean Platelet Volume 10.6 fL (9.4-12.4); Platelet Count 119 K/mcL (140-400); Red Cell Distribution Width 19.1 % (11.5-14.5)
[2018-08-14 05:17] LABS: BUN/Creatinine Ratio 17 (6-26); Blood Urea Nitrogen 15 mg/dL (8-23); Calcium 8.8 mg/dL (8.6-10.3); Carbon Dioxide 20 mEq/L (23-29); Chloride 109 mEq/L (98-107); Glucose 200 mg/dL (70-105); Osmolality,Calculated 294 (280-300); Potassium 4.2 mEq/L (3.5-5.1); Sodium 139 mEq/L (136-145); eGFR For Non-African Americans > 60 (> 60)
--- NOTE | 2018-08-14 06:43 | Cardiology Consult Note ---
Date of Encounter: 08/14/18 Time of Encounter: 06:40 Assessment and Plan (1) Abnormal stress test Current Visit: Yes Status: Acute a/r/b of med tx vs lhc dw her including 1% chance of DC//CVA/CABG/STEFAN/bleeding. she continues to feel poorly despite trial of antianginal and wants to proceed with [facility] tomorrow. (2) Chest pain Current Visit: No Status: Resolved per stress Qualifiers: Chest pain type: chest pain on breathing Qualified Code(s): R07.1 - Chest pain on breathing; R07.81 - Pleurodynia (3) A-fib Current Visit: No Status: Chronic Continue eliquis and rate control Qualifiers: Atrial fibrillation type: paroxysmal Qualified Code(s): I48.0 - Paroxysmal atrial fibrillation Discussion w patient/family: The assessment and plan as outlined above was discussed with the patient and/or family members who expressed understanding and agreement. All questions were answered. Thank you for involving us in the care of your patient. Please call with any questions. History of Present Illness Consult date: 08/14/18 Consult reason: abnormal stress test Chief complaint: chest pain History of present illness: Ms. Welsh is a 62 year old female with no previous cardiac history, DM, significant family history of premature CAD atrial fibrillation on eliquis, hypertension, hyperlipidemia, COPD, CVA without deficits, TIA, diabetes, migraines, GERD, fibromyalgia, osteoporosis, arthritis, anxiety, and depression who presents for complaints of substernal chest pain starting John morning. Pain was described as sharp and rated at 9/10 when at its worst and radiated to her right shoulder and into her back. Pain was associated with shortness of br eath, nausea, and diaphoresis. States pain improved with deep breathing and rest. Pain persisted until receiving nitro, ultram, and aspirin in ER. States she has chronic GI symptoms but those are different. Reports she has been under significant amount of stress lately related to finances and thinks that this could be contributing to her symptoms. ER also completed a chest xray which showed no acute process. ER also completed a CTA dissection study which showed no acute abnormality in the chest, abdomen, or pelvis. Still feels poorly today despite Imdur TTE September 2016 showing a 60% EF. Stress nuc March 2015 which was negative for ischemia or infarct Checks blood sugars regularly at home and reports they have been averaging in the 100's. Follows with PCP monthly and cardiology annually. Past Med Surg Social Fam HX - Past Medical History Medical history: arthritis, atrial fibrillation, COPD, CVA, diabetes, fib romyalgia, GERD, hyperlipidemia, hypertension, migraine, osteoporosis, TIA, other Additional medical history: Brain aneurysm Psychiatric history: anxiety, depression - Past Surgical History Surgical History: appendectomy, cholecystectomy, hysterectomy, other (EGD/Colonoscopy 05/18/[address] Frederick) Additional surgical history: back surgery - Social History Smoking Status: Current every day smoker Smokeless Tobacco Status: No Alcohol use: none Drug use: none - Family History Mother Living Status: Age at : 84 Cause of : CHF Hx Family Cardiac Disorders: Yes (DC) Hx Family Respiratory Disorders: Yes (COPD) Hx Family Cancer: Yes (Breast) Hx Family GI Disorders: No Hx Family Endocrine Disorder: No Hx Family Neuromuscular Disorders: No Hx Family Neurologic Disorders: No Hx Family HEENT Disorders: No Hx Family Autoimmune Disorders: No Father Living Status: Age at : 64 Cause of : heart attack Hx Family Cardiac Disorders: Yes (DC, HTN) Hx Family Respiratory Disorders: Yes (COPD) Hx Family Cancer: No Hx Family GI Disorders: No Hx Family Endocrine Disorder: No Hx Family Neuromuscular Disorders: No Hx Family Neurologic Disorders: No Hx Family HEENT Disorders: No Hx Family Autoimmune Disorders: No Medications and Allergies Apixaban [Eliquis] 5 mg PO BID 12/06/15 [History] Metoprolol XL (24 HR) Succ [Toprol Xl] 50 mg PO DAILY 12/06/15 [History] Duloxetine HCl [Cymbalta] 60 mg PO DAILY 05/17/16 [History] Glimepiride [Amaryl] 4 mg PO QAM 05/17/16 [History] Quetiapine Fumarate [Seroquel] 200 mg PO HS 05/17/16 [History] Spironolactone [Aldactone] 25 mg PO DAILY 05/17/16 [History] Polyethylene Glycol 3350 [Smoothlax] 17 gm PO BID PRN 06/10/16 [History] Sucralfate [Carafate] 1 gm PO TID #90 tablet 06/13/16 [Rx] Cyclobenzaprine [Flexeril] 10 mg PO TID 08/11/18 [History] Empagliflozin [Jardiance] 25 mg PO DAILY 08/11/18 [History] Ondansetron HCl [Zofran] 4 mg PO BID PRN 08/11/18 [History] Pregabalin [Lyrica] 200 mg PO TID 08/11/18 [History] Tramadol HCl [Ultram] 50 mg PO TID PRN 08/11/18 [History] Acetaminophen [Tylenol] 1,000 mg PO Q8HR PRN 08/12/18 [History] Insulin ASPART [Novolog Flexpen] 10 unit SQ QPM 08/12/18 [History] Insulin Glargine,Hum.rec.anlog [Basaglar Kwikpen U-100] 80 unit SQ DAILY 08/12/18 [History] Lisinopril [Zestril] 5 mg PO DAILY 08/12/18 [History] Pantoprazole Sodium [Protonix] 40 mg PO QPM 08/12/18 [History] Sennosides/Docusate Sodium [Senna Plus] 1 tab PO DAILY PRN 08/12/18 [History] Atorvastatin [Lipitor] 40 mg PO DAILY 08/13/18 [History] Docusate Sodium [Dok] 100 mg PO BID PRN 08/13/18 [History] Liraglutide [Victoza 2-Aubrey] 1.2 mg SQ DAILY 08/13/18 [History] Propafenone HCl [Propafenone HCl ER] 225 mg PO BID 08/13/18 [History] cephALEXin [Keflex] 500 mg PO BID #8 capsule 08/13/18 [Rx] Allergy/AdvReac Type Severity Reaction Status Date / Time Sulfa (Sulfonamide Allergy Severe Anaphylaxis Verified 08/13/18 13:27 Antibiotics) prednisone AdvReac Mild Rash Verified 08/13/18 13:27 metformin AdvReac Vomiting Verified 08/13/18 13:27 All Systems Review: The remainder of the systems were reviewed and are negative - Constitutional Constitutional: fatigue, no chills, no fever(s) - EENT Eyes: no blurred vision, no loss of vision Nose, mouth and throat: no bleeding gums, no epistaxis - Cardiovascular Cardiovascular: chest pain at rest, chest pain with exertion - Respiratory Respiratory: no hemoptysis, no wheezing - Gastrointestinal Gastrointestinal: no hematemesis, no hematochezia - Genitourinary Genitourinary: no hematuria, no nocturia - Musculoskeletal Musculoskeletal: no abnormal gait, no myalgias - Integumentary Integumentary: no erythema, no unusual bruising - Neurological Neurological: no numbness, no syncope - Psychiatric Psychiatric: no hallucinations, no panic attacks - Hematological/Lymphatic Hematologic/Lymphatic: no easy bleeding, no easy bruising Physical Examination Vital Signs, Last 4 Hours Temp Pulse Resp BP Pulse Ox 08/14/18 04:19 97.7 F 70 16 129/81 94 General: Conversant HEENT: Atraumatic Neck: No JVD Cardiac: Reg Rate and Rhythm Lungs: Normal Breath Sounds Neuro: Alert and responsive Abdomen: Soft Skin: No rashes noted on visualized skin Musculoskeletal: No Chest Wall Tenderness Extremities: No Edema Results 08/14/18 04:19 08/14/18 04:19 Lab Results 08/14/18 08/14/18 04:19 04:19 WBC 4.2 L Hgb 10.9 L Hct 34.8 L Plt Count 119 L Sodium 139 Potassium 4.2 Chloride 109 H Carbon Dioxide 20 L BUN 15 Creatinine 0.87 Glucose 200 H Calcium 8.8 Magnesium 2.0 - Imaging and Cardiology Stress Test: report reviewed - EKG Interpretation EKG results cardiology: personally reviewed, sinus rhythm, no diagnostic ischemia Consult Discharge Plan - Plan Referrals: Sohan Gonsales MD [Primary Care Provider] - Prescriptions: cephALEXin [Keflex] 500 mg PO BID #8 capsule
[2018-08-14] MEDS: Insulin LISPRO 300 UNITS/3 ML VIAL SQ SCH ×3 (07:41→17:19)
--- NOTE | 2018-08-14 07:57 | Internal Med Progress Note ---
Hospitalist Progress Note - Encounter Date of Encounter: 08/14/18 Time of Encounter: 07:57 - Subjective Interval History: Pt without complaints today. She denies CP, palpitations, SOB, cough, abd pain, N/V/D. No pedal edema. Nervous about her stress test results which I discussed with her showed possible ischemia but that area was small, and that cardiology would be up to discuss with her further later today. - Exam Vitals: Temp Pulse Resp BP Pulse Ox 98.0 F 66 16 113/74 91 08/14/18 07:10 08/14/18 07:10 08/14/18 07:10 08/14/18 07:10 08/14/18 07:10 Exam: General: NAD, good eye contact, chronically ill appearing Thoracic: Normal breath sounds b/l, no wheezing or crackles Cardio: Normal S1 and S2, regular rate and rhythm, no murmurs Abdomen: Soft, nontender Extremities: Warm, well perfused. DP pulses 2+ b/l. No edema. Neuro: Awake, fully oriented. Speech fluent - Summary of Assessment and Plan Summary of Assessment and Plan: Kary Welsh is a 62 F w hx HTN, HFpEF, A-Fib on AC, TIA, DM2, COPD, GERD, OA, fibro, anx/dep, who p/w atypical chest pain. Atypical chest pain: trops and ECG unremarkable, however does have stress showing reversible apical ischemia - cardio consulted for consideration for LHC on Wednesday E coli UTI: - rocephin, last dose 08/15 Mild normocytic anemia: noted CAD: home lipitor 40, ASA 81 HTN: lisinopril 5, janay 25 DM2: SSI HFpEF: euvolemic, not on diuretics A-Fib: AC on eliquis, rate on toprol 50, rhythm on propafenone 150 tid COPD: home inhalers Smoker: cessation advised, nicotine patches offered Obesity: BMI 33 Anx/dep: seroquel, cymbalta Fibro: lyrica OA: tylenol prn PPx: eliquis FEN: cardiac ADA then NPO@MN, no MIVF Lines: PIV Consults: Cardio Code: Full Dispo: obs for chest pain eval with positive stress test meriting further eval w LHC, anticipate 1-2 days, will be homegoing Internal Medicine: Result - Labs CBC & Chem 7: 08/14/18 04:19 08/14/18 04:19 Labs: Short CBC 08/14/18 Range/Units 04:19 WBC 4.2 L (4.3-11.1) K/mcL Hgb 10.9 L (11.5-15.4) g/dL Hct 34.8 L (35.3-44.9) % Plt Count 119 L (140-400) K/mcL BMP 08/14/18 04:19 Sodium 139 Potassium 4.2 Chloride 109 H Carbon Dioxide 20 L BUN 15 Creatinine 0.87 Glucose 200 H Calcium 8.8 - ABG Interpretation ABG results: PT/INR, D-dimer PT 16.5 Seconds (9.4-12.1) H 08/11/18 16:19 Consult Discharge Plan - Plan Referrals: Sohan Gonsales MD [Primary Care Provider] - Prescriptions: cephALEXin [Keflex] 500 mg PO BID #8 capsule
[2018-08-14] MEDS: Spironolactone 25 MG TABLET PO SCH (08:23)
[2018-08-14] MEDS: Sucralfate 1 GM TABLET PO SCH ×3 (08:24→20:15)
[2018-08-14] MEDS: Aspirin 81 MG TAB.CHEW PO SCH (08:24)
[2018-08-14] MEDS: Pregabalin 50 MG CAPSULE PO SCH ×3 (08:24→20:15)
[2018-08-14] MEDS: Metoprolol XL (24 HR) Succ 50 MG TAB.ER.24H PO SCH (08:24)
[2018-08-14] MEDS: Apixaban 5 MG TABLET PO SCH (08:24)
[2018-08-14] MEDS: cefTRIAXone 1,000 MG in Water for inj. (sterile) 20 ML 10 ML IVP SCH (17:21)
[2018-08-15] MEDS: Metoprolol XL (24 HR) Succ 50 MG TAB.ER.24H PO SCH (08:23)
[2018-08-15] MEDS: Spironolactone 25 MG TABLET PO SCH (08:23)
[2018-08-15] MEDS: Sucralfate 1 GM TABLET PO SCH ×3 (08:23→20:37)
[2018-08-15] MEDS: Insulin LISPRO 300 UNITS/3 ML VIAL SQ SCH ×3 (08:23→16:12)
[2018-08-15] MEDS: Pregabalin 50 MG CAPSULE PO SCH ×3 (08:23→20:37)
[2018-08-15] MEDS: Aspirin 81 MG TAB.CHEW PO SCH (08:24)
[2018-08-15] MEDS ORDERED: ISOVUE-370 200 ML INFUS..BTL ONE (10:18)
[2018-08-15] MEDS ORDERED: Nitroglycerin 1,000 MCG/10 ML VIAL IV ONE (10:18)
[2018-08-15] MEDS ORDERED: *HR* Heparin 10,000 UNIT/10 ML VIAL ONE (10:18)
[2018-08-15] MEDS ORDERED: 0.9 % Sodium Chloride 1,000 ML ONE ×2 (10:18→10:19)
[2018-08-15] MEDS ORDERED: Heparin 1,000 UNITS/500 mL 500 ML ONE (10:18)
[2018-08-15] MEDS ORDERED: Verapamil 5 MG/2 ML VIAL ONE (10:24)
[2018-08-15] MEDS ORDERED: *HR* Midazolam HCl 5 MG/5 ML VIAL IVP ONE (10:35)
[2018-08-15] MEDS ORDERED: *HR* FentaNYL (PF) 100 MCG/2 ML VIAL ONE (10:35)
--- NOTE | 2018-08-15 10:43 | Pre-Sedation Evaluation ---
Pre-sedation evaluation - Pre-sedation checklist Date of procedure: 08/15/18 Procedure: [facility] Recent Vitals: Last Vital Signs Temp 98.6 F 08/15/18 07:49 Pulse 79 08/15/18 07:49 Resp 17 08/15/18 07:49 BP 102/68 08/15/18 07:49 Pulse Ox 95 08/15/18 07:49 H&P (including ROS) documented in medical record: Yes Previous reaction to sedatives/anesthetics: No Dietary Status: NPO after Midnight Dentition: dentures removed ASA Classification *see protocol: CLASS II-Mild systemic disease Plan of Care: Pt appropriate candidate for procedure/moderate/conscious sedation, Risks/benefits of procedure/sedation discussed w/ patient/family Cardiac Registry (Cardio Only) - Functional Capacity Functional Capacity: >=4 METS with symptoms - Clincal Frailty Scale Clinical Frailty Scale: Managing Well
[2018-08-15] MEDS ORDERED: Tirofiban 12.5 MG/250ML 12.5 MG/250 ML BAG ONE (11:02)
[2018-08-15] MEDS ORDERED: *HR* Ticagrelor 90 MG TABLET ONE (11:32)
[2018-08-15] MEDS ORDERED: Tirofiban 12.5 MG/250ML 12.5 MG/250 ML BAG IVC SCH (11:45)
--- NOTE | 2018-08-15 11:46 | Invasive Diagnostic Lab Proc ---
Name: Kary Welsh Date of Study: 08/15/2018 Date: 1955 Ht: 64.0in Medical Record#: [id number] Age: 62 Wt: 189.38lb Gender: Female BSA: 1.91 Order #: [id number] BMI: 32.49 Physicians Procedure Physician: Brodie Medina MD, [facility] Referring MD: Referring MD: Staff Name Position Time In Sallie, Socrates RN Nurse 10:30 AM Alisha Paula RT (R) Scrub 10:30 AM Avani Obregon RN Oil Well Service Operator 10:30 AM Sj Alegre RN Nurse 10:30 AM Mariely Hsu RT (R) Monitor 10:32 AM Annelise Phillips RT (R) Scrub 10:35 AM Indications Indication Abnormal Test - Stress Procedures Performed Procedure L HRT ARTERY/VENTRICLE ANGIO PRQ CARD ELIER STENT W/ANGIO 1 VSL Pre-Procedure Checklist Informed consent is complete signed and on chart. H&P is on chart. ID band is on and ID verified with patient. Patient NPO for procedure The procedure was described for the patient and questions were answered. Blood Pressure: 109/66 ECG is on chart. Rhythm: NSR Plan of Care Patient will tolerate the procedure without complications. Adequate level of comfort will be maintained. Hemodynamics will remain stable Patient will recover from procedure without complications. Respiratory function will be maintained. Cardiac rhythm will remain stable. Patient temperature will be maintained. Patient and/or family have verbalized understanding of the procedure. Patient Education Chief Complaint/Reason for Test: Cardiac Cath Developmental Category: Adult (18-64 years) Developmentally Appropriate for Age: Yes Learning Barriers: None Education Needs: Procedure Education Method: Verbal Information Taught: Cardiac Cath Educational Evaluation: Able to repeat information Intravenous Access Time IV Size Location DC'd Fluid/Drip Rate Units RN 20g 1 /" Patent On Arrival Lt Hand 0.9NaCl ml/hr Allergies SULFA (sulfonamide) prednisone Penicillins Sulfa (Sulfonamide Antibiotics) metformin Vital Signs Time BP (mmHg) HR (bpm) O2 Sat. RR (bpm) LOC 10:36 AM / % 5 = Fully awake and oriented or at pre-proc level 10:34 AM 109 / 66 70 98 % 10 10:39 AM 98 / 56 71 96 % 8 10:44 AM 86 / 50 69 97 % 20 10:49 AM 65 / 42 72 93 % 12 10:50 AM 70 / 41 76 95 % 12 10:54 AM 81 / 48 71 96 % 11 10:59 AM 89 / 49 70 93 % 14 11:04 AM 91 / 55 69 86 % 19 11:09 AM 95 / 47 68 95 % 16 11:14 AM 94 / 57 68 97 % 13 11:19 AM 97 / 47 67 93 % 11 11:25 AM 84 / 44 79 95 % 18 Procedural Medications Time Medication Dose Units Method Given By 10:35 AM Oxygen 2 L/min nasal cannula Avani Obregon RN 10:36 AM Versed 2 mg Intravenous Avani Obregon RN 10:36 AM Fentanyl 50 mcg Intravenous Avani Obregon RN 10:46 AM Lidocaine 2% 0.5 ml Subcutaneous Brodie Medina MD, FAC 10:48 AM Heparin 4000 units Nitroglycerin 200 mcg Verapamil 2.5 mg Intraarterial Brodie Medina MD, FAC 11:07 AM Aggrastat Bolus: 42 ml Intravenous Avani Obregon RN 11:07 AM Aggrastat 12.5mg/250ml 15 ml Intravenous Avani Obregon RN 11:23 AM Nitroglycerin 100 mcg Intracoronary Brodie Medina MD 11:25 AM Brilinta 180 mg Orally Avani Obregon RN ASA Classification: CLASS II- Mild systemic disease (i.e. well-controlled diabetes, hypertension, asthma, cigarette smoking) Julia Score Preprocedure Postprocedure Activity 2- Moves 4 extremities sustained head lift Activity 2- Moves 4 extremities sustained head lift Circulation 2- SBP +/= 20 points of pre-anesthetic level Circulation 2- SBP +/= 20 points of pre-anesthetic level Consciousness 2- Awake and alert oriented x 3 Consciousness 2- Awake and alert oriented x 3 O2 Saturation 2- Able to maintain O2 satruation of 92% on room air O2 Saturation 2- Able to maintain O2 satruation of 92% on room air Respiratory 2- Able to deep breathe and cough well Respiratory 2- Able to deep breathe and cough well Total Score 10 Total Score 10 Contrast Agent: Isovue Diagnostic Contrast: 137 ml Total Contrast: 137 ml Fluoro Dose: 25 mGy Activated Clotting Time Time Seconds to Clot 11:14 AM 400 Procedure Log Time Note Enter By 10:30 AM Pt arrived to worm farm laborer 2 at 10:30 cedwards 10:30 AM Sallie, Socrates RN Position: Nurse Time in: 10:30 cedwards 10:30 AM Alisha Paula RT (R) Position: Scrub Time in: 10:30 cedwards 10:30 AM Avani Obregon RN Position: Oil Well Service Operator Time in: 10:30 cedwards 10:32 AM Sj Alegre RN Position: Nurse Time in: 10:30 [place] 10:32 AM Aracelis Mariely RT (R) Position: Monitor Time in: : ced[place] 10:32 AM Physician arrived 10:32 cedwards 10:32 AM Meet and greet completed cedwards 10:32 AM Sign in performed according to hospital policy. Informed consent was obtained. cedwards 10:32 AM Procedure start :32 cedwards 10:32 AM Hair removed from procedure site in holding area using clippers. Right wrist and Right groin prepped with Chloraprep by Sj Alegre RN, then patient was draped. Skin intact. cedwards 10:32 AM Patient charges- Angio tray pack, Navilyst 3mm J, Pulse Oximetry and ACIST tubing and transducer cedwards 10:33 AM CathStat 10:34 AM Vitals capture started with the following parameters, Patient=Adult, Interval=5 min, Initial Esgbulxp=450 mmHg, Deflation Rate=5 mmHg, Cuff placed on Left Arm 10:34 AM Recorded ECG: HR=87 Condition=Condition 1 10:34 AM HR=70 bpm, AMBW=619/66 mmhg, SpO2=98.0 %, Resp=10 B/min 10:35 AM Annelise Phillips RT (R) Position: Scrub Time in: 10:35 cedwards 10:35 AM Case Delayed No cedwards 10:35 AM Time: 10:35 Oxygen on at 2 L/min per nasal cannula by Avani Obregon RN cedwards 10:36 AM Time: 10:36 Versed 2 mg Intravenous Given by Avani Obregon RN cedwards 10:36 AM Time: 10:36 Fentanyl 50 mcg Intravenous Given by Avani Obregon RN cedwards 10:36 AM Time: 10:36 Patient comfortable and pain free: Yes cedwards 10:36 AM Time: 10:36LOC: 5 = Fully awake and oriented or at pre-proc level cedwards 10:36 AM Clinical Presentation: Unstable angina cedwards 10:39 AM HR=71 bpm, NIBP=98/56 mmhg, SpO2=96 %, Resp=8 B/min 10:44 AM HR=69 bpm, NIBP=86/50 mmhg, SpO2=97 %, Resp=20 B/min 10:46 AM Time out was performed according to hospital policy. Conscious sedation and anesthesia was achieved (see medication log with in this report above) tsites 10:46 AM Time: 10:46 0.5 ml Lidocaine 2% to right radial Subcutaneous Given by Brodie Medina MD, [facility] tsites 10:47 AM Access obtained by percutaneous puncture. 6Fr 10cm Terumo Glidesheath sheath placed in right Radial artery. [id number] tsites 10:48 AM Time: 10:48 Patient given 4,000 units Heparin, 200 mcg Nitroglycerin, and 2.5 mg Verapamil Intraarterial by Brodie Medina MD, [facility]. This is given to reduce risk of vessel spasm and thrombosis. tsites 10:48 AM 5Fr TIG catheter inserted over the wire [facility] tsites 10:48 AM Pressure channel 1 zeroed. 10:49 AM 0.035 260cm Navilyst 3mmJ wire [id number] tsites 10:49 AM Wire removed tsites 10:49 AM HR=72 bpm, NIBP=65/42 mmhg, SpO2=93.0 %, Resp=12 B/min 10:50 AM Pressure channel 1 zero failed. 10:50 AM Pressure channel 1 zero failed. 10:50 AM Pressure channel 1 zeroed. 10:50 AM NIBP STAT measurement started. 10:50 AM Catheter crossed the aortic valve and was selectively placed in the left ventricle. Pressures recorded on pullback for left heart catheterization. tsites 10:50 AM HR=76 bpm, NIBP=70/41 mmhg, SpO2=95.0 %, Resp=12 B/min 10:50 AM Recorded Pressure: LV, HR=76, Condition=Condition 1 (Left Ventricle) LV 80/11/16 10:51 AM Bolus angiogram of left Ventricle complete: 10 ml/sec for a total of 30 mls tsites 10:51 AM Recorded Pressure: LV, Ao, HR=77, Condition=Condition 1 (Left Ventricle) LV 83/10/20, (Aorta) Ao 81/28/49 10:51 AM Recorded Pressure: Ao, HR=75, Condition=Condition 1 (Aorta) Ao 82/66/73 10:52 AM RCA angiography performed in multiple views. tsites 10:52 AM Coronary Dominance: right tsites 10:53 AM Lesion found in Proximal RCA. Pre Stenosis: 30 Pre REG Flow: tsites 10:54 AM HR=71 bpm, NIBP=81/48 mmhg, SpO2=96.0 %, Resp=11 B/min 10:56 AM LCA angiography performed in multiple views. tsites 10:56 AM Recorded Pressure: Ao, HR=70, Condition=Condition 1 (Aorta) Ao 81/-65/5 10:57 AM Right Coronary, Right Posterior Descending Arteries with Right Posterolateral and Acute Marginal branches with 30 % stenosis. If graft is supplying this area, 0 % stenosis tsites 10:58 AM Catheter removed tsites 10:58 AM 6Fr CLS 3.5 Runway guide catheter was used to cannulate the PCI vessel successfully. reused? No tsites 10:59 AM PCI Status Urgent tsites 10:59 AM HR=70 bpm, NIBP=89/49 mmhg, SpO2=93 %, Resp=14 B/min 11:00 AM Inflation device was opened. tsites 11:00 AM .014 PT Graphix 182cm guide wire across target lesion- successful. reused? No tsites 11:00 AM act drawn tsites 11:03 AM At 11:14 the ACT was 400 seconds. tsites 11:04 AM HR=69 bpm, NIBP=91/55 mmhg, SpO2=86 %, Resp=19 B/min 11:07 AM Time: 11:07 Aggrastat 12.5mg/250ml 15 ml Intravenous Given by Avani Obregon RN Vick pump tsites 11:07 AM Lesion found in Mid LAD. Pre Stenosis: 100 Pre REG Flow: 0: No Flow/No perfusion tsites 11:07 AM Time: 11:07 Aggrastat Bolus: 42 ml Intravenous Given by Avani Obregon RN Vick pump tsites 11:08 AM 2.0 mm x 15 mm Emerge Monorail balloon across target lesion- successful. reused? No tsites 11:08 AM Balloon inflated @ 10 malik for 14 seconds tsites 11:09 AM HR=68 bpm, NIBP=95/47 mmhg, SpO2=95 %, Resp=16 B/min 11:11 AM Balloon catheter removed intact. tsites 11:14 AM HR=68 bpm, NIBP=94/57 mmhg, SpO2=97 %, Resp=13 B/min 11:15 AM 1.5 mm x 15 mm Emerge otw balloon across target lesion- successful. reused? No tsites 11:15 AM Guide wire removed intact. tsites 11:15 AM .014 PT Graphix 300cm guide wire across target lesion- successful. reused? No tsites 11:17 AM Balloon inflated @ 14 malik for 13 seconds tsites 11:17 AM Balloon inflated @ 14 malik for 8 seconds tsites 11:18 AM Balloon inflated @ 14 malik for 7 seconds tsites 11:19 AM Balloon catheter removed intact. tsites 11:19 AM HR=67 bpm, NIBP=97/47 mmhg, SpO2=93 %, Resp=11 B/min 11:22 AM 2.25mm x 20mm Synergy drug-eluting stent across target lesion- successful Lot #[id number] tsites 11:22 AM Stent deployed @ 11 malik for 16 seconds tsites 11:23 AM Time: 11:23 Nitroglycerin 100 mcg Intracoronary Given by Brodie Medina MD tsites 11:23 AM Stent delivery system removed intact. tsites 11:24 AM Lesion found in 1st Diagonal. Pre Stenosis: 50 Pre REG Flow: tsites 11:24 AM Guide catheter removed intact. tsites 11:25 AM HR=79 bpm, NIBP=84/44 mmhg, SpO2=95 %, Resp=18 B/min 11:25 AM Time: 11:25 Brilinta 180 mg Orally Given by Avani Obregon RN tsites 11:26 AM Procedure completed at 11:26 08/15/2018 tsites 11:26 AM Did you address REG flow and Dominance? YesCoronary Dominance: right tsites 11:27 AM Sign out completed: Radiation Dose 247 mGy, 24.7 Gy/cm2 Fluoro Time: 10.7 Isovue 370 - 200ml contrast 137 ml given by Brodie Medina MD, [facility]. Complications: None. The patient was discharged out of the label fuser tender in stable condition. Sedation minutes 51. Cardiac Rehab Consult needed: Yes. Confirmed administered medications: Yes tsites 11:27 AM Isovue 370 - 200ml,1 Bottle(s) used. tsites 11:27 AM Arterial sheath pulled, Vasc Band closure device used and was Successful S/N. tsites 11:27 AM 11 ml air in Vasc Band. tsites 11:29 AM Estimated Blood Loss: minimal tsites 11:29 AM Post ECG NSR tsites 11:29 AM Post Blood Pressure 84/44 tsites 11:29 AM 11:29 Post Pulses Rt Radial 1+ tsites 11:30 AM Information taught Cardiac Cath, PCI, and Vasc Band tsites 11:30 AM Education needs Procedure, Plan of Care, and Responsibilities of Patient in Care tsites 11:30 AM Learning barriers :None tsites 11:30 AM Education Methods Verbal tsites 11:30 AM Education evaluation Able to repeat information tsites 11:30 AM Site status No bleeding/hematoma - Rt Wrist as reported by Alisha Paula RT (R) at 11:30 tsites 11:30 AM Plavix, Effient or Brilinta given Yes tsites 11:30 AM Delay to floor No tsites 11:30 AM Patient out of room: 11:30 tsites 11:30 AM no family at this time tsites 11:34 AM Report given to mere KAMARA Pt taken to Room #38. 11:34 tsites Complications Complication None Hemodynamics Pressures Site Systolic/A Wave Diastolic/V Wave Mean LV 80 11 16 LV 83 10 20 AO 81 28 49 AO 82 66 73 AO 81 -65 5 Post Procedure Information Blood Pressure: 84/44 mmHg Rhythm: NSR Post procedural instructions were given Closure Device Time Device Success/Fail 08/15/2018 11:32:00 AM Mechanical Compression Successful Site Checks Time Location Status Staff Sheath In? Note 11:30 AM Rt Wrist No bleeding/hematoma Alisha Paula RT (R) Pulses Time Site Pre-Procedure Post-Procedure Note Bilateral DP & PT 2+ Bilateral radial 2+ 11:29:00 AM Rt Radial 1+ Updated by Mariely Hsu RT (R) on 08/15/2018 11:37:53 AM Mariely Hsu RT electronically signed on 08/15/2018 11:38:28 AM with status of Final
--- NOTE | 2018-08-15 12:30 | Internal Med Progress Note ---
Hospitalist Progress Note - Encounter Date of Encounter: 08/15/18 Time of Encounter: 12:00 - Subjective Interval History: Ms. Welsh is a 62 year old female with past medical history significant for atrial fibrillation on eliquis, hypertension, hyperlipidemia, Diastolic CHF, COPD, CVA without deficits, diabetes, migraines, GERD, fibromyalgia, osteoporos is, arthritis, anxiety, and depression who presented to ER with substernal chest pain. Pain was described as sharp and rated at 9/10 when at its worst and radiated to her right shoulder and into her back. Pain was associated with shortness of breath, nausea, and diaphoresis. States pain improved with deep breathing and rest. Reports she has been under significant amount of stress lately related to finances and thinks that this could be contributing to her symptoms. Initial EKG showed sinus rhythm with no signs of ischemic change. Her chest xray showed no acute process. ER also completed a CTA dissection study which showed no acute abnormality in the chest, abdomen, or pelvis. She was a dmitted in the hospital and placed on internal communications specialist. She does have abnormal urinalysis too. Patient was started on empirical antibiotic Rocephin. Her serial trop were came back as negative. Since she is high risk for ACS, she did go for nuclear stress test which came back as slightly abnormal. She went for left heart catheterization today and had a stent placed today. She denied any more CP / SOB. - Exam Vitals: Temp Pulse Resp BP Pulse Ox 98.1 F 66 16 106/67 96 08/15/18 11:45 08/15/18 11:59 08/15/18 11:59 08/15/18 11:59 08/15/18 11:59 Exam: Gen: Alert, awake, Oriented to time,place and person Chest: Diminished breath sounds B/L, No wheezing, No crackles, No rales Heart: S1S2+ RRR No murmurs Abd: Soft, NT, BS +, No organomegaly Ext: No edema, pulses are palpable, No calf tenderness Neuro : No acute focal neuro deficits noticed Skin: No rash. - Assessment and Plan (1) Abnormal stress test Current Visit: Yes Status: Acute Assessment and Plan: Reviewed her stress test - Mild apical ischemia on perfusion study Did go for [facility] today had PCI placed on ASA + Plavix Cont statin, Lisinopril and Metoprolol Will inc lipitor to 80 mg HS Patient does need to stay in the hospital more than 3 midnights due to her complex medical problems with UTI, CP, Abnormal stress test needed C. So we will change her to full admission today. I did review my colleague's H & P including HPI, PMH, PSH, FH, SH, and ROS no changes noticed (2) Chest pain Current Visit: Yes Status: Acute Assessment and Plan: as above (3) Urinary tract infection Current Visit: Yes Status: Acute Assessment and Plan: Urine cx - E. Coli cont IV Rocephin will f/u on urine cx (4) CAD (coronary artery disease) Current Visit: Yes Status: Acute Assessment and Plan: on ASA + Plavix, Lipitor Metoprolol and Lisinopril (5) Diabetes mellitus Current Visit: Yes Status: Chronic Assessment and Plan: Held home medications. ADA diet and ISS ACHS (6) GERD (gastroesophageal reflux disease) Current Visit: No Status: Chronic Assessment and Plan: PPI + Carafate (7) A-fib Current Visit: No Status: Chronic Assessment and Plan: rate controlled with Metoprolol and Rhythmol on Eliquis for anti coag - Time Spent with Patient Total time spent is greater than 50% in coordination of care (as documented) at patient's floor/unit and/or counseling patient: Internal Medicine: Result - Labs CBC & Chem 7: 08/14/18 04:19 08/14/18 04:19 - ABG Interpretation ABG results: PT/INR, D-dimer PT 16.5 Seconds (9.4-12.1) H 08/11/18 16:19 Consult Discharge Plan - Plan Referrals: Sohan Gonsales MD [Primary Care Provider] - 08/24/18 10:45 am Prescriptions: cephALEXin [Keflex] 500 mg PO BID #8 capsule (2) Chest pain Qualifiers: Chest pain type: other chest pain Qualified Code(s): R07.89 - Other chest pain; R07.8 - Other chest pain (3) Urinary tract infection Qualifiers: Urinary tract infection type: acute cystitis Hematuria presence: without hematuria Qualified Code(s): N30.00 - Acute cystitis without hematuria (4) CAD (coronary artery disease) Qualifiers: Coronary Disease-Associated Artery/Lesion type: [place] artery [place] vs. transplanted heart: [place] heart Associated angina: without angina Qualified Code(s): I25.10 - Atherosclerotic heart disease of [place] coronary artery without angina pectoris (5) Diabetes mellitus Qualifiers: Diabetes mellitus type: type 2 Diabetes mellitus alf insulin use: with termite control servicer use (6) GERD (gastroesophageal reflux disease) Qualifiers: Esophagitis presence: without esophagitis Qualified Code(s): K21.9 - Gastro- esophageal reflux disease without esophagitis (7) A-fib Qualifiers: Atrial fibrillation type: paroxysmal Qualified Code(s): I48.0 - Paroxysmal atrial fibrillation
[2018-08-15] MEDS: Acetaminophen 325 MG TABLET PO PRN (16:11)
[2018-08-15] MEDS: cefTRIAXone 1,000 MG in Water for inj. (sterile) 20 ML 10 ML IVP SCH (17:23)
[2018-08-15] MEDS: Apixaban 5 MG TABLET PO SCH (20:37)
[2018-08-15] MEDS: Melatonin 3 MG TABLET PO PRN (20:37)
--- NOTE | 2018-08-16 09:07 | Discharge Summary ---
- NOTES TO OUTPATIENT PROVIDER Notes to Outpatient Provider: f/u with PCP in one week. Please start taking ASA and Plavix. Orders not resulted at time of discharge: Pending orders 08/12/18 12:58 NM micheal perf SPECT multi [NM] Routine 08/15/18 11:41 ECG 12 lead ECG [ECG] Stat 08/16/18 06:00 ECG 12 lead ECG [ECG] AM 0600 Date of Encounter: 08/15/18 Time of Encounter: 09:04 - Discharge Diagnosis (1) Abnormal stress test Priority: Primary Status: Acute (2) Chest pain Priority: Primary Status: Acute Qualifiers: Chest pain type: other chest pain Qualified Code(s): R07.89 - Other chest pain; R07.8 - Other chest pain (3) Urinary tract infection Priority: Secondary Status: Acute Qualifiers: Urinary tract infection type: acute cystitis Hematuria presence: without hematuria Qualified Code(s): N30.00 - Acute cystitis without hematuria (4) CAD (coronary artery disease) Priority: Secondary Status: Acute Qualifiers: Coronary Disease-Associated Artery/Lesion type: [place] artery [place] vs. 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 Welsh is a 62 year old female with past medical history significant for atrial fibrillation on eliquis, hypertension, hyperlipidemia, Diastolic CHF, COPD, CVA without deficits, diabetes, migraines, GERD, fibromyalgia, osteoporosis, arthritis, anxiety, and depression who presented to ER with substernal chest pain. Pain was described as sharp and rated at 9/10 when at its worst and radiated to her right shoulder and into her back. Pain was associated with shortness of breath, nausea, and diaphoresis. States pain improved with deep breathing and rest. Reports she has been under significant amount of stress lately related to finances and thinks that this could be c ontributing to her symptoms. Initial EKG showed sinus rhythm with no signs of ischemic change. Her chest xray showed no acute process. ER also completed a CTA dissection study which showed no acute abnormality in the chest, abdomen, or pelvis. She was admitted in the hospital and placed on campus monitor. She does have abnormal urinalysis too. Patient was started on empirical antibiotic Rocephin. Her serial trop were came back as negative. Since she is high risk for ACS, she did go for nuclear stress test which came back as slightly abnormal. She went for left heart catheterization y/d and found to have severe one vessel coronary artery disease and had successful PTCA/Drug-Eluting Stent placement in the mid LAD. Will d/c her home with DAPT ASA + Plavix and Lipitor 80mg. She also have UTI with E. Coli finished 5 days IV Abx Rocephin here. - Time Spent with Patient Total time spent providing and/or coordinating discharge services: - Discharge Medications Prescriptions: New Aspirin 81 mg PO DAILY #30 tab.chew Atorvastatin Calcium [Lipitor] 80 mg PO HS #30 tab Clopidogrel [Plavix] 75 mg PO DAILY #30 tablet Continued Metoprolol XL (24 HR) Succ [Toprol Xl] 50 mg PO DAILY Apixaban [Eliquis] 5 mg PO BID Spironolactone [Aldactone] 25 mg PO DAILY Quetiapine Fumarate [Seroquel] 200 mg PO HS Glimepiride [Amaryl] 4 mg PO QAM Duloxetine HCl [Cymbalta] 60 mg PO DAILY Polyethylene Glycol 3350 [Smoothlax] 17 gm PO BID PRN PRN Reason: Constipation Sucralfate [Carafate] 1 gm PO TID #90 tablet Tramadol HCl [Ultram] 50 mg PO TID PRN PRN Reason: Pain Pregabalin [Lyrica] 200 mg PO TID Ondansetron HCl [Zofran] 4 mg PO BID PRN PRN Reason: Nausea Empagliflozin [Jardiance] 25 mg PO DAILY Cyclobenzaprine [Flexeril] 10 mg PO TID Insulin ASPART [Novolog Flexpen] 10 unit SQ QPM Lisinopril [Zestril] 5 mg PO DAILY Pantoprazole Sodium [Protonix] 40 mg PO QPM Insulin Glargine,Hum.rec.anlog [Basaglar Kwikpen U-100] 80 unit SQ DAILY Acetaminophen [Tylenol] 1,000 mg PO Q8HR PRN PRN Reason: Pain Sennosides/Docusate Sodium [Senna Plus] 1 tab PO DAILY PRN PRN Reason: Constipation Liraglutide [Victoza 2-Aubrey] 1.2 mg SQ DAILY Propafenone HCl [Propafenone HCl ER] 225 mg PO BID Docusate Sodium [Dok] 100 mg PO BID PRN PRN Reason: Constipation Discontinued Liraglutide [Victoza 2-Aubrey] 1.2 mg SQ DAILY Atorvastatin [Lipitor] 40 mg PO DAILY Home Medications: Apixaban [Eliquis] 5 mg PO BID 12/06/15 [History] Metoprolol XL (24 HR) Succ [Toprol Xl] 50 mg PO DAILY 12/06/15 [History] Duloxetine HCl [Cymbalta] 60 mg PO DAILY 05/17/16 [History] Glimepiride [Amaryl] 4 mg PO QAM 05/17/16 [History] Quetiapine Fumarate [Seroquel] 200 mg PO HS 05/17/16 [History] Spironolactone [Aldactone] 25 mg PO DAILY 05/17/16 [History] Polyethylene Glycol 3350 [Smoothlax] 17 gm PO BID PRN 06/10/16 [History] Sucralfate [Carafate] 1 gm PO TID #90 tablet 06/13/16 [Rx] Cyclobenzaprine [Flexeril] 10 mg PO TID 08/11/18 [History] Empagliflozin [Jardiance] 25 mg PO DAILY 08/11/18 [History] Ondansetron HCl [Zofran] 4 mg PO BID PRN 08/11/18 [History] Pregabalin [Lyrica] 200 mg PO TID 08/11/18 [History] Tramadol HCl [Ultram] 50 mg PO TID PRN 08/11/18 [History] Acetaminophen [Tylenol] 1,000 mg PO Q8HR PRN 08/12/18 [History] Insulin ASPART [Novolog Flexpen] 10 unit SQ QPM 08/12/18 [History] Insulin Glargine,Hum.rec.anlog [Basaglar Kwikpen U-100] 80 unit SQ DAILY 08/12/18 [History] Lisinopril [Zestril] 5 mg PO DAILY 08/12/18 [History] Pantoprazole Sodium [Protonix] 40 mg PO QPM 08/12/18 [History] Sennosides/Docusate Sodium [Senna Plus] 1 tab PO DAILY PRN 08/12/18 [History] Docusate Sodium [Dok] 100 mg PO BID PRN 08/13/18 [History] Liraglutide [Victoza 2-Aubrey] 1.2 mg SQ DAILY 08/13/18 [History] Propafenone HCl [Propafenone HCl ER] 225 mg PO BID 08/13/18 [History] Aspirin 81 mg PO DAILY #30 tab.chew 08/16/18 [Rx] Atorvastatin Calcium [Lipitor] 80 mg PO HS #30 tab 08/16/18 [Rx] Clopidogrel [Plavix] 75 mg PO DAILY #30 tablet 08/16/18 [Rx] Allergies/Adverse Reactions: Allergy/AdvReac Type Severity Reaction Status Date / Time Sulfa (Sulfonamide Allergy Severe Anaphylaxis Verified 08/13/18 13:27 Antibiotics) prednisone AdvReac Mild Rash Verified 08/13/18 13:27 metformin AdvReac Vomiting Verified 08/13/18 13:27 Date of admission: 08/15/18 13:36 Primary care physician: Sohan Gosnales MD Consults: 08/12/18 02:13 Consult to Mule Driver [CONS] Routine Reason for SW Consult: Patient reports stress with her finances. May need access to any available resources. 08/13/18 12:41 Consult to Cardiology [CONS] Routine Comment: Consulting Provider: Cardiology Evelina Reason for Consult: reversible apical ischemia on stress test today Call Completed: Yes 08/15/18 11:41 Consult to Cardiac Rehabilitation-Phase1 [CONS] Routine Comment: Reason for Consult: post op PCI Call Completed: Yes - Constitutional Vitals: Temp Pulse Resp BP Pulse Ox 98.7 F 74 16 102/66 95 08/16/18 06:58 08/16/18 06:58 08/16/18 06:58 08/16/18 06:58 08/16/18 06:58 General appearance: Present: A&O X 3, no acute distress, answers questions appropriately Exam: Gen: Alert, awake, Oriented to time,place and person Chest: Diminished breath sounds B/L, No wheezing, No crackles, No rales Heart: S1S2+ RRR No murmurs Abd: Soft, NT, BS +, No organomegaly Ext: No edema, pulses are palpable, No calf tenderness Neuro : No acute focal neuro deficits noticed Skin: No rash. - Patient Status Disposition: Home, Self-Care Condition: Good Overall status at discharge: patient is back to baseline - Discharge Instructions Follow Up With: Sohan Gonsales MD [Primary Care Provider] - 08/24/18 10:45 am Brodie Medina MD [Partnered Physician] - - Diet and Activity Activity: increase activity as tolerated Diet: low salt diet
[2018-08-16] MEDS: Pregabalin 50 MG CAPSULE PO SCH ×2 (10:29→14:32)
[2018-08-16] MEDS: Spironolactone 25 MG TABLET PO SCH (10:29)
[2018-08-16] MEDS: Sucralfate 1 GM TABLET PO SCH ×2 (10:29→14:33)
[2018-08-16] MEDS: Apixaban 5 MG TABLET PO SCH (10:30)
[2018-08-16] MEDS: Aspirin 81 MG TAB.CHEW PO SCH (10:30)
[2018-08-16] MEDS: Metoprolol XL (24 HR) Succ 50 MG TAB.ER.24H PO SCH (10:30)
[2018-08-16] MEDS: Insulin LISPRO 300 UNITS/3 ML VIAL SQ SCH ×2 (10:32→12:11)
--- NOTE | 2018-08-16 10:45 | Cardiology Progress Note ---
Date of Encounter: 08/16/18 Time of Encounter: 10:41 Assessment and Plan (1) CAD (coronary artery disease) Current Visit: Yes Status: Acute S/P C yesterday for abnormal stress test. There is severe one vessel CAD. EF 65%. Patient had successful PTCA/Drug-Eluting Stent placement in the mid LAD. DAPT (ASA and Plavix). On Eliquis for A-Fib. Triple therapy x 1 month then plan to stop ASA. Pt instructed to monitor closely for bleeding. Continue stating and BB. Right radial access site healing well. No bleeding, hematoma or ecchymosis noted. Restrictions discussed. Cardiology signing off. Reconsult PRN. Will coordinate outpt follow-up in 3-4 weeks. Qualifiers: Coronary Disease-Associated Artery/Lesion type: [place] artery [place] vs. transplanted heart: [place] heart Associated angina: without angina Qualified Code(s): I25.10 - Atherosclerotic heart disease of [place] coronary artery without angina pectoris (2) A-fib Current Visit: No Status: Chronic Continue Eliquis, Rythmol and BB. SR. Qualifiers: Atrial fibrillation type: paroxysmal Qualified Code(s): I48.0 - Paroxysmal atrial fibrillation Discussion w patient/family: The assessment and plan as outlined above was discussed with the patient and/or family members who expressed understanding and agreement. All questions were answered. Thank you for involving us in the care of your patient. Please call with any questions. I will discuss all the above with Dr. Miranda and make changes as necessary. Subjective Principal diagnosis: CAD Interval history: No acute complaints this AM. Objective Vital Signs, Last 4 Hours Temp Pulse Resp BP Pulse Ox 08/16/18 06:58 98.7 F 74 16 102/66 95 Vital Signs Temp Pulse Resp BP Pulse Ox 08/16/18 06:58 98.7 F 74 16 102/66 95 08/16/18 03:10 98.3 F 68 14 93/56 92 08/15/18 23:31 97.8 F 67 16 95/52 92 08/15/18 18:56 97.4 F L 71 16 100/63 95 08/15/18 15:34 66 16 105/46 96 08/15/18 14:30 64 16 106/75 96 08/15/18 13:30 64 16 111/77 97 08/15/18 13:00 62 16 109/79 95 08/15/18 12:34 68 16 108/80 96 08/15/18 12:15 64 16 96/67 90 08/15/18 11:59 66 16 106/67 96 08/15/18 11:45 98.1 F 80 16 146/92 94 Intake and Output 08/15/18 08/16/18 08/16/18 23:59 07:59 15:59 Intake Total 133 / 133 480 / 480 Balance 133 / 133 480 / 480 Intake: IV Fluids 133 / 133 Aggrastat 12.5 MG/250 ML 12.5 133 / 133 mg In 250 ml @ 0.15 MCG/KG/MIN 15.498 mls/hr IVC .Q16H8M [facility] Rx#:[id number] Oral 480 / 480 Other: Meal Breakfast Percent of Meal Consumed 100% Weight 86 kg Blood Glucose* 274 310 Patient Weight 08/16/18 23:59 Weight 86 kg General: Conversant, No Apparent Distress HEENT: Atraumatic, Normocephaly, Mucus Membranes Moist Neck: No JVD, Normal carotid pulses Cardiac: Reg Rate and Rhythm, Normal S1 and S2, No Murmur Lungs: Normal Breath Sounds, No Wheeze, Rales, Rhonchi Neuro: Alert and responsive, No focal deficits noted Abdomen: Soft, Non-Tender Skin: Other (right radial access site healing well. No bleeding, hematoma or ecchymosis noted.) Musculoskeletal: No Chest Wall Tenderness Extremities: No Clubbing, No Cyanosis, No Edema, Normal Pulses Results 08/14/18 04:19 08/14/18 04:19 Active Medications Acetaminophen (Tylenol) 650 mg PO Q6HR PRN PRN Reason: Pain Stop: 02/11/19 19:44 Last Admin: 08/15/18 16:11 Dose: 650 mg Documented by: Apixaban (Eliquis) 5 mg PO BID [facility] Stop: 02/11/19 21:01 Last Admin: 08/16/18 10:30 Dose: 5 mg Documented by: Aspirin (Aspirin) 81 mg PO DAILY [facility] Stop: 02/12/19 13:16 Last Admin: 08/16/18 10:30 Dose: 81 mg Documented by: Atorvastatin Calcium (Lipitor) 40 mg PO DAILY [facility] Stop: 02/12/19 09:01 Last Admin: 08/16/18 10:30 Dose: 40 mg Documented by: Clopidogrel Bisulfate (Plavix) 75 mg PO DAILY [facility] Stop: 02/15/19 09:01 Last Admin: 08/16/18 10:29 Dose: 75 mg Documented by: Cyclobenzaprine HCl (Flexeril) 10 mg PO TID PRN PRN Reason: Muscle Spasm Stop: 02/11/19 21:01 Last Admin: 08/15/18 20:38 Dose: 10 mg Documented by: Dextrose/Water (Dextrose 50% (Syg)) 25 ml IVP AD PRN PRN Reason: Hypoglycemia Stop: 02/11/19 01:20 Duloxetine HCl (Cymbalta) 60 mg PO QAM [facility] Stop: 02/12/19 09:01 Last Admin: 08/16/18 10:29 Dose: 60 mg Documented by: Glucagon (Glucagen) 1 mg IM ONCE PRN PRN Reason: Hypoglycemia Stop: 02/11/19 01:20 Glucose (Gluctose) 15 gm PO ONCE PRN PRN Reason: Hypoglycemia Stop: 02/11/19 01:20 Glucose (Gluctose) 30 gm PO ONCE PRN PRN Reason: Hypoglycemia Stop: 02/11/19 01:20 Ceftriaxone Sodium 1,000 mg/ (Sterile Water) 10 mls @ 600 mls/hr IVP Q24H [facility] Stop: 02/11/19 19:01 Last Admin: 08/15/18 17:23 Dose: 600 mls/hr Documented by: Dextrose (Dextrose 5%) 1,000 mls @ 100 mls/hr IVC .Q10H PRN PRN Reason: HYPOGLYCEMIA Stop: 02/11/19 01:20 Insulin Human Lispro (Humalog) 0 units SQ TIDAC [facility]; Protocol Stop: 02/11/19 07:31 Last Admin: 08/16/18 10:32 Dose: 10 units Documented by: Lisinopril (Zestril) 5 mg PO DAILY [facility]; Protocol Stop: 02/12/19 09:01 Last Admin: 08/16/18 10:29 Dose: 5 mg Documented by: Melatonin (Melatonin) 1.5 mg PO HS PRN PRN Reason: Insomnia Stop: 02/11/19 01:36 Last Admin: 08/15/18 20:37 Dose: 1.5 mg Documented by: Metoprolol Succinate (Toprol Xl) 50 mg PO DAILY [facility] Stop: 02/12/19 09:01 Last Admin: 08/16/18 10:30 Dose: 50 mg Documented by: Naloxone HCl (Narcan) 0.4 mg IVP Q2MPRN PRN PRN Reason: SEE COMMENTS Stop: 02/11/19 01:17 Omeprazole (Prilosec) 20 mg PO DAILY@0730 [facility] Stop: 02/12/19 07:31 Last Admin: 08/16/18 10:30 Dose: 20 mg Documented by: Ondansetron HCl (Zofran) 4 mg IVP Q8HR PRN; Protocol PRN Reason: Nausea And Vomiting Stop: 02/11/19 09:31 Polyethylene Glycol (Miralax) 17 gm PO BID PRN PRN Reason: Constipation Stop: 02/11/19 19:35 Last Admin: 08/14/18 08:24 Dose: 17 gm Documented by: Pregabalin (Lyrica) 200 mg PO TID [facility] Stop: 02/11/19 21:01 Last Admin: 08/16/18 10:29 Dose: 200 mg Documented by: Propafenone HCl (Rhythmol) 150 mg PO TID [facility] Stop: 02/11/19 21:01 Last Admin: 08/16/18 10:30 Dose: 150 mg Documented by: Quetiapine Fumarate (Seroquel) 200 mg PO HS [facility] Stop: 02/11/19 21:01 Last Admin: 08/15/18 20:37 Dose: 200 mg Documented by: Spironolactone (Aldactone) 25 mg PO QAM [facility] Stop: 02/12/19 09:01 Last Admin: 08/16/18 10:29 Dose: 25 mg Documented by: Sucralfate (Carafate) 1 gm PO TID [facility] Stop: 02/11/19 21:01 Last Admin: 08/16/18 10:29 Dose: 1 gm Documented by: - Imaging and Cardiology Echo: report reviewed Cardiac cath: report reviewed - EKG Interpretation EKG results cardiology: other (12 hr tele AVG HR 69, SR) Consult Discharge Plan - Plan Instructions: Chest Pain (DC) Additional Instructions: RISK FACTORS: STOP SMOKING: If you smoke, STOP. Smoking or tobacco use significantly increase s your risk of heart disease because nicotine causes the arteries to narrow or constrict. It also causes fats to stick to the artery. Your chances of having a heart attack are greatly increased if you continue to smoke. For more information, call the education line for smoking cessation 7-950-YDMRFVM EAT A LOW FAT/CHOLESTEROL/SODIUM DIET: This diet may help reduce your chances of having a heart attack. LIFTING: With affected extremity: Avoid bending, pushing off and lifting more than 2 pounds for 24 hours The following 48 hours, avoid lifting anything more than 5 pounds Avoid strenuous activity or repetitive motions ACTIVITY: You may walk or climb stairs as tolerated You can resume sexual activity as tolerated In general, you are encouraged to engage in a minimum of 30 minutes or more of moderate intensity physical activity, such as brisk walking, daily or at least 3-4 times weekly BATHING Do not submerge the site into water (bath tub, hot tub, swimming pool, dishes) for 1 week. This can be a source for infection into the blood stream. You may shower after 24 hours SITE CARE: After 24 hours, you may remove the dressing and leave the site open to air. Keep the site clean and dry. Clean gently and pat dry. You can expect bruising and tenderness that gradually resolve within a week or two. Return to work as instructed per your physician Resume driving as instructed per physician Keep all scheduled follow up appointments Resume medications as instructed IMPORTANT: If prescribed a Platelet Aggregation Inhibitor such as, Plavix, Emely linta or Effient: Duration of therapy is minimum one year These medications are often used in combination with Aspirin in prevention of future heart attacks Never discontinue unless consult with your Or Manager STROKE (CVA) Risk factors for a stroke are: Age, cigarette smoking, diabetes, excessive alcohol consumption, family history, high blood pressure, overweight, physical inactivity, prior stroke, heart attack, diagnosis of carotid artery stenosis or other artery disease. Warning signs: Sudden numbness or weakness of the face, arm or leg; especially on one side of the body, sudden confusion, trouble speaking or understanding, sudden trouble seeing in one or both eyes, sudden trouble walking, dizziness, loss of balance or coordination, sudden severe headache with no cause. Call 911 or go to the Emergency Room. CONGESTIVE HEART FAILURE: If you have been diagnosed with Congestive Heart Failure (CHF) and your symptoms return, make an appointment with your physician Weigh yourself daily. Notify your physician if you have a weight gain of two or more pounds in one day or five or more pounds in one week. If you experience any difficulty breathing, please call 911 BLEEDING: Although the risk of bleeding is minimal, it can happen. If you have any bleeding from the site, apply firm pressure above the puncture site for 10-15 minutes. If the bleeding does not stop, continue manual pressure and call 911 Contact [facility] ( ) if: You develop a fever greater than 101 degrees Fahrenheit Your site becomes reddened or has any drainage You have an increase in pain or burning at the site or if a large knot forms at the site. If you experience chest pain, shortness of breath, dizziness, or extreme tiredness, stop the activity and rest. Please notify [facility] office if you experience any of these symptoms and they are not relieved by rest please call 911! Referrals: Sohan Gonsales MD [Primary Care Provider] - 08/24/18 10:45 am Brodie Medina MD [Partnered Physician] - (office will call with appt date and time ) Prescriptions: Aspirin 81 mg PO DAILY #30 tab.chew Atorvastatin Calcium [Lipitor] 80 mg PO HS #30 tab Nicotine Patch [Nicoderm] 21 mg TD DAILY #30 patch.td24 Clopidogrel [Plavix] 75 mg PO DAILY #30 tablet
[2018-08-16 11:48] VITALS: BP 105/69
== END 2018-08-16 16:10 | disposition home or self-care (01) | DRG 175 ==
LOC: 3BNU 15:01 → EMEROOARM 15:01 → SUATTDRO 19:41 → 3BNU 20:01
PROVIDERS: ADMIT Pediatrics; ATTEND Family Medicine

== ENCOUNTER 2019-01-01 15:33 | Inpatient (IN) ==
[2019-01-01] MEDS ORDERED: *HR* FentaNYL (PF) 100 MCG/2 ML VIAL IVP ONE (15:46)
[2019-01-01 16:20] LABS: Basophils % 0.6 %; Hematocrit 37.8 % (35.3-44.9); Hemoglobin 12.7 g/dL (11.5-15.4); Immature Granulocytes % 0.3 % (0-4); Lymphocytes # 1.9 K/mcL (0.6-4.6); Mean Corpuscular HGB Conc 33.6 g/dL (31.6-35.5); Mean Corpuscular Hemoglobin 27.2 pg (28.0-33.3); Mean Corpuscular Volume 80.9 fL (83.0-100.0); Monocytes # 0.6 K/mcL (0.0-1.3); Monocytes % 9.7 %; Neutrophils # 3.7 K/mcL (1.6-8.9); Platelet Count 164 K/mcL (140-400); Red Blood Count 4.67 M/mcL (3.82-4.97); Red Cell Distribution Width 18.1 % (11.5-14.5); Segmented Neutrophils % 59.4 %; White Blood Count 6.3 K/mcL (4.3-11.1)
[2019-01-01 16:30] LABS: INR 1.3; Prothrombin Time 15.3 Seconds (9.4-12.1)
[2019-01-01 16:33] LABS: Activated Partial Thrombo Time 39.1 Seconds (26.0-36.0)
[2019-01-01 16:42] LABS: BUN/Creatinine Ratio 10 (6-26); Blood Urea Nitrogen 8 mg/dL (8-23); Carbon Dioxide 23 mEq/L (23-29); Chloride 105 mEq/L (98-107); Glucose 148 mg/dL (70-105); Osmolality,Calculated 287 (280-300); Potassium 3.1 mEq/L (3.5-5.1); Sodium 138 mEq/L (136-145); eGFR For African Americans > 60 (> 60); eGFR For Non-African Americans > 60 (> 60)
[2019-01-01 16:43] LABS: Troponin I < 0.03 ng/mL (< 0.04)
[2019-01-01] MEDS ORDERED: *HR* LORazepam 2 MG/ML VIAL IVP ONE (16:58)
[2019-01-01] MEDS ORDERED: Nitroglycerin 25 MG/250 ML INFUS..BTL IVC SCH (17:00)
[2019-01-01 17:17] LABS: D-Dimer < 215 ng/mLFEU (0-500)
[2019-01-01] MEDS ORDERED: Nitroglycerin 1 INCH/GM PACKET TP ONE (17:23)
[2019-01-01] MEDS ORDERED: Potassium Chloride Elixir 20 MEQ/15 ML UDC PO ONE (17:27)
[2019-01-01] MEDS ORDERED: Naloxone 0.4 MG/ML INJ IVP PRN (17:31)
[2019-01-01] MEDS ORDERED: Mag Hydrox/Al Hydrox/Simeth 30 ML UDC PO PRN (17:31)
[2019-01-01] MEDS ORDERED: Acetaminophen 325 MG TABLET PO PRN (17:31)
[2019-01-01] MEDS ORDERED: Dextrose Gel 15 GM/37.5 ML TUBE PO PRN ×2 (17:35)
[2019-01-01] MEDS ORDERED: D5% in Water 1,000 ML IVC PRN (17:35)
[2019-01-01] MEDS ORDERED: *HR* Dextrose 50 % in Water (Syg) 50 ML SYRINGE IVP PRN (17:35)
[2019-01-01] MEDS: Insulin DETEMIR 100 UNIT/ML X5UNITS SQ SCH (20:14)
[2019-01-01] MEDS: Apixaban 5 MG TABLET PO SCH (20:15)
[2019-01-01] MEDS: Insulin LISPRO 300 UNITS/3 ML VIAL SQ SCH (20:15)
[2019-01-01] MEDS: traMADol 50 MG TABLET PO PRN (20:15)
[2019-01-01] MEDS: *HR* Promethazine 25 MG/ML VIAL IVP PRN (20:34)
[2019-01-02 03:20] LABS: Basophils % 0.4 %; Hematocrit 35.5 % (35.3-44.9); Hemoglobin 11.4 g/dL (11.5-15.4); Immature Granulocytes % 0.2 % (0-4); Lymphocytes # 1.5 K/mcL (0.6-4.6); Lymphocytes % 27.4 %; Mean Corpuscular HGB Conc 32.1 g/dL (31.6-35.5); Mean Corpuscular Hemoglobin 26.5 pg (28.0-33.3); Mean Corpuscular Volume 82.6 fL (83.0-100.0); Mean Platelet Volume 10.6 fL (9.4-12.4); Monocytes # 0.6 K/mcL (0.0-1.3); Monocytes % 11.5 %; Neutrophils # 3.2 K/mcL (1.6-8.9); Platelet Count 151 K/mcL (140-400); Red Cell Distribution Width 18.4 % (11.5-14.5); Segmented Neutrophils % 60.5 %; White Blood Count 5.3 K/mcL (4.3-11.1)
[2019-01-02 03:39] LABS: BUN/Creatinine Ratio 9 (6-26); Blood Urea Nitrogen 8 mg/dL (8-23); Calcium 8.8 mg/dL (8.6-10.3); Carbon Dioxide 28 mEq/L (23-29); Chloride 104 mEq/L (98-107); Chol/HDL Ratio 4.5 (0-4.9); Cholesterol 99 mg/dL (< 200); Glucose 116 mg/dL (70-105); HDL Cholesterol 22 mg/dL (40-59); LDL Cholesterol,Calculated 53 mg/dL (0-99); Magnesium 1.8 mg/dL (1.6-2.6); Osmolality,Calculated 289 (280-300); Phosphorous 4.1 mg/dL (2.7-4.5); Potassium 3.3 mEq/L (3.5-5.1); Sodium 140 mEq/L (136-145); Triglycerides 120 mg/dL (< 150); eGFR For African Americans > 60 (> 60); eGFR For Non-African Americans > 60 (> 60)
[2019-01-02] MEDS: Aspirin 81 MG TAB.CHEW PO SCH (09:58)
[2019-01-02] MEDS: Nicotine 21 MG PATCH.TD24 TD SCH (09:58)
[2019-01-02] MEDS: Apixaban 5 MG TABLET PO SCH ×2 (09:58→21:16)
[2019-01-02] MEDS: Metoprolol XL (24 HR) Succ 25 MG TAB.ER.24H PO SCH (09:58)
[2019-01-02] MEDS: traMADol 50 MG TABLET PO PRN (09:58)
[2019-01-02] MEDS: Insulin LISPRO 300 UNITS/3 ML VIAL SQ SCH ×4 (09:59→20:01)
[2019-01-02] MEDS: MOM Conc 10 ML UD.LIQ PO PRN (10:19)
[2019-01-02] MEDS ORDERED: Furosemide 40 MG/4 ML VIAL IVP ONE (11:57)
[2019-01-02] MEDS: Insulin DETEMIR 100 UNIT/ML X5UNITS SQ SCH ×2 (12:36→21:17)
[2019-01-02] MEDS: Pregabalin 50 MG CAPSULE PO SCH ×2 (15:18→21:16)
[2019-01-02] MEDS ORDERED: Sennosides/Docusate Sodium TABLET PO PRN (16:00)
[2019-01-02] MEDS: *HR* Promethazine 25 MG/ML VIAL IVP PRN (21:15)
[2019-01-03] MEDS: *HR* Promethazine 25 MG/ML VIAL IVP PRN (06:56)
[2019-01-03 07:10] LABS: BUN/Creatinine Ratio 15 (6-26); Blood Urea Nitrogen 11 mg/dL (8-23); Calcium 9.1 mg/dL (8.6-10.3); Carbon Dioxide 34 mEq/L (23-29); Chloride 100 mEq/L (98-107); Glucose 92 mg/dL (70-105); Magnesium 2.1 mg/dL (1.6-2.6); Osmolality,Calculated 293 (280-300); Phosphorous 3.6 mg/dL (2.7-4.5); Potassium 3.3 mEq/L (3.5-5.1); Sodium 142 mEq/L (136-145); eGFR For African Americans > 60 (> 60); eGFR For Non-African Americans > 60 (> 60)
[2019-01-03] MEDS: Metoprolol XL (24 HR) Succ 25 MG TAB.ER.24H PO SCH (08:21)
[2019-01-03] MEDS: Furosemide 20 MG TABLET PO SCH (08:21)
[2019-01-03] MEDS: Apixaban 5 MG TABLET PO SCH ×2 (08:21→19:57)
[2019-01-03] MEDS: Nicotine 21 MG PATCH.TD24 TD SCH (08:22)
[2019-01-03] MEDS: Pregabalin 50 MG CAPSULE PO SCH ×3 (08:22→19:56)
[2019-01-03] MEDS: Insulin DETEMIR 100 UNIT/ML X5UNITS SQ SCH ×2 (08:22→22:42)
[2019-01-03] MEDS: Aspirin 81 MG TAB.CHEW PO SCH (08:22)
[2019-01-03] MEDS: Insulin LISPRO 300 UNITS/3 ML VIAL SQ SCH ×4 (08:23→22:42)
[2019-01-03] MEDS: traMADol 50 MG TABLET PO PRN ×2 (08:30→16:16)
[2019-01-03] MEDS: MOM Conc 10 ML UD.LIQ PO PRN (08:30)
[2019-01-03] MEDS ORDERED: Pantoprazole 40 MG VIAL IVP SCH (09:00)
[2019-01-03] MEDS ORDERED: Isovue-370 500 ML BOTTLE PO ONE (11:59)
[2019-01-03] MEDS: Lactulose Oral Soln 20 GM/30 ML UDC PO SCH ×2 (12:42→19:57)
[2019-01-03] MEDS: Ondansetron 4 MG/2 ML VIAL IVP PRN ×2 (12:43→19:56)
[2019-01-04 05:09] LABS: BUN/Creatinine Ratio 12 (6-26); Blood Urea Nitrogen 11 mg/dL (8-23); Calcium 9.2 mg/dL (8.6-10.3); Carbon Dioxide 33 mEq/L (23-29); Chloride 99 mEq/L (98-107); Glucose 151 mg/dL (70-105); Magnesium 2.1 mg/dL (1.6-2.6); Osmolality,Calculated 292 (280-300); Phosphorous 4.5 mg/dL (2.7-4.5); Potassium 3.6 mEq/L (3.5-5.1); Sodium 140 mEq/L (136-145); eGFR For African Americans > 60 (> 60); eGFR For Non-African Americans > 60 (> 60)
[2019-01-04] MEDS: Nicotine 21 MG PATCH.TD24 TD SCH (09:49)
[2019-01-04] MEDS: Apixaban 5 MG TABLET PO SCH ×2 (09:50→19:51)
[2019-01-04] MEDS: Lactulose Oral Soln 20 GM/30 ML UDC PO SCH ×2 (09:50→19:50)
[2019-01-04] MEDS: Furosemide 20 MG TABLET PO SCH (09:50)
[2019-01-04] MEDS: *HR* Promethazine 25 MG/ML VIAL IVP PRN (09:50)
[2019-01-04] MEDS: Aspirin 81 MG TAB.CHEW PO SCH (09:51)
[2019-01-04] MEDS: Pregabalin 50 MG CAPSULE PO SCH ×3 (09:51→19:51)
[2019-01-04] MEDS: Insulin LISPRO 300 UNITS/3 ML VIAL SQ SCH ×4 (09:51→19:47)
[2019-01-04] MEDS: Metoprolol XL (24 HR) Succ 25 MG TAB.ER.24H PO SCH (09:51)
[2019-01-04] MEDS: traMADol 50 MG TABLET PO PRN ×2 (09:51→17:53)
[2019-01-04] MEDS: Insulin DETEMIR 100 UNIT/ML X5UNITS SQ SCH (19:50)
[2019-01-05] MEDS: Lactulose Oral Soln 20 GM/30 ML UDC PO SCH (09:14)
[2019-01-05] MEDS: Aspirin 81 MG TAB.CHEW PO SCH (09:15)
[2019-01-05] MEDS: Furosemide 20 MG TABLET PO SCH (09:15)
[2019-01-05] MEDS: traMADol 50 MG TABLET PO PRN ×2 (09:15→16:49)
[2019-01-05] MEDS: Pregabalin 50 MG CAPSULE PO SCH ×3 (09:15→19:51)
[2019-01-05] MEDS: Metoprolol XL (24 HR) Succ 25 MG TAB.ER.24H PO SCH (09:15)
[2019-01-05] MEDS: Apixaban 5 MG TABLET PO SCH ×2 (09:15→19:51)
[2019-01-05] MEDS: Insulin LISPRO 300 UNITS/3 ML VIAL SQ SCH ×4 (09:16→19:55)
[2019-01-05] MEDS: Nicotine 21 MG PATCH.TD24 TD SCH (09:16)
[2019-01-05] MEDS: Insulin DETEMIR 100 UNIT/ML X5UNITS SQ SCH (19:51)
[2019-01-06] MEDS: MOM Conc 10 ML UD.LIQ PO SCH ×2 (09:09→12:36)
[2019-01-06] MEDS: Furosemide 20 MG TABLET PO SCH (09:10)
[2019-01-06] MEDS: Apixaban 5 MG TABLET PO SCH ×2 (09:10→20:34)
[2019-01-06] MEDS: Aspirin 81 MG TAB.CHEW PO SCH (09:10)
[2019-01-06] MEDS: Metoprolol XL (24 HR) Succ 25 MG TAB.ER.24H PO SCH (09:10)
[2019-01-06] MEDS: Nicotine 21 MG PATCH.TD24 TD SCH (09:11)
[2019-01-06] MEDS: traMADol 50 MG TABLET PO PRN ×2 (09:11→16:06)
[2019-01-06] MEDS: Insulin LISPRO 300 UNITS/3 ML VIAL SQ SCH ×4 (09:11→20:35)
[2019-01-06] MEDS: Pregabalin 50 MG CAPSULE PO SCH ×3 (09:11→20:34)
[2019-01-06] MEDS ORDERED: Bisacodyl 10 MG RECTAL SUPPOSITORY RC ONE (11:50)
[2019-01-06] MEDS ORDERED: Insulin DETEMIR 100 UNIT/ML X5UNITS SQ ONE (11:50)
[2019-01-06 14:51] LABS: Bilirubin,Urine Negative (Negative); Blood,Urine Trace (Negative); Clarity,Urine Clear (Clear); Color,Urine Yellow (Yellow); Glucose,Urine (UA) >=1000 mg/dL (Normal); Ketones,Urine Negative (Negative); Leukocyte Esterase,Urine Negative (Negative); Nitrite,Urine Positive (Negative); Protein,Urine Negative (Neg-Trace); Specific Gravity,Urine > 1.030 (1.010-1.025); Urobilinogen,Urine Normal (Normal)
[2019-01-06 14:52] LABS: Bacteria,Urine Many per hpf (None-Few); Hyaline Casts,Urine None Seen per lpf (None-Few); RBC,Urine 0-3 per hpf (0-3); Squamous Epithelial Cell,Urine Many per lpf (None-Few)
[2019-01-06] MEDS ORDERED: Milk and Molasses Enema 200 ML RC ONE (15:19)
[2019-01-06] MEDS: Insulin DETEMIR 100 UNIT/ML X5UNITS SQ SCH (20:35)
[2019-01-06] MEDS ORDERED: Sulfamethoxazole/Trimeth DS 1 EACH TABLET PO SCH (21:00)
[2019-01-07] MEDS ORDERED: CefTRIAXone 1,000 MG VIAL ONE (15:03)
[2019-01-07] MEDS ORDERED: SODIUM CHLORIDE/NAHCO3/KCL/PEG 4,000 ML SOLN.RECON PO ONE (17:00)
[2019-01-07] MEDS: Apixaban 5 MG TABLET PO SCH ×2 (20:49→21:25)
[2019-01-07] MEDS: Pregabalin 50 MG CAPSULE PO SCH ×3 (20:49→21:30)
[2019-01-07] MEDS: Ondansetron 4 MG/2 ML VIAL IVP PRN (20:53)
[2019-01-07] MEDS: Insulin LISPRO 300 UNITS/3 ML VIAL SQ SCH ×4 (20:55→21:31)
[2019-01-07] MEDS: Insulin DETEMIR 100 UNIT/ML X5UNITS SQ SCH (20:55)
[2019-01-07] MEDS: cefTRIAXone 1,000 MG in Water for inj. (sterile) 10 ML IVPB SCH ×2 (21:14→21:29)
[2019-01-07] MEDS: Aspirin 81 MG TAB.CHEW PO SCH (21:25)
[2019-01-07] MEDS: Furosemide 20 MG TABLET PO SCH (21:26)
[2019-01-07] MEDS: Nicotine 21 MG PATCH.TD24 TD SCH (21:27)
[2019-01-07] MEDS: Metoprolol XL (24 HR) Succ 25 MG TAB.ER.24H PO SCH (21:28)
[2019-01-07] MEDS ORDERED: cefTRIAXone 1,000 MG in Water for inj. (sterile) 10 ML IVPB SCH (22:00)
[2019-01-08] MEDS: cefTRIAXone 1,000 MG in Water for inj. (sterile) 10 ML IVPB SCH (08:56)
[2019-01-08] MEDS: Nicotine 21 MG PATCH.TD24 TD SCH (08:56)
[2019-01-08] MEDS: Apixaban 5 MG TABLET PO SCH ×2 (08:56→20:33)
[2019-01-08] MEDS: Pregabalin 50 MG CAPSULE PO SCH ×3 (08:56→20:32)
[2019-01-08] MEDS: Metoprolol XL (24 HR) Succ 25 MG TAB.ER.24H PO SCH (08:56)
[2019-01-08] MEDS: Aspirin 81 MG TAB.CHEW PO SCH (08:56)
[2019-01-08] MEDS: Furosemide 20 MG TABLET PO SCH (08:57)
[2019-01-08] MEDS: Insulin LISPRO 300 UNITS/3 ML VIAL SQ SCH ×4 (08:57→20:33)
[2019-01-08] MEDS: Insulin DETEMIR 100 UNIT/ML X5UNITS SQ SCH (20:33)
[2019-01-09] MEDS: Aspirin 81 MG TAB.CHEW PO SCH (09:01)
[2019-01-09] MEDS: Pregabalin 50 MG CAPSULE PO SCH ×2 (09:01→16:09)
[2019-01-09] MEDS: Furosemide 20 MG TABLET PO SCH (09:01)
[2019-01-09] MEDS: Metoprolol XL (24 HR) Succ 25 MG TAB.ER.24H PO SCH (09:01)
[2019-01-09] MEDS: Apixaban 5 MG TABLET PO SCH (09:01)
[2019-01-09] MEDS: cefTRIAXone 1,000 MG in Water for inj. (sterile) 10 ML IVPB SCH (09:02)
[2019-01-09] MEDS: Nicotine 21 MG PATCH.TD24 TD SCH (09:02)
[2019-01-09] MEDS: Insulin LISPRO 300 UNITS/3 ML VIAL SQ SCH ×5 (09:02→16:10)
[2019-01-09 16:29] VITALS: BP 132/70
[2019-01-10] MEDS ORDERED: Nitrofurantoin (BID) 100 MG CAPSULE PO SCH (08:00)
== END 2019-01-09 18:40 | DRG 247 ==
LOC: EMEROOARM 15:33 → 2ANU 15:33 → SUATTDRO 01-05 19:25
PROVIDERS: ADMIT Internal Medicine; ATTEND Internal Medicine

== ENCOUNTER 2019-09-05 15:55 | Observation (INO) ==
[2019-09-05 16:39] LABS: Basophils % 0.8 %; Eosinophils # 0.1 K/mcL (0.0-0.6); Eosinophils % 1.7 %; Hematocrit 42.2 % (35.3-44.9); Hemoglobin 13.4 g/dL (11.5-15.4); Immature Granulocytes % 0.2 % (0-4); Lymphocytes # 1.5 K/mcL (0.6-4.6); Mean Corpuscular HGB Conc 31.8 g/dL (31.6-35.5); Mean Corpuscular Hemoglobin 25.3 pg (28.0-33.3); Mean Corpuscular Volume 79.8 fL (83.0-100.0); Mean Platelet Volume 10.4 fL (9.4-12.4); Monocytes # 0.7 K/mcL (0.0-1.3); Neutrophils # 2.4 K/mcL (1.6-8.9); Platelet Count 157 K/mcL (140-400); Red Blood Count 5.29 M/mcL (3.82-4.97); Red Cell Distribution Width 17.1 % (11.5-14.5); Segmented Neutrophils % 51.3 %; White Blood Count 4.7 K/mcL (4.3-11.1)
[2019-09-05 16:45] LABS: Prothrombin Time 11.7 Seconds (9.4-12.1)
[2019-09-05 16:55] LABS: D-Dimer < 215 ng/mLFEU (0-500)
[2019-09-05 16:56] LABS: BUN/Creatinine Ratio 16 (6-26); Blood Urea Nitrogen 11 mg/dL (8-23); Calcium 9.5 mg/dL (8.6-10.3); Carbon Dioxide 21 mEq/L (23-29); Chloride 103 mEq/L (98-107); Glucose 151 mg/dL (70-105); Magnesium 1.7 mg/dL (1.6-2.6); Osmolality,Calculated 286 (280-300); Potassium 2.9 mEq/L (3.5-5.1); Sodium 137 mEq/L (136-145); eGFR For African Americans > 60 (> 60); eGFR For Non-African Americans > 60 (> 60)
[2019-09-05 16:57] LABS: Troponin I < 0.03 ng/mL (< 0.04)
[2019-09-05 16:58] LABS: Acetaminophen < 10 mcg/mL (10-20); Ethanol < 10 mg/dL (Less than 10); Salicylate < 2.5 mg/dL (15.0-30.0)
[2019-09-05 17:10] LABS: Thyroid Stimulating Hormone 2.965 mcIU/mL (0.340-5.600)
[2019-09-05 17:12] LABS: Alanine Aminotransferase 11 Units/L (7-52); Albumin 4.5 g/dL (3.5-5.7); Albumin/Globulin Ratio 1.6 (1.1-2.2); Alkaline Phosphatase 70 Units/L (34-104); Aspartate Amino Transferase 16 Units/L (13-39); Bilirubin,Direct 0.2 mg/dL (0.0-0.2); Bilirubin,Indirect 0.8 mg/dL (0.0-1.0); Globulin 2.8 g/dL (2.4-3.5); Total Protein 7.3 g/dL (6.4-8.9)
[2019-09-05] MEDS ORDERED: Potassium Chloride Elixir 20 MEQ/15 ML UDC PO ONE (17:44)
[2019-09-05] MEDS ORDERED: Naloxone 0.4 MG/ML INJ IVP PRN (18:27)
[2019-09-05 20:26] LABS: Amphetamine Screen,Urine Negative ng/mL (Cutoff=1000); Barbiturate Screen,Urine Negative ng/mL (Cutoff=200); Benzodiazepines Screen,Urine Negative ng/mL (Cutoff=200); Cannabinoid Screen,Urine Negative ng/mL (Cutoff = 50); Cocaine Screen,Urine Negative ng/mL (Cutoff= 300); Opiate Screen,Urine Negative ng/mL (Cutoff=300); Phencyclidine Screen,Urine Negative ng/mL (Cutoff=25)
[2019-09-05 20:43] LABS: Bacteria,Urine Few per hpf (None-Few); Bilirubin,Urine Negative (Negative); Blood,Urine Negative (Negative); Budding Yeast,Urine Few per hpf (None Seen); Clarity,Urine Turbid (Clear); Color,Urine Yellow (Yellow); Glucose,Urine (UA) >=1000 mg/dL (Normal); Ketones,Urine 80 mg/dL (Negative); Leukocyte Esterase,Urine Small (Negative); Mucus,Urine Few per lpf (None-Few); Nitrite,Urine Negative (Negative); Protein,Urine 30 mg/dL (Neg-Trace); Specific Gravity,Urine > 1.030 (1.010-1.025); Squamous Epithelial Cell,Urine Few per hpf (None-Few); Urobilinogen,Urine Normal (Normal); WBC,Urine 15-30 per hpf (0-3)
[2019-09-05] MEDS ORDERED: *HR* Dextrose 50 % in Water (Vial) 50 ML VIAL IVP PRN (21:15)
[2019-09-05] MEDS ORDERED: D5% in Water 1,000 ML IVC PRN (21:15)
[2019-09-05] MEDS ORDERED: Dextrose Gel 15 GM/37.5 ML TUBE PO PRN ×2 (21:15)
[2019-09-05] MEDS ORDERED: Isovue-370 500 ML BOTTLE IVP ONE (21:36)
[2019-09-05] MEDS ORDERED: Ondansetron 4 MG/2 ML VIAL IVP ONE (21:55)
[2019-09-05] MEDS: Nitroglycerin 0.4 MG TAB.SUBL SL PRN (23:12)
[2019-09-06 00:28] LABS: Basophils % 0.7 %; Hematocrit 39.3 % (35.3-44.9); Hemoglobin 12.4 g/dL (11.5-15.4); Immature Granulocytes % 0.7 % (0-4); Lymphocytes # 1.4 K/mcL (0.6-4.6); Lymphocytes % 34.4 %; Mean Corpuscular HGB Conc 31.6 g/dL (31.6-35.5); Mean Corpuscular Hemoglobin 25.4 pg (28.0-33.3); Mean Corpuscular Volume 80.4 fL (83.0-100.0); Mean Platelet Volume 10.9 fL (9.4-12.4); Monocytes # 0.7 K/mcL (0.0-1.3); Monocytes % 17.5 %; Platelet Count 136 K/mcL (140-400); Red Blood Count 4.89 M/mcL (3.82-4.97); Red Cell Distribution Width 17.1 % (11.5-14.5); Segmented Neutrophils % 46.7 %; White Blood Count 4.2 K/mcL (4.3-11.1)
[2019-09-06] MEDS ORDERED: *HR* Promethazine 25 MG/ML VIAL IVP PRN (00:36)
[2019-09-06 00:45] LABS: Alanine Aminotransferase 10 Units/L (7-52); Albumin 3.9 g/dL (3.5-5.7); Albumin/Globulin Ratio 1.6 (1.1-2.2); Alkaline Phosphatase 57 Units/L (34-104); Aspartate Amino Transferase 15 Units/L (13-39); BUN/Creatinine Ratio 17 (6-26); Bilirubin,Total 0.9 mg/dL (0.3-1.0); Blood Urea Nitrogen 10 mg/dL (8-23); Calcium 8.6 mg/dL (8.6-10.3); Carbon Dioxide 21 mEq/L (23-29); Chloride 105 mEq/L (98-107); Globulin 2.4 g/dL (2.4-3.5); Glucose 175 mg/dL (70-105); Osmolality,Calculated 285 (280-300); Potassium 2.9 mEq/L (3.5-5.1); Sodium 136 mEq/L (136-145); Total Protein 6.3 g/dL (6.4-8.9); eGFR For African Americans > 60 (> 60); eGFR For Non-African Americans > 60 (> 60)
[2019-09-06 00:46] LABS: Troponin I < 0.03 ng/mL (< 0.04)
[2019-09-06 00:57] LABS: Estimated Average Glucose 223 mg/dl
[2019-09-06] MEDS ORDERED: Potassium Chloride Elixir 20 MEQ/15 ML UDC PO ONE (03:06)
[2019-09-06] MEDS ORDERED: Potassium Chloride 40 MEQ, Lidocaine 1% 2 ML in 0.9 % Sodium Chloride 500 ML IVPB ONE (03:47)
[2019-09-06] MEDS ORDERED: Regadenoson 0.4 MG/5 ML SYRINGE IVP ONE (06:35)
[2019-09-06] MEDS: Insulin LISPRO 300 UNITS/3 ML VIAL SQ SCH ×3 (09:07→17:05)
[2019-09-06 09:50] LABS: BUN/Creatinine Ratio 15 (6-26); Blood Urea Nitrogen 10 mg/dL (8-23); Calcium 8.7 mg/dL (8.6-10.3); Carbon Dioxide 23 mEq/L (23-29); Chloride 107 mEq/L (98-107); Glucose 161 mg/dL (70-105); Osmolality,Calculated 287 (280-300); Potassium 3.5 mEq/L (3.5-5.1); Sodium 137 mEq/L (136-145); eGFR For African Americans > 60 (> 60); eGFR For Non-African Americans > 60 (> 60)
[2019-09-06 12:25] LABS: Chol/HDL Ratio 6.3 (0-4.9); Cholesterol 133 mg/dL (< 200); HDL Cholesterol 21 mg/dL (40-59); LDL Cholesterol,Calculated 89 mg/dL (0-99); Triglycerides 115 mg/dL (< 150)
[2019-09-06] MEDS: 0.9 % Sodium Chloride 1,000 ML IVC SCH (13:32)
[2019-09-06] MEDS: Aspirin 81 MG TAB.CHEW PO SCH (13:33)
[2019-09-06] MEDS: Isosorbide MONOnitrate (24 HR) 30 MG TAB.ER.24H PO SCH (14:09)
[2019-09-06] MEDS: Pregabalin 50 MG CAPSULE PO SCH ×2 (14:09→20:22)
[2019-09-06] MEDS: Apixaban 5 MG TABLET PO SCH ×2 (14:09→20:22)
[2019-09-06] MEDS: Nitroglycerin 0.4 MG TAB.SUBL SL PRN (19:02)
[2019-09-06] MEDS: Sucralfate 1 GM TABLET PO SCH (20:22)
[2019-09-06] MEDS: QUEtiapine Fumarate 25 MG TABLET PO SCH (20:22)
[2019-09-06] MEDS ORDERED: Melatonin 3 MG TABLET PO SCH (21:00)
[2019-09-06] MEDS: (Propafenone Hcl [Propafenone Hcl Er] 325 MG) PO SCH (21:19)
[2019-09-07] MEDS: 0.9 % Sodium Chloride 1,000 ML IVC SCH ×2 (03:18→03:52)
[2019-09-07 06:13] LABS: Basophils % 0.4 %; Immature Granulocytes % 0.2 % (0-4); Lymphocytes # 0.9 K/mcL (0.6-4.6); Lymphocytes % 19.6 %; Mean Corpuscular HGB Conc 30.3 g/dL (31.6-35.5); Mean Corpuscular Hemoglobin 25.6 pg (28.0-33.3); Mean Corpuscular Volume 84.7 fL (83.0-100.0); Mean Platelet Volume 10.6 fL (9.4-12.4); Monocytes # 0.6 K/mcL (0.0-1.3); Monocytes % 12.5 %; Platelet Count 123 K/mcL (140-400); Red Blood Count 4.37 M/mcL (3.82-4.97); Red Cell Distribution Width 17.4 % (11.5-14.5); Segmented Neutrophils % 67.3 %; White Blood Count 4.5 K/mcL (4.3-11.1)
[2019-09-07 06:14] LABS: Hemoglobin 11.2 g/dL (11.5-15.4)
[2019-09-07 06:47] LABS: BUN/Creatinine Ratio 12 (6-26); Blood Urea Nitrogen 9 mg/dL (8-23); Calcium 8.4 mg/dL (8.6-10.3); Carbon Dioxide 21 mEq/L (23-29); Chloride 107 mEq/L (98-107); Glucose 299 mg/dL (70-105); Magnesium 1.8 mg/dL (1.6-2.6); Osmolality,Calculated 294 (280-300); Potassium 3.3 mEq/L (3.5-5.1); Sodium 137 mEq/L (136-145); eGFR For African Americans > 60 (> 60); eGFR For Non-African Americans > 60 (> 60)
[2019-09-07 07:58] VITALS: BP 115/67
[2019-09-07] MEDS: Isosorbide MONOnitrate (24 HR) 30 MG TAB.ER.24H PO SCH (08:31)
[2019-09-07] MEDS: Sucralfate 1 GM TABLET PO SCH (08:31)
[2019-09-07] MEDS: QUEtiapine Fumarate 25 MG TABLET PO SCH (08:31)
[2019-09-07] MEDS: Insulin LISPRO 300 UNITS/3 ML VIAL SQ SCH (08:32)
[2019-09-07] MEDS: Aspirin 81 MG TAB.CHEW PO SCH (08:32)
[2019-09-07] MEDS: Pregabalin 50 MG CAPSULE PO SCH (08:32)
[2019-09-07] MEDS: Apixaban 5 MG TABLET PO SCH (08:32)
[2019-09-07] MEDS: (Propafenone Hcl [Propafenone Hcl Er] 325 MG) PO SCH (08:33)
[2019-09-07] MEDS ORDERED: Potassium Chloride Elixir 20 MEQ/15 ML UDC PO ONE (08:41)
[2019-09-07] MEDS ORDERED: Insulin LISPRO 300 UNITS/3 ML VIAL SQ SCH (08:42)
[2019-09-07] MEDS ORDERED: Metoprolol XL (24 HR) Succ 50 MG TAB.ER.24H PO SCH (09:00)
[2019-09-07] MEDS ORDERED: lisinopriL 5 MG TABLET PO SCH (09:00)
[2019-09-07] MEDS ORDERED: Spironolactone 25 MG TABLET PO SCH (09:00)
== END 2019-09-07 13:22 | disposition home or self-care (01) ==
LOC: EMEROOARM 15:55 → 3BNU 15:55 → SUATTDRO 19:58 → 3BNU 20:27
PROVIDERS: ADMIT Internal Medicine; ATTEND Internal Medicine

== ENCOUNTER 2020-02-17 22:34 | Observation (INO) ==
[2020-02-17 23:09] LABS: Basophils # 0.1 K/mcL (0.0-0.2); Basophils % 0.5 %; Eosinophils % 0.2 %; Hemoglobin 14.1 g/dL (11.5-15.4); Immature Granulocytes % 0.3 % (0-4); Lymphocytes # 1.3 K/mcL (0.6-4.6); Lymphocytes % 12.4 %; Mean Corpuscular Hemoglobin 27.3 pg (28.0-33.3); Mean Corpuscular Volume 85.3 fL (83.0-100.0); Mean Platelet Volume 10.6 fL (9.4-12.4); Monocytes # 0.8 K/mcL (0.0-1.3); Monocytes % 7.2 %; Neutrophils # 8.4 K/mcL (1.6-8.9); Platelet Count 155 K/mcL (140-400); Red Blood Count 5.16 M/mcL (3.82-4.97); Red Cell Distribution Width 15.9 % (11.5-14.5); Segmented Neutrophils % 79.4 %; White Blood Count 10.5 K/mcL (4.3-11.1)
[2020-02-17 23:27] LABS: Alanine Aminotransferase 8 Units/L (7-52); Albumin 4.2 g/dL (3.5-5.7); Albumin/Globulin Ratio 1.7 (1.1-2.2); Alkaline Phosphatase 66 Units/L (34-104); Aspartate Amino Transferase 14 Units/L (13-39); BUN/Creatinine Ratio 20 (6-26); Bilirubin,Total 0.7 mg/dL (0.3-1.0); Blood Urea Nitrogen 15 mg/dL (8-23); Calcium 8.8 mg/dL (8.6-10.3); Carbon Dioxide 23 mEq/L (23-29); Chloride 107 mEq/L (98-107); Globulin 2.5 g/dL (2.4-3.5); Glucose 92 mg/dL (70-105); Osmolality,Calculated 286 (280-300); Potassium 3.5 mEq/L (3.5-5.1); Sodium 138 mEq/L (136-145); Total Protein 6.7 g/dL (6.4-8.9); Troponin I < 0.03 ng/mL (< 0.04); eGFR For African Americans > 60 (> 60); eGFR For Non-African Americans > 60 (> 60)
[2020-02-17 23:40] LABS: Bacteria,Urine Moderate per hpf (None-Few); Bilirubin,Urine Negative (Negative); Blood,Urine Negative (Negative); Clarity,Urine Turbid (Clear); Color,Urine Yellow (Yellow); Glucose,Urine (UA) >=1000 mg/dL (Normal); Ketones,Urine Negative (Negative); Leukocyte Esterase,Urine Negative (Negative); Mucus,Urine Moderate per lpf (None-Few); Nitrite,Urine Negative (Negative); Protein,Urine 30 mg/dL (Neg-Trace); RBC,Urine 0-3 per hpf (0-3); Specific Gravity,Urine > 1.030 (1.010-1.025)
[2020-02-18] MEDS ORDERED: 0.9 % Sodium Chloride 1,000 ML IVC ONE (00:05)
[2020-02-18] MEDS ORDERED: Ondansetron 4 MG/2 ML VIAL IVP PRN (00:47)
[2020-02-18] MEDS ORDERED: Acetaminophen 325 MG TABLET PO PRN (00:47)
[2020-02-18] MEDS ORDERED: Dextrose Gel 15 GM/37.5 ML TUBE PO PRN ×2 (01:06)
[2020-02-18] MEDS ORDERED: D5% in Water 1,000 ML IVC PRN (01:06)
[2020-02-18] MEDS ORDERED: *HR* Dextrose 50 % in Water (Vial) 50 ML VIAL IVP PRN (01:06)
[2020-02-18] MEDS: cefTRIAXone 1,000 MG in Water for inj. (sterile) 10 ML IVP SCH ×2 (01:47→17:15)
[2020-02-18] MEDS: D5% in 0.45% NACL w KCl 20 MEQ/1,000 ML MLS IVC SCH ×2 (06:11→21:05)
[2020-02-18 08:57] LABS: Hematocrit 38.4 % (35.3-44.9); Mean Corpuscular HGB Conc 32.6 g/dL (31.6-35.5); Mean Corpuscular Hemoglobin 27.4 pg (28.0-33.3); Mean Corpuscular Volume 84.2 fL (83.0-100.0); Mean Platelet Volume 11.5 fL (9.4-12.4); Platelet Count 137 K/mcL (140-400); Red Blood Count 4.56 M/mcL (3.82-4.97); Red Cell Distribution Width 15.9 % (11.5-14.5); White Blood Count 7.1 K/mcL (4.3-11.1)
[2020-02-18 09:06] LABS: Hemoglobin 12.5 g/dL (11.5-15.4)
[2020-02-18 09:10] LABS: BUN/Creatinine Ratio 18 (6-26); Blood Urea Nitrogen 12 mg/dL (8-23); Calcium 8.7 mg/dL (8.6-10.3); Carbon Dioxide 24 mEq/L (23-29); Chloride 109 mEq/L (98-107); Glucose 96 mg/dL (70-105); Magnesium 1.5 mg/dL (1.6-2.6); Osmolality,Calculated 288 (280-300); Phosphorous 3.6 mg/dL (2.7-4.5); Potassium 3.2 mEq/L (3.5-5.1); Sodium 139 mEq/L (136-145); Troponin I < 0.03 ng/mL (< 0.04); eGFR For African Americans > 60 (> 60); eGFR For Non-African Americans > 60 (> 60)
[2020-02-18] MEDS: Metoprolol XL (24 HR) Succ 50 MG TAB.ER.24H PO SCH (09:36)
[2020-02-18] MEDS: Isosorbide MONOnitrate (24 HR) 30 MG TAB.ER.24H PO SCH (09:36)
[2020-02-18] MEDS: Aspirin 81 MG TAB.CHEW PO SCH (09:36)
[2020-02-18] MEDS: Apixaban 5 MG TABLET PO SCH ×2 (09:37→19:58)
[2020-02-18] MEDS: QUEtiapine Fumarate 25 MG TABLET PO SCH ×2 (09:37→19:58)
[2020-02-18] MEDS: lisinopriL 5 MG TABLET PO SCH (09:37)
[2020-02-18] MEDS: PROPAFENONE HCL PO SCH (09:37)
[2020-02-18] MEDS: Spironolactone 25 MG TABLET PO SCH (09:37)
[2020-02-18 15:41] LABS: Estimated Average Glucose 192 mg/dl
[2020-02-19] MEDS: PROPAFENONE HCL PO SCH ×2 (00:50→10:03)
[2020-02-19 06:31] LABS: Basophils % 0.8 %; Eosinophils # 0.1 K/mcL (0.0-0.6); Eosinophils % 1.2 %; Hematocrit 36.8 % (35.3-44.9); Immature Granulocytes % 0.2 % (0-4); Mean Corpuscular HGB Conc 32.6 g/dL (31.6-35.5); Mean Corpuscular Hemoglobin 28.3 pg (28.0-33.3); Mean Corpuscular Volume 86.8 fL (83.0-100.0); Mean Platelet Volume 11.3 fL (9.4-12.4); Monocytes # 0.7 K/mcL (0.0-1.3); Monocytes % 13.7 %; Neutrophils # 2.3 K/mcL (1.6-8.9); Platelet Count 122 K/mcL (140-400); Red Blood Count 4.24 M/mcL (3.82-4.97); Red Cell Distribution Width 16.2 % (11.5-14.5); Segmented Neutrophils % 45.1 %
[2020-02-19 06:43] LABS: BUN/Creatinine Ratio 16 (6-26); Blood Urea Nitrogen 11 mg/dL (8-23); Calcium 8.6 mg/dL (8.6-10.3); Carbon Dioxide 23 mEq/L (23-29); Chloride 110 mEq/L (98-107); Glucose 79 mg/dL (70-105); Osmolality,Calculated 286 (280-300); Potassium 3.4 mEq/L (3.5-5.1); Sodium 139 mEq/L (136-145); eGFR For African Americans > 60 (> 60); eGFR For Non-African Americans > 60 (> 60)
[2020-02-19] MEDS: QUEtiapine Fumarate 25 MG TABLET PO SCH ×2 (08:05→23:15)
[2020-02-19] MEDS: Aspirin 81 MG TAB.CHEW PO SCH (08:05)
[2020-02-19] MEDS: Apixaban 5 MG TABLET PO SCH ×2 (08:06→23:15)
[2020-02-19] MEDS: Spironolactone 25 MG TABLET PO SCH (08:06)
[2020-02-19] MEDS: Metoprolol XL (24 HR) Succ 50 MG TAB.ER.24H PO SCH (08:07)
[2020-02-19] MEDS: Isosorbide MONOnitrate (24 HR) 30 MG TAB.ER.24H PO SCH (08:07)
[2020-02-19] MEDS: lisinopriL 5 MG TABLET PO SCH (08:07)
[2020-02-19] MEDS: D5% in 0.45% NACL w KCl 20 MEQ/1,000 ML MLS IVC SCH ×3 (10:05→23:50)
[2020-02-19 11:13] LABS: Magnesium 1.6 mg/dL (1.6-2.6)
[2020-02-19] MEDS: cefTRIAXone 1,000 MG in Water for inj. (sterile) 10 ML IVP SCH (16:41)
[2020-02-20] MEDS: PROPAFENONE HCL PO SCH ×2 (04:05→10:07)
[2020-02-20 06:24] LABS: Basophils % 0.9 %; Eosinophils % 0.2 %; Hematocrit 39.9 % (35.3-44.9); Hemoglobin 12.5 g/dL (11.5-15.4); Immature Granulocytes % 0.2 % (0-4); Lymphocytes # 1.6 K/mcL (0.6-4.6); Lymphocytes % 37.1 %; Mean Corpuscular HGB Conc 31.3 g/dL (31.6-35.5); Mean Corpuscular Hemoglobin 26.9 pg (28.0-33.3); Mean Corpuscular Volume 85.8 fL (83.0-100.0); Mean Platelet Volume 10.6 fL (9.4-12.4); Monocytes # 0.7 K/mcL (0.0-1.3); Monocytes % 16.3 %; Platelet Count 104 K/mcL (140-400); Red Blood Count 4.65 M/mcL (3.82-4.97); Red Cell Distribution Width 16.2 % (11.5-14.5); Segmented Neutrophils % 45.3 %; White Blood Count 4.4 K/mcL (4.3-11.1)
[2020-02-20 06:26] LABS: BUN/Creatinine Ratio 14 (6-26); Blood Urea Nitrogen 10 mg/dL (8-23); Carbon Dioxide 24 mEq/L (23-29); Chloride 111 mEq/L (98-107); Glucose 146 mg/dL (70-105); Osmolality,Calculated 290 (280-300); Potassium 4.4 mEq/L (3.5-5.1); Sodium 139 mEq/L (136-145); eGFR For African Americans > 60 (> 60); eGFR For Non-African Americans > 60 (> 60)
[2020-02-20] MEDS: Aspirin 81 MG TAB.CHEW PO SCH (10:06)
[2020-02-20] MEDS: Isosorbide MONOnitrate (24 HR) 30 MG TAB.ER.24H PO SCH (10:06)
[2020-02-20] MEDS: Metoprolol XL (24 HR) Succ 50 MG TAB.ER.24H PO SCH (10:06)
[2020-02-20] MEDS: Spironolactone 25 MG TABLET PO SCH (10:06)
[2020-02-20] MEDS: QUEtiapine Fumarate 25 MG TABLET PO SCH (10:07)
[2020-02-20] MEDS: Apixaban 5 MG TABLET PO SCH (10:07)
[2020-02-20] MEDS: lisinopriL 5 MG TABLET PO SCH (10:07)
[2020-02-20 14:31] VITALS: BP 98/62
[2020-02-20] MEDS ORDERED: *HR* Glimepiride 4 MG TABLET PO SCH (15:45)
[2020-02-20] MEDS: cefTRIAXone 1,000 MG in Water for inj. (sterile) 10 ML IVP SCH (16:36)
== END 2020-02-20 18:05 ==
LOC: 3BNU 22:34 → EMEROOARM 22:34 → SUATTDRO 02-18 00:46 → 3BNU 02-18 01:31
PROVIDERS: ADMIT Internal Medicine; ATTEND Family Medicine